=== PATIENT | female | born 1945 | race Caucasian/White ===

== ENCOUNTER 2022-11-27 06:39 | Outpatient (OUT) | payer MEDICARE, SELFPAY ==
[2022-11-27 06:48] LABS: Basophils Percent Auto 0.6 % (0.2-2.0); Eosinophils Absolute Auto 0.4 10^3/uL (0.0-0.7); Eosinophils Percent Auto 5.7 % (0.9-7.0); Hematocrit 41.4 % (36.0-48.0); Hemoglobin 13.7 g/dL (12.0-16.0); Immature Granulocytes Abs Auto 0.01 10^3/uL (0.00-0.03); Immature Granulocytes Pct Auto 0.1 % (0.0-0.5); Lymphocytes Absolute Auto 2.9 10^3/uL (1.2-3.8); Lymphocytes Percent Auto 42.7 % (20.5-60.0); Mean Corpuscular HGB Conc 33.1 g/dL (29.9-35.2); Mean Corpuscular Hemoglobin 30.2 pg (26.7-34.0); Mean Corpuscular Volume 91.2 fL (81.0-99.0); Mean Platelet Volume 9.2 fL (9.5-13.5); Monocytes Absolute Auto 0.6 10^3/uL (0.3-0.8); Neutrophils Absolute Auto 2.8 10^3/uL (1.4-6.5); Neutrophils Percent Auto 41.9 % (43.0-75.0); Platelet Count 341 10^3/uL (150-450); Red Blood Count 4.54 10^6/uL (4.20-5.40); Red Cell Distribution Width 13.9 % (11.0-15.0); White Blood Count 6.7 10^3/uL (4.0-11.0)
[2022-11-27 07:07] LABS: Estimated Average Glucose 114 mg/dL; Glycohemoglobin A1C 5.6 % (4.5-6.2)
[2022-11-27 07:20] LABS: Alanine Aminotransferase 25 U/L (14-59); Albumin Level 3.3 g/dL (3.4-5.0); Alkaline Phosphatase 54 U/L (46-116); Anion Gap 10.4; Aspartate Amino Transferase 17 U/L (15-37); Bilirubin Total 0.4 mg/dL (0.2-1.0); Calcium 8.5 mg/dL (8.5-10.1); Carbon Dioxide 29.3 mmol/L (21.0-32.0); Chloride 107 mmol/L (98-107); Chol HDL Ratio 3.4; Cholesterol 174 mg/dL (<=200); Estimated GFR (African America >60 (>=60); Estimated GFR (Non-African Ame >60 (>=60); Free T3 2.24 pg/mL (2.18-3.98); Globulin 3.2 g/dL; Glucose 93 mg/dL (74-106); HDL Cholesterol 51 mg/dL (40-60); LDL Cholesterol Calculated 98.2 mg/dL; Potassium 3.7 mmol/L (3.5-5.1); Sodium 143 mmol/L (136-145); Thyroid Stimulating Hormone 1.424 uIU/mL (0.358-3.740); Total Protein 6.5 g/dL (6.4-8.2); Triglycerides 124 mg/dL (<=150); VLDL CHOLESTEROL 24.8 mg/dL
[2022-11-28 12:08] LABS: Insulin 7.1 uIU/mL (2.6-24.9)
== END 2022-11-27 06:40 | disposition home or self-care (01) ==
LOC: LAB 06:40
PROVIDERS: PCP Family Medicine; Visit Provider Family Medicine
DX: R53.83 Other fatigue (principal); G47.00 Insomnia, unspecified; I10 Essential (primary) hypertension; E78.5 Hyperlipidemia, unspecified; R73.09 Other abnormal glucose; Z12.12 Encounter for screening for malignant neoplasm of rectum; D64.9 Anemia, unspecified; E55.9 Vitamin D deficiency, unspecified
CPT/HCPCS: 36415; 80053; 80061; 82306; 83036; 83525; 83540; 84436; 84443; 84481; 85025

== ENCOUNTER 2022-12-09 09:28 | Outpatient (OUT) | payer MEDICARE, SELFPAY ==
--- NOTE | 2022-12-09 09:34 | CT_ITS ---
[address] [address] Patient Name: EMANUEL WISE MRN: [id number] date: 1945 Sex: F Assigned Patient Location: CT Current Patient Location: CT Accession/Order Number: [id number] Exam Date: 12/09/2022 09:38 Report Date: 12/09/2022 15:27 At the request of: FELIX RAMOS Procedure: CT knee LT wo con EXAMINATION: CT knee LT wo con HISTORY: Knee Pain M25.569 , pain for several months, no known injury COMPARISON: No relevant comparison available. TECHNIQUE: Multi-planar CT images were created without and/or with IV contrast according to examination type. Dose reduction techniques were achieved by using automated exposure control and/or adjustment of mA and/or kV according to patient size and/or use of iterative reconstruction technique. 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 No appreciable hardware fracture or loosening. No bone fracture dislocation. SOFT TISSUES: No visible soft tissue swelling. EFFUSION: Small joint effusion. OTHER: Negative. CT/CT knee LT wo con IMPRESSION: 1. Prior left knee replacement without appreciable hardware failure or suspicious bone abnormality. 2. Small joint effusion. Electronically authenticated by: ANA NORRIS Date: 12/09/2022 15:27
[2022-12-09 16:04] LABS: Occult Blood Negative
== END 2022-12-09 09:29 | disposition home or self-care (01) ==
LOC: CT 09:28
PROVIDERS: PCP Family Medicine; Visit Provider Family Medicine
DX: M25.569 Pain in unspecified knee (principal); Z96.652 Presence of left artificial knee joint; M25.462 Effusion, left knee; Z12.12 Encounter for screening for malignant neoplasm of rectum
CPT/HCPCS: 73700; G0328

== ENCOUNTER 2023-02-15 07:49 | Outpatient (RCR) | payer MEDICARE, SELFPAY | END 2023-02-28 07:00 | disposition home or self-care (01) | LOC: PT 07:49 | PROVIDERS: PCP Family Medicine; Visit Provider Family Medicine | DX: M25.562 Pain in left knee (principal) | CPT/HCPCS: 97110; 97112; 97161 ==

== ENCOUNTER 2023-02-26 08:25 | Outpatient (OUT) | payer MEDICARE, SELFPAY ==
--- NOTE | 2023-02-26 08:50 | MM_ITS ---
Patient Name: EMANUEL WISE MR#: [id number] : 1945 Exam Date: 02/26/2023 Ordering Doctor: DR Oscar Gil . RADIOLOGY REPORT PROCEDURE: MM TOMOSYNTHESIS SCREENING BI COMPARISON: MG MAMM SCREEN 3D HERBER CAD, 02/19/2021. MG MAMM SCREEN HERBER W CAD, 02/19/2020. MG MAMM HERBER SCRN W CAD DIG, 01/20/2013. MG MAMM SCREEN 3D HERBER CAD, 02/25/2022. INDICATIONS: Screening Calculator Name NCI Breast Cancer Risk Assessment Tool 5 Year Breast Cancer Risk 1.40% Lifetime Breast Cancer Risk 2.90% Personal Breast Cancer No Personal Ovarian Cancer No Treatments None Family Cancers Sister with cervical cancer at age ~30; Mother with ovarian cancer at age ~60. LOCATION: [facility] BREAST COMPOSITION: Scattered areas fibroglandular density. FINDINGS: DIAGNOSTIC CATEGORY 2--BENIGN FINDING: RIGHT BREAST: No significant suspicious finding. No significant change has occurred. LEFT BREAST: No significant suspicious finding. Scattered benign-appearing lymph nodes are present. No significant change has occurred. RECOMMENDATIONS: ROUTINE MAMMOGRAM AND CLINICAL EVALUATION IN 12 MONTHS. PLEASE NOTE: A NORMAL MAMMOGRAM DOES NOT EXCLUDE THE POSSIBILITY OF BREAST CANCER. A CLINICALLY SUSPICIOUS PALPABLE LUMP SHOULD BE BIOPSIED. Dictated by: Gaurav Garcia M.D. on 02/26/2023 at 14:07 Approved by: Gaurav Garcia M.D. on 02/26/2023 at 14:10
== END 2023-02-26 08:26 | disposition home or self-care (01) ==
LOC: MAMMO 08:25
PROVIDERS: PCP Family Medicine; Visit Provider Family Medicine
DX: Z12.31 Encounter for screening mammogram for malignant neoplasm of breast (principal); Z80.8 Family history of malignant neoplasm of other organs or systems; Z80.41 Family history of malignant neoplasm of ovary
CPT/HCPCS: 77063; 77067

== ENCOUNTER 2023-03-01 09:01 | Outpatient (RCR) | payer OTHER, SELFPAY | END 2023-03-25 16:00 | disposition home or self-care (01) | LOC: PT 09:01 | PROVIDERS: PCP Family Medicine; Visit Provider Family Medicine | DX: M25.562 Pain in left knee (principal) | CPT/HCPCS: 97035; 97110; 97112 ==

== ENCOUNTER 2023-03-10 12:26 | Outpatient (OUT) | payer OTHER, SELFPAY ==
--- NOTE | 2023-03-10 | ECG_ITS ---
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
--- OUTSIDE RECORDS SUMMARY | 2023-03-10 12:30 | XMS_ITS | CCD ---
Author Name Unknown Address [address] [place] [address] Organization [facility] Care Team Providers Care Chief Cardiopulmonary Technologist Name Role Phone Felix Ramos Primary Care Provider RICHARD, DR WASHINGTON Admitting Unavailable RICHARD, DR WASHINGTON Attending Unavailable ZARATE, DR JUNE Maldonado Primary Care Unavailable RICHARD, DR WASHINGTON Consulting Unavailable RICHARD, DR WASHINGTON Admitting Unavailable RICHARD, DR WASHINGTON Attending Unavailable JOSHUA, DR JUNE Maldonado Primary Care Unavailable RICHARD, DR WASHINGTON Consulting Unavailable ANGIER, DR EDVIN Roberts Consulting Unavailable RICHARD, DR WASHINGTON Admitting Unavailable RICHARD, DR WASHINGTON Attending Unavailable JOSHUA, DR JUNE Maldonado Primary Care Unavailable RICHARD, DR WASHINGTON Consulting Unavailable June Zarate Unavailable MD June Zarate Attending Provider [phone] June Zarate Attending Unavailable June Zarate Admitting Unavailable Felix Ramos MD Primary Care Provider [phone] [employer]HE FOREMAN Referring Unavailable FELIX RAMOS Primary Care Unavailable BLANCHE FOREMAN Referring Unavailable FELIX RAMOS Primary Care Unavailable MOHINDER LEHMAN Attending Unavailable MOHINDER LEHMAN Admitting Unavailable Allergies Allergy Classification Reported Allergen(s) Allergy Type Date of Onset Reaction(s) Facility (7 sources) Acetaminophen Drug Allergy 0 Shortness Of Breath [place], [place] (1 source) Acetaminophen Drug Allergy 5 [facility] Repository Medications Current Medications Medication Drug Class(es) Dates Sig (Normalized) Sig (Original) cetirizine hydrochloride 10 mg oral tablet (4 sources) Histamine-1 Receptor Antagonist take 1 tablet by mouth once daily cetirizine (ZYRTEC) 10 MG tablet Take 10 mg by mouth daily 0 Active levothyroxine sodium 0.05 mg oral tablet (2 sources) l-Thyroxine take 1 tablet by mouth once daily in the morning Levothyroxine Sodium 50 MCG 1 tablet in the morning on an empty stomach Orally Once a day Active liothyronine sodium 0.005 mg oral tablet (2 sources) l-Triiodothyronine take 1 tablet by mouth every twenty-four hours Liothyronine Sodium 5 MCG 1 tablet on an empty stomach Orally Once a day Active lisinopril 10 mg oral tablet (6 sources) Angiotensin Converting Enzyme Inhibitor Start: 01-27-2020 take 1 tablet by mouth once daily lisinopril (PRINIVIL;ZESTRIL) 10 MG tablet TAKE 1 TABLET BY MOUTH EVERY DAY 0 01/27/2020 Active meloxicam 15 mg oral tablet (6 sources) Nonsteroidal Anti-inflammatory Drug Start: 01-28-2020 take 1 tablet by mouth once daily meloxicam (MOBIC) 15 MG tablet TAKE 1 TABLET BY MOUTH EVERY DAY 0 01/28/2020 Active omeprazole 20 mg delayed release oral capsule (6 sources) Proton Pump Inhibitor Start: 01-11-2020 take 1 capsule by mouth once daily omeprazole (PRILOSEC) 20 MG delayed release capsule TAKE 1 CAPSULE BY MOUTH EVERY DAY 0 01/11/2020 Active simvastatin 40 mg oral tablet (6 sources) HMG-CoA Reductase Inhibitor Start: 01-21-2020 take 1 tablet by mouth once daily simvastatin (ZOCOR) 40 MG tablet TAKE 1 TABLET BY MOUTH EVERY DAY 0 01/21/2020 Active Problems Problem Classification Problem Date Documented Da te Episodic/Chronic Congestive heart failure; nonhypertensive (1 source) Unspecified diastolic (congestive) heart failure; Translations: [UNSPECIFIED DIASTOLIC HEART FAILURE] Onset: 05-09-2021 Chronic Diabetes mellitus without complication (1 source) Type 2 diabetes mellitus without complications; Translations: [TYPE 2 DM WITHOUT COMPLICATIONS] Onset: 01-29-2022 Chronic Diabetes mellitus without complication (1 source) Other abnormal glucose; Translations: [OTHER ABNORMAL GLUCOSE] Onset: 01-29-2022 Episodic Disorders of lipid metabolism (4 sources) Hyperlipidemia, unspecified; Translations: [HYPERLIPIDEMIA UNSPECIFIED] Onset: 01-20-2022 Chronic Essential hypertension (1 source) Essential (primary) hypertension; Translations: [ESSENTIAL PRIMARY HYPERTENSION] Onset: 01-29-2022 Chronic Hypertension with complications and secondary hypertension (1 source) Hypertensive heart disease with heart failure; Translations: [HTN HEART DISEASE W/HEART FAIL] Onset: 05-09-2021 Chronic Inflammatory diseases of female pelvic organs (3 sources) Subacute vaginitis; Translations: [Subacute and chronic vaginitis] Episodic Menopausal disorders (1 source) Other primary ovarian failure; Translations: [OTHER PRIMARY OVARIAN FAILURE] Onset: 02-28-2022 Chronic Nutritional deficiencies (1 source) Vitamin D deficiency, unspecified; Translations: [VITAMIN D DEFICIENCY UNSPECIFIED] Onset: 01-29-2022 Chronic Other aftercare (1 source) Other emt intermediate (current) drug therapy; Translations: [OTH SKILLED NURSING CURRENT DRUG THERAPY] Onset: 01-29-2022 Episodic Other bone disease and musculoskeletal deformities (4 sources) Other specified disorders of bone density and structure, unspecified site; Translations: [OTH D/O BONE DEN STRUCT UNS SITE] Onset: 02-25-2022 Episodic Other connective tissue disease (2 sources) History of revision of left total knee arthroplasty; Translations: [Presence of left artificial knee joint] Onset: 10-20-2022 10-20-2022 Chronic Other connective tissue disease (2 sources) History of total knee arthroplasty; Translations: [Presence of right artificial knee joint] Onset: 10-20-2022 10-20-2022 Chronic Other non-traumatic joint disorders (2 sources) Knee pain; Translations: [Knee pain, unspecified chronicity, unspecified laterality] Episodic Other non-traumatic joint disorders (3 sources) Pain in right knee; Translations: [Other acute pain] Onset: 10-20-2022 Episodic Other non-traumatic joint disorders (1 source) Pain in left knee; Translations: [Pain in left knee] Onset: 10-20-2022 Episodic Other screening for suspected conditions (not mental disorders or infectious disease) (2 sources) Encounter for screening mammogram for malignant neoplasm of breast; Translations: [Encounter for screening for malignant neoplasm of colon] Onset: 01-29-2022 Episodic Residual codes; unclassified (1 source) Family history of malignant neoplasm of ovary; Translations: [FAM HX MALIGNANT NEOPLASM OVARY] Onset: 02-28-2022 Episodic Residual codes; unclassified (1 source) Family history of malignant neoplasm of other organs or systems; Translations: [FAM HX MALIG NEOPLASM OTH ORGN/SYS] Onset: 02-28-2022 Episodic Thyroid disorders (5 sources) Hypothyroidism, unspecified; Translations: [HYPOTHYROIDISM UNSPECIFIED] Onset: 05-08-2021 Chronic Unclassified (1 source) Subacute and chronic vaginitis; Translations: [Subacute and chronic vaginitis] Onset: 06-10-2022 Unclassified (2 sources) M19.011 RIGHT SHOULDER OSTEOARTHRITIS, M75.121 COMPLETE TEAR OF RIGHT ROTATOR CUFF Onset: 03-03-2023 Results Test Name Value Interpretation Reference Range Facility XR KNEE LEFT (MIN 4 VIEWS)on 10-20-2022 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 [facility] EXAM: XR KNEE LEFT (MIN 4 VIEWS) HISTORY: Acute pain of both knees COMPARISON: None. 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 No acute fracture or dislocation. Mild soft tissue swelling. Report electronically signed by: Dr. Manuel Saxena [facility] Manuel Saxena MD - 10/20/2022 EXAM: XR KNEE LEFT (MIN 4 VIEWS) HISTORY: Acute pain of both knees COMPARISON: None. 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 No acute fracture or dislocation. Mild soft tissue swelling. Report electronically signed by: Dr. 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 [facility] Work Phone: XR KNEE LEFT (MIN 4 VIEWS) RADRPT EXAM: XR KNEE LEFT (MIN 4 VIEWS) HISTORY: Acute pain of both knees COMPARISON: None. 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 No acute fracture or dislocation. Mild soft tissue swelling. Report electronically signed by: Dr. 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 Interpreted by: Manuel Saxena MD Signed by: Manuel Saxena MD 10/20/22 Final result Normal [facility] Radiology Study observation (narrative) [facility] Work Phone: XR KNEE LEFT (MIN 4 VIEWS)Or dered By: Manuel Saxena on 10-20-2022 [facility] Work Phone: XR KNEE RIGHT (MIN 4 VIEWS)o n 10-20-2022 No acute findings. Intact prosthesis. [facility] EXAM: XR KNEE RIGHT (MIN 4 VIEWS) HISTORY: Acute pain of both knees COMPARISON: 02/07/2020 TECHNIQUE: 4 views of right knee were obtained FINDINGS: There is no evidence of fracture or dislocation. Prosthetic knee is seen in proper alignment without evidence of loosening. No evidence to suggest a joint effusion. Visualized soft tissues appear unremarkable. Report electronically signed by: Dr. Melisa Jiang [facility] Melisa Jiang MD - 10/20/2022 EXAM: XR KNEE RIGHT (MIN 4 VIEWS) HISTORY: Acute pain of both knees COMPARISON: 02/07/2020 TECHNIQUE: 4 views of right knee were obtained FINDINGS: There is no evidence of fracture or dislocation. Prosthetic knee is seen in proper alignment without evidence of loosening. No evidence to suggest a joint effusion. Visualized soft tissues appear unremarkable. Report electronically signed by: Dr. Melisa Jiang IMPRESSION: No acute findings. Intact prosthesis. [facility] Work Phone: XR KNEE RIGHT (MIN 4 VIEWS) RADRPT EXAM: XR KNEE RIGHT (MIN 4 VIEWS) HISTORY: Acute pain of both knees COMPARISON: 02/07/2020 TECHNIQUE: 4 views of right knee were obtained FINDINGS: There is no evidence of fracture or dislocation. Prosthetic knee is seen in proper alignment without evidence of loosening. No evidence to suggest a joint effusion. Visualized soft tissues appear unremarkable. Report electronically signed by: Dr. Melisa Jiang IMPRESSION: No acute findings. Intact prosthesis. Interpreted by: Melisa Jiang MD Signed by: Melisa Jiang MD 10/20/22 Final result Normal [facility] Radiology Study observation (narrative) [facility] Work Phone: XR KNEE RIGHT (MIN 4 VIEWS)O rdered By: Melisa Jiang on 10-20-2022 [facility] Work Phone: [facility]2022 [facility] Normal [facility] Comment on above: Order Comment: [facility] Test Name: VAGINITIS/VAGINOSIS DNA PROBE # [id number] Result Comment: See report. Scanned copy available in EMR. PERFORMED BY: [place] [address] PATHOLOGIST INTERACTIVE PROJECT MANAGER MEGHAN ESPINO M.D. Performed By: #### [facility] #### [place] [id number] [facility] MG MAMM SCREEN 3D HERBER CADon 02-25-2022 MG MAMM SCREEN 3D HERBER CAD Patient: EMANUEL WISE Exam Date: 02/25/2022 : 1945 Gender:F Ordering : DR FELIX RAMOS . Admission #: [id number] Family : Order #: [id number] CLICK HERE TO VIEW EXAM RADIOLOGY REPORT PROCEDURE: MAMMOGRAM SCREENING 3D BILATERAL CAD COMPARISON: MG MAMM SCREEN 3D HERBER CAD, 02/19/2021. MG MAMM SCREEN HERBER W CAD, 02/19/2020. INDICATIONS: Screening mammography Calculator Name NCI Breast Cancer Risk Assessment Tool 5 Year Breast Cancer Risk 1.40% Lifetime Breast Cancer Risk 3.10% Personal Breast Cancer No Personal Ovarian Cancer No Treatments None Family Cancers Sister with cervical cancer at age 30; Mother with ovarian cancer at age 60. LOCATION: [facility] BREAST COMPOSITION: Scattered areas fibroglandular density. FINDINGS: DIAGNOSTIC CATEGORY 2--BENIGN FINDING. NO CHANGE FROM COMPARISON. Scattered benign-appearing nodules are present. Scattered benign-appearing calcifications are present. Scattered benign-appearing lymph nodes are present. RIGHT BREAST: No significant suspicious finding. LEFT BREAST: No significant suspicious finding. RECOMMENDATIONS: ROUTINE MAMMOGRAM AND CLINICAL EVALUATION IN 12 MONTHS. PLEASE NOTE: A NORMAL MAMMOGRAM DOES NOT EXCLUDE THE POSSIBILITY OF BREAST CANCER. A CLINICALLY SUSPICIOUS PALPABLE LUMP SHOULD BE BIOPSIED. Dictated by: Edvin Su MD on 02/26/2022 at 11:38 Approved by: Edvin Su MD on 02/26/2022 at 11:40 Normal [facility] XR DEXA BONE DENSITYon 02-25 XR DEXA BONE DENSITY EXAMINATION: XR DEXA BONE DENSITY, 02/25/2022 1:26 PM EST HISTORY: Primary ovarian failure COMPARISON: 2019, 2015, 2010 TECHNIQUE: Dual-energy X-ray absorptiometry (DEXA) bone density study performed for the axial skeleton. FINDINGS: Bone mineral density AP spine L1-L4 measures 1.339 g/sq cm. T score 1.3. WHO classification: Normal. Bone mineral density is lowest in the left femoral neck measuring 0.911 g/sq cm. T score -0.9. WHO classification: Normal IMPRESSION: Normal bone mineral density. Low fracture risk Electronically authenticated by: EDVIN SU Date: 2022-02-25 16:21 Normal [facility] INSULINon 01-21-2022 Insulin 6.3 uIU/mL Normal 2.6-24.9 [facility] Comment on above: Performed By: #### V ITAD, IRON #### [facility] [address] [place] [address] Dr. Gabby Briones BILIRUBIN CONJUGATED (DIRECT )on 01-20-2022 BILI, CONJUGATED 0.1 mg/dL Normal 0.0-0.2 [facility] Comment on above: Performed By: #### T SH, DBIL, CMP, LIPID, FT3, T4 #### [facility] [address] [place] [address] Dr. Gabby Briones CBC AUTO DIFFon 01-20-2022 BASO # 0.0 103/ul Normal 0.0-0.1 [facility] Comment on above: Performed By: #### V ITAD, IRON #### [facility] [address] [place] [address] Dr. Gabby Briones Basophils/100 WBC (Bld) 0.6 % Normal 0.2-2.0 [facility] Comment on above: Performed By: #### V ITAD, IRON #### [facility] [address] [place] [address] Dr. Gabby Briones EO # 0.4 103/ul Normal 0.0-0.7 [facility] Comment on above: Performed By: #### V ITAD, IRON #### [facility] [address] [place] [address] Dr. Gabby Briones Eosinophils/100 WBC (Bld) 6.0 % Normal 0.9-7.0 [facility] Comment on above: Performed By: #### V ITAD, IRON #### [facility] [address] [place] [address] Dr. Gabby Briones Erythrocyte distribution width (RBC) [Ratio] 13.7 % Normal 11.0-15.0 [facility] Comment on above: Performed By: #### V ITAD, IRON #### [facility] [address] [place] [address] Dr. Gabby Briones Hematocrit (Bld) [Volume fraction] 41.9 % Normal 36.0-48.0 [facility] Comment on above: Performed By: #### V ITAD, IRON #### [facility] [address] [place] [address] Dr. Gabby Briones Hemoglobin (Bld) [Mass/Vol] 14.0 g/dL Normal 12.0-16.0 [facility] Comment on above: Performed By: #### V ITAD, IRON #### [facility] [address] [place] [address] Dr. Gabby Briones IG # 0.02 10e3/ul Normal 0.00-0.03 [facility] Comment on above: Performed By: #### V ITAD, IRON #### [facility] [address] [place] [address] Dr. Gabby Briones IG % 0.3 % Normal 0.0-0.5 [facility] Comment on above: Performed By: #### V ITAD, IRON #### [facility] [address] [place] [address] Dr. Gabby Briones LYMPH # 2.6 103/ul Normal 1.2-3.8 [facility] Comment on above: Performed By: #### V ITAD, IRON #### [facility] [address] [place] [address] Dr. Gabby Briones Lymphocytes/100 WBC (Bld) 39.7 % Normal 20.5-60.0 [facility] Comment on above: Performed By: #### V ITAD, IRON #### [facility] [address] [place] [address] Dr. Gabby Briones MANUAL DIFF REQ NO Normal [facility] Comment on above: Performed By: #### V ITAD, IRON #### [facility] [address] [place] [address] Dr. Gabby Briones MCH (RBC) [Entitic mass] 29.6 pg Normal 26.7-34.0 [facility] Comment on above: Performed By: #### V ITAD, IRON #### [facility] [address] [place] [address] Dr. Gabby Briones MCHC (RBC) [Mass/Vol] 33.4 g/dL Normal 29.9-35.2 [facility] Comment on above: Performed By: #### V ITAD, IRON #### [facility] [address] [place] [address] Dr. Gabby Briones MCV (RBC) [Entitic vol] 88.6 fL Normal 81.0-99.0 [facility] Comment on above: Performed By: #### V ITAD, IRON #### [facility] [address] [place] [address] Dr. Gabby Briones MONO # 0.6 103/ul Normal 0.3-0.8 [facility] Comment on above: Performed By: #### V ITAD, IRON #### [facility] [address] [place] [address] Dr. Gabby Briones Monocytes/100 WBC (Bld) 8.8 % Normal 1.7-12.0 [facility] Comment on above: Performed By: #### V ITAD, IRON #### [facility] [address] [place] [address] Dr. Gabby Briones NEUT # 2.9 103/ul Normal 1.4-6.5 [facility] Comment on above: Performed By: #### V ITAD, IRON #### [facility] [address] [place] [address] Dr. Gabby Briones Neutrophils/100 WBC (Bld) 44.6 % Normal 43.0-75.0 [facility] Comment on above: Performed By: #### V ITAD, IRON #### [facility] [address] [place] [address] Dr. Gabby Briones Platelet mean volume (Bld) [Entitic vol] 9.4 fL Critically low 9.5-13.5 [facility] Comment on above: Performed By: #### V ITAD, IRON #### [facility] [address] [address] [address] Gabby Briones PLT 326 103/ul Normal 150-450 [facility] Comment on above: Performed By: #### V ITAD, IRON #### [facility] [address] [place] [address] [address] Gabby Briones RBC 4.73 106/ul Normal 4.20-5.40 [facility] Comment on above: Performed By: #### V ITAD, IRON #### [facility] [address] [address] [address] Gabby Briones WBC 6.5 103/ul Normal 4.0-11.0 [facility] Comment on above: Performed By: #### V ITAD, IRON #### [facility] [address] [place] [address] Dr. Gabby Briones FREE T3on 01-20-2022 FREE T3 2.47 pg/mlL Normal 2.18-3.98 [facility] Comment on above: Performed By: #### T SH, DBIL, CMP, LIPID, FT3, T4 #### [facility] [address] [address] [address] Gabby Briones GLYCOHEMOGLOBIN A1Con 2021 ADA RECOMMENDATION SEE BELOW Normal [facility] Comment on above: Result Comment: ADA RECOMMENDED LIMIT 4.0 - 6.0 ADA THERAPEUTIC TARGET < 7.0 ACTION SUGGESTED > 7.0 Performed By: #### V ITAD, IRON #### [facility] [address] [address] [address] Gabby Briones Glucose [Mass/Vol] 111 mg/dL Normal [facility] Comment on above: Performed By: #### V ITAD, IRON #### [facility] [address] [place] [address] Dr. Gabby Briones HbA1c (Bld) [Mass fraction] 5.5 % Normal 4.5-6.2 [facility] Comment on above: Performed By: #### V ITAD, IRON #### [facility] [address] [address] [address] Gabby Briones IRONon 01-20-2022 Iron [Mass/Vol] 92.0 ug/dL Normal 50.0-170.0 [facility] Comment on above: Performed By: #### V ITAD, IRON #### [facility] [address] [place] [address] Dr. Gabby Briones LIPID PROFILEon 01-20-2022 CHOL-HDL RATIO NORM SEE BELOW Normal [facility] Comment on above: Result Comment: 3.3 - 4.4 LOW RISK 4.4 - 7.1 AVERAGE RISK 7.1 - 11.0 MODERATE RISK >11.0 HIGH RISK Performed By: #### T SH, DBIL, CMP, LIPID, FT3, T4 #### [facility] [address] [place] [address] Dr. Gabby Briones Cholesterol [Mass/Vol] 183 mg/dL Normal <=200 [facility] Comment on above: Performed By: #### T SH, DBIL, CMP, LIPID, FT3, T4 #### [facility] [address] [place] [address] Dr. Gabby Briones Cholesterol in HDL [Mass/Vol] 56 mg/dL Normal 40-60 [facility] Comment on above: Performed By: #### T SH, DBIL, CMP, LIPID, FT3, T4 #### [facility] [address] [place] [address] Dr. Gabby Briones Cholesterol in LDL [Mass/Vol] 102.8 mg/dL Normal [facility] Comment on above: Performed By: #### T SH, DBIL, CMP, LIPID, FT3, T4 #### [facility] [address] [address] [address] Gabby Briones Cholesterol.total/Ch olesterol in HDL [Mass ratio] 3.3 {ratio} Normal [facility] Comment on above: Performed By: #### T SH, DBIL, CMP, LIPID, FT3, T4 #### [facility] [address] [place] [address] Dr. Gabby Briones HDL NORMAL > or = 60 mg/dl - LOW CARDIOVASCULAR RISK <40 mg/dl - HIGH CARDIOVASCULAR RISK Normal [facility] Comment on above: Performed By: #### T SH, DBIL, CMP, LIPID, FT3, T4 #### [facility] [address] [address] [address] Gabby Briones LDL CALC NORMAL SEE BELOW Normal [facility] Comment on above: Result Comment: <100 mg/dl OPTIMAL 100 - 129 mg/dl NEAR OR ABOVE OPTIMAL 130 - 159 mg/dl BORDERLINE HIGH 160 - 189 mg/dl HIGH >190 mg/dl VERY HIGH Performed By: #### T SH, DBIL, CMP, LIPID, FT3, T4 #### [facility] [address] [address] [address] Gabby Briones Triglyceride [Mass/Vol] 121 mg/dL Normal <=150 [facility] Comment on above: Performed By: #### T SH, DBIL, CMP, LIPID, FT3, T4 #### [facility] [address] [place] [address] Dr. Gabby Briones VLDL CALC 24.2 mg/dL Normal [facility] Comment on above: Performed By: #### T SH, DBIL, CMP, LIPID, FT3, T4 #### [facility] [address] [place] [address] Dr. Gabby Briones PROF 14(COMP METB)on 022 Albumin [Mass/Vol] 3.4 g/dL Normal 3.4-5.0 [facility] Comment on above: Performed By: #### T SH, DBIL, CMP, LIPID, FT3, T4 #### [facility] [address] [place] [address] Dr. Gabby Briones Albumin/Globulin [Mass ratio] 1.0 {ratio} Normal [facility] Comment on above: Performed By: #### T SH, DBIL, CMP, LIPID, FT3, T4 #### [facility] [address] [place] [address] Dr. Gabby Briones ALP [Catalytic activity/Vol] 50 U/L Normal 46-116 [facility] Comment on above: Performed By: #### T SH, DBIL, CMP, LIPID, FT3, T4 #### [facility] [address] [place] [address] Dr. Gabby Briones ALT [Catalytic activity/Vol] 17 U/L Normal 14-59 [facility] Comment on above: Performed By: #### T SH, DBIL, CMP, LIPID, FT3, T4 #### [facility] [address] [place] [address] Dr. Gabby Briones Anion gap [Moles/Vol] 13.7 mmol/L Normal [facility] Comment on above: Performed By: #### T SH, DBIL, CMP, LIPID, FT3, T4 #### [facility] [address] [place] [address] Dr. Gabby Briones AST [Catalytic activity/Vol] 13 U/L Critically low 15-37 [facility] Comment on above: Performed By: #### T SH, DBIL, CMP, LIPID, FT3, T4 #### [facility] [address] [place] [address] Dr. Gabby Briones Bilirubin [Mass/Vol] 0.4 mg/dL Normal 0.2-1.0 [facility] Comment on above: Performed By: #### T SH, DBIL, CMP, LIPID, FT3, T4 #### [facility] [address] [place] [address] Dr. Gabby Briones Calcium [Mass/Vol] 9.1 mg/dL Normal 8.5-10.1 [facility] Comment on above: Performed By: #### T SH, DBIL, CMP, LIPID, FT3, T4 #### [facility] [address] [place] [address] Dr. Gabby Briones Chloride [Moles/Vol] 106 mmol/L Normal 98-107 [facility] Comment on above: Performed By: #### T SH, DBIL, CMP, LIPID, FT3, T4 #### [facility] [address] [place] [address] Dr. Gabby Briones CO2 [Moles/Vol] 25.8 mmol/L Normal 21.0-32.0 [facility] Comment on above: Performed By: #### T SH, DBIL, CMP, LIPID, FT3, T4 #### [facility] [address] [place] [address] Dr. Gabby Briones Creatinine [Mass/Vol] 0.76 mg/dL Normal 0.55-1.02 [facility] Comment on above: Performed By: #### T SH, DBIL, CMP, LIPID, FT3, T4 #### [facility] [address] [place] [address] Dr. Gabby Briones EGFR-AF MALDIVIAN >60 Normal >=60 [facility] Comment on above: Performed By: #### T SH, DBIL, CMP, LIPID, FT3, T4 #### [facility] [address] [place] [address] Dr. Gabby Briones EGFR-NON AF MALDIVIAN >60 Normal >=60 [facility] Comment on above: Performed By: #### T SH, DBIL, CMP, LIPID, FT3, T4 #### [facility] [address] [place] [address] Dr. Gabby Briones Globulin (S) [Mass/Vol] 3.5 g/dL Normal [facility] Comment on above: Performed By: #### T SH, DBIL, CMP, LIPID, FT3, T4 #### [facility] [address] [place] [address] Dr. Gabby Briones Glucose [Mass/Vol] 101 mg/dL Normal 74-106 [facility] Comment on above: Performed By: #### T SH, DBIL, CMP, LIPID, FT3, T4 #### [facility] [address] [place] [address] Dr. Gabby Briones Potassium [Moles/Vol] 4.5 mmol/L Normal 3.5-5.1 [facility] Comment on above: Performed By: #### T SH, DBIL, CMP, LIPID, FT3, T4 #### [facility] [address] [place] [address] Dr. Gabby Briones Protein [Mass/Vol] 6.9 g/dL Normal 6.4-8.2 [facility] Comment on above: Performed By: #### T SH, DBIL, CMP, LIPID, FT3, T4 #### [facility] [address] [address] [address] Gabby Briones Sodium [Moles/Vol] 141 mmol/L Normal 136-145 [facility] Comment on above: Performed By: #### T SH, DBIL, CMP, LIPID, FT3, T4 #### [facility] [address] [place] [address] Dr. Gabby Briones Urea nitrogen [Mass/Vol] 22.0 mg/dL Critically high 7.0-18.0 [facility] Comment on above: Performed By: #### T SH, DBIL, CMP, LIPID, FT3, T4 #### [facility] [address] [place] [address] Dr. Gabby Briones Urea nitrogen/Creatinine [Mass ratio] 28.9 mg/mg Normal [facility] Comment on above: Performed By: #### T SH, DBIL, CMP, LIPID, FT3, T4 #### [facility] [address] [place] [address] Dr. Gabby Briones T4on 01-20-2022 T4 [Mass/Vol] 7.30 ug/dL Normal 4.80-13.90 [facility] Comment on above: Performed By: #### T SH, DBIL, CMP, LIPID, FT3, T4 #### [facility] [address] [place] [address] Dr. Gabby Briones TSHon 01-20-2022 TSH 0.467 uIU/mL Normal 0.358-3.740 [facility] Comment on above: Performed By: #### T SH, DBIL, CMP, LIPID, FT3, T4 #### [facility] [address] [place] [address] Dr. Gabby Briones VITAMIN D 25 OHon 01-20-2022 VIT D 25-OH 34.9 ng/mL Normal [facility] Comment on above: Performed By: #### V ITAD, IRON #### [facility] [address] [place] [address] Dr. Gabby Briones VIT D RANGES SEE BELOW Normal [facility] Comment on above: Result Comment: <20 ng/mL Vit D deficient 20 - <30 ng/mL Vit D insufficient 30 - 100 ng/mL Vit D sufficient >100 ng/mL Potential Toxicity Performed By: #### V ITDYLAN, IRON #### [facility] [address] [place] [address] Dr. Gabby Briones BNPon 05-08-2021 Natriuretic peptide B (Bld) [Mass/Vol] 125.0 pg/mL Normal <=1,800.0 [facility] Comment on above: Performed By: #### V ITAD, IRON #### [facility] [address] [place] [address] Dr. Gabby Briones FREE THYROXINE INDEX T7on FTI 2.21 Normal [facility] Comment on above: Performed By: #### V ITAD, IRON #### [facility] [address] [place] [address] Dr. Gabby Briones T3U 34.0 % Normal 23.5-40.5 [facility] Comment on above: Performed By: #### V ITAD, IRON #### [facility] [address] [place] [address] Dr. Gabby Briones T4 [Mass/Vol] 6.50 ug/dL Normal 5.53-11.00 [facility] Comment on above: Performed By: #### V ITAD, IRON #### [facility] [address] [place] [address] Dr. Gabby Briones TSHon 05-08-2021 TSH 0.658 uIU/mL Normal 0.470-4.680 [facility] Comment on above: Performed By: #### V ITAD, IRON #### [facility] [address] [place] [address] Dr. Gabby Briones TSH RANGE SEE BELOW Normal [facility] Comment on above: Result Comment: <0.3 4 UIU/ml HYPERTHYROID 0.34-5.60 UIU/ml EUTHYROID >5.60 UIU/ml HYPOTHYROID Performed By: #### V ITAD, IRON #### [facility] [address] [place] [address] Dr. Gabby Briones Otheron 02-07-2020 1. 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 No hardware complications identified. 2. Small dystrophic ossific densities are again seen posterior to both knee joints. 3. Small enthesophytes along the anterior-superior and anterior-inferior right patella are again noted. 4. No fracture or dislocation is identified. [place], [place] BILATERAL KNEE RADIOGRAPHS 02/07/2020. COMPARISON: Knee radiographs dated 01/13/2018. HISTORY: Knee pain, unspecified chronicity, unspecified laterality. TECHNIQUE: Standing frontal, tunnel, lateral, and sunrise views of both knees were obtained. Report electronically signed by: Dr. Kaz Govea [place], [place], Incoming Radiant Results From [facility] - 02/07/2020 2:54 PM EST BILATERAL KNEE RADIOGRAPHS 02/07/2020. COMPARISON: Knee radiographs dated 01/13/2018. HISTORY: Knee pain, unspecified chronicity, unspecified laterality. TECHNIQUE: Standing frontal, tunnel, lateral, and sunrise views of both knees were obtained. Report electronically signed by: Dr. Kaz Govea IMPRESSION: 1. 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 No hardware complications identified. 2. Small dystrophic ossific densities are again seen posterior to both knee joints. 3. Small enthesophytes along the anterior-superior and anterior-inferior right patella are again noted. 4. No fracture or dislocation is identified. [place], [place] Vital Signs Date Time Vital Sign Value Performing Clinician Facility 06-10-2022 10:00-0400 Body height 143.51 cm June Zarate Other [facility] Other 06-10-2022 10:00-0400 Body mass index (BMI) [Ratio] 41.84 kg/m2 June Zarate Other [facility] Other 06-10-2022 10:00-0400 Body weight 86.18 kg June Zarate Other [facility] Other 06-10-2022 10:00-0400 Diastolic blood pressure 78 mm[Hg] June Zarate Other [facility] Other 06-10-2022 10:00-0400 SaO2% (BldA) [Mass fraction] 92 % June Zarate Other [facility] Other 06-10-2022 10:00-0400 Systolic blood pressure 140 mm[Hg] June Zarate Other [facility] Other Encounters Encounter Date Encounter Type Care Provider Facility Start: 03-03-2023 ambulatory [facility] Start: 10-20-2022 ambulatory [facility] Start: 10-20-2022 End: 10-22-2022 Subsequent hospital visit by physician [facility] Xray Room [facility] Rad[facility] Comment on above: Acute pain of both k nees Start: 06-15-2022 End: 06-15-2022 ambulatory June Zarate Other [facility] Other Start: 06-15-2022 Telephone encounter June Zarate [facility] Start: 06-10-2022 Office outpatient vi sit 15 minutes June Zarate [facility] Start: 06-10-2022 End: 06-10-2022 ambulatory June Zarate [place] [facility] Other Start: 06-10-2022 End: 06-10-2022 Departed Referred MD June Zarate Work Phone: [facility] [place] Work Phone: Start: 02-25-2022 End: 02-26-[address] FELIX RAMOS Facility:[facility] Start: 01-20-2022 End: 01-21-[address] FELIX RAMOS Facility:[facility] Start: 05-08-2021 End: 05-09-[address] FELIX RAMOS Facility:[facility] Start: 02-07-2020 End: 02-09-2020 Subsequent hospital visit by physician [facility] Xray Room [facility] Radiology Comment on above: Knee pain, unspecifi ed chronicity, unspecified laterality Procedures Date Procedure Procedure Detail Performing Clinician Start: 10-20-2022 End: 10-20-2022 Radiologic exam knee complete 4/more views Blanche Foreman MD Work Phone: Start: 02-07-2020 End: 02-07-2020 Radiologic exam knee complete 4/more views Blanche Foreman Work Phone: Plan of Treatment Date Care Activity Detail Author Start: 09-29-2022 [facility] Start: 06-10-2022 [facility] Start: 01-18-2020 Shingles Vaccine (3 of 3) Shingles Vaccine (3 of 3) [place], [place] Start: 01-09-2020 Annual Wellness Visi t (AWV) Annual Wellness Visit (AWV) [facility] Start: 2001 Screening for osteoporosis DEXA (modify frequency per FRAX score) [facility] Start: 1996 Screening for malign ant neoplasm of breast Breast cancer screen [place], [place] Start: 1996 Screening for malign ant neoplasm of colon Colon cancer screen colonoscopy [place], [place] Start: 1965 DTaP/Tdap/Td vaccine (1 - Tdap) DTaP/Tdap/Td vaccine (1 - Tdap) [facility] Start: 1964 Hepatitis C screening Hepatitis C sc [facility] Start: 1958 Depression Screen Depression Screen [facility] Start: 1956 Lipid panel [facility] Start: 1946 Creatinine measurement Creatinine mo nitoring [place], [place] Start: 1946 Hepatitis C screening Hepatitis C sc salvador [place], [place] Start: 1946 Potassium monitoring Potassium monit oring [place] Payers Date Payer Category Payer Self-pay 1958 Medicare [id number] 1959 Unknown [id number] 1946 Unknown [id number] 2.16.84 [id number] 1946 Unknown [id number] 2.16.84 [id number] 1946 Unknown [id number] 2.16.84 [id number] 1946 Unknown [id number] 2.16.8 [id number] 1946 Unknown [id number] 2.16.8 [id number] Unknown [id number] 2.16.8 [id number] Social History Date Type Detail Facility Tobacco smoking status NHIS [facility] [place] Start: 1945 Sex Assigned At Not on file M [facility] [employer] Sex Assigned At Sex Assigned At Bir th [facility] Other Start: 1945 Sex Assigned At Female [facility] Tobacco smoking status PRIS Tobacco smoking consumption unknown [employer] Work Phone: Evaluation note 06-10-2022 Note Date & Type Note Facility 06-10-2022 Evaluation note Encounter Date Diagnosis Assessment Notes May, Subacute vaginitis (ICD-10 - N76.1) Suspect cystocele - gave name and numbers for can coverer (pt perfers female) in the area. Pt will call for appt. Will complete vag probe to r/o any yeast etc, as pt does note some itching. Pt states she will call the office for can coverer. [facility] Other Evaluation note Note Date & Type Note Facility Evaluation note No assessment information [facility] Work Phone: Evaluation note Note Date & Type Note Facility Evaluation note No Information [facility] [employer] Other Evaluation note Note Date & Type Note Facility Evaluation note Diagnosis Acute pain of both knees documented in this encounter [facility] Work Phone: History general Narrative - Reported Note Date & Type Note Facility History general Narrative - Reported Type Medical History Hypertention Medical History Hyperthyroidism Medical History Hyperlipidemia Surgical History THORACIC SPINE FUSION 2007 Surgical History BILATERAL KNEE REPLACEMENT 2007 Surgical History APPENDECTOMY 2009 Hospitalization History SEE SURGICAL HX [facility] [employer] Other Assessments Diagnosis Knee pain, unspecified chronicity, unspecified laterality Summary Purpose Family History No Family History Records FoundNo Family History Records FoundNo Family History Records FoundNo Family History Records Found Advance Directives No Advanced Directives Records FoundNo Advanced Directives Records FoundNo Advanced Directives Records FoundNo Advanced Directives Records Found Additional Source Comments INFORMATION SOURCE (unrecogn ized section and content) DATE CREATED AUTHOR 02/28/2022 [facility] DATE CREATED AUTHOR AUTHOR'S ORGANIZ ATION 06/20/2022 [facility] DATE CREATED AUTHOR AUTHOR'S ORGANIZ ATION 10/23/2022 [facility] DATE CREATED AUTHOR AUTHOR'S ORGANIZ ATION 03/04/2023 [facility] REASON FOR VISIT (unrecogniz ed section and content) Has Not Been Seen in Awhile- MEDICARE Wellnessvaginal cultures Care Teams (unrecognized sec tion and content) Team Status: Inactive Member Role Status Dates June Zarate MD Attending Provider Active Chief Cardiopulmonary Technologist Relationship Specialty Start Date End Date Felix Ramos MD [address] [place] [address] PCP - General Family Medicine 11/09/19 Goals (unrecognized section and content) Goals may be documented in a n alternate section FOR RECORDS PERTAINING TO PATIENTS WHO ARE OR HAVE BEEN ENROLLED IN A CHEMICAL DEPENDENCY/SUBSTANCEABUSE PROGRAM, SOME INFORMATION MAY BE OMITTED. This clinical summary was aggregated from multiple sources. Caution should be exercised in using it in the provision of clinical care. This summary normalizes information from multiple sources, and as a consequence, information in this document may materially change the coding, format and clinical context of patient data. In addition, data may be omitted in some cases. CLINICAL DECISIONS SHOULD BE BASED ON THE PRIMARY CLINICAL RECORDS. [employer] [facility]. provides no warranty or guarantee of the accuracy or completeness of information in this document.
== END 2023-03-10 12:27 | disposition home or self-care (01) ==
LOC: CARD 12:27
PROVIDERS: PCP Family Medicine; Visit Provider Family Medicine
DX: Z01.818 Encounter for other preprocedural examination (principal); N39.0 Urinary tract infection, site not specified; I10 Essential (primary) hypertension
CPT/HCPCS: 36415; 80053; 81003; 85025; 87086; 93005

== ENCOUNTER 2023-03-10 13:51 | Outpatient (OUT) | payer OTHER, SELFPAY ==
--- OUTSIDE RECORDS SUMMARY | 2023-03-10 13:56 | XMS_ITS | CCD ---
Author Name Unknown Address [address] [place] [address] Organization [facility] Care Team Providers Care Accounting Machine Servicer Name Role Phone Felix Ramos Primary Care Provider RICHARD, DR WASHINGTON Admitting Unavailable RICHARD, DR WASHINGTON Attending Unavailable ZARATE, DR JUNE Maldonado Primary Care Unavailable RICHARD, DR WASHINGTON Consulting Unavailable RICHARD, DR WASHINGTON Admitting Unavailable RICHARD, DR WASHINGTON Attending Unavailable JOSHUA, DR JUNE Maldonado Primary Care Unavailable RICHARD, DR WASHINGTON Consulting Unavailable MCNABB, DR EDVIN Roberts Consulting Unavailable RICHARD, DR WASHINGTON Admitting Unavailable RICHARD, DR WASHINGTON Attending Unavailable JOSHUA, DR JUNE Maldonado Primary Care Unavailable RICHARD, DR WASHINGTON Consulting Unavailable June Zarate Unavailable MD June Zarate Attending Provider June Zarate Attending Unavailable June Zarate Admitting Unavailable Felix Ramos MD Primary Care Provider [phone] BLANCHE FOREMAN Referring Unavailable FELIX RAMOS Primary Care Unavailable BLANCHE FOREMAN Referring Unavailable FELIX RAMOS Primary Care Unavailable MOHINDER LEHMAN Attending Unavailable MOHINDER LEHMAN Admitting Unavailable Allergies Allergy Classification Reported Allergen(s) Allergy Type Date of Onset Reaction(s) Facility (7 sources) Acetaminophen Drug Allergy 0 Shortness Of Breath [place], [place] (1 source) Acetaminophen Drug Allergy 5 [facility] Medications Current Medications Medication Drug [...] 01-29-2022 Chronic Other aftercare (1 source) Other yeast pumper (current) drug therapy; Translations: [OTH ALF CURRENT DRUG THERAPY] Onset: 01-29-2022 Episodic Other [...] total left knee replacement in anatomical position. [facility] EXAM: XR KNEE LEFT (MIN 4 VIEWS) HISTORY: Acute pain of both knees COMPARISON: None. 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 No acute fracture or dislocation. Mild soft tissue swelling. Report electronically signed by: Dr. Manuel Saxena [facility] Manuel Saxena MD - 10/20/2022 EXAM: XR KNEE LEFT (MIN 4 VIEWS) HISTORY: Acute pain of both knees COMPARISON: None. 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 No acute fracture or dislocation. Mild soft tissue swelling. Report electronically signed by: Dr. 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 [facility] Work Phone: XR KNEE LEFT (MIN 4 [...] Manuel Saxena MD 10/20/22 Final result Normal [facility] Radiology Study observation (narrative) [facility] Work Phone: XR KNEE LEFT (MIN 4 VIEWS)Or dered By: Manuel Saxena on 10-20-2022 [facility] Work Phone: XR KNEE RIGHT (MIN 4 VIEWS)o n 10-20-2022 No acute findings. Intact prosthesis. [facility] EXAM: XR KNEE RIGHT (MIN 4 VIEWS) HISTORY: Acute pain of both knees COMPARISON: 02/07/2020 TECHNIQUE: 4 views of right knee were obtained FINDINGS: There is no evidence of fracture or dislocation. Prosthetic knee is seen in proper alignment without evidence of loosening. No evidence to suggest a joint effusion. Visualized soft tissues appear unremarkable. Report electronically signed by: Dr. Melisa Jiang [facility] Melisa Jiang MD - 10/20/2022 EXAM: [...] Jiang IMPRESSION: No acute findings. Intact prosthesis. [facility] Work Phone: XR KNEE RIGHT (MIN 4 [...] Melisa Jiang MD 10/20/22 Final result Normal [facility] Radiology Study observation (narrative) [facility] Work Phone: XR KNEE RIGHT (MIN 4 VIEWS)O rdered By: Melisa Jiang on 10-20-2022 [facility] Work Phone: [facility] 06-10-2022 [facility] Normal [facility] Comment on above: Order Comment: [facility] Test Name: VAGINITIS/VAGINOSIS DNA PROBE # [id number] Result Comment: See report. Scanned copy available in EMR. PERFORMED BY: [place] [address] PATHOLOGIST BRAND MANAGER MEGHAN ESPINO M.D. Performed By: #### [facility] #### [place] [id number] [facility] MG MAMM SCREEN 3D HERBER CADon 02-25-2022 MG MAMM SCREEN 3D HERBER CAD Patient: EMANUEL WISE Exam Date: 02/25/2022 : 1945 Gender:F Ordering : DR FELIX RAMOS . Admission #: [id number] Family : Order #: [id number] CLICK HERE TO VIEW EXAM RADIOLOGY REPORT [...] with ovarian cancer at age 61. LOCATION: [facility] BREAST COMPOSITION: Scattered areas fibroglandular density. FINDINGS: [...] MD on 02/26/2022 at 11:40 Normal [facility] XR DEXA BONE DENSITYon 02-25 XR [...] EDVIN SU Date: 2022-02-25 16:21 Normal [facility] INSULINon 01-21-2022 Insulin 6.3 uIU/mL Normal 2.6-24.9 [facility] Comment on above: Performed By: #### V ITAD, IRON #### [facility] [address] [place] [address] Dr. Gabby Briones BILIRUBIN CONJUGATED (DIRECT )on 01-20-2022 BILI, CONJUGATED 0.1 mg/dL Normal 0.0-0.2 [facility] Comment on above: Performed By: #### T SH, DBIL, CMP, LIPID, FT3, T4 #### [facility] [address] [place] [address] Dr. Gabby Briones CBC AUTO DIFFon 01-20-2022 BASO # 0.0 103/ul Normal 0.0-0.1 [facility] Comment on above: Performed By: #### V ITAD, IRON #### [facility] [address] [place] [address] Dr. Gabby Briones Basophils/100 WBC (Bld) 0.6 % Normal 0.2-2.0 [facility] Comment on above: Performed By: #### V ITAD, IRON #### [facility] [address] [place] [address] Dr. Gabby Briones EO # 0.4 103/ul Normal 0.0-0.7 [facility] Comment on above: Performed By: #### V ITAD, IRON #### [facility] [address] [place] [address] Dr. Gabby Briones Eosinophils/100 WBC (Bld) 6.0 % Normal 0.9-7.0 [facility] Comment on above: Performed By: #### V ITAD, IRON #### [facility] [address] [place] [address] Dr. Gabby Briones Erythrocyte distribution width (RBC) [Ratio] 13.7 % Normal 11.0-15.0 [facility] Comment on above: Performed By: #### V ITAD, IRON #### [facility] [address] [place] [address] Dr. Gabby Briones Hematocrit (Bld) [Volume fraction] 41.9 % Normal 36.0-48.0 [facility] Comment on above: Performed By: #### V ITAD, IRON #### [facility] [address] [place] [address] Dr. Gabby Briones Hemoglobin (Bld) [Mass/Vol] 14.0 g/dL Normal 12.0-16.0 [facility] Comment on above: Performed By: #### V ITAD, IRON #### [facility] [address] [place] [address] Dr. Gabby Briones IG # 0.02 10e3/ul Normal 0.00-0.03 [facility] Comment on above: Performed By: #### V ITAD, IRON #### [facility] [address] [place] [address] Dr. Gabby Briones IG % 0.3 % Normal 0.0-0.5 [facility] Comment on above: Performed By: #### V ITAD, IRON #### [facility] [address] [place] [address] Dr. Gabby Briones LYMPH # 2.6 103/ul Normal 1.2-3.8 [facility] Comment on above: Performed By: #### V ITAD, IRON #### [facility] [address] [place] [address] Dr. Gabby Briones Lymphocytes/100 WBC (Bld) 39.7 % Normal 20.5-60.0 [facility] Comment on above: Performed By: #### V ITAD, IRON #### [facility] [address] [place] [address] Dr. Gabby Briones MANUAL DIFF REQ NO Normal [facility] Comment on above: Performed By: #### V ITAD, IRON #### [facility] [address] [place] [address] Dr. Gabby Briones MCH (RBC) [Entitic mass] 29.6 pg Normal 26.7-34.0 [facility] Comment on above: Performed By: #### V ITAD, IRON #### [facility] [address] [place] [address] Dr. Gabby Briones MCHC (RBC) [Mass/Vol] 33.4 g/dL Normal 29.9-35.2 [facility] Comment on above: Performed By: #### V ITAD, IRON #### [facility] [address] [place] [address] Dr. Gabby Briones MCV (RBC) [Entitic vol] 88.6 fL Normal 81.0-99.0 [facility] Comment on above: Performed By: #### V ITAD, IRON #### [facility] [address] [place] [address] Dr. Gabby Briones MONO # 0.6 103/ul Normal 0.3-0.8 [facility] Comment on above: Performed By: #### V ITAD, IRON #### [facility] [address] [place] [address] Dr. Gabby Briones Monocytes/100 WBC (Bld) 8.8 % Normal 1.7-12.0 [facility] Comment on above: Performed By: #### V ITAD, IRON #### [facility] [address] [place] [address] Dr. Gabby Briones NEUT # 2.9 103/ul Normal 1.4-6.5 [facility] Comment on above: Performed By: #### V ITAD, IRON #### [facility] [address] [place] [address] Dr. Gabby Briones Neutrophils/100 WBC (Bld) 44.6 % Normal 43.0-75.0 [facility] Comment on above: Performed By: #### V ITAD, IRON #### [facility] [address] [place] [address] Dr. Gabby Briones Platelet mean volume (Bld) [Entitic vol] 9.4 fL Critically low 9.5-13.5 [facility] Comment on above: Performed By: #### V ITAD, IRON #### [facility] [address] [place] [address] [address] Gabby Briones PLT 326 103/ul Normal 150-450 [facility] Comment on above: Performed By: #### V ITAD, IRON #### [facility] [address] [place] [address] [address] Gabby Briones RBC 4.73 106/ul Normal 4.20-5.40 [facility] Comment on above: Performed By: #### V ITAD, IRON #### [facility] [address] [place] [address] [address] Gabby Briones WBC 6.5 103/ul Normal 4.0-11.0 [facility] Comment on above: Performed By: #### V ITAD, IRON #### [facility] [address] [place] [address] Dr. Gabby Briones FREE T3on 01-20-2022 FREE T3 2.47 pg/mlL Normal 2.18-3.98 [facility] Comment on above: Performed By: #### T SH, DBIL, CMP, LIPID, FT3, T4 #### [facility] [address] [place] [address] [address] Gabby Briones GLYCOHEMOGLOBIN A1Con 2021 ADA RECOMMENDATION SEE BELOW Normal [facility] Comment on above: Result Comment: ADA RECOMMENDED LIMIT 4.0 - 6.0 ADA THERAPEUTIC TARGET < 7.0 ACTION SUGGESTED > 7.0 Performed By: #### V ITAD, IRON #### [facility] [address] [place] [address] [address] Gabby Briones Glucose [Mass/Vol] 111 mg/dL Normal [facility] Comment on above: Performed By: #### V ITAD, IRON #### [facility] [address] [place] [address] Dr. Gabby Briones HbA1c (Bld) [Mass fraction] 5.5 % Normal 4.5-6.2 [facility] Comment on above: Performed By: #### V ITAD, IRON #### [facility] [address] [place] [address] [address] Gabby Briones IRONon 01-20-2022 Iron [Mass/Vol] 92.0 ug/dL Normal 50.0-170.0 [facility] Comment on above: Performed By: #### V ITAD, IRON #### [facility] [address] [place] [address] Dr. Gabby Briones LIPID PROFILEon 01-20-2022 CHOL-HDL RATIO NORM SEE BELOW Normal [facility] Comment on above: Result Comment: 3.3 - 4.4 LOW RISK 4.4 - 7.1 AVERAGE RISK 7.1 - 11.0 MODERATE RISK >11.0 HIGH RISK Performed By: #### T SH, DBIL, CMP, LIPID, FT3, T4 #### [facility] [address] [place] [address] Dr. Gabby Briones Cholesterol [Mass/Vol] 183 mg/dL Normal <=200 [facility] Comment on above: Performed By: #### T SH, DBIL, CMP, LIPID, FT3, T4 #### [facility] [address] [place] [address] Dr. Gabby Briones Cholesterol in HDL [Mass/Vol] 56 mg/dL Normal 40-60 [facility] Comment on above: Performed By: #### T SH, DBIL, CMP, LIPID, FT3, T4 #### [facility] [address] [place] [address] Dr. Gabby Briones Cholesterol in LDL [Mass/Vol] 102.8 mg/dL Normal [facility] Comment on above: Performed By: #### T SH, DBIL, CMP, LIPID, FT3, T4 #### [facility] [address] [place] [address] [address] Gabby Briones Cholesterol.total/Ch olesterol in HDL [Mass ratio] 3.3 {ratio} Normal [facility] Comment on above: Performed By: #### T SH, DBIL, CMP, LIPID, FT3, T4 #### [facility] [address] [place] [address] Dr. Gabby Briones HDL NORMAL > or = 60 mg/dl - LOW CARDIOVASCULAR RISK <40 mg/dl - HIGH CARDIOVASCULAR RISK Normal [facility] Comment on above: Performed By: #### T SH, DBIL, CMP, LIPID, FT3, T4 #### [facility] [address] [address] [address] Gabby Briones LDL CALC NORMAL SEE BELOW Normal [facility] Comment on above: Result Comment: <100 mg/dl OPTIMAL 100 - 129 mg/dl NEAR OR ABOVE OPTIMAL 130 - 159 mg/dl BORDERLINE HIGH 160 - 189 mg/dl HIGH >190 mg/dl VERY HIGH Performed By: #### T SH, DBIL, CMP, LIPID, FT3, T4 #### [facility] [address] [address] [address] Gabby Briones Triglyceride [Mass/Vol] 121 mg/dL Normal <=150 [facility] Comment on above: Performed By: #### T SH, DBIL, CMP, LIPID, FT3, T4 #### [facility] [address] [place] [address] Dr. Gabby Briones VLDL CALC 24.2 mg/dL Normal [facility] Comment on above: Performed By: #### T SH, DBIL, CMP, LIPID, FT3, T4 #### [facility] [address] [place] [address] Dr. Gabby Briones PROF 14(COMP METB)on 022 Albumin [Mass/Vol] 3.4 g/dL Normal 3.4-5.0 [facility] Comment on above: Performed By: #### T SH, DBIL, CMP, LIPID, FT3, T4 #### [facility] [address] [place] [address] Dr. Gabby Briones Albumin/Globulin [Mass ratio] 1.0 {ratio} Normal [facility] Comment on above: Performed By: #### T SH, DBIL, CMP, LIPID, FT3, T4 #### [facility] [address] [place] [address] Dr. Gabby Briones ALP [Catalytic activity/Vol] 50 U/L Normal 46-116 [facility] Comment on above: Performed By: #### T SH, DBIL, CMP, LIPID, FT3, T4 #### [facility] [address] [place] [address] Dr. Gabby Briones ALT [Catalytic activity/Vol] 17 U/L Normal 14-59 [facility] Comment on above: Performed By: #### T SH, DBIL, CMP, LIPID, FT3, T4 #### [facility] [address] [place] [address] Dr. Gabby Briones Anion gap [Moles/Vol] 13.7 mmol/L Normal [facility] Comment on above: Performed By: #### T SH, DBIL, CMP, LIPID, FT3, T4 #### [facility] [address] [place] [address] Dr. Gabby Briones AST [Catalytic activity/Vol] 13 U/L Critically low 15-37 [facility] Comment on above: Performed By: #### T SH, DBIL, CMP, LIPID, FT3, T4 #### [facility] [address] [place] [address] Dr. Gabby Briones Bilirubin [Mass/Vol] 0.4 mg/dL Normal 0.2-1.0 [facility] Comment on above: Performed By: #### T SH, DBIL, CMP, LIPID, FT3, T4 #### [facility] [address] [place] [address] Dr. Gabby Briones Calcium [Mass/Vol] 9.1 mg/dL Normal 8.5-10.1 [facility] Comment on above: Performed By: #### T SH, DBIL, CMP, LIPID, FT3, T4 #### [facility] [address] [place] [address] Dr. Gabby Briones Chloride [Moles/Vol] 106 mmol/L Normal 98-107 [facility] Comment on above: Performed By: #### T SH, DBIL, CMP, LIPID, FT3, T4 #### [facility] [address] [place] [address] Dr. Gabby Briones CO2 [Moles/Vol] 25.8 mmol/L Normal 21.0-32.0 [facility] Comment on above: Performed By: #### T SH, DBIL, CMP, LIPID, FT3, T4 #### [facility] [address] [place] [address] Dr. Gabby Briones Creatinine [Mass/Vol] 0.76 mg/dL Normal 0.55-1.02 [facility] Comment on above: Performed By: #### T SH, DBIL, CMP, LIPID, FT3, T4 #### [facility] [address] [place] [address] Dr. Gabby Briones EGFR-AF YEMENI >60 Normal >=60 [facility] Comment on above: Performed By: #### T SH, DBIL, CMP, LIPID, FT3, T4 #### [facility] [address] [place] [address] Dr. Gabby Briones EGFR-NON AF YEMENI >60 Normal >=60 [facility] Comment on above: Performed By: #### T SH, DBIL, CMP, LIPID, FT3, T4 #### [facility] [address] [place] [address] Dr. Gabby Briones Globulin (S) [Mass/Vol] 3.5 g/dL Normal [facility] Comment on above: Performed By: #### T SH, DBIL, CMP, LIPID, FT3, T4 #### [facility] [address] [place] [address] Dr. Gabby Briones Glucose [Mass/Vol] 101 mg/dL Normal 74-106 [facility] Comment on above: Performed By: #### T SH, DBIL, CMP, LIPID, FT3, T4 #### [facility] [address] [place] [address] Dr. Gabby Briones Potassium [Moles/Vol] 4.5 mmol/L Normal 3.5-5.1 [facility] Comment on above: Performed By: #### T SH, DBIL, CMP, LIPID, FT3, T4 #### [facility] [address] [place] [address] Dr. Gabby Briones Protein [Mass/Vol] 6.9 g/dL Normal 6.4-8.2 [facility] Comment on above: Performed By: #### T SH, DBIL, CMP, LIPID, FT3, T4 #### [facility] [address] [address] [address] Gabby Briones Sodium [Moles/Vol] 141 mmol/L Normal 136-145 [facility] Comment on above: Performed By: #### T SH, DBIL, CMP, LIPID, FT3, T4 #### [facility] [address] [place] [address] Dr. Gabby Briones Urea nitrogen [Mass/Vol] 22.0 mg/dL Critically high 7.0-18.0 [facility] Comment on above: Performed By: #### T SH, DBIL, CMP, LIPID, FT3, T4 #### [facility] [address] [place] [address] Dr. Gabby Briones Urea nitrogen/Creatinine [Mass ratio] 28.9 mg/mg Normal [facility] Comment on above: Performed By: #### T SH, DBIL, CMP, LIPID, FT3, T4 #### [facility] [address] [place] [address] Dr. Gabby Briones T4on 01-20-2022 T4 [Mass/Vol] 7.30 ug/dL Normal 4.80-13.90 [facility] Comment on above: Performed By: #### T SH, DBIL, CMP, LIPID, FT3, T4 #### [facility] [address] [place] [address] Dr. Gabby Briones TSHon 01-20-2022 TSH 0.467 uIU/mL Normal 0.358-3.740 [facility] Comment on above: Performed By: #### T SH, DBIL, CMP, LIPID, FT3, T4 #### [facility] [address] [place] [address] Dr. Gabby Briones VITAMIN D 25 OHon 01-20-2022 VIT D 25-OH 34.9 ng/mL Normal [facility] Comment on above: Performed By: #### V ITAD, IRON #### [facility] [address] [place] [address] Dr. Gabby Briones VIT D RANGES SEE BELOW Normal [facility] Comment on above: Result Comment: <20 ng/mL Vit D deficient 20 - <30 ng/mL Vit D insufficient 30 - 100 ng/mL Vit D sufficient >100 ng/mL Potential Toxicity Performed By: #### V ITDYLAN, IRON #### [facility] [address] [place] [address] Dr. Gabby Briones BNPon 05-08-2021 Natriuretic peptide B (Bld) [Mass/Vol] 125.0 pg/mL Normal <=1,800.0 [facility] Comment on above: Performed By: #### V ITAD, IRON #### [facility] [address] [place] [address] Dr. Gabby Briones FREE THYROXINE INDEX T7on FTI 2.21 Normal [facility] Comment on above: Performed By: #### V ITAD, IRON #### [facility] [address] [place] [address] Dr. Gabby Briones T3U 34.0 % Normal 23.5-40.5 [facility] Comment on above: Performed By: #### V ITAD, IRON #### [facility] [address] [place] [address] Dr. Gabby Briones T4 [Mass/Vol] 6.50 ug/dL Normal 5.53-11.00 [facility] Comment on above: Performed By: #### V ITAD, IRON #### [facility] [address] [place] [address] Dr. Gabby Briones TSHon 05-08-2021 TSH 0.658 uIU/mL Normal 0.470-4.680 [facility] Comment on above: Performed By: #### V ITAD, IRON #### [facility] [address] [place] [address] Dr. Gabby Briones TSH RANGE SEE BELOW Normal [facility] Comment on above: Result Comment: <0.3 4 UIU/ml HYPERTHYROID 0.34-5.60 UIU/ml EUTHYROID >5.60 UIU/ml HYPOTHYROID Performed By: #### V ITAD, IRON #### [facility] [address] [place] [address] Dr. Gabby Briones Otheron 02-07-2020 1. 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 No hardware complications identified. 2. Small dystrophic ossific densities are again seen posterior to both knee joints. 3. Small enthesophytes along the anterior-superior and anterior-inferior right patella are again noted. 4. No fracture or dislocation is identified. [place], [place] BILATERAL KNEE RADIOGRAPHS 02/07/2020. COMPARISON: Knee radiographs dated 01/13/2018. HISTORY: Knee pain, unspecified chronicity, unspecified laterality. TECHNIQUE: Standing frontal, tunnel, lateral, and sunrise views of both knees were obtained. Report electronically signed by: Dr. Kaz Govea [place], Incoming Radiant Results From [facility] - 02/07/2020 [...] 4. No fracture or dislocation is identified. [place] Vital Signs Date Time Vital Sign Value Performing Clinician Facility 06-10-2022 10:00-0400 Body height 143.51 cm June Zarate Other [facility] Other 06-10-2022 10:00-0400 Body mass index (BMI) [Ratio] 41.84 kg/m2 June Zarate Other [facility] Other 06-10-2022 10:00-0400 Body weight 86.18 kg June Zarate Other [facility] Other 06-10-2022 10:00-0400 Diastolic blood pressure 78 mm[Hg] June Zarate Other [facility] Other 06-10-2022 10:00-0400 SaO2% (BldA) [Mass fraction] 92 % June Zarate Other [facility] Other 06-10-2022 10:00-0400 Systolic blood pressure 140 mm[Hg] June Zarate Other [facility] Other Encounters Encounter Date Encounter Type Care Provider Facility Start: 03-03-2023 ambulatory [facility] Start: 10-20-2022 ambulatory [facility] Start: 10-20-2022 End: 10-22-2022 Subsequent hospital visit by physician [facility] Xray Room [facility] Radiology Comment on above: Acute pain of both k nees Start: 06-15-2022 End: 06-15-2022 ambulatory June Zarate Other [facility] Other Start: 06-15-2022 Telephone encounter June Zarate [facility] Start: 06-10-2022 Office outpatient vi sit 15 minutes June Zarate [facility] Start: 06-10-2022 End: 06-10-2022 ambulatory June Zarate [facility] Other Start: 06-10-2022 End: 06-10-2022 Departed Referred MD June Zarate Work Phone: [facility] [address] [place] Work Phone: Start: 02-25-2022 End: 02-26-[address] FELIX RAMOS Facility:[facility] Start: 01-20-2022 End: 01-21-[address] FELIX RAMOS Facility:[facility] Start: 05-08-2021 End: 05-09-[address] FELIX RAMOS Facility:[facility] Start: 02-07-2020 End: 02-09-2020 Subsequent hospital visit by physician [facility] Xray Room [facility] Radiology Comment on above: Knee pain, unspecifi ed chronicity, unspecified laterality Procedures Date Procedure Procedure Detail Performing Clinician Start: 10-20-2022 End: 10-20-2022 Radiologic exam knee complete 4/more views Blanche Foreman MD Work Phone: Start: 02-07-2020 End: 02-07-2020 Radiologic exam knee complete 4/more views Blanche Foreman Work Phone: Plan of Treatment Date Care Activity Detail Author Start: 09-29-2022 Influenza vaccination [facility] (# [facility] Start: 06-10-2022 [facility] Start: 01-18-2020 Shingles Vaccine (3 of 3) Shingles Vaccine (3 of 3) [place] Start: 01-09-2020 Annual Wellness Visi t (AWV) Annual Wellness Visit (AWV) [facility] Start: 2001 Screening for osteoporosis DEXA (modify frequency per FRAX score) [facility] Start: 1996 Screening for malign ant neoplasm of breast Breast cancer screen [place], [place] Start: 1996 Screening for malign ant neoplasm of colon Colon cancer screen colonoscopy [place], [place] Start: 1965 DTaP/Tdap/Td vaccine (1 - Tdap) DTaP/Tdap/Td vaccine (1 - Tdap) [facility] Start: 1964 Hepatitis C screening Hepatitis C [facility] Start: 1958 Depression Screen Depression Screen [facility] Start: 1956 Lipid panel [facility] Start: 1946 Creatinine measurement Creatinine mo nitoring [place], [place] Start: 1946 Hepatitis C screening Hepatitis C sc salvador [place], [place] Start: 1946 Potassium monitoring Potassium monit oring [place], [place] Payers Date Payer Category Payer Self-pay 1958 Medicare [id number] 1959 Unknown [id number] 1946 Unknown [id number] 2.16.84 [id number] 1946 Unknown [id number] 2.16.84 [id number] 1946 Unknown [id number] 2.16.84 [id number] 1946 Unknown [id number] 2.16.8 [id number] 1946 Unknown [id number] 2.16.8 [id number] Unknown [id number] 2.16.8 [id number] Social History Date Type Detail Facility Tobacco smoking status NHIS [facility] [employer] [place] Start: 1945 Sex Assigned At Not [facility] file [facility] [place] Sex Assigned At Sex Assigned At Bir th [facility] Other Start: 1945 Sex Assigned At Female F [facility] Tobacco smoking status RIIS Tobacco smoking consumption unknown [employer] Work Phone: Evaluation note 06-10-2022 Note Date & Type Note Facility 06-10-2022 Evaluation note Encounter Date Diagnosis Assessment Notes May, Subacute vaginitis (ICD-10 - N76.1) Suspect cystocele - 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 Pt will call for appt. Will complete vag probe to r/o any yeast etc, as pt does note some itching. Pt states she will call the office for dental technician instructor. [facility] Other Evaluation note Note Date & Type Note Facility Evaluation note No assessment information [facility] Work Phone: Evaluation note Note Date & Type Note Facility Evaluation note No Information [facility] [employer] Other Evaluation note Note Date & Type Note Facility Evaluation note Diagnosis Acute pain of both knees documented in this encounter [employer] Work Phone: History general Narrative - Reported Note Date & Type Note Facility History general Narrative - Reported Type Medical History Hypertention Medical History Hyperthyroidism Medical History Hyperlipidemia Surgical History THORACIC SPINE FUSION 2007 Surgical History BILATERAL KNEE REPLACEMENT 2007 Surgical History APPENDECTOMY 2009 Hospitalization History SEE SURGICAL HX [facility] [employer] Other Assessments Diagnosis Knee pain, unspecified chronicity, [...] and content) DATE CREATED AUTHOR 02/28/2022 [facility] DATE CREATED AUTHOR AUTHOR'S ORGANIZ ATION 06/20/2022 [facility] DATE CREATED AUTHOR AUTHOR'S ORGANIZ ATION 10/23/2022 [facility] DATE CREATED AUTHOR AUTHOR'S ORGANIZ ATION 03/04/2023 [facility] REASON FOR VISIT (unrecogniz ed section and content) Has Not Been Seen in Awhile- MEDICARE Wellnessvaginal cultures Care Teams (unrecognized sec tion and content) Team Status: Inactive Member Role Status Dates June Zarate MD Attending Provider 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 [employer] [facility]. provides no warranty or guarantee of the accuracy or completeness of information in this document.
[2023-03-10 14:20] LABS: Basophils Absolute Auto 0.1 10^3/uL (0.0-0.1); Basophils Percent Auto 0.4 % (0.2-2.0); Eosinophils Absolute Auto 0.2 10^3/uL (0.0-0.7); Eosinophils Percent Auto 1.7 % (0.9-7.0); Hematocrit 40.3 % (36.0-48.0); Hemoglobin 13.5 g/dL (12.0-16.0); Immature Granulocytes Abs Auto 0.03 10^3/uL (0.00-0.03); Immature Granulocytes Pct Auto 0.3 % (0.0-0.5); Lymphocytes Absolute Auto 3.6 10^3/uL (1.2-3.8); Lymphocytes Percent Auto 31.4 % (20.5-60.0); Mean Corpuscular HGB Conc 33.5 g/dL (29.9-35.2); Mean Corpuscular Hemoglobin 30.7 pg (26.7-34.0); Mean Corpuscular Volume 91.6 fL (81.0-99.0); Mean Platelet Volume 9.2 fL (9.5-13.5); Monocytes Absolute Auto 0.9 10^3/uL (0.3-0.8); Monocytes Percent Auto 7.7 % (1.7-12.0); Neutrophils Absolute Auto 6.6 10^3/uL (1.4-6.5); Neutrophils Percent Auto 58.5 % (43.0-75.0); Platelet Count 453 10^3/uL (150-450); Red Cell Distribution Width 13.8 % (11.0-15.0); White Blood Count 11.3 10^3/uL (4.0-11.0)
[2023-03-10 14:30] LABS: Bilirubin Urine NEGATIVE (NEGATIVE); Blood Urine NEGATIVE (NEGATIVE); Clarity Urine CLEAR (CLEAR); Color Urine LT. YELLOW (YELLOW); Glucose Urine UA NEGATIVE (NEGATIVE); Ketones Urine NEGATIVE (NEGATIVE); Leukocyte Esterase Urine MODERATE (NEGATIVE); Nitrite Urine NEGATIVE (NEGATIVE); Protein Urine NEGATIVE (NEG/TRACE); Specific Gravity Urine <=1.005 (1.005-1.025); Urobilinogen Urine 0.2 EU/dL (0.2-1.0); pH Urine 5.5 (5.0-9.0)
[2023-03-10 14:41] LABS: Alanine Aminotransferase 22 U/L (14-59); Albumin Globulin Ratio 0.9; Albumin Level 3.4 g/dL (3.4-5.0); Alkaline Phosphatase 43 U/L (46-116); Anion Gap 10.3; Aspartate Amino Transferase 17 U/L (15-37); BUN Creatinine Ratio 23.8; Bilirubin Total 0.3 mg/dL (0.2-1.0); Carbon Dioxide 29.7 mmol/L (21.0-32.0); Chloride 98 mmol/L (98-107); Estimated GFR (African America >60 (>=60); Estimated GFR (Non-African Ame >60 (>=60); Globulin 3.7 g/dL; Glucose 90 mg/dL (74-106); Sodium 134 mmol/L (136-145); Total Protein 7.1 g/dL (6.4-8.2)
[2023-03-11 09:58] LABS: Bacteria Urine TRACE #/HPF (NONE SEEN); Cast Seen? NONE SEEN #/LPF (NONE SEEN); Crystals Seen? None Seen #/HPF (None Seen); Mucus Urine NONE SEEN (NONE SEEN); RBC Urine NONE SEEN #/HPF (0-2); Squamous Epithelial Cell Urine NONE SEEN #/LPF (NONE/RARE)
== END 2023-03-10 13:52 | disposition home or self-care (01) ==
PROVIDERS: PCP Family Medicine; Visit Provider Family Medicine
DX: Z01.818 Encounter for other preprocedural examination (principal); N39.0 Urinary tract infection, site not specified
CPT/HCPCS: 36415; 80053; 81003; 85025; 87086

== ENCOUNTER 2023-11-22 13:27 | Outpatient (OUT) | payer OTHER, SELFPAY ==
--- NOTE | 2023-11-22 | XR_ITS ---
The [address] [address] Patient Name: EMANUEL WISE MRN: [id number] date: 1945 Sex: F Assigned Patient Location: Current Patient Location: [place] Accession/Order Number: [id number] Exam Date: 11/22/2023 13:31 Report Date: 11/24/2023 09:39 At the request of: BRIA AGUILAR Procedure: XR knee LT 4V PROCEDURE: XR knee LT 4V HISTORY: LEFT KNEE PAIN COMPARISON: XR knee left 10/20/2022 FINDINGS: BONES:Total knee replacement without evidence of hardware fracture loosening. No bone fracture dislocation. SOFT TISSUES:No visible soft tissue swelling. EFFUSION:None visible. OTHER: Negative. XR/XR knee LT 4V IMPRESSION: 1. Left knee replacement without evidence of hardware failure. 2. No appreciable acute abnormality. Electronically authenticated by: ANA NORRIS Date: 11/24/2023 09:39
== END 2023-11-22 13:28 | disposition home or self-care (01) ==
LOC: EC 13:27
PROVIDERS: PCP Family Medicine; Visit Provider Student in an Organized Health Care Education/Training Program
DX: M25.562 Pain in left knee (principal); Z96.652 Presence of left artificial knee joint
CPT/HCPCS: 73564

== ENCOUNTER 2023-11-26 06:33 | Outpatient (OUT) | payer OTHER, SELFPAY ==
--- OUTSIDE RECORDS SUMMARY | 2023-11-26 06:35 | XMS_ITS | CCD ---
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 Name Role Phone Felix Gil Primary Care Provider RICHARD, DR WASHINGTON Admitting Unavailable RICHARD, DR WASHINGTON Attending Unavailable JOSHUA, DR JUNE Maldonado Primary Care Unavailable RICHARD, DR WASHINGTON Consulting Unavailable RICHARD, DR WASHINGTON Admitting Unavailable RICHARD, DR WASHINGTON Attending Unavailable JOSHUA, DR JUNE Maldonado Primary Care Unavailable RICHARD, DR WASHINGTON Consulting Unavailable WEST, DR EDVIN Roberts Consulting Unavailable RICHARD, DR WASHINGTON Admitting Unavailable RICHARD, DR WASHINGTON Attending Unavailable JOSHUA, DR JUNE Maldonado Primary Care Unavailable RICHARD, DR WASHINGTON Consulting Unavailable June Zarate Unavailable MD Juen Zarate Attending Provider June Zarate Attending Unavailable June Zarate Admitting Unavailable Felix Gil MD Primary Care Provider [phone] BLANCHE DOBBS Referring Unavailable FELIX GIL Primary Care Unavailable BLANCHE DOBBS Referring Unavailable FELIX GIL Primary Care Unavailable MOHINDER LEHMAN Attending Unavailable MOHINDER LEHMAN Admitting Unavailable SHIRA MCDONALD Attending Unavailable GEMMA OGLESBY Attending Unavailable Allergies Allergy Classification Reported Allergen(s) Allergy Type Date of Onset Reaction(s) Facility (8 sources) Acetaminophen; Translations: [ACETAMINOPHEN] Drug Allergy 0 Shortness Of Breath [facility], [place] (1 source) Acetaminophen Drug Allergy [address] 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] Onset: 01-29-2022 Episodic Other [...] knee joint] Onset: 10-20-2022 10-20-2022 Chronic Other nervous system disorders (2 sources) Other acute postprocedural pain; Translations: [Other acute postprocedural pain] Onset: 04-06-2023 Episodic Other non-traumatic joint disorders (2 sources) Knee pain; Translations: [Knee pain, unspecified chronicity, unspecified laterality] Episodic Other non-traumatic joint disorders (3 sources) Pain in right knee; Translations: [Other acute pain] Onset: 10-20-2022 Episodic Other non-traumatic joint disorders (1 source) Pain in left knee; Translations: [Pain in left knee] Onset: 10-20-2022 Episodic Other non-traumatic joint disorders (2 sources) Pain in unspecified shoulder; Translations: [Pain in unspecified shoulder] Onset: 04-06-2023 Episodic Other screening for suspected conditions (not [...] Translations: [Subacute and chronic vaginitis] Onset: 06-10-2022 Results Test Name Value Interpretation Reference Range Facility XR KNEE LEFT (MIN 4 VIEWS)on 10-20-2022 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 [facility] EXAM: XR KNEE LEFT (MIN 4 VIEWS) HISTORY: Acute pain of both knees COMPARISON: None. 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 No acute fracture or dislocation. Mild soft tissue swelling. Report electronically signed by: Dr. Manuel Saxena [facility] Manuel Saxena MD - 10/20/2022 EXAM: XR KNEE LEFT (MIN 4 VIEWS) HISTORY: Acute pain of both knees COMPARISON: None. 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 No acute fracture or dislocation. Mild soft tissue swelling. Report electronically signed by: Dr. 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 [facility] Work Phone: XR KNEE LEFT (MIN [...] Manuel Saxena MD 10/20/22 Final result Normal [facility] Radiology Study observation (narrative) [facility] Work Phone: XR KNEE LEFT (MIN 4 VIEWS)Or dered By: Manuel Saxean on 10-20-2022 [employer] Work Phone: XR KNEE RIGHT (MIN 4 VIEWS)o n 10-20-2022 No acute findings. Intact prosthesis. [facility] EXAM: XR KNEE RIGHT (MIN [...] Report electronically signed by: Dr. Melisa Jiang [facility] Melisa Jiang MD - 10/20/2022 [...] Jiang IMPRESSION: No acute findings. Intact prosthesis. [employer] Phone: XR KNEE RIGHT (MIN 4 VIEWS) [...] Melisa Jiang MD 10/20/22 Final result Normal [facility] Radiology Study observation (narrative) [employer] Phone: XR KNEE RIGHT (MIN 4 VIEWS)O rdered By: Melisa Jiang on 10-20-2022 [employer] Work Phone: [facility] 06-10-2022 [facility] Comment on above: Order Comment: [facility] Test Name: VAGINITIS/VAGINOSIS DNA PROBE # [id number] Result Comment: See report. Scanned copy available in EMR. PERFORMED BY: [place] [address] PATHOLOGIST HOT CAR OPERATOR MEGHAN ESPINO M.D. Performed By: #### [facility] #### [address] MG MAMM SCREEN 3D HERBER CADon 02-25-2022 MG MAMM SCREEN 3D HERBER CAD Patient: EMANUEL WISE Exam Date: 02/25/2022 : 1945 Gender:F Ordering : DR FELIX GIL . Admission #: [id number] Family : Order #: [id number] CLICK HERE TO VIEW EXAM RADIOLOGY REPORT [...] with ovarian cancer at age 61. LOCATION: [facility] BREAST COMPOSITION: Scattered areas fibroglandular density. [...] MD on 02/26/2022 at 11:[address] [facility] XR DEXA BONE DENSITYon 02-25 XR [...] EDVIN SU Date: 2022-02-25 16:[address] [facility] INSULINon 01-21-2022 Insulin 6.3 uIU/mL Normal 2.6-24.[address] [facility] Comment on above: Performed By: #### V ITAD, IRON #### [facility] [address] [place] [address] Dr. Gabby Briones BILIRUBIN CONJUGATED (DIRECT )on 01-20-2022 BILI, CONJUGATED 0.1 mg/dL Normal 0.0-0.2 [facility] Comment on above: Performed By: #### T SH, DBIL, CMP, LIPID, FT3, T4 #### [facility] [address] [place] [address] Dr. Gabby Briones CBC AUTO DIFFon 01-20-2022 BASO # 0.0 103/ul Normal 0.0-0.1 [facility] Comment on above: Performed By: #### V ITAD, IRON #### [facility] [address] [place] [address] Dr. Gabby Briones Basophils/100 WBC (Bld) 0.6 % Normal 0.2-2.[address] [facility] Comment on above: Performed By: #### V ITAD, IRON #### [facility] [address] [address] [address] Gabby Briones EO # 0.4 103/ul Normal 0.0-0.[address] [facility] Comment on above: Performed By: #### V ITAD, IRON #### [facility] [address] [place] [address] Dr. Gabby Briones Eosinophils/100 WBC (Bld) 6.0 % Normal 0.9-7.[address] [facility] Comment on above: Performed By: #### V ITAD, IRON #### [facility] [address] [place] [address] Dr. Gabby Briones Erythrocyte distribution width (RBC) [Ratio] 13.7 % Normal 11.0-15.0 [facility] Comment on above: Performed By: #### V ITAD, IRON #### [facility] [address] [place] [address] Dr. Gabby Briones Hematocrit (Bld) [Volume fraction] 41.9 % Normal 36.0-48.0 [facility] Comment on above: Performed By: #### V ITAD, IRON #### [facility] [address] [place] [address] Dr. Gabby Briones Hemoglobin (Bld) [Mass/Vol] 14.0 g/dL Normal 12.0-16.0 [facility] Comment on above: Performed By: #### V ITAD, IRON #### [facility] [address] [place] [address] Dr. Gabby Briones IG # 0.02 10e3/ul Normal 0.00-0.03 [facility] Comment on above: Performed By: #### V ITAD, IRON #### [facility] [address] [place] [address] Dr. Gabby Briones IG % 0.3 % Normal 0.0-0.5 [facility] Comment on above: Performed By: #### V ITAD, IRON #### [facility] [address] [place] [address] Dr. Gabby Briones LYMPH # 2.6 103/ul Normal 1.2-3.[address] [facility] Comment on above: Performed By: #### V ITAD, IRON #### [facility] [address] [place] [address] Dr. Gabby Briones Lymphocytes/100 WBC (Bld) 39.7 % Normal 20.5-60.0 [facility] Comment on above: Performed By: #### V ITAD, IRON #### [facility] [address] [place] [address] Dr. Gabby Briones MANUAL DIFF REQ NO Normal [facility] Comment on above: Performed By: #### V ITAD, IRON #### [facility] [address] [place] [address] Dr. Gabby Brinoes MCH (RBC) [Entitic mass] 29.6 pg Normal 26.7-34.0 [facility] Comment on above: Performed By: #### V ITAD, IRON #### [facility] [address] [place] [address] Dr. Gabby Briones MCHC (RBC) [Mass/Vol] 33.4 g/dL Normal 29.9-35.[address] [facility] Comment on above: Performed By: #### V ITAD, IRON #### [facility] [address] [place] [address] Dr. Gabby Briones MCV (RBC) [Entitic vol] 88.6 fL Normal 81.0-99.0 [facility] Comment on above: Performed By: #### V ITAD, IRON #### [facility] [address] [place] [address] Dr. Gabby Briones MONO # 0.6 103/ul Normal 0.3-0.[address] [facility] Comment on above: Performed By: #### V ITAD, IRON #### [facility] [address] [place] [address] Dr. Gabby Briones Monocytes/100 WBC (Bld) 8.8 % Normal 1.7-12.[address] [facility] Comment on above: Performed By: #### V ITAD, IRON #### [facility] [address] [place] [address] Dr. Gabby Briones NEUT # 2.9 103/ul Normal 1.4-6.[address] [facility] Comment on above: Performed By: #### V ITAD, IRON #### [facility] [address] [place] [address] Dr. Gabby Briones Neutrophils/100 WBC (Bld) 44.6 % Normal 43.0-75.[address] [facility] Comment on above: Performed By: #### V ITAD, IRON #### [facility] [address] [address] [address] Gabby Briones Platelet mean volume (Bld) [Entitic vol] 9.4 fL Critically low 9.5-13.5 [facility] Comment on above: Performed By: #### V ITAD, IRON #### [facility] [address] [place] [address] Dr. Gabby Briones PLT 326 103/ul Normal 150-[address] [facility] Comment on above: Performed By: #### V ITAD, IRON #### [facility] [address] [place] [address] Dr. Gabby Briones RBC 4.73 106/ul Normal 4.20-5.40 [facility] Comment on above: Performed By: #### V ITAD, IRON #### [facility] [address] [place] [address] Dr. Gabby Briones WBC 6.5 103/ul Normal 4.0-11.0 [facility] Comment on above: Performed By: #### V ITAD, IRON #### [facility] [address] [place] [address] Dr. Gabby Briones FREE T3on 01-20-2022 FREE T3 2.47 pg/mlL Normal 2.18-3.98 [facility] Comment on above: Performed By: #### T SH, DBIL, CMP, LIPID, FT3, T4 #### [facility] [address] [place] [address] Dr. Gabby Briones GLYCOHEMOGLOBIN A1Con 2021 ADA RECOMMENDATION SEE BELOW Normal [facility] Comment on above: Result Comment: ADA RECOMMENDED LIMIT 4.0 - 6.0 ADA THERAPEUTIC TARGET < 7.0 ACTION SUGGESTED > 7.0 Performed By: #### V ITAD, IRON #### [facility] [address] [place] [address] Dr. Gabby Briones Glucose [Mass/Vol] 111 mg/dL Normal [facility] Comment on above: Performed By: #### V ITAD, IRON #### [facility] [address] [place] [address] Dr. Gabby Briones HbA1c (Bld) [Mass fraction] 5.5 % Normal 4.5-6.2 [facility] Comment on above: Performed By: #### V ANIBAL IRON #### [facility] [address] [place] [address] Dr. Gabby Briones IRONon 01-20-2022 Iron [Mass/Vol] 92.0 ug/dL Normal 50.0-170.0 [facility] Comment on above: Performed By: #### V ANIBAL IRON #### [facility] [address] [place] [address] Dr. Gabby Briones LIPID PROFILEon 01-20-2022 CHOL-HDL RATIO NORM SEE BELOW Normal [facility] Comment on above: Result Comment: 3.3 - 4.4 LOW RISK 4.4 - 7.1 AVERAGE RISK 7.1 - 11.0 MODERATE RISK >11.0 HIGH RISK Performed By: #### T SH, DBIL, CMP, LIPID, FT3, T4 #### [facility] [address] [place] [address] Dr. Gabby Briones Cholesterol [Mass/Vol] 183 mg/dL Normal <=[address] [facility] Comment on above: Performed By: #### T SH, DBIL, CMP, LIPID, FT3, T4 #### [facility] [address] [place] [address] Dr. Gabby Briones Cholesterol in HDL [Mass/Vol] 56 mg/dL Normal 40-60 [facility] Comment on above: Performed By: #### T SH, DBIL, CMP, LIPID, FT3, T4 #### [facility] [address] [place] [address] Dr. Gabby Briones Cholesterol in LDL [Mass/Vol] 102.8 mg/dL Normal [facility] Comment on above: Performed By: #### T SH, DBIL, CMP, LIPID, FT3, T4 #### [facility] [address] [place] [address] Dr. Gabby Briones Cholesterol.total/Ch olesterol in HDL [Mass ratio] 3.3 {ratio} Normal [facility] Comment on above: Performed By: #### T SH, DBIL, CMP, LIPID, FT3, T4 #### [facility] [address] [address] [address] Gabby Briones HDL NORMAL > or = 60 mg/dl - LOW CARDIOVASCULAR RISK <40 mg/dl - HIGH CARDIOVASCULAR RISK Normal [facility] Comment on above: Performed By: #### T SH, DBIL, CMP, LIPID, FT3, T4 #### [facility] [address] [address] [address] Gabby Briones LDL CALC NORMAL SEE BELOW Normal [facility] Comment on above: Result Comment: <100 mg/dl OPTIMAL 100 - 129 mg/dl NEAR OR ABOVE OPTIMAL 130 - 159 mg/dl BORDERLINE HIGH 160 - 189 mg/dl HIGH >190 mg/dl VERY HIGH Performed By: #### T SH, DBIL, CMP, LIPID, FT3, T4 #### [facility] [address] [place] [address] Dr. Gabby Briones Triglyceride [Mass/Vol] 121 mg/dL Normal <=150 [facility] Comment on above: Performed By: #### T SH, DBIL, CMP, LIPID, FT3, T4 #### [facility] [address] [address] [address] Gabby Briones VLDL CALC 24.2 mg/dL Normal [facility] Comment on above: Performed By: #### T SH, DBIL, CMP, LIPID, FT3, T4 #### [facility] [address] [place] [address] Dr. Gabby Briones PROF 14(COMP METB)on 022 Albumin [Mass/Vol] 3.4 g/dL Normal 3.4-5.[address] [facility] Comment on above: Performed By: #### T SH, DBIL, CMP, LIPID, FT3, T4 #### [facility] [address] [place] [address] Dr. Gabby Briones Albumin/Globulin [Mass ratio] 1.0 {ratio} Normal [facility] Comment on above: Performed By: #### T SH, DBIL, CMP, LIPID, FT3, T4 #### [facility] [address] [place] [address] Dr. Gabby Briones ALP [Catalytic activity/Vol] 50 U/L Normal 46-116 [facility] Comment on above: Performed By: #### T SH, DBIL, CMP, LIPID, FT3, T4 #### [facility] [address] [place] [address] Dr. Gabby Briones ALT [Catalytic activity/Vol] 17 U/L Normal 14-59 [facility] Comment on above: Performed By: #### T SH, DBIL, CMP, LIPID, FT3, T4 #### [facility] [address] [place] [address] Dr. Gabby Briones Anion gap [Moles/Vol] 13.7 mmol/L Normal [facility] Comment on above: Performed By: #### T SH, DBIL, CMP, LIPID, FT3, T4 #### [facility] [address] [place] [address] Dr. Gabby Briones AST [Catalytic activity/Vol] 13 U/L Critically low 15-37 [facility] Comment on above: Performed By: #### T SH, DBIL, CMP, LIPID, FT3, T4 #### [facility] [address] [place] [address] Dr. Gabby Briones Bilirubin [Mass/Vol] 0.4 mg/dL Normal 0.2-1.0 [facility] Comment on above: Performed By: #### T SH, DBIL, CMP, LIPID, FT3, T4 #### [facility] [address] [place] [address] Dr. Gabby Briones Calcium [Mass/Vol] 9.1 mg/dL Normal 8.5-10.[address] [facility] Comment on above: Performed By: #### T SH, DBIL, CMP, LIPID, FT3, T4 #### [facility] [address] [place] [address] Dr. Gabby Briones Chloride [Moles/Vol] 106 mmol/L Normal 98-107 [facility] Comment on above: Performed By: #### T SH, DBIL, CMP, LIPID, FT3, T4 #### [facility] [address] [place] [address] Dr. Gabby Briones CO2 [Moles/Vol] 25.8 mmol/L Normal 21.0-32.0 [facility] Comment on above: Performed By: #### T SH, DBIL, CMP, LIPID, FT3, T4 #### [facility] [address] [place] [address] Dr. Gabby Briones Creatinine [Mass/Vol] 0.76 mg/dL Normal 0.55-1.02 [facility] Comment on above: Performed By: #### T SH, DBIL, CMP, LIPID, FT3, T4 #### [facility] [address] [place] [address] Dr. Gabby Briones EGFR-AF [place] >60 Normal >=60 [facility] Comment on above: Performed By: #### T SH, DBIL, CMP, LIPID, FT3, T4 #### [facility] [address] [place] [address] Dr. Gabby Briones EGFR-NON AF [place] >60 Normal >=60 [facility] Comment on above: Performed By: #### T SH, DBIL, CMP, LIPID, FT3, T4 #### [facility] [address] [place] [address] Dr. Gabby Briones Globulin (S) [Mass/Vol] 3.5 g/dL Normal [facility] Comment on above: Performed By: #### T SH, DBIL, CMP, LIPID, FT3, T4 #### [facility] [address] [place] [address] Dr. Gabby Briones Glucose [Mass/Vol] 101 mg/dL Normal 74-[address] [facility] Comment on above: Performed By: #### T SH, DBIL, CMP, LIPID, FT3, T4 #### [facility] [address] [place] [address] Dr. Gabby Briones Potassium [Moles/Vol] 4.5 mmol/L Normal 3.5-5.1 [facility] Comment on above: Performed By: #### T SH, DBIL, CMP, LIPID, FT3, T4 #### [facility] [address] [place] [address] Dr. Gabby Briones Protein [Mass/Vol] 6.9 g/dL Normal 6.4-8.2 [facility] Comment on above: Performed By: #### T SH, DBIL, CMP, LIPID, FT3, T4 #### [facility] [address] [place] [address] Dr. Gabby Briones Sodium [Moles/Vol] 141 mmol/L Normal 136-145 [facility] Comment on above: Performed By: #### T SH, DBIL, CMP, LIPID, FT3, T4 #### [facility] [address] [place] [address] Dr. Gabby Briones Urea nitrogen [Mass/Vol] 22.0 mg/dL Critically high 7.0-18.0 [facility] Comment on above: Performed By: #### T SH, DBIL, CMP, LIPID, FT3, T4 #### [facility] [address] [place] [address] Dr. Gabby Briones Urea nitrogen/Creatinine [Mass ratio] 28.9 mg/mg Normal [facility] Comment on above: Performed By: #### T SH, DBIL, CMP, LIPID, FT3, T4 #### [facility] [address] [place] [address] Dr. Gabby Briones T4on 01-20-2022 T4 [Mass/Vol] 7.30 ug/dL Normal 4.80-13.90 [facility] Comment on above: Performed By: #### T SH, DBIL, CMP, LIPID, FT3, T4 #### [facility] [address] [place] [address] Dr. Gabby Briones TSHon 01-20-2022 TSH 0.467 uIU/mL Normal 0.358-3.740 [facility] Comment on above: Performed By: #### T SH, DBIL, CMP, LIPID, FT3, T4 #### [facility] [address] [place] [address] Dr. Gabby Briones VITAMIN D 25 OHon 01-20-2022 VIT D 25-OH 34.9 ng/mL Normal [facility] Comment on above: Performed By: #### V ITAD, IRON #### [facility] [address] [place] [address] Dr. Gabby Briones VIT D RANGES SEE BELOW Normal [facility] Comment on above: Result Comment: <20 ng/mL Vit D deficient 20 - <30 ng/mL Vit D insufficient 30 - 100 ng/mL Vit D sufficient >100 ng/mL Potential Toxicity Performed By: #### V ITAD, IRON #### [facility] [address] [place] [address] Dr. Gabby Briones BNPon 05-08-2021 Natriuretic peptide B (Bld) [Mass/Vol] 125.0 pg/mL Normal <=1,800.[address] [facility] Comment on above: Performed By: #### V ITAD, IRON #### [facility] [address] [place] [address] Dr. Gabby Briones FREE THYROXINE INDEX T7on FTI 2.[address] [facility] Comment on above: Performed By: #### V ITAD, IRON #### [facility] [address] [place] [address] Dr. Gabby Briones T3U 34.0 % Normal 23.5-40.[address] [facility] Comment on above: Performed By: #### V ITAD, IRON #### [facility] [address] [place] [address] Dr. Gabby Briones T4 [Mass/Vol] 6.50 ug/dL Normal 5.53-11.00 [facility] Comment on above: Performed By: #### V ITAD, IRON #### [facility] [address] [place] [address] Dr. Gabby Briones TSHon 05-08-2021 TSH 0.658 uIU/mL Normal 0.470-4.680 [facility] Comment on above: Performed By: #### V ITAD, IRON #### [facility] [address] [place] [address] Dr. Gabby Briones TSH RANGE SEE BELOW Normal [facility] Comment on above: Result Comment: <0.3 4 UIU/ml HYPERTHYROID 0.34-5.60 UIU/ml EUTHYROID >5.60 UIU/ml HYPOTHYROID Performed By: #### V ITAD, IRON #### [facility] [address] [place] [address] Dr. Gabby Schmitt 02-07-2020 1. 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 No hardware complications identified. 2. Small dystrophic ossific densities are again seen posterior to both knee joints. 3. Small enthesophytes along the anterior-superior and anterior-inferior right patella are again noted. 4. No fracture or dislocation is identified. [place], [place] BILATERAL KNEE RADIOGRAPHS 02/07/2020. COMPARISON: Knee radiographs dated 01/13/2018. HISTORY: Knee pain, unspecified chronicity, unspecified laterality. TECHNIQUE: Standing frontal, tunnel, lateral, and sunrise views of both knees were obtained. Report electronically signed by: Dr. Kaz Govea [place], [place], Incoming Radiant Results From [facility] - 02/07/2020 [...] 4. No fracture or dislocation is identified. [place], [place] Vital Signs Date Time Vital Sign Value Performing Clinician Facility 06-10-2022 10:00-0400 Body height 143.51 cm June Zarate Other [facility] Other 06-10-2022 10:00-0400 Body mass index (BMI) [Ratio] 41.84 kg/m2 June Zarate Other [facility] Other 06-10-2022 10:00-0400 Body weight 86.18 kg June Zarate Other [facility] Other 06-10-2022 10:00-0400 Diastolic blood pressure 78 mm[Hg] June Zarate Other [facility] Other 06-10-2022 10:00-0400 SaO2% (BldA) [Mass fraction] 92 % June Zarate Other [facility] Other 06-10-2022 10:00-0400 Systolic blood pressure 140 mm[Hg] June Zarate Other [facility] Other Encounters Encounter Date Encounter Type Care Provider Facility Start: 11-11-2023 End: 11-11-2023 ambulatory GEMMA OGLESBY Not Available Start: 10-28-2023 End: 10-28-2023 ambulatory SHIRA MCDONALD Not Available Start: 04-06-2023 End: 04-06-2023 ambulatory [facility] Start: 10-20-2022 ambulatory [facility] Start: 10-20-2022 End: 10-22-2022 Subsequent hospital visit by physician [facility] Xray Room [facility] Radiology Comment on above: Acute pain of both k nesophia Start: 06-15-2022 End: 06-15-2022 ambulatory June Zarate Other [facility] Other Start: 06-15-2022 Telephone encounter June Zarate [facility] Start: 06-10-2022 Office outpatient visit 15 minutes June Zarate [facility] Start: 06-10-2022 End: 06-10-2022 ambulatory June Zarate [facility] Other Start: 06-10-2022 End: 06-10-2022 Departed Referred MD June Zarate Work Phone: [facility] [place] Work Phone: Start: 02-25-2022 End: 02-26-[address] FELIX GIL Facility:[facility] Start: 01-20-2022 End: 01-21-[address] FELIX GIL Facility:[facility] Start: 05-08-2021 End: 05-09-[address] FELIX GIL Facility:[facility] Start: 02-07-2020 End: 02-09-2020 Subsequent hospital visit by physician [facility] Xray Room [facility] Radiology Comment on above: Knee pain, unspecifi ed chronicity, unspecified laterality Procedures Date Procedure Procedure Detail Performing Clinician Start: 10-20-2022 End: 10-20-2022 Radiologic exam knee complete 4/more views Blanche Dobbs MD Work Phone: Start: 02-07-2020 End: 02-07-2020 Radiologic exam knee complete 4/more views Blanche Dobbs Work Phone: Plan of Treatment Date Care Activity Detail Author Start: 09-29-2022 Influenza vaccination Flu vaccine (# 1) [place] Start: 06-10-2022 [facility] Start: 01-18-2020 Shingles Vaccine (3 of 3) Shingles Vaccine (3 of 3) [place], [place] Start: 01-09-2020 Annual Wellness Visi t (AWV) Annual Wellness Visit (AWV) [place] Start: 2001 Screening for osteoporosis DEXA (modify frequency per FRAX score) [place] Start: 1996 Screening for malign ant neoplasm of breast Breast cancer screen [place], [place] Start: 1996 Screening for malign ant neoplasm of colon Colon cancer screen colonoscopy [place], [place] Start: 1965 DTaP/Tdap/Td vaccine (1 - Tdap) DTaP/Tdap/Td vaccine (1 - Tdap) [place] Start: 1964 Hepatitis C screening Hepatitis C sc reen [place] Start: 1958 Depression Screen Depression Screen [place] Start: 1956 Lipid panel [place] Start: 1946 Creatinine measurement Creatinine mo nitoring [place], [place] Start: 1946 Hepatitis C screening Hepatitis C sc reen [place], [place] Start: 1946 Potassium monitoring Potassium monit [place], [place] Payers Date Payer Category Payer Unknown [id number] 2022 Self-pay 1958 Medicare [id number] 1959 Unknown [id number] 1.2. [id number] 1945 Unknown [id number] 2.16.84 [id number] 1946 Unknown [id number] 2.16.84 [id number] 1946 Unknown [id number] 2.16.84 [id number] 1946 Unknown [id number] 2.16.8 [id number] 1946 Unknown [id number] 2.16.8 [id number] 1946 Unknown [id number] 2.16. [id number] 1946 Unknown [id number] 2.16.84 [id number] 1946 Unknown [id number] 2.16.84 [id number] Unknown [id number] 2.16.8 [id number] Social History Date Type Detail Facility Tobacco smoking status [facility] if [facility] Start: 1945 Sex Assigned At Not on file [place] Sex Assigned At Sex Assigned At Bir th [employer] Other Start: 1945 Sex Assigned At Female F [facility] Tobacco smoking status NHIS Tobacco smoking consumption unknown [employer] Work Phone: Evaluation note 06-10-2022 Note Date & Type Note Facility 06-10-2022 Evaluation note Encounter Date Diagnosis Assessment Notes May, Subacute vaginitis (ICD-10 - N76.1) Suspect cystocele - gave name and numbers for drug room clerk (pt perfers female) in the area. Pt will call for appt. Will complete vag probe to r/o any yeast etc, as pt does note some itching. Pt states she will call the office for drug room clerk. [employer] Other Evaluation note Note Date & Type Note Facility Evaluation note No assessment information availa [facility] Work Phone: Evaluation note Note Date & Type Note Facility Evaluation note No Information [employer] Other Evaluation note Note Date & Type Note Facility Evaluation note Diagnosis Acute pain of both knees documented in this encounter [employer] Work Phone: History general Narrative - Reported Note Date & Type Note Facility History general Narrative - Reported Type Medical History Hypertention Medical History Hyperthyroidism Medical History Hyperlipidemia Surgical History THORACIC SPINE FUSION 2006 Surgical History BILATERAL KNEE REPLACEMENT 2006 Surgical History APPENDECTOMY 2009 Hospitalization History SEE SURGICAL HX [facility] [employer] Other Assessments Diagnosis Knee pain, unspecified chronicity, [...] and content) DATE CREATED AUTHOR 02/28/2022 [facility] DATE CREATED AUTHOR AUTHOR'S ORGANIZ ATION 06/20/2022 [facility] DATE CREATED AUTHOR AUTHOR'S ORGANIZ ATION 10/23/2022 [facility] DATE CREATED AUTHOR AUTHOR'S ORGANIZ ATION 04/12/2023 [facility] DATE CREATED AUTHOR AUTHOR'S ORGANIZ ATION 11/13/2023 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 [facility] [employer] [facility]. provides no warranty or guarantee of the accuracy or completeness of information in this document.
[2023-11-26 06:47] LABS: Basophils Percent Auto 0.5 % (0.2-2.0); Eosinophils Absolute Auto 0.4 10^3/uL (0.0-0.7); Eosinophils Percent Auto 4.9 % (0.9-7.0); Hemoglobin 13.6 g/dL (12.0-16.0); Immature Granulocytes Abs Auto 0.02 10^3/uL (0.00-0.03); Immature Granulocytes Pct Auto 0.3 % (0.0-0.5); Lymphocytes Absolute Auto 3.3 10^3/uL (1.2-3.8); Lymphocytes Percent Auto 43.1 % (20.5-60.0); Mean Corpuscular HGB Conc 33.2 g/dL (29.9-35.2); Mean Corpuscular Hemoglobin 29.7 pg (26.7-34.0); Mean Corpuscular Volume 89.5 fL (81.0-99.0); Mean Platelet Volume 9.5 fL (9.5-13.5); Monocytes Absolute Auto 0.7 10^3/uL (0.3-0.8); Monocytes Percent Auto 9.1 % (1.7-12.0); Neutrophils Absolute Auto 3.3 10^3/uL (1.4-6.5); Neutrophils Percent Auto 42.1 % (43.0-75.0); Platelet Count 376 10^3/uL (150-450); Red Blood Count 4.58 10^6/uL (4.20-5.40); Red Cell Distribution Width 14.2 % (11.0-15.0); White Blood Count 7.7 10^3/uL (4.0-11.0)
[2023-11-26 06:57] LABS: Erythrocyte Sedimentation Rate 30 mm/hr (<=30)
[2023-11-26 06:58] LABS: C Reactive Protein <0.50 mg/dL (<=0.50)
--- NOTE | 2023-11-26 07:59 | NM_ITS ---
The [address] [address] Patient Name: EMANUEL WISE MRN: [id number] date: 1945 Sex: F Assigned Patient Location: LAB Current Patient Location: Accession/Order Number: [id number] Exam Date: 11/26/2023 07:59 Report Date: 11/29/2023 16:53 At the request of: BRIA AGUILAR Procedure: NM bone 3 phase EXAMINATION: TN bone 3 phase HISTORY: LEFT KNEE PAIN, PAIN IN PROSTHETIC JOINT ; bilateral knee replacement 24 years ago COMPARISON: No relevant comparison available. TECHNIQUE: 25.1 mCi Technetium 99m MDP was injected intravenously followed by acquisition of dynamic flow, immediate blood pool, and delayed static images. FINDINGS: IMAGED AREA: Bilateral knees FLOW PHASE: Normal. BLOOD POOL PHASE: Normal. DELAYED IMAGES: Mild to moderate radiotracer accumulation within distal femur and proximal tibia adjacent the prosthetic components, and within the patella, which is symmetric bilaterally. OTHER: Negative. TN/TN bone 3 phase IMPRESSION: 1. Bilateral knee replacements with radiotracer accumulation within the bone adjacent the prosthetic components. While this does appear slightly greater than expected, the amount of radiotracer accumulation is symmetric bilaterally. No convincing hardware loosening. Electronically authenticated by: ANA NORRIS Date: 11/29/2023 16:53
== END 2023-11-26 06:34 | disposition home or self-care (01) ==
LOC: NM 06:33
PROVIDERS: PCP Family Medicine; Visit Provider Student in an Organized Health Care Education/Training Program
DX: M25.562 Pain in left knee (principal); T84.84XA Pain due to internal orthopedic prosthetic devices, implants and grafts, initial encounter; Z96.653 Presence of artificial knee joint, bilateral
CPT/HCPCS: 36415; 78315; 85025; 85652; 86140; A9503

== ENCOUNTER 2023-11-27 06:51 | Outpatient (OUT) | payer OTHER, SELFPAY ==
--- OUTSIDE RECORDS SUMMARY | 2023-11-27 06:53 | XMS_ITS | CCD ---
Author Organization [facility] Care Team Providers Care Zinc Plate Cutter Name Role Phone Felix Gil Primary Care Provider [phone] RICHARD, DR [place] Admitting Unavailable RICHARD, DR [...] Unavailable Felix Gil MD Primary Care Provider [phone] BLANCHE DOBBS Referring Unavailable FELIX GIL Primary Care Unavailable BLANCHE DOBBS Referring Unavailable FELIX GIL Primary Care Unavailable MOHINDER LEHMAN Attending Unavailable MOHINDER LEHMAN Admitting Unavailable SHIRA MCDONALD Attending Unavailable GEMMA OGLESBY Attending Unavailable Allergies Allergy Classification Reported Allergen(s) Allergy Type Date of Onset Reaction(s) Facility (8 sources) Acetaminophen; Translations: [ACETAMINOPHEN] Drug Allergy 0 Shortness Of Breath [facility] [place] (1 source) Acetaminophen Drug Allergy 5 [facility] Repository Medications Current Medications Medication Drug [...] 01-29-2022 Chronic Other aftercare (1 source) Other correction (current) drug therapy; Translations: [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 [facility] EXAM: XR KNEE LEFT (MIN 4 VIEWS) HISTORY: Acute pain of both knees COMPARISON: None. 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 No acute fracture or dislocation. Mild soft tissue swelling. Report electronically signed by: Dr. Manuel Saxena [facility] Manuel Saxena MD - 10/20/2022 EXAM: XR KNEE LEFT (MIN 4 VIEWS) HISTORY: Acute pain of both knees COMPARISON: None. 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 No acute fracture or dislocation. Mild soft tissue swelling. Report electronically signed by: Dr. 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 [facility] Work Phone: XR KNEE LEFT (MIN 4 [...] Manuel Saxena MD 10/20/22 Final result Normal [facility] Radiology Study observation (narrative) [facility] Work Phone: XR KNEE LEFT (MIN 4 VIEWS)Or dered By: Manuel Saxena on 10-20-2022 [employer] Work Phone: XR KNEE RIGHT (MIN 4 VIEWS)o n 10-20-2022 No acute findings. Intact prosthesis. [facility] EXAM: XR KNEE RIGHT (MIN [...] Report electronically signed by: Dr. Melisa Jiang [facility] Melisa Jiang MD - 10/20/2022 [...] Jiang IMPRESSION: No acute findings. Intact prosthesis. [employer] Phone: XR KNEE RIGHT (MIN 4 VIEWS) [...] Melisa Jiang MD 10/20/22 Final result Normal [facility] Radiology Study observation (narrative) [employer] Phone: XR KNEE RIGHT (MIN 4 VIEWS)O rdered By: Melisa Jiang on 10-20-2022 [employer] Work Phone: [facility] 06-10-[address] [facility] Normal [facility] Comment on above: Order Comment: [facility] Test Name: VAGINITIS/VAGINOSIS DNA PROBE # [id number] Result Comment: See report. Scanned copy available in EMR. PERFORMED BY: [place] [address] PATHOLOGIST [employer]AND EQUIPMENT REPAIRER MEGHAN ESPINO M.D. Performed By: #### [facility] #### [address] MG MAMM SCREEN 3D HERBER CADon 02-25-2022 MG MAMM SCREEN 3D HERBER CAD Patient: EMANUEL WISE Exam Date: 02/25/2022 : 1945 Gender:F Ordering : DR FELIX GIL . Admission #: [id number] Family : Order #: [id number] CLICK HERE TO VIEW EXAM RADIOLOGY REPORT [...] with ovarian cancer at age 61. LOCATION[facility] BREAST COMPOSITION: Scattered areas fibroglandular density. [...] MD on 02/26/2022 at 11:40 Normal [facility] XR DEXA BONE DENSITYon 02-25 XR [...] EDVIN SU Date: 2022-02-25 16:21 Normal [facility] INSULINon 01-21-2022 Insulin 6.3 uIU/mL Normal 2.6-24.9 [facility] Comment on above: Performed By: #### V ITAD, IRON #### [facility] [address] [place] [address] Dr. Gabby Briones BILIRUBIN CONJUGATED (DIRECT )on 01-20-2022 BILI, CONJUGATED 0.1 mg/dL Normal 0.0-0.2 [facility] Comment on above: Performed By: #### T SH, DBIL, CMP, LIPID, FT3, T4 #### [facility] [address] [place] [address] Dr. Gabby Briones CBC AUTO DIFFon 01-20-2022 BASO # 0.0 103/ul Normal 0.0-0.1 [facility] Comment on above: Performed By: #### V ITAD, IRON #### [facility] [address] [place] [address] Dr. Gabby Briones Basophils/100 WBC (Bld) 0.6 % Normal 0.2-2.0 [facility] Comment on above: Performed By: #### V ITAD, IRON #### [facility] [address] [address] [address] Gabby Briones EO # 0.4 103/ul Normal 0.0-0.7 [facility] Comment on above: Performed By: #### V ITAD, IRON #### [facility] [address] [place] [address] Dr. Gabby Briones Eosinophils/100 WBC (Bld) 6.0 % Normal 0.9-7.0 [facility] Comment on above: Performed By: #### V ITAD, IRON #### [facility] [address] [place] [address] Dr. Gabby Briones Erythrocyte distribution width (RBC) [Ratio] 13.7 % Normal 11.0-15.0 [facility] Comment on above: Performed By: #### V ITAD, IRON #### [facility] [address] [place] [address] Dr. Gabby Briones Hematocrit (Bld) [Volume fraction] 41.9 % Normal 36.0-48.0 [facility] Comment on above: Performed By: #### V ITAD, IRON #### [facility] [address] [place] [address] Dr. Gabby Briones Hemoglobin (Bld) [Mass/Vol] 14.0 g/dL Normal 12.0-16.0 [facility] Comment on above: Performed By: #### V ITAD, IRON #### [facility] [address] [place] [address] Dr. Gabby Briones IG # 0.02 10e3/ul Normal 0.00-0.03 [facility] Comment on above: Performed By: #### V ITAD, IRON #### [facility] [address] [place] [address] Dr. Gabby Briones IG % 0.3 % Normal 0.0-0.5 [facility] Comment on above: Performed By: #### V ITAD, IRON #### [facility] [address] [place] [address] Dr. Gabby Briones LYMPH # 2.6 103/ul Normal 1.2-3.8 [facility] Comment on above: Performed By: #### V ITAD, IRON #### [facility] [address] [place] [address] Dr. Gabby Briones Lymphocytes/100 WBC (Bld) 39.7 % Normal 20.5-60.0 [facility] Comment on above: Performed By: #### V ITAD, IRON #### [facility] [address] [place] [address] Dr. Gabby Briones MANUAL DIFF REQ NO Normal [facility] Comment on above: Performed By: #### V ITAD, IRON #### [facility] [address] [place] [address] Dr. Gabby Briones MCH (RBC) [Entitic mass] 29.6 pg Normal 26.7-34.0 [facility] Comment on above: Performed By: #### V ITAD, IRON #### [facility] [address] [place] [address] Dr. Gabby Briones MCHC (RBC) [Mass/Vol] 33.4 g/dL Normal 29.9-35.2 [facility] Comment on above: Performed By: #### V ITAD, IRON #### [facility] [address] [place] [address] Dr. Gabby Briones MCV (RBC) [Entitic vol] 88.6 fL Normal 81.0-99.0 [facility] Comment on above: Performed By: #### V ITAD, IRON #### [facility] [address] [place] [address] Dr. Gabby Briones MONO # 0.6 103/ul Normal 0.3-0.8 [facility] Comment on above: Performed By: #### V ITAD, IRON #### [facility] [address] [place] [address] Dr. Gabby Briones Monocytes/100 WBC (Bld) 8.8 % Normal 1.7-12.0 [facility] Comment on above: Performed By: #### V ITAD, IRON #### [facility] [address] [place] [address] Dr. Gabby Briones NEUT # 2.9 103/ul Normal 1.4-6.5 [facility] Comment on above: Performed By: #### V ITAD, IRON #### [facility] [address] [place] [address] Dr. Gabby Briones Neutrophils/100 WBC (Bld) 44.6 % Normal 43.0-75.0 [facility] Comment on above: Performed By: #### V ITAD, IRON #### [facility] [address] [address] [address] Gabby Briones Platelet mean volume (Bld) [Entitic vol] 9.4 fL Critically low 9.5-13.5 [facility] Comment on above: Performed By: #### V ITAD, IRON #### [facility] [address] [place] [address] Dr. Gabby Briones PLT 326 103/ul Normal 150-450 [facility] Comment on above: Performed By: #### V ITAD, IRON #### [facility] [address] [place] [address] Dr. Gabby Briones RBC 4.73 106/ul Normal 4.20-5.40 [facility] Comment on above: Performed By: #### V ITAD, IRON #### [facility] [address] [place] [address] Dr. Gabby Briones WBC 6.5 103/ul Normal 4.0-11.0 [facility] Comment on above: Performed By: #### V ITAD, IRON #### [facility] [address] [place] [address] Dr. Gabby Briones FREE T3on 01-20-2022 FREE T3 2.47 pg/mlL Normal 2.18-3.98 [facility] Comment on above: Performed By: #### T SH, DBIL, CMP, LIPID, FT3, T4 #### [facility] [address] [place] [address] Dr. Gabby Briones GLYCOHEMOGLOBIN A1Con 2021 ADA RECOMMENDATION SEE BELOW Normal [facility] Comment on above: Result Comment: ADA RECOMMENDED LIMIT 4.0 - 6.0 ADA THERAPEUTIC TARGET < 7.0 ACTION SUGGESTED > 7.0 Performed By: #### V ITAD, IRON #### [facility] [address] [place] [address] Dr. Gabby Briones Glucose [Mass/Vol] 111 mg/dL Normal [facility] Comment on above: Performed By: #### V ITAD, IRON #### [facility] [address] [place] [address] Dr. Gabby Briones HbA1c (Bld) [Mass fraction] 5.5 % Normal 4.5-6.2 [facility] Comment on above: Performed By: #### V ANIBAL IRON #### [facility] [address] [place] [address] Dr. Gabby Briones IRONon 01-20-2022 Iron [Mass/Vol] 92.0 ug/dL Normal 50.0-170.0 [facility] Comment on above: Performed By: #### V ANIBAL IRON #### [facility] [address] [place] [address] Dr. Gabby Briones LIPID PROFILEon 01-20-2022 CHOL-HDL RATIO NORM SEE BELOW Normal [facility] Comment on above: Result Comment: 3.3 - 4.4 LOW RISK 4.4 - 7.1 AVERAGE RISK 7.1 - 11.0 MODERATE RISK >11.0 HIGH RISK Performed By: #### T SH, DBIL, CMP, LIPID, FT3, T4 #### [facility] [address] [place] [address] Dr. Gabby Briones Cholesterol [Mass/Vol] 183 mg/dL Normal <=200 [facility] Comment on above: Performed By: #### T SH, DBIL, CMP, LIPID, FT3, T4 #### [facility] [address] [place] [address] Dr. Gabby Briones Cholesterol in HDL [Mass/Vol] 56 mg/dL Normal 40-60 [facility] Comment on above: Performed By: #### T SH, DBIL, CMP, LIPID, FT3, T4 #### [facility] [address] [place] [address] Dr. Gabby Briones Cholesterol in LDL [Mass/Vol] 102.8 mg/dL Normal [facility] Comment on above: Performed By: #### T SH, DBIL, CMP, LIPID, FT3, T4 #### [facility] [address] [place] [address] Dr. Gabby Briones Cholesterol.total/Ch olesterol in HDL [Mass ratio] 3.3 {ratio} Normal [facility] Comment on above: Performed By: #### T SH, DBIL, CMP, LIPID, FT3, T4 #### [facility] [address] [address] [address] Gabby Briones HDL NORMAL > or = 60 mg/dl - LOW CARDIOVASCULAR RISK <40 mg/dl - HIGH CARDIOVASCULAR RISK Normal [facility] Comment on above: Performed By: #### T SH, DBIL, CMP, LIPID, FT3, T4 #### [facility] [address] [address] [address] Gabby Briones LDL CALC NORMAL SEE BELOW Normal [facility] Comment on above: Result Comment: <100 mg/dl OPTIMAL 100 - 129 mg/dl NEAR OR ABOVE OPTIMAL 130 - 159 mg/dl BORDERLINE HIGH 160 - 189 mg/dl HIGH >190 mg/dl VERY HIGH Performed By: #### T SH, DBIL, CMP, LIPID, FT3, T4 #### [facility] [address] [place] [address] Dr. Gabby Briones Triglyceride [Mass/Vol] 121 mg/dL Normal <=150 [facility] Comment on above: Performed By: #### T SH, DBIL, CMP, LIPID, FT3, T4 #### [facility] [address] [address] [address] Gabby Briones VLDL CALC 24.2 mg/dL Normal [facility] Comment on above: Performed By: #### T SH, DBIL, CMP, LIPID, FT3, T4 #### [facility] [address] [place] [address] Dr. Gabby Briones PROF 14(COMP METB)on 022 Albumin [Mass/Vol] 3.4 g/dL Normal 3.4-5.0 [facility] Comment on above: Performed By: #### T SH, DBIL, CMP, LIPID, FT3, T4 #### [facility] [address] [place] [address] Dr. Gabby Briones Albumin/Globulin [Mass ratio] 1.0 {ratio} Normal [facility] Comment on above: Performed By: #### T SH, DBIL, CMP, LIPID, FT3, T4 #### [facility] [address] [place] [address] Dr. Gabby Briones ALP [Catalytic activity/Vol] 50 U/L Normal 46-116 [facility] Comment on above: Performed By: #### T SH, DBIL, CMP, LIPID, FT3, T4 #### [facility] [address] [place] [address] Dr. Gabby Briones ALT [Catalytic activity/Vol] 17 U/L Normal 14-59 [facility] Comment on above: Performed By: #### T SH, DBIL, CMP, LIPID, FT3, T4 #### [facility] [address] [place] [address] Dr. Gabby Briones Anion gap [Moles/Vol] 13.7 mmol/L Normal [facility] Comment on above: Performed By: #### T SH, DBIL, CMP, LIPID, FT3, T4 #### [facility] [address] [place] [address] Dr. Gabby Briones AST [Catalytic activity/Vol] 13 U/L Critically low 15-37 [facility] Comment on above: Performed By: #### T SH, DBIL, CMP, LIPID, FT3, T4 #### [facility] [address] [place] [address] Dr. Gabby Briones Bilirubin [Mass/Vol] 0.4 mg/dL Normal 0.2-1.0 [facility] Comment on above: Performed By: #### T SH, DBIL, CMP, LIPID, FT3, T4 #### [facility] [address] [place] [address] Dr. Gabby Briones Calcium [Mass/Vol] 9.1 mg/dL Normal 8.5-10.1 [facility] Comment on above: Performed By: #### T SH, DBIL, CMP, LIPID, FT3, T4 #### [facility] [address] [place] [address] Dr. Gabby Briones Chloride [Moles/Vol] 106 mmol/L Normal 98-107 [facility] Comment on above: Performed By: #### T SH, DBIL, CMP, LIPID, FT3, T4 #### [facility] [address] [place] [address] Dr. Gabby Briones CO2 [Moles/Vol] 25.8 mmol/L Normal 21.0-32.0 [facility] Comment on above: Performed By: #### T SH, DBIL, CMP, LIPID, FT3, T4 #### [facility] [address] [place] [address] Dr. Gabby Briones Creatinine [Mass/Vol] 0.76 mg/dL Normal 0.55-1.02 [facility] Comment on above: Performed By: #### T SH, DBIL, CMP, LIPID, FT3, T4 #### [facility] [address] [place] [address] Dr. Gabby Briones EGFR-AF MAURITIAN >60 Normal >=60 [facility] Comment on above: Performed By: #### T SH, DBIL, CMP, LIPID, FT3, T4 #### [facility] [address] [place] [address] Dr. Gabby Briones EGFR-NON AF MAURITIAN >60 Normal >=60 [facility] Comment on above: Performed By: #### T SH, DBIL, CMP, LIPID, FT3, T4 #### [facility] [address] [place] [address] Dr. Gabby Briones Globulin (S) [Mass/Vol] 3.5 g/dL Normal [facility] Comment on above: Performed By: #### T SH, DBIL, CMP, LIPID, FT3, T4 #### [facility] [address] [place] [address] Dr. Gabby Briones Glucose [Mass/Vol] 101 mg/dL Normal 74-106 [facility] Comment on above: Performed By: #### T SH, DBIL, CMP, LIPID, FT3, T4 #### [facility] [address] [place] [address] Dr. Gabby Briones Potassium [Moles/Vol] 4.5 mmol/L Normal 3.5-5.1 [facility] Comment on above: Performed By: #### T SH, DBIL, CMP, LIPID, FT3, T4 #### [facility] [address] [place] [address] Dr. Gabby Briones Protein [Mass/Vol] 6.9 g/dL Normal 6.4-8.2 [facility] Comment on above: Performed By: #### T SH, DBIL, CMP, LIPID, FT3, T4 #### [facility] [address] [place] [address] Dr. Gabby Briones Sodium [Moles/Vol] 141 mmol/L Normal 136-145 [facility] Comment on above: Performed By: #### T SH, DBIL, CMP, LIPID, FT3, T4 #### [facility] [address] [place] [address] Dr. Gabby Briones Urea nitrogen [Mass/Vol] 22.0 mg/dL Critically high 7.0-18.0 [facility] Comment on above: Performed By: #### T SH, DBIL, CMP, LIPID, FT3, T4 #### [facility] [address] [place] [address] Dr. Gabby Briones Urea nitrogen/Creatinine [Mass ratio] 28.9 mg/mg Normal [facility] Comment on above: Performed By: #### T SH, DBIL, CMP, LIPID, FT3, T4 #### [facility] [address] [place] [address] Dr. Gabby Briones T4on 01-20-2022 T4 [Mass/Vol] 7.30 ug/dL Normal 4.80-13.90 [facility] Comment on above: Performed By: #### T SH, DBIL, CMP, LIPID, FT3, T4 #### [facility] [address] [place] [address] Dr. Gabby Briones TSHon 01-20-2022 TSH 0.467 uIU/mL Normal 0.358-3.740 [facility] Comment on above: Performed By: #### T SH, DBIL, CMP, LIPID, FT3, T4 #### [facility] [address] [place] [address] Dr. Gabby Briones VITAMIN D 25 OHon 01-20-2022 VIT D 25-OH 34.9 ng/mL Normal [facility] Comment on above: Performed By: #### V ITAD, IRON #### [facility] [address] [place] [address] Dr. Gabby Briones VIT D RANGES SEE BELOW Normal [facility] Comment on above: Result Comment: <20 ng/mL Vit D deficient 20 - <30 ng/mL Vit D insufficient 30 - 100 ng/mL Vit D sufficient >100 ng/mL Potential Toxicity Performed By: #### V ITAD, IRON #### [facility] [address] [place] [address] Dr. Gabby Briones BNPon 05-08-2021 Natriuretic peptide B (Bld) [Mass/Vol] 125.0 pg/mL Normal <=1,800.0 [facility] Comment on above: Performed By: #### V ITAD, IRON #### [facility] [address] [place] [address] Dr. Gabby Briones FREE THYROXINE INDEX T7on FTI 2.21 Normal [facility] Comment on above: Performed By: #### V ITAD, IRON #### [facility] [address] [place] [address] Dr. Gabby Briones T3U 34.0 % Normal 23.5-40.5 [facility] Comment on above: Performed By: #### V ITAD, IRON #### [facility] [address] [place] [address] Dr. Gabby Briones T4 [Mass/Vol] 6.50 ug/dL Normal 5.53-11.00 [facility] Comment on above: Performed By: #### V ITAD, IRON #### [facility] [address] [place] [address] Dr. Gabby Briones TSHon 05-08-2021 TSH 0.658 uIU/mL Normal 0.470-4.680 [facility] Comment on above: Performed By: #### V ITAD, IRON #### [facility] [address] [place] [address] Dr. Gabby Briones TSH RANGE SEE BELOW Normal [facility] Comment on above: Result Comment: <0.3 4 UIU/ml HYPERTHYROID 0.34-5.60 UIU/ml EUTHYROID >5.60 UIU/ml HYPOTHYROID Performed By: #### V ITAD, IRON #### [facility] [address] [place] [address] Dr. Gabby Schmitt 02-07-2020 1. 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 No hardware complications identified. 2. Small dystrophic ossific densities are again seen posterior to both knee joints. 3. Small enthesophytes along the anterior-superior and anterior-inferior right patella are again noted. 4. No fracture or dislocation is identified. [place], [place] BILATERAL KNEE RADIOGRAPHS 02/07/2020. COMPARISON: Knee radiographs dated 01/13/2018. HISTORY: Knee pain, unspecified chronicity, unspecified laterality. TECHNIQUE: Standing frontal, tunnel, lateral, and sunrise views of both knees were obtained. Report electronically signed by: Dr. Kaz Govea [place], [place], Incoming Radiant Results From [facility] - 02/07/2020 [...] 4. No fracture or dislocation is identified. [place] Vital Signs Date Time Vital Sign Value Performing Clinician Facility 06-10-2022 10:00-0400 Body height 143.51 cm June Zarate Other [email or web address] Other 06-10-2022 10:00-0400 Body mass index (BMI) [Ratio] 41.84 kg/m2 June Zarate Other [email or web address] Other 06-10-2022 10:00-0400 Body weight 86.18 kg June Zarate Other [facility] Other 06-10-2022 10:00-0400 Diastolic blood pressure 78 mm[Hg] June Zarate Other [facility] Other 06-10-2022 10:00-0400 SaO2% (BldA) [Mass fraction] 92 % June Zarate Other [email or web address] Other 06-10-2022 10:00-0400 Systolic blood pressure 140 mm[Hg] June Zarate Other [email or web address] Other Encounters Encounter Date Encounter Type Care Provider Facility Start: 11-11-2023 End: 11-11-2023 ambulatory GEMMA OGLESBY Not Available Start: 10-28-2023 End: 10-28-2023 ambulatory SHIRA MCDONALD Not Available Start: 04-06-2023 End: 04-06-2023 ambulatory [facility] Start: 10-20-2022 ambulatory [facility] Start: 10-20-2022 End: 10-22-2022 Subsequent hospital visit by physician [facility] Xray Room [facility] Radiology Comment on above: Acute pain of both k nesophia Start: 06-15-2022 End: 06-15-2022 ambulatory June Zarate Other [email or web address] Other Start: 06-15-2022 Telephone encounter June Zarate [facility] Start: 06-10-2022 Office outpatient visit 15 minutes June Zarate [facility] Start: 06-10-2022 End: 06-10-2022 ambulatory June Zarate [email or web address] Other Start: 06-10-2022 End: 06-10-2022 Departed Referred MD June Zarate Work Phone: [facility] [place] Work Phone: Start: 02-25-2022 End: 02-26-[address] FELIX GIL Facility:[facility] Start: 01-20-2022 End: 01-21-[address] FELIX GIL Facility:[facility] Start: 05-08-2021 End: 05-09-[address] FELIX GIL Facility:[facility] Start: 02-07-2020 End: 02-09-2020 Subsequent hospital visit by physician [facility] Xray Room [facility] Radiology Comment on above: Knee [...] Flu vaccine (# 1) [place] Start: 06-10-2022 [facility] Start: 01-18-2020 Shingles Vaccine (3 of 3) Shingles Vaccine (3 of 3) [place], [place] Start: 01-09-2020 Annual Wellness Visi t (AWV) Annual Wellness Visit (AWV) [place] Start: 2001 Screening for osteoporosis DEXA (modify frequency per FRAX score) [place] Start: 1996 Screening for malign ant neoplasm of breast Breast cancer screen [place], [place] Start: 1996 Screening for malign ant neoplasm of colon Colon cancer screen colonoscopy [place], [place] Start: 1965 DTaP/Tdap/Td vaccine (1 - Tdap) DTaP/Tdap/Td vaccine (1 - Tdap) [place] Start: 1964 Hepatitis C screening Hepatitis C sc reen [place] Start: 1958 Depression Screen Depression Screen [place] Start: 1956 Lipid panel [place] Start: 1946 Creatinine measurement Creatinine mo nitoring [place], [place] Start: 1946 Hepatitis C screening Hepatitis C sc reen [place], [place] Start: 1946 Potassium monitoring Potassium monit [place], [place] Payers Date Payer Category Payer Unknown [id number] 2022 Self-pay 1958 Medicare [id number] 1959 Unknown [id number] 1946 Unknown [id number] 1946 Unknown [id number] 2.16.84 [id number] 1946 Unknown [id number] 2.16.84 [id number] 1946 Unknown [id number] [id number] 1945 Unknown [id number] 2.16.8 [id number] 1945 Unknown [id number] 2.16. [id number] 1945 Unknown [id number] 2.16.84 [id number] 1945 Unknown [id number] 2.16.84 [id number] Unknown [id number] 2.16.8 [id number] Social History Date Type Detail Facility Tobacco [facility] status [facility] 1945 Sex Assigned At Not on file M [place], [place] Sex Assigned At Sex Assigned At Bir th [email or web address] Other Start: 1945 Sex Assigned At Female F [facility] Tobacco smoking status NHIS Tobacco smoking consumption unknown [employer] Work Phone: Evaluation note 06-10-2022 Note Date & Type Note Facility 06-10-2022 Evaluation note Encounter Date Diagnosis Assessment Notes May, Subacute vaginitis (ICD-10 - N76.1) Suspect cystocele - gave name and numbers for rn gynecology (pt perfers female) in the area. Pt will call for appt. Will complete vag probe to r/o any yeast etc, as pt does note some itching. Pt states she will call the office for rn gynecology. [email or web address] Other Evaluation note Note Date & Type Note Facility Evaluation note No assessment information availa [facility] Work Phone: Evaluation note Note Date & Type Note Facility Evaluation note No Information [facility]iry Other Evaluation note Note Date & Type Note Facility Evaluation note Diagnosis Acute pain of both knees documented in this encounter [employer] Work Phone: History general Narrative - Reported Note Date & Type Note Facility History general Narrative - Reported Type Medical History Hypertention Medical History Hyperthyroidism Medical History Hyperlipidemia Surgical History THORACIC SPINE FUSION 2006 Surgical History BILATERAL KNEE REPLACEMENT 2006 Surgical History APPENDECTOMY 2009 Hospitalization History SEE SURGICAL HX [email or web address] Other Assessments Diagnosis Knee pain, unspecified chronicity, [...] content) DATE CREATED AUTHOR 02/28/2022 [facility] DATE CREATED AUTHOR AUTHOR'S ORGANIZ ATION 06/20/2022 [facility] DATE CREATED AUTHOR AUTHOR'S ORGANIZ ATION 10/23/2022 [facility] DATE CREATED AUTHOR AUTHOR'S ORGANIZ ATION 04/12/2023 [facility] DATE CREATED AUTHOR AUTHOR'S ORGANIZ ATION 11/13/2023 [facility] EPIC REASON FOR VISIT (unrecogniz ed section and content) Has Not Been Seen in Awhile- MEDICARE Wellnessvaginal cultures Care Teams (unrecognized sec tion and content) Team Status: Inactive Member Role Status Dates June Zarate MD Attending Provider Active [employer] Relationship Specialty Start Date End Date Felix Gil MD [address] [phone] PCP - General Family Medicine 11/09/19 Goals [...] BE BASED ON THE PRIMARY CLINICAL RECORDS. [facility] [employer] [facility]. provides no warranty or guarantee of the accuracy or completeness of information in this document.
[2023-11-27 08:20] LABS: Estimated Average Glucose 111 mg/dL; Glycohemoglobin A1C 5.5 % (4.5-6.2)
[2023-11-27 08:47] LABS: Alanine Aminotransferase 27 U/L (14-59); Albumin Globulin Ratio 0.9; Alkaline Phosphatase 65 U/L (46-116); Anion Gap 12.1; Aspartate Amino Transferase 21 U/L (15-37); BUN Creatinine Ratio 18.7; Bilirubin Total 0.3 mg/dL (0.2-1.0); Calcium 8.6 mg/dL (8.5-10.1); Carbon Dioxide 25.9 mmol/L (21.0-32.0); Chloride 106 mmol/L (98-107); Chol HDL Ratio 3.6; Cholesterol 201 mg/dL (<=200); Estimated GFR (African America >60 (>=60); Estimated GFR (Non-African Ame 60 (>=60); Free T3 2.09 pg/mL (2.18-3.98); Globulin 3.3 g/dL; Glucose 87 mg/dL (74-106); HDL Cholesterol 56 mg/dL (40-60); Sodium 140 mmol/L (136-145); Thyroid Stimulating Hormone 0.774 uIU/mL (0.358-3.740); Total Protein 6.3 g/dL (6.4-8.2); Triglycerides 135 mg/dL (<=150)
== END 2023-11-27 06:52 | disposition home or self-care (01) ==
LOC: LAB 06:51
PROVIDERS: PCP Family Medicine; Visit Provider Family Medicine
DX: Z00.00 Encounter for general adult medical examination without abnormal findings (principal); R53.83 Other fatigue; I10 Essential (primary) hypertension; E55.9 Vitamin D deficiency, unspecified
CPT/HCPCS: 36415; 80053; 80061; 82306; 83036; 84436; 84443; 84481

== ENCOUNTER 2023-12-09 09:35 | Outpatient (REF) | payer OTHER, SELFPAY ==
--- OUTSIDE RECORDS SUMMARY | 2023-12-09 09:41 | XMS_ITS | CCD ---
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 Name Role Phone Felix Gil Primary Care [...] Unavailable Felix Gil MD Primary Care Provider [phone] BLANCHE DOBBS Referring Unavailable FELIX GIL Primary Care Unavailable BLANCHE DOBBS Referring Unavailable FELIX GIL Primary Care Unavailable MOHINDER LEHMAN Attending Unavailable MOHINDER LEHMAN Admitting Unavailable SHIRA MCDONALD Attending Unavailable GEMMA OGLESBY Attending Unavailable Allergies Allergy Classification Reported Allergen(s) Allergy Type Date of Onset Reaction(s) Facility (8 sources) Acetaminophen; Translations: [ACETAMINOPHEN] Drug Allergy 0 Shortness Of Breath [facility] [place] (1 source) Acetaminophen Drug Allergy 5 [facility] Repository Medications Current Medications Medication Drug [...] 01-29-2022 Chronic Other aftercare (1 source) Other group home (current) drug therapy; Translations: [OTH HALF-WAY CURRENT DRUG THERAPY] Onset: 01-29-2022 Episodic Other [...] total left knee replacement in anatomical position. [facility] EXAM: XR KNEE LEFT (MIN 4 VIEWS) HISTORY: Acute pain of both knees COMPARISON: None. 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 No acute fracture or dislocation. Mild soft tissue swelling. Report electronically signed by: Dr. Manuel Saxena [facility] Manuel Saxena MD - 10/20/2022 EXAM: XR KNEE LEFT (MIN 4 VIEWS) HISTORY: Acute pain of both knees COMPARISON: None. 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 No acute fracture or dislocation. Mild soft tissue swelling. Report electronically signed by: Dr. 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 [facility] Work Phone: XR KNEE LEFT (MIN 4 [...] Manuel Saxena MD 10/20/22 Final result Normal [facility] Radiology Study observation (narrative) [facility] Work Phone: XR KNEE LEFT (MIN 4 VIEWS)Or dered By: Manuel Saxena on 10-20-2022 [employer] Work Phone: XR KNEE RIGHT (MIN 4 VIEWS)o n 10-20-2022 No acute findings. Intact prosthesis. [facility] EXAM: XR KNEE RIGHT (MIN [...] Report electronically signed by: Dr. Melisa Jiang [facility] Melisa Jiang MD - 10/20/2022 [...] Jiang IMPRESSION: No acute findings. Intact prosthesis. [employer] Phone: XR KNEE RIGHT (MIN 4 VIEWS) [...] Melisa Jiang MD 10/20/22 Final result Normal [facility] Radiology Study observation (narrative) [employer] Phone: XR KNEE RIGHT (MIN 4 VIEWS)O rdered By: Melisa Jiang on 10-20-2022 [employer] Work Phone: [facility] 06-10-2022 [facility] Normal [facility] Comment on above: Order Comment: [facility] Test Name: VAGINITIS/VAGINOSIS DNA PROBE # [id number] Result Comment: See report. Scanned copy available in EMR. PERFORMED BY: [place] [address] PATHOLOGIST TOOLS PROGRAMMER MEGHAN ESPINO M.D. Performed By: #### [facility] #### [address] MG MAMM SCREEN 3D HERBER CADon 02-25-2022 MG MAMM SCREEN 3D HERBER CAD Patient: EMANUEL WISE Exam Date: 02/25/2022 : 1945 Gender:F Ordering : DR FELIX GIL . Admission #: [id number] Family : Order #: [id number] CLICK HERE TO VIEW EXAM RADIOLOGY REPORT [...] with ovarian cancer at age 61. LOCATION: [facility] BREAST COMPOSITION: Scattered areas fibroglandular density. [...] MD on 02/26/2022 at 11:40 Normal [facility] XR DEXA BONE DENSITYon 02-25 XR [...] EDVIN SU Date: 2022-02-25 16:21 Normal [facility] INSULINon 01-21-2022 Insulin 6.3 uIU/mL Normal 2.6-24.9 [facility] Comment on above: Performed By: #### V ITAD, IRON #### [facility] [address] [place] [address] Dr. Gabby Briones BILIRUBIN CONJUGATED (DIRECT )on 01-20-2022 BILI, CONJUGATED 0.1 mg/dL Normal 0.0-0.2 [facility] Comment on above: Performed By: #### T SH, DBIL, CMP, LIPID, FT3, T4 #### [facility] [address] [place] [address] Dr. Gabby Briones CBC AUTO DIFFon 01-20-2022 BASO # 0.0 103/ul Normal 0.0-0.1 [facility] Comment on above: Performed By: #### V ITAD, IRON #### [facility] [address] [place] [address] Dr. aGbby Briones Basophils/100 WBC (Bld) 0.6 % Normal 0.2-2.0 [facility] Comment on above: Performed By: #### V ITAD, IRON #### [facility] [address] [address] [address] Gabby Briones EO # 0.4 103/ul Normal 0.0-0.7 [facility] Comment on above: Performed By: #### V ITAD, IRON #### [facility] [address] [place] [address] Dr. Gabby Briones Eosinophils/100 WBC (Bld) 6.0 % Normal 0.9-7.0 [facility] Comment on above: Performed By: #### V ITAD, IRON #### [facility] [address] [place] [address] Dr. Gabby Briones Erythrocyte distribution width (RBC) [Ratio] 13.7 % Normal 11.0-15.0 [facility] Comment on above: Performed By: #### V ITAD, IRON #### [facility] [address] [place] [address] Dr. Gabby Briones Hematocrit (Bld) [Volume fraction] 41.9 % Normal 36.0-48.0 [facility] Comment on above: Performed By: #### V ITAD, IRON #### [facility] [address] [place] [address] Dr. Gabby Briones Hemoglobin (Bld) [Mass/Vol] 14.0 g/dL Normal 12.0-16.0 [facility] Comment on above: Performed By: #### V ITAD, IRON #### [facility] [address] [place] [address] Dr. Gabby Briones IG # 0.02 10e3/ul Normal 0.00-0.03 [facility] Comment on above: Performed By: #### V ITAD, IRON #### [facility] [address] [place] [address] Dr. Gabby Briones IG % 0.3 % Normal 0.0-0.5 [facility] Comment on above: Performed By: #### V ITAD, IRON #### [facility] [address] [place] [address] Dr. Gabby Briones LYMPH # 2.6 103/ul Normal 1.2-3.8 [facility] Comment on above: Performed By: #### V ITAD, IRON #### [facility] [address] [place] [address] Dr. Gabby Briones Lymphocytes/100 WBC (Bld) 39.7 % Normal 20.5-60.0 [facility] Comment on above: Performed By: #### V ITAD, IRON #### [facility] [address] [place] [address] Dr. Gabby Briones MANUAL DIFF REQ NO Normal [facility] Comment on above: Performed By: #### V ITAD, IRON #### [facility] [address] [place] [address] Dr. Gabby Briones MCH (RBC) [Entitic mass] 29.6 pg Normal 26.7-34.0 [facility] Comment on above: Performed By: #### V ITAD, IRON #### [facility] [address] [place] [address] Dr. Gabby Briones MCHC (RBC) [Mass/Vol] 33.4 g/dL Normal 29.9-35.2 [facility] Comment on above: Performed By: #### V ITAD, IRON #### [facility] [address] [place] [address] Dr. Gabby Briones MCV (RBC) [Entitic vol] 88.6 fL Normal 81.0-99.0 [facility] Comment on above: Performed By: #### V ITAD, IRON #### [facility] [address] [place] [address] Dr. Gabby Briones MONO # 0.6 103/ul Normal 0.3-0.8 [facility] Comment on above: Performed By: #### V ITAD, IRON #### [facility] [address] [place] [address] Dr. Gabby Briones Monocytes/100 WBC (Bld) 8.8 % Normal 1.7-12.0 [facility] Comment on above: Performed By: #### V ITAD, IRON #### [facility] [address] [place] [address] Dr. Gabby Briones NEUT # 2.9 103/ul Normal 1.4-6.5 [facility] Comment on above: Performed By: #### V ITAD, IRON #### [facility] [address] [place] [address] Dr. Gabby Briones Neutrophils/100 WBC (Bld) 44.6 % Normal 43.0-75.0 [facility] Comment on above: Performed By: #### V ITAD, IRON #### [facility] [address] [address] [address] Gabby Briones Platelet mean volume (Bld) [Entitic vol] 9.4 fL Critically low 9.5-13.5 [facility] Comment on above: Performed By: #### V ITAD, IRON #### [facility] [address] [place] [address] Dr. Gabby Briones PLT 326 103/ul Normal 150-450 [facility] Comment on above: Performed By: #### V ITAD, IRON #### [facility] [address] [place] [address] Dr. Gabby Briones RBC 4.73 106/ul Normal 4.20-5.40 [facility] Comment on above: Performed By: #### V ITAD, IRON #### [facility] [address] [place] [address] Dr. Gabby Briones WBC 6.5 103/ul Normal 4.0-11.0 [facility] Comment on above: Performed By: #### V ITAD, IRON #### [facility] [address] [place] [address] Dr. Gabby Briones FREE T3on 01-20-2022 FREE T3 2.47 pg/mlL Normal 2.18-3.98 [facility] Comment on above: Performed By: #### T SH, DBIL, CMP, LIPID, FT3, T4 #### [facility] [address] [place] [address] Dr. Gabby Briones GLYCOHEMOGLOBIN A1Con 2021 ADA RECOMMENDATION SEE BELOW Normal [facility] Comment on above: Result Comment: ADA RECOMMENDED LIMIT 4.0 - 6.0 ADA THERAPEUTIC TARGET < 7.0 ACTION SUGGESTED > 7.0 Performed By: #### V ITAD, IRON #### [facility] [address] [place] [address] Dr. Gabby Briones Glucose [Mass/Vol] 111 mg/dL Normal [facility] Comment on above: Performed By: #### V ITAD, IRON #### [facility] [address] [place] [address] Dr. Gabby Briones HbA1c (Bld) [Mass fraction] 5.5 % Normal 4.5-6.2 [facility] Comment on above: Performed By: #### V ANIBAL IRON #### [facility] [address] [place] [address] Dr. Gabby Briones IRONon 01-20-2022 Iron [Mass/Vol] 92.0 ug/dL Normal 50.0-170.0 [facility] Comment on above: Performed By: #### V ANIBAL IRON #### [facility] [address] [place] [address] Dr. Gabby Briones LIPID PROFILEon 01-20-2022 CHOL-HDL RATIO NORM SEE BELOW Normal [facility] Comment on above: Result Comment: 3.3 - 4.4 LOW RISK 4.4 - 7.1 AVERAGE RISK 7.1 - 11.0 MODERATE RISK >11.0 HIGH RISK Performed By: #### T SH, DBIL, CMP, LIPID, FT3, T4 #### [facility] [address] [place] [address] Dr. Gabby Briones Cholesterol [Mass/Vol] 183 mg/dL Normal <=200 [facility] Comment on above: Performed By: #### T SH, DBIL, CMP, LIPID, FT3, T4 #### [facility] [address] [place] [address] Dr. Gabby Briones Cholesterol in HDL [Mass/Vol] 56 mg/dL Normal 40-60 [facility] Comment on above: Performed By: #### T SH, DBIL, CMP, LIPID, FT3, T4 #### [facility] [address] [place] [address] Dr. Gabby Briones Cholesterol in LDL [Mass/Vol] 102.8 mg/dL Normal [facility] Comment on above: Performed By: #### T SH, DBIL, CMP, LIPID, FT3, T4 #### [facility] [address] [place] [address] Dr. Gabby Briones Cholesterol.total/Ch olesterol in HDL [Mass ratio] 3.3 {ratio} Normal [facility] Comment on above: Performed By: #### T SH, DBIL, CMP, LIPID, FT3, T4 #### [facility] [address] [address] [address] Gabby Briones HDL NORMAL > or = 60 mg/dl - LOW CARDIOVASCULAR RISK <40 mg/dl - HIGH CARDIOVASCULAR RISK Normal [facility] Comment on above: Performed By: #### T SH, DBIL, CMP, LIPID, FT3, T4 #### [facility] [address] [address] [address] Gabby Briones LDL CALC NORMAL SEE BELOW Normal [facility] Comment on above: Result Comment: <100 mg/dl OPTIMAL 100 - 129 mg/dl NEAR OR ABOVE OPTIMAL 130 - 159 mg/dl BORDERLINE HIGH 160 - 189 mg/dl HIGH >190 mg/dl VERY HIGH Performed By: #### T SH, DBIL, CMP, LIPID, FT3, T4 #### [facility] [address] [place] [address] Dr. Gabby Briones Triglyceride [Mass/Vol] 121 mg/dL Normal <=150 [facility] Comment on above: Performed By: #### T SH, DBIL, CMP, LIPID, FT3, T4 #### [facility] [address] [address] [address] Gabby Briones VLDL CALC 24.2 mg/dL Normal [facility] Comment on above: Performed By: #### T SH, DBIL, CMP, LIPID, FT3, T4 #### [facility] [address] [place] [address] Dr. Gabby Briones PROF 14(COMP METB)on 022 Albumin [Mass/Vol] 3.4 g/dL Normal 3.4-5.0 [facility] Comment on above: Performed By: #### T SH, DBIL, CMP, LIPID, FT3, T4 #### [facility] [address] [place] [address] Dr. Gabby Briones Albumin/Globulin [Mass ratio] 1.0 {ratio} Normal [facility] Comment on above: Performed By: #### T SH, DBIL, CMP, LIPID, FT3, T4 #### [facility] [address] [place] [address] Dr. Gabby Briones ALP [Catalytic activity/Vol] 50 U/L Normal 46-116 [facility] Comment on above: Performed By: #### T SH, DBIL, CMP, LIPID, FT3, T4 #### [facility] [address] [place] [address] Dr. Gabby Briones ALT [Catalytic activity/Vol] 17 U/L Normal 14-59 [facility] Comment on above: Performed By: #### T SH, DBIL, CMP, LIPID, FT3, T4 #### [facility] [address] [place] [address] Dr. Gabby Briones Anion gap [Moles/Vol] 13.7 mmol/L Normal [facility] Comment on above: Performed By: #### T SH, DBIL, CMP, LIPID, FT3, T4 #### [facility] [address] [place] [address] Dr. Gabby Briones AST [Catalytic activity/Vol] 13 U/L Critically low 15-37 [facility] Comment on above: Performed By: #### T SH, DBIL, CMP, LIPID, FT3, T4 #### [facility] [address] [place] [address] Dr. Gabby Briones Bilirubin [Mass/Vol] 0.4 mg/dL Normal 0.2-1.0 [facility] Comment on above: Performed By: #### T SH, DBIL, CMP, LIPID, FT3, T4 #### [facility] [address] [place] [address] Dr. Gabby Briones Calcium [Mass/Vol] 9.1 mg/dL Normal 8.5-10.1 [facility] Comment on above: Performed By: #### T SH, DBIL, CMP, LIPID, FT3, T4 #### [facility] [address] [place] [address] Dr. Gabby Briones Chloride [Moles/Vol] 106 mmol/L Normal 98-107 [facility] Comment on above: Performed By: #### T SH, DBIL, CMP, LIPID, FT3, T4 #### [facility] [address] [place] [address] Dr. Gabby Briones CO2 [Moles/Vol] 25.8 mmol/L Normal 21.0-32.0 [facility] Comment on above: Performed By: #### T SH, DBIL, CMP, LIPID, FT3, T4 #### [facility] [address] [place] [address] Dr. Gabby Briones Creatinine [Mass/Vol] 0.76 mg/dL Normal 0.55-1.02 [facility] Comment on above: Performed By: #### T SH, DBIL, CMP, LIPID, FT3, T4 #### [facility] [address] [place] [address] Dr. Gabby Briones EGFR-AF GERMAN >60 Normal >=60 [facility] Comment on above: Performed By: #### T SH, DBIL, CMP, LIPID, FT3, T4 #### [facility] [address] [place] [address] Dr. Gabby Briones EGFR-NON AF GERMAN >60 Normal >=60 [facility] Comment on above: Performed By: #### T SH, DBIL, CMP, LIPID, FT3, T4 #### [facility] [address] [place] [address] Dr. Gabby Briones Globulin (S) [Mass/Vol] 3.5 g/dL Normal [facility] Comment on above: Performed By: #### T SH, DBIL, CMP, LIPID, FT3, T4 #### [facility] [address] [place] [address] Dr. Gabby Briones Glucose [Mass/Vol] 101 mg/dL Normal 74-106 [facility] Comment on above: Performed By: #### T SH, DBIL, CMP, LIPID, FT3, T4 #### [facility] [address] [place] [address] Dr. Gabby Briones Potassium [Moles/Vol] 4.5 mmol/L Normal 3.5-5.1 [facility] Comment on above: Performed By: #### T SH, DBIL, CMP, LIPID, FT3, T4 #### [facility] [address] [place] [address] Dr. Gabby Briones Protein [Mass/Vol] 6.9 g/dL Normal 6.4-8.2 [facility] Comment on above: Performed By: #### T SH, DBIL, CMP, LIPID, FT3, T4 #### [facility] [address] [place] [address] Dr. Gabby Briones Sodium [Moles/Vol] 141 mmol/L Normal 136-145 [facility] Comment on above: Performed By: #### T SH, DBIL, CMP, LIPID, FT3, T4 #### [facility] [address] [place] [address] Dr. Gabby Briones Urea nitrogen [Mass/Vol] 22.0 mg/dL Critically high 7.0-18.0 [facility] Comment on above: Performed By: #### T SH, DBIL, CMP, LIPID, FT3, T4 #### [facility] [address] [place] [address] Dr. Gabby Briones Urea nitrogen/Creatinine [Mass ratio] 28.9 mg/mg Normal [facility] Comment on above: Performed By: #### T SH, DBIL, CMP, LIPID, FT3, T4 #### [facility] [address] [place] [address] Dr. Gabby Briones T4on 01-20-2022 T4 [Mass/Vol] 7.30 ug/dL Normal 4.80-13.90 [facility] Comment on above: Performed By: #### T SH, DBIL, CMP, LIPID, FT3, T4 #### [facility] [address] [place] [address] Dr. Gabby Briones TSHon 01-20-2022 TSH 0.467 uIU/mL Normal 0.358-3.740 [facility] Comment on above: Performed By: #### T SH, DBIL, CMP, LIPID, FT3, T4 #### [facility] [address] [place] [address] Dr. Gabby Briones VITAMIN D 25 OHon 01-20-2022 VIT D 25-OH 34.9 ng/mL Normal [facility] Comment on above: Performed By: #### V ITAD, IRON #### [facility] [address] [place] [address] Dr. Gabby Briones VIT D RANGES SEE BELOW Normal [facility] Comment on above: Result Comment: <20 ng/mL Vit D deficient 20 - <30 ng/mL Vit D insufficient 30 - 100 ng/mL Vit D sufficient >100 ng/mL Potential Toxicity Performed By: #### V ITAD, IRON #### [facility] [address] [place] [address] Dr. Gabby Briones BNPon 05-08-2021 Natriuretic peptide B (Bld) [Mass/Vol] 125.0 pg/mL Normal <=1,800.0 [facility] Comment on above: Performed By: #### V ITAD, IRON #### [facility] [address] [place] [address] Dr. Gabby Briones FREE THYROXINE INDEX T7on FTI 2.21 Normal [facility] Comment on above: Performed By: #### V ITAD, IRON #### [facility] [address] [place] [address] Dr. Gabby Briones T3U 34.0 % Normal 23.5-40.5 [facility] Comment on above: Performed By: #### V ITAD, IRON #### [facility] [address] [place] [address] Dr. Gabby Briones T4 [Mass/Vol] 6.50 ug/dL Normal 5.53-11.00 [facility] Comment on above: Performed By: #### V ITAD, IRON #### [facility] [address] [place] [address] Dr. Gabyb Briones TSHon 05-08-2021 TSH 0.658 uIU/mL Normal 0.470-4.680 [facility] Comment on above: Performed By: #### V ITAD, IRON #### [facility] [address] [place] [address] Dr. Gabby Briones TSH RANGE SEE BELOW Normal [facility] Comment on above: Result Comment: <0.3 4 UIU/ml HYPERTHYROID 0.34-5.60 UIU/ml EUTHYROID >5.60 UIU/ml HYPOTHYROID Performed By: #### V ITAD, IRON #### [facility] [address] [place] [address] Dr. Gabby Schmitt 02-07-2020 1. 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 No hardware complications identified. 2. Small dystrophic ossific densities are again seen posterior to both knee joints. 3. Small enthesophytes along the anterior-superior and anterior-inferior right patella are again noted. 4. No fracture or dislocation is identified. [place], [place] BILATERAL KNEE RADIOGRAPHS 02/07/2020. COMPARISON: Knee radiographs dated 01/13/2018. HISTORY: Knee pain, unspecified chronicity, unspecified laterality. TECHNIQUE: Standing frontal, tunnel, lateral, and sunrise views of both knees were obtained. Report electronically signed by: Dr. Kaz Govea [place], [place], Incoming Radiant Results From [facility] - 02/07/2020 [...] 4. No fracture or dislocation is identified. [place], [place] Vital Signs Date Time Vital Sign Value Performing Clinician Facility 06-10-2022 10:00-0400 Body height 143.51 cm June Zarate Other [facility] Other 06-10-2022 10:00-0400 Body mass index (BMI) [Ratio] 41.84 kg/m2 June Zarate Other [facility] Other 06-10-2022 10:00-0400 Body weight 86.18 kg June Zarate Other [facility] Other 06-10-2022 10:00-0400 Diastolic blood pressure 78 mm[Hg] June Zarate Other [facility] Other 06-10-2022 10:00-0400 SaO2% (BldA) [Mass fraction] 92 % June Zarate Other [facility] Other 06-10-2022 10:00-0400 Systolic blood pressure 140 mm[Hg] June Zarate Other [facility] Other Encounters Encounter Date Encounter Type Care Provider Facility Start: 11-11-2023 End: 11-11-2023 ambulatory GEMMA OGLESBY Not Available Start: 10-28-2023 End: 10-28-2023 ambulatory SHIRA MCDONALD Not Available Start: 04-06-2023 End: 04-06-2023 ambulatory [facility] Start: 10-20-2022 ambulatory [facility] Start: 10-20-2022 End: 10-22-2022 Subsequent hospital visit by physician [facility] Xray Room [facility] Radiology Comment on above: Acute pain of both k nesophia Start: 06-15-2022 End: 06-15-2022 ambulatory June Zarate Other [facility] Other Start: 06-15-2022 Telephone [address] Z[address] [facility] Start: 06-10-2022 Office outpatient visit [address] [facility] Start: 06-10-2022 End: 06-10-2022 ambulatory June Zarate [facility] Other Start: 06-10-2022 End: 06-10-2022 Departed Referred MD June Zarate Work Phone: [facility] [place] Work Phone: Start: 02-25-2022 End: 02-26-[address] FELIX GIL Facility:[facility] Start: 01-20-2022 End: 01-21-[address] FELIX GLI Facility:[facility] Start: 05-08-2021 End: 05-09-[address] FELIX GIL Facility:[facility] Start: 02-07-2020 End: 02-09-2020 Subsequent hospital visit by physician [facility] Xray Room [facility] Radiology Comment on above: Knee pain, [...] Flu vaccine (# 1) [place] Start: 06-10-2022 [facility] Start: 01-18-2020 Shingles Vaccine (3 of 3) Shingles Vaccine (3 of 3) [place], [place] Start: 01-09-2020 Annual Wellness Visi t (AWV) Annual Wellness Visit (AWV) [place] Start: 2001 Screening for osteoporosis DEXA (modify frequency per FRAX score) [place] Start: 1996 Screening for malign ant neoplasm of breast Breast cancer screen [place], [place] Start: 1996 Screening for malign ant neoplasm of colon Colon cancer screen colonoscopy [place], [place] Start: 1965 DTaP/Tdap/Td vaccine (1 - Tdap) DTaP/Tdap/Td vaccine (1 - Tdap) [place] Start: 1964 Hepatitis C screening Hepatitis C sc reen [place] Start: 1958 Depression Screen Depression Screen [place] Start: 1956 Lipid panel [place] Start: 1946 Creatinine measurement Creatinine mo nitoring [place], [place] Start: 1946 Hepatitis C screening Hepatitis C sc reen [place], [place] Start: 1946 Potassium monitoring Potassium monit [place], [place] Payers Date Payer Category Payer Unknown [id number] 2022 Self-pay 1958 Medicare [id number] 1959 Unknown [id number] 1.2. [id number] 1946 Unknown [id number] 2.16.84 [id number] 1946 Unknown [id number] 2.16.84 [id number] 1946 Unknown [id number] 2.16.84 0.1.355485.3.579.2.593 1946 Unknown [id number] 2.16.8 [id number] 1946 Unknown [id number] 2.16.8 [id number] 1946 Unknown [id number] 2.16. [id number] 1946 Unknown [id number] 2.16.84 [id number] 1946 Unknown [id number] 2.16.84 [id number] Unknown [id number] 2.16.8 [id number] Social History Date Type Detail Facility Tobacco [facility] status [facility] 1945 Sex Assigned At Not on file [place], [place] Sex Assigned At Sex Assigned At Bir th [employer] Other Start: 1945 Sex Assigned At Female F [facility] Tobacco smoking status NHIS Tobacco smoking consumption unknown [employer] Work Phone: Evaluation note 06-10-2022 Note Date & Type Note Facility 06-10-2022 Evaluation note Encounter Date Diagnosis Assessment Notes May, Subacute vaginitis (ICD-10 - N76.1) Suspect cystocele - 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 Pt will call for appt. Will complete vag probe to r/o any yeast etc, as pt does note some itching. Pt states she will call the office for cartoon artist. [employer] Other Evaluation note Note Date & Type Note Facility Evaluation note No assessment information availa [facility] Work Phone: Evaluation note Note Date & Type Note Facility Evaluation note No Information [employer] Other Evaluation note Note Date & Type Note Facility Evaluation note Diagnosis Acute pain of both knees documented in this encounter [employer] Work Phone: History general Narrative - Reported Note Date & Type Note Facility History general Narrative - Reported Type Medical History Hypertention Medical History Hyperthyroidism Medical History Hyperlipidemia Surgical History THORACIC SPINE FUSION 2006 Surgical History BILATERAL KNEE REPLACEMENT 2006 Surgical History APPENDECTOMY 2009 Hospitalization History SEE SURGICAL HX [facility] Other Assessments Diagnosis Knee pain, unspecified chronicity, [...] content) DATE CREATED AUTHOR 02/28/2022 [facility] DATE CREATED AUTHOR AUTHOR'S ORGANIZ ATION 06/20/2022 [facility] DATE CREATED AUTHOR AUTHOR'S ORGANIZ ATION 10/23/2022 [facility] DATE CREATED AUTHOR AUTHOR'S ORGANIZ ATION 04/12/2023 [facility] DATE CREATED AUTHOR AUTHOR'S ORGANIZ ATION 11/13/2023 [facility] EPIC REASON FOR VISIT (unrecogniz ed section and content) Has Not Been Seen in Awhile- MEDICARE Wellnessvaginal cultures Care Teams (unrecognized sec tion and content) Team Status: Inactive Member Role Status Dates June Zarate MD Attending Provider 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 [facility] [employer] [facility]. provides no warranty or guarantee of the accuracy or completeness of information in this document.
[2023-12-09 10:06] LABS: Internal Control Within Normal Limits; Occult Blood Negative
== END 2023-12-09 09:36 | disposition home or self-care (01) ==
LOC: LAB 09:35
PROVIDERS: PCP Family Medicine; Visit Provider Family Medicine
DX: Z00.00 Encounter for general adult medical examination without abnormal findings (principal); R53.83 Other fatigue; I10 Essential (primary) hypertension; E55.9 Vitamin D deficiency, unspecified
CPT/HCPCS: G0328

== ENCOUNTER 2024-02-28 10:07 | Outpatient (OUT) | payer OTHER, SELFPAY ==
--- NOTE | 2024-02-28 10:10 | MM_ITS ---
Patient Name: EMANUEL WISE MR#: [id number] : 1945 Exam Date: 02/28/2024 Ordering Doctor: DR FELIX RAMOS . RADIOLOGY REPORT PROCEDURE: MM TOMOSYNTHESIS SCREENING BI COMPARISON: MM TOMOSYNTHESIS SCREENING BI, 02/26/2023. MG MAMM SCREEN 3D HERBER CAD, 02/25/2022. MG MAMM SCREEN 3D HERBER CAD, 02/19/2021. MG MAMM HERBER SCRN W CAD DIG, 01/20/2013. INDICATIONS: Screening Calculator Name NCI Breast Cancer Risk Assessment Tool 5 Year Breast Cancer Risk 1.40% Lifetime Breast Cancer Risk 2.70% Personal Breast Cancer No Personal Ovarian Cancer No Treatments None Family Cancers Sister with cervical cancer at age ~30; Mother with ovarian cancer at age ~60. LOCATION: [facility] BREAST COMPOSITION: There are scattered areas of fibroglandular density. FINDINGS: DIAGNOSTIC CATEGORY 2--BENIGN FINDING: RIGHT BREAST: No significant suspicious finding. No significant change has occurred. LEFT BREAST: No significant suspicious finding. Scattered benign-appearing nodules are present. No significant change has occurred. RECOMMENDATIONS: ROUTINE MAMMOGRAM AND CLINICAL EVALUATION IN 12 MONTHS. PLEASE NOTE: A NORMAL MAMMOGRAM DOES NOT EXCLUDE THE POSSIBILITY OF BREAST CANCER. A CLINICALLY SUSPICIOUS PALPABLE LUMP SHOULD BE BIOPSIED. Dictated by: Gaurav Garcia M.D. on 02/28/2024 at 16:52 Approved by: Gaurav Garcia M.D. on 02/28/2024 at 16:54
--- OUTSIDE RECORDS SUMMARY | 2024-02-28 10:26 | XMS_ITS | CCD ---
Author Organization [facility] Care Team Providers Care Maintenance Operator Name Role Phone Felix Gil Primary Care Provider RICHARD, DR WASHINGTON Admitting Unavailable RICHARD, DR WASHINGTON Attending Unavailable LEWIS, DR JUNE Maldonado Primary Care Unavailable RICHARD, DR WASHINGTON Consulting Unavailable RICHARD, DR WASHINGTON Admitting Unavailable RICHARD, DR WASHINGTON Attending Unavailable LEWIS, DR JUNE Maldonado Primary Care Unavailable RICHARD, DR WASHINGTON Consulting Unavailable WEST, DR EDVIN Roberts Consulting Unavailable RICHARD, DR WASHINGTON Admitting Unavailable RICHARD, DR WASHINGTON Attending Unavailable LEWIS, DR JUNE Maldonado Primary Care Unavailable RICHARD, DR WASHINGTON Consulting Unavailable June Lewis Unavailable MD June Lewis Attending Provider [phone] June Lewis Attending Unavailable June Lewis Admitting Unavailable Felix Gil MD Primary Care Provider [phone] BLANCHE DOBBS Referring Unavailable FELIX GIL Primary Care Unavailable BLANCHE DOBBS Referring Unavailable FELIX GIL Primary Care Unavailable MOHINDER LEHMAN Attending Unavailable MOHINDER LEHMAN Admitting Unavailable Felix Gil MD Primary Care Provider [phone] TALIA FOSTER Attending Unavailable SUSANNE OGLESBY Attending Unavailable TALIA FOSTER Attending Unavailable Allergies Allergy Classification Reported Allergen(s) Allergy Type Date of Onset Reaction(s) Facility (8 sources) Acetaminophen; Translations: [ACETAMINOPHEN] Drug Allergy 0 Shortness Of Breath [facility] [place] (1 source) Acetaminophen Drug Allergy [address] [facility] (9 sources) Acetaminophen Drug Allergy 0 Shortness of breath [facility] Medications Current Medications Medication Drug Class(es) Dates Sig (Normalized) Sig (Original) aspirin 81 mg chewable tablet (9 sources) Platelet Aggregation Inhibitor, Nonsteroidal Anti-inflammatory Drug aspirin 81 MG chewable tablet 81 mg 1 (one) time each day at the same time. Active cetirizine hydrochloride 10 mg oral tablet (4 sources) Histamine-1 Receptor Antagonist take 1 tablet by mouth once daily cetirizine (ZYRTEC) 10 MG tablet Take 10 mg by mouth daily 0 Active levothyroxine (11 sources) l-Thyroxine Levothyroxine So dium (LEVOTHROID PO) 50 mcg. Active take 1 tablet by gatito th once daily in the morning Levothyroxine Sodium 50 MCG 1 tablet in the morning on an empty stomach Orally Once a day Active liothyronine sodium 0.005 mg oral tablet (2 sources) l-Triiodothyronine take 1 tablet by mouth every twenty-four hours Liothyronine Sodium 5 MCG 1 tablet on an empty stomach Orally Once a day Active lisinopril 10 mg oral tablet (15 sources) Angiotensin Converting Enzyme Inhibitor Start: 2019 take 1 tablet by mouth once daily lisinopril (PRINIVIL;ZESTRIL) 10 MG tablet TAKE 1 TABLET BY MOUTH EVERY DAY 0 01/27/2020 Active meloxicam 15 mg oral tablet (15 sources) Nonsteroidal Anti-inflammatory Drug Start: 2019 End: 2023 take 1 tablet by mouth once daily meloxicam (MOBIC) 15 MG tablet TAKE 1 TABLET BY MOUTH EVERY DAY 0 01/28/2020 Active naproxen 500 mg delayed release oral tablet (2 sources) Nonsteroidal Anti-inflammatory Drug take 1 tablet by mouth in the morning naproxen (EC Naprosyn) 500 MG EC tablet Take 500 mg by mouth in the morning and 500 mg in the evening. Take with meals. Do not crush, chew, or split.. Active omeprazole 20 mg delayed release oral capsule (15 sources) Proton Pump Inhibitor Start: 2019 End: 2023 take 1 capsule by mouth once daily omeprazole (PRILOSEC) 20 MG delayed release capsule TAKE 1 CAPSULE BY MOUTH EVERY DAY 0 01/11/2020 Active simvastatin 40 mg oral tablet (15 sources) HMG-CoA Reductase Inhibitor Start: 2019 take 1 tablet by mouth once daily simvastatin (ZOCOR) 40 MG tablet TAKE 1 TABLET BY MOUTH EVERY DAY 0 01/21/2020 Active tiZANidine 2 mg oral tablet (9 sources) Central alpha-2 Adrenergic Agonist Start: 2022 End: 2023 tiZANidine (Zanaflex) 2 MG tablet every 8 (eight) hours. 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; Translations: [OTH REVENUE MANAGER CURRENT DRUG THERAPY] Onset: 01-29-2022 Episodic Other bone disease and musculoskeletal deformities (4 sources) Other specified disorders of bone density and structure, unspecified site; Translations: [OTH D/O BONE DEN STRUCT UNS SITE] Onset: 02-25-2022 Episodic Other circulatory disease (2 sources) Elevated blood pressure; Translations: [Elevated blood-pressure reading, without diagnosis of hypertension] 02-28-2024 Episodic Other connective tissue disease (2 sources) History of revision of left total knee arthroplasty; Translations: [Presence of left artificial knee joint] Onset: 10-20-2022 10-20-2022 Chronic Other connective tissue disease (2 sources) History of total knee arthroplasty; Translations: [Presence of right artificial knee joint] Onset: 10-20-2022 10-20-2022 Chronic Other female genital disorders (2 sources) Abnormal vaginal bleeding; Translations: [Abnormal uterine and vaginal bleeding, unspecified] 02-28-2024 Chronic Other female genital disorders (2 sources) Vaginal discharge; Translations: [Other specified noninflammatory disorders of vagina] 02-28-2024 Episodic Other nervous system disorders (2 sources) Other [...] malignant neoplasm of colon] Onset: 01-29-2022 Episodic Prolapse of female genital organs (16 sources) Midline cystocele; Translations: [Cystocele, midline] 11-11-2023 Chronic Rehabilitation care; fitting of prostheses; and adjustment of devices (6 sources) Patient encounter status; Translations: [Encounter for fitting and adjustment of other specified devices] 11-11-2023 Chronic Residual codes; unclassified (1 source) Family history [...] Translations: [Subacute and chronic vaginitis] Onset: 06-10-2022 Past or Other Problems Problem Classification Problem Date Documented Da te Episodic/Chronic Screening and history of mental health and substance abuse codes (2 sources) Ex-smoker; Translations: [Personal history of nicotine dependence] 10-28-2023 Episodic Results Test Name Value Interpretation Reference Range Facility Urinalysis macro (dipstick) panel (U)on 02-28-2024 Bilirubin, UA Negative Negative - 4(70) +++ mg/dL [facility] Blood, UA Negative Negative - 50 Jonathon/mcL [facility] Clarity, UA Clear [facility] re Color, UA Yellow [facility] Glucose, UA Negative Negative - 1999(110) ++++ mg/dL [facility] Interpretation and review of laboratory results Normal [facility] Ketones, UA Negative Negative - 160(16) ++++ mg/dL [facility] Leukocytes, UA Negative Negative - 500+++ Gino/mcL [facility] Nitrite, UA Negative Negative - Positive [facility] pH, UA 6.5 5 - 9 [facility] Protein, UA Negative Negative - 1999(20) ++++ mg/dL [facility] Spec Grav, UA 1.005 1 - 1.03 [facility] Urobilinogen, UA 1.0 0.2 - 12 mg/dL [facility] No Panel Informationon 10-27 Talia Foster DO 10/28/2023 3:58 PM Pessary Date/Time: 10/28/2023 3:34 PM Performed by: Talia Foster DO Authorized by: Talia Foster DO Consent: Procedural risks discussed: yes Relevant documents present and verified: yes Patient agrees, verbalizes understanding, and wants to proceed: yes Consent given by: Patient Indication: Indication for pessary: uterine prolapse and cystocele Procedure: Pessary type: Ring w/ support Pessary size: 3 Outcomes: Patient tolerance of procedure: Tolerated well, no immediate complications Post-procedure education provided: yes Pessary maintenance plan: Return to the office in 2 weeks or earlier with any issue Reviewed by: provider Comments: Procedure comments: LOT [id number] [facility] XR KNEE LEFT (MIN 4 VIEWS)on 10-20-2022 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 [facility] EXAM: XR KNEE LEFT (MIN 4 VIEWS) HISTORY: Acute pain of both knees COMPARISON: None. 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 No acute fracture or dislocation. Mild soft tissue swelling. Report electronically signed by: Dr. Manuel Saxena [facility] Manuel Saxena MD - 10/20/2022 EXAM: XR KNEE LEFT (MIN 4 VIEWS) HISTORY: Acute pain of both knees COMPARISON: None. 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 No acute fracture or dislocation. Mild soft tissue swelling. Report electronically signed by: Dr. 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 [facility] Work Phone: XR KNEE LEFT (MIN 4 [...] Manuel Saxena MD 10/20/22 Final result Normal [facility] Radiology Study observation (narrative) [facility] Work Phone: XR KNEE LEFT (MIN 4 VIEWS)Or dered By: Manuel Saxena on 10-20-2022 [facility] Work Phone: XR KNEE RIGHT (MIN 4 VIEWS)o n 10-20-2022 No acute findings. Intact prosthesis. [facility] EXAM: XR KNEE RIGHT [...] Report electronically signed by: Dr. Melisa Jiang [facility] Melisa Jiang MD - 10/20/2022 EXAM: XR [...] Jiang IMPRESSION: No acute findings. Intact prosthesis. [facility] Work Phone: XR KNEE RIGHT (MIN 4 [...] Melisa Jiang MD 10/20/22 Final result Normal [facility] Radiology Study observation (narrative) [facility] Work Phone: XR KNEE RIGHT (MIN 4 VIEWS)O rdered By: Melisa Jiang on 10-20-2022 [facility] Work Phone: [facility] [place] [facility] 06-10-2022 [facility] Normal [facility] Comment on above: Order Comment: [facility] Test Name: VAGINITIS/VAGINOSIS DNA PROBE LC# [id number] Result Comment: See report. Scanned copy available in EMR. PERFORMED BY: [place] [id number] [place] [address] PATHOLOGIST MAINTENANCE MECHANIC MEGHAN ESPINO M.D. Performed By: #### M [facility] #### [address] MG MAMM SCREEN 3D HERBER CADon 02-25-2022 MG MAMM SCREEN 3D HERBER CAD Patient: MI WISE Exam Date: 02/25/2022 : 1945 Gender:F Ordering : DR FELIX GIL . Admission #: [id number] Family : Order #: [id number] CLICK HERE TO VIEW EXAM RADIOLOGY REPORT [...] with ovarian cancer at age 61. LOCATION: [facility] BREAST COMPOSITION: Scattered areas fibroglandular density. [...] MD on 02/26/2022 at 11:[address] [facility] XR DEXA BONE DENSITYon 02-25 XR [...] EDVIN SU Date: 2022-02-25 16:[address] [facility] INSULINon 01-21-2022 Insulin 6.3 uIU/mL Normal 2.6-24.[address] [facility] Comment on above: Performed By: #### V ITAD, IRON #### [facility] [address] [place] [address] Dr. Gabby Briones BILIRUBIN CONJUGATED (DIRECT )on 01-20-2022 BILI, CONJUGATED 0.1 mg/dL Normal 0.0-0.2 [facility] Comment on above: Performed By: #### T SH, DBIL, CMP, LIPID, FT3, T4 #### [facility] [address] [place] [address] Dr. Gabby Briones CBC AUTO DIFFon 01-20-2022 BASO # 0.0 103/ul Normal 0.0-0.1 [facility] Comment on above: Performed By: #### V ITAD, IRON #### [facility] [address] [place] [address] Dr. Gabby Briones Basophils/100 WBC (Bld) 0.6 % Normal 0.2-2.[address] [facility] Comment on above: Performed By: #### V ITAD, IRON #### [facility] [address] [place] [address] Dr. Gabby Briones EO # 0.4 103/ul Normal 0.0-0.[address] [facility] Comment on above: Performed By: #### V ITAD, IRON #### [facility] [address] [place] [address] Dr. Gabby Briones Eosinophils/100 WBC (Bld) 6.0 % Normal 0.9-7.[address] [facility] Comment on above: Performed By: #### V ITAD, IRON #### [facility] [address] [place] [address] Dr. Gabby Briones Erythrocyte distribution width (RBC) [Ratio] 13.7 % Normal 11.0-15.[address] [facility] Comment on above: Performed By: #### V ITAD, IRON #### [facility] [address] [address] [address] Gabby Briones Hematocrit (Bld) [Volume fraction] 41.9 % Normal 36.0-48.0 [facility] Comment on above: Performed By: #### V ITAD, IRON #### [facility] [address] [place] [address] Dr. Gabby Briones Hemoglobin (Bld) [Mass/Vol] 14.0 g/dL Normal 12.0-16.0 [facility] Comment on above: Performed By: #### V ITAD, IRON #### [facility] [address] [place] [address] Dr. Gabby Briones IG # 0.02 10e3/ul Normal 0.00-0.03 [facility] Comment on above: Performed By: #### V ITAD, IRON #### [facility] [address] [place] [address] Dr. Gabby Briones IG % 0.3 % Normal 0.0-0.5 [facility] Comment on above: Performed By: #### V ITAD, IRON #### [facility] [address] [place] [address] Dr. Gabby Briones LYMPH # 2.6 103/ul Normal 1.2-3.8 [facility] Comment on above: Performed By: #### V ITAD, IRON #### [facility] [address] [place] [address] Dr. Gabby Briones Lymphocytes/100 WBC (Bld) 39.7 % Normal 20.5-60.0 [facility] Comment on above: Performed By: #### V ITAD, IRON #### [facility] [address] [place] [address] Dr. Gabby Briones MANUAL DIFF REQ NO Normal [facility] Comment on above: Performed By: #### V ITAD, IRON #### [facility] [address] [place] [address] Dr. Gabby Briones MCH (RBC) [Entitic mass] 29.6 pg Normal 26.7-34.0 [facility] Comment on above: Performed By: #### V ITAD, IRON #### [facility] [address] [place] [address] Dr. Gabby Briones MCHC (RBC) [Mass/Vol] 33.4 g/dL Normal 29.9-35.[address] [facility] Comment on above: Performed By: #### V ITAD, IRON #### [facility] [address] [place] [address] Dr. Gabby Briones MCV (RBC) [Entitic vol] 88.6 fL Normal 81.0-99.[address] [facility] Comment on above: Performed By: #### V ITAD, IRON #### [facility] [address] [place] [address] Dr. Gabby Briones MONO # 0.6 103/ul Normal 0.3-0.8 [facility] Comment on above: Performed By: #### V ITAD, IRON #### [facility] [address] [place] [address] Dr. Gabby Briones Monocytes/100 WBC (Bld) 8.8 % Normal 1.7-12.[address] [facility] Comment on above: Performed By: #### V ITAD, IRON #### [facility] [address] [place] [address] Dr. Gabby Briones NEUT # 2.9 103/ul Normal 1.4-6.5 [facility] Comment on above: Performed By: #### V ITAD, IRON #### [facility] [address] [place] [address] Dr. Gabby Briones Neutrophils/100 WBC (Bld) 44.6 % Normal 43.0-75.[address] [facility] Comment on above: Performed By: #### V ITAD, IRON #### [facility] [address] [place] [address] Dr. Gabby Briones Platelet mean volume (Bld) [Entitic vol] 9.4 fL Critically low 9.5-13.5 [facility] Comment on above: Performed By: #### V ITAD, IRON #### [facility] [address] [place] [address] Dr. Gabby Briones PLT 326 103/ul Normal 150-[address] [facility] Comment on above: Performed By: #### V ITAD, IRON #### [facility] [address] [address] [address] Gabby Briones RBC 4.73 106/ul Normal 4.20-5.40 [facility] Comment on above: Performed By: #### V ITAD, IRON #### [facility] [address] [address] [address] Gabby Briones WBC 6.5 103/ul Normal 4.0-11.0 [facility] Comment on above: Performed By: #### V ITAD, IRON #### [facility] [address] [address] [address] Gabby Briones FREE T3on 01-20-2022 FREE T3 2.47 pg/mlL Normal 2.18-3.98 [facility] Comment on above: Performed By: #### T SH, DBIL, CMP, LIPID, FT3, T4 #### [facility] [address] [address] [address] Gabby Briones GLYCOHEMOGLOBIN A1Con 2021 ADA RECOMMENDATION SEE BELOW Normal [facility] Comment on above: Result Comment: ADA RECOMMENDED LIMIT 4.0 - 6.0 ADA THERAPEUTIC TARGET < 7.0 ACTION SUGGESTED > 7.0 Performed By: #### V ITAD, IRON #### [facility] [address] [address] [address] Gabby Briones Glucose [Mass/Vol] 111 mg/dL Normal [facility] Comment on above: Performed By: #### V ITAD, IRON #### [facility] [address] [address] [address] Gabby Briones HbA1c (Bld) [Mass fraction] 5.5 % Normal 4.5-6.[address] [facility] Comment on above: Performed By: #### V ITAD, IRON #### [facility] [address] [place] [address] Dr. Gabby Briones IRONon 01-20-2022 Iron [Mass/Vol] 92.0 ug/dL Normal 50.0-170.0 [facility] Comment on above: Performed By: #### V ITAD, IRON #### [facility] [address] [address] [address] Gabby Briones LIPID PROFILEon 01-20-2022 CHOL-HDL RATIO NORM SEE BELOW Normal [facility] Comment on above: Result Comment: 3.3 - 4.4 LOW RISK 4.4 - 7.1 AVERAGE RISK 7.1 - 11.0 MODERATE RISK >11.0 HIGH RISK Performed By: #### T SH, DBIL, CMP, LIPID, FT3, T4 #### [facility] [address] [address] [address] Gabby Briones Cholesterol [Mass/Vol] 183 mg/dL Normal <=200 [facility] Comment on above: Performed By: #### T SH, DBIL, CMP, LIPID, FT3, T4 #### [facility] [address] [place] [address] Dr. Gabby Briones Cholesterol in HDL [Mass/Vol] 56 mg/dL Normal 40-60 [facility] Comment on above: Performed By: #### T SH, DBIL, CMP, LIPID, FT3, T4 #### [facility] [address] [address] [address] Gabby Briones Cholesterol in LDL [Mass/Vol] 102.8 mg/dL Normal [facility] Comment on above: Performed By: #### T SH, DBIL, CMP, LIPID, FT3, T4 #### [facility] [address] [place] [address] Dr. Gabby Briones Cholesterol.total/Ch olesterol in HDL [Mass ratio] 3.3 {ratio} Normal [facility] Comment on above: Performed By: #### T SH, DBIL, CMP, LIPID, FT3, T4 #### [facility] [address] [place] [address] Dr. Gabby Briones HDL NORMAL > or = 60 mg/dl - LOW CARDIOVASCULAR RISK <40 mg/dl - HIGH CARDIOVASCULAR RISK Normal [facility] Comment on above: Performed By: #### T SH, DBIL, CMP, LIPID, FT3, T4 #### [facility] [address] [address] [address] Gabby Briones LDL CALC NORMAL SEE BELOW Normal [facility] Comment on above: Result Comment: <100 mg/dl OPTIMAL 100 - 129 mg/dl NEAR OR ABOVE OPTIMAL 130 - 159 mg/dl BORDERLINE HIGH 160 - 189 mg/dl HIGH >190 mg/dl VERY HIGH Performed By: #### T SH, DBIL, CMP, LIPID, FT3, T4 #### [facility] [address] [address] [address] Gabby Briones Triglyceride [Mass/Vol] 121 mg/dL Normal <=150 [facility] Comment on above: Performed By: #### T SH, DBIL, CMP, LIPID, FT3, T4 #### [facility] [address] [address] [address] Gabby Briones VLDL CALC 24.2 mg/dL Normal [facility] Comment on above: Performed By: #### T SH, DBIL, CMP, LIPID, FT3, T4 #### [facility] [address] [place] [address] Dr. Gabby Briones PROF 14(COMP METB)on 022 Albumin [Mass/Vol] 3.4 g/dL Normal 3.4-5.0 [facility] Comment on above: Performed By: #### T SH, DBIL, CMP, LIPID, FT3, T4 #### [facility] [address] [address] [address] Gabby Briones Albumin/Globulin [Mass ratio] 1.0 {ratio} Normal [facility] Comment on above: Performed By: #### T SH, DBIL, CMP, LIPID, FT3, T4 #### [facility] [address] [address] [address] Gabby Briones ALP [Catalytic activity/Vol] 50 U/L Normal 46-116 [facility] Comment on above: Performed By: #### T SH, DBIL, CMP, LIPID, FT3, T4 #### [facility] [address] [address] [address] Gabby Briones ALT [Catalytic activity/Vol] 17 U/L Normal 14-59 [facility] Comment on above: Performed By: #### T SH, DBIL, CMP, LIPID, FT3, T4 #### [facility] [address] [place] [address] Dr. Gabby Briones Anion gap [Moles/Vol] 13.7 mmol/L Normal [facility] Comment on above: Performed By: #### T SH, DBIL, CMP, LIPID, FT3, T4 #### [facility] [address] [place] [address] Dr. Gabby Briones AST [Catalytic activity/Vol] 13 U/L Critically low 15-37 [facility] Comment on above: Performed By: #### T SH, DBIL, CMP, LIPID, FT3, T4 #### [facility] [address] [place] [address] Dr. Gabby Briones Bilirubin [Mass/Vol] 0.4 mg/dL Normal 0.2-1.0 [facility] Comment on above: Performed By: #### T SH, DBIL, CMP, LIPID, FT3, T4 #### [facility] [address] [place] [address] Dr. Gabby Briones Calcium [Mass/Vol] 9.1 mg/dL Normal 8.5-10.1 [facility] Comment on above: Performed By: #### T SH, DBIL, CMP, LIPID, FT3, T4 #### [facility] [address] [place] [address] Dr. Gabby Briones Chloride [Moles/Vol] 106 mmol/L Normal 98-[address] [facility] Comment on above: Performed By: #### T SH, DBIL, CMP, LIPID, FT3, T4 #### [facility] [address] [place] [address] Dr. Gabby Briones CO2 [Moles/Vol] 25.8 mmol/L Normal 21.0-32.0 [facility] Comment on above: Performed By: #### T SH, DBIL, CMP, LIPID, FT3, T4 #### [facility] [address] [place] [address] Dr. Gabby Briones Creatinine [Mass/Vol] 0.76 mg/dL Normal 0.55-1.02 [facility] Comment on above: Performed By: #### T SH, DBIL, CMP, LIPID, FT3, T4 #### [facility] [address] [place] [address] Dr. Gabby Briones EGFR-AF IRAQI >60 Normal >=60 [facility] Comment on above: Performed By: #### T SH, DBIL, CMP, LIPID, FT3, T4 #### [facility] [address] [place] [address] Dr. Gabby Briones EGFR-NON AF IRAQI >60 Normal >=[address] [facility] Comment on above: Performed By: #### T SH, DBIL, CMP, LIPID, FT3, T4 #### [facility] [address] [place] [address] Dr. Gabby Briones Globulin (S) [Mass/Vol] 3.5 g/dL Normal [facility] Comment on above: Performed By: #### T SH, DBIL, CMP, LIPID, FT3, T4 #### [facility] [address] [place] [address] Dr. Gabby Briones Glucose [Mass/Vol] 101 mg/dL Normal 74-106 [facility] Comment on above: Performed By: #### T SH, DBIL, CMP, LIPID, FT3, T4 #### [facility] [address] [place] [address] Dr. Gabby Briones Potassium [Moles/Vol] 4.5 mmol/L Normal 3.5-5.[address] [facility] Comment on above: Performed By: #### T SH, DBIL, CMP, LIPID, FT3, T4 #### [facility] [address] [place] [address] Dr. Gabby Briones Protein [Mass/Vol] 6.9 g/dL Normal 6.4-8.2 [facility] Comment on above: Performed By: #### T SH, DBIL, CMP, LIPID, FT3, T4 #### [facility] [address] [place] [address] Dr. Gabby Briones Sodium [Moles/Vol] 141 mmol/L Normal 136-145 [facility] Comment on above: Performed By: #### T SH, DBIL, CMP, LIPID, FT3, T4 #### [facility] [address] [place] [address] Dr. Gabby Briones Urea nitrogen [Mass/Vol] 22.0 mg/dL Critically high 7.0-18.0 [facility] Comment on above: Performed By: #### T SH, DBIL, CMP, LIPID, FT3, T4 #### [facility] [address] [place] [address] Dr. Gabby Briones Urea nitrogen/Creatinine [Mass ratio] 28.9 mg/mg Normal [facility] Comment on above: Performed By: #### T SH, DBIL, CMP, LIPID, FT3, T4 #### [facility] [address] [place] [address] Dr. Gabby Briones T4on 01-20-2022 T4 [Mass/Vol] 7.30 ug/dL Normal 4.80-13.90 [facility] Comment on above: Performed By: #### T SH, DBIL, CMP, LIPID, FT3, T4 #### [facility] [address] [place] [address] Dr. Gabby Briones TSHon 01-20-2022 TSH 0.467 uIU/mL Normal 0.358-3.740 [facility] Comment on above: Performed By: #### T SH, DBIL, CMP, LIPID, FT3, T4 #### [facility] [address] [place] [address] Dr. Gabby Briones VITAMIN D 25 OHon 01-20-2022 VIT D 25-OH 34.9 ng/mL Normal [facility] Comment on above: Performed By: #### V ITAD, IRON #### [facility] [address] [place] [address] Dr. Gabby Briones VIT D RANGES SEE BELOW Normal [facility] Comment on above: Result Comment: <20 ng/mL Vit D deficient 20 - <30 ng/mL Vit D insufficient 30 - 100 ng/mL Vit D sufficient >100 ng/mL Potential Toxicity Performed By: #### V ITAD, IRON #### [facility] [address] [place] [address] Dr. Gabby Briones BNPon 05-08-2021 Natriuretic peptide B (Bld) [Mass/Vol] 125.0 pg/mL Normal <=1,800.0 [facility] Comment on above: Performed By: #### V ITAD, IRON #### [facility] [address] [place] [address] Dr. Gabby Briones FREE THYROXINE INDEX T7on FTI 2.[address] [facility] Comment on above: Performed By: #### V ITAD, IRON #### [facility] [address] [place] [address] Dr. Gabby Briones T3U 34.0 % Normal 23.5-40.[address] [facility] Comment on above: Performed By: #### V ITAD, IRON #### [facility] [address] [place] [address] Dr. Gabby Briones T4 [Mass/Vol] 6.50 ug/dL Normal 5.53-11.00 [facility] Comment on above: Performed By: #### V ITAD, IRON #### [facility] [address] [place] [address] Dr. Gabby Briones TSHon 05-08-2021 TSH 0.658 uIU/mL Normal 0.470-4.680 [facility] Comment on above: Performed By: #### V ITAD, IRON #### [facility] [address] [place] [address] Dr. Gabby Briones TSH RANGE SEE BELOW Normal [facility] Comment on above: Result Comment: <0.3 4 UIU/ml HYPERTHYROID 0.34-5.60 UIU/ml EUTHYROID >5.60 UIU/ml HYPOTHYROID Performed By: #### V ITAD, IRON #### [facility] [address] [place] [address] Dr. Gabby Briones Otheron 02-07-2020 1. 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 No hardware complications identified. 2. Small dystrophic ossific densities are again seen posterior to both knee joints. 3. Small enthesophytes along the anterior-superior and anterior-inferior right patella are again noted. 4. No fracture or dislocation is identified. [place],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 content) DATE CREATED AUTHOR 02/28/2022 [facility] DATE CREATED AUTHOR AUTHOR'S ORGANIZ ATION 06/20/2022 [facility] DATE CREATED AUTHOR AUTHOR'S ORGANIZ ATION 10/23/2022 [facility] DATE CREATED AUTHOR AUTHOR'S ORGANIZ ATION 04/12/2023 [facility] DATE CREATED AUTHOR AUTHOR'S ORGANIZ ATION 02/10/2024 [facility] EPIC REASON FOR VISIT (unrecogniz ed section and content) Reason Comments Pessary Check Patient is here for pessary follow up. Patient came to office on 11/11/23 with reports of leaking urine when she wasn't leaking urine before with pessary #3 ring w/support. Pessary was removed and replaced with pessary #3 ring w/ knob. Patient states that she doing better with this one and is satisfied. Unable to provide urine sample. Reason Comments Bladder Problem Patient here for jasmin dder prolapse. Patient reports that she has a bulge coming out of her vagina and it has worsened over the years. Denies any pain. Leaks urine when she cannot make it to the restroom-does not wear a pad. Would like to discuss pessary. Reason Comments pessary maintenece Pt c/o slight yellow vaginal discharge and vaginal bleeding x 1 week which began as mild spotting. Pt has pessary ring with knob #3. Pt states she began having pain last week that she describes as soreness in her vagina. Pt is taking IBU for the pain states that is helping. Pt states she began getting dizzy last night. Pt denies history of vertigo but is on lisinopril last taken around 8am this day. Denies anymore vaginal spotting or pain today Care Teams (unrecognized sec tion and content) Team Status: Inactive Member Role Status Dates June Lewis MD Attending Provider Active Maintenance Operator Relationship Specialty Start Date End Date Felix Gil MD [address] [place] [address] PCP - General Family Medicine 11/09/19 Maintenance Operator Relationship Specialty Start Date End Date Felix Gil MD [address] [place] [address] PCP - General 09/02/22 Maintenance Operator Relationship Specialty Start Date End Date Felix Gil MD [address] [place] [address] PCP - General 09/02/22 Maintenance Operator Relationship Specialty Start Date End Date Felix Gil MD [address] [place] [address] PCP - General 09/02/22 Maintenance Operator Relationship Specialty Start Date End Date Felix Gil MD [address] [place] [address] PCP - General 09/02/22 Maintenance Operator Relationship Specialty Start Date End Date Felix Gil MD [address] [place] [address] PCP - General 09/02/22 Goals (unrecognized section and content) Goals may [...] BE BASED ON THE PRIMARY CLINICAL RECORDS. [facility] [facility]. provides no warranty or guarantee of the accuracy or completeness of information in this document.
== END 2024-02-28 10:08 | disposition home or self-care (01) ==
LOC: MAMMO 10:07
PROVIDERS: PCP Family Medicine; Visit Provider Family Medicine
DX: Z12.31 Encounter for screening mammogram for malignant neoplasm of breast (principal); Z80.8 Family history of malignant neoplasm of other organs or systems; Z80.41 Family history of malignant neoplasm of ovary
CPT/HCPCS: 77063; 77067

== ENCOUNTER 2024-08-29 11:25 | Outpatient (OUT) | payer MEDICARE, SELFPAY | END 2024-08-29 11:26 | disposition home or self-care (01) | LOC: PST 11:25 | PROVIDERS: PCP Family Medicine; Visit Provider Surgery | DX: Z01.818 Encounter for other preprocedural examination (principal); Z12.11 Encounter for screening for malignant neoplasm of colon ==

== ENCOUNTER 2024-09-06 07:27 | Day surgery (SDC) | payer MEDICARE, SELFPAY ==
--- OUTSIDE RECORDS SUMMARY | 2024-06-07 04:30 | XMS_ITS ---
Author Organization [facility] in [place] Address [address] [place] [address] Care Team Providers Care Slat Basket Maker Helper Machine Name Role Phone Jeronimo Gil Primary Care Provider Allergies Allergen (clinical drug ingredient) Drug/Non Drug Allergy documented on EMR Reaction Allergy Type Onset Date Status acetaminophen Acetaminophen Unknown Drug Allergy Active REASON FOR VISIT Yearly appointment- med refills Medications Medication SIG (Take, Route, Frequency, Duration) Notes Start Date End Date Status Meloxicam 15 MG 1 tablet Orally Once a day for 90 days 06/07/2024 Active Ambien 10 MG 1 tablet at bedtime as needed Orally Once a day for 2 days 05/08/2024 Active CeleXA 10 MG 1 tablet Orally Once a day for 30 days 02/29/2024 Active Levothyroxine Sodium 50 MCG TAKE 1 TABLE T BY MOUTH EVERY MORNING ON AN EMPTY STOMACH Orally Once a day for 90 days Active hydroCHLOROthiazide 25 MG 1 tablet in th e morning Orally Once a day for 90 days 06/07/2024 Active Omeprazole 20 MG TAKE 1 CAPSULE BY MO UTH EVERY DAY for 90 days Active Simvastatin 40 MG TAKE 1 TABLET BY TOSHIA TH EVERY DAY for 90 Active Vitamin D3 Active Nabumetone 500 MG 1 tablet Orally Twic e a day for 30 day(s) 05/08/2024 Active Liothyronine Sodium 5 MCG TAKE 2 TABLETS BY MOUTH ONCE DAILY Oral for 90 days Active Lisinopril 10 MG TAKE 1 TABLET BY TOSHIA TH EVERY DAY for 90 Active Social History Tobacco Use: Social History Observation Description Date Details (start date - stop date) Former Smoker 03/01/1966 - 03/01/2002 Tobacco Use/Smoking Question Answer Notes Patient is a former smoker When did you start smoking? 03/01/1966 When did you stop smoking? 03/01/2002 How long has it been since you last smoked? > 10 years Problems Problem Type SNOMED Code ICD Code Onset Dates Problem Status W/U Status Risk Notes Problem Arthritis (0409524) Arthritis (M19.90) Active confirmed Vital Signs Weight 178.2 lbs 06/07/2024 Height 67.5 in 06/07/2024 Blood pressure systolic 132 mm Hg 06/08/19 25 Blood pressure diastolic 70 mm Hg 025 BMI 27.5 kg/m2 06/07/2024 Encounters Encounter Location Date Provider Diagnosis [facility] [address] [place] [address] 06/07/2024 Jeronimo Gil Hypertension I10 and Arthritis M19.90 Assessments Encounter Date Diagnosis (ICD Code) Assessment Notes Treatment Notes Treatment Clinical Notes Section Notes 06/07/2024 Hypertension (ICD-10 - I10) 06/07/2024 Arthritis (ICD-10 - M19.90) Plan Of Treatment Medication Medication Name Sig Start Date Stop Date Notes Meloxicam 15 MG 1 tablet Orally Once a day for 90 days 06/07/2024 hydroCHLOROthiazide 25 MG 1 tablet in th e morning Orally Once a day for 90 days 06/07/2024 Progress Notes * Mi STAPLETON WDOB: [birth year] (79 yo F)Acc No.[id number]:06/07/2024 Progress Note Patient: Mi SEQUEIRA W Provider: Starr Gil ([facility])MD :1945 A ge:79 Y S ex:Female Date:06/07/2024 Address:[address] [place] [address] [id number] Check In:08:20 AM ESTCheck O ut:08:47 AM EST Subjective: * Chief Complaints: * Y early appointment- med refills * HPI: D epression Screening: PHQ-2 (2015 Edition) L ittle interest or pleasure in doing things??Not at all F eeling down, depressed, or hopeless? N ot at all T otal Score 0 was on naproxen - liked meloxicam better some edema - hctz 25 mg po Q day helped in the past. * ROS: E ENT: hearing changes d enies. v isual changes d enies.?non-healing mouth sores d enies. s wollen glands or neck lumps d enies. h oarseness d enies. s ore throat d enies. d ifficulty swallowing d enies. n ose bleeds d enies. n manisha congestion d enies. e ar ache d enies. e ar discharge?denies. r inging in ears d enies. l ight sensitivity d enies. e ye pain d enies. b lurring d enies. e ye irritation d enies. d ouble vision d enies.?vision loss d enies. G eneral/Constitutional: Sweats: D enies. F atigue d enies. S leep problems d enies. A norexia d enies. M alaise d enies. W eight loss d enies.?Fatigue or Weakness d enies. F ever or Chills d enies. C ardiovascular: Shortness of Breath w/lying flat d enies. L ightheadedness/dizziness d enies. C hest tightness/ heavy pressure d enies. S welling of legs, ankles, or feet d enies. W aking up with shortness of breath d enies. C hest pain denies. P alpitations d enies. W eight gain d enies. R espiratory: Chronic or frequent cough d enies. C oughing up blood?denies. D ifficulty breathing d enies. P roductive cough d enies. S noring?denies. S hortness of breath that awakens from sleep (PND) d enies. C hest pain d enies. S putum production d enies. W heezing d enies. M usculoskeletal: Joint pain d enies. J oint Fluid d enies. B ack pain d enies. K nee pain d enies. N jania pain d enies. J oint Stiffness d enies. M uscle cramps d enies. W eakness of muscles d enies. A rthritis d enies. M uscle aches d enies. P ain in shoulder(s) d enies. S wollen joints d enies. * Active Problem List G52.9 Cranial neuropathy Modified On:11/18/2022U Status:confirmed H91.90 Hearing loss Modified On:11/18/2022 Status:confirmed Q39.4 Schatzki's ring Modified On:11/18/2022U Status:confirmed K57.90 Diverticulosis Modified On:11/18/2022 Status:confirmed I10 Hypertension Modified On:03/09/2023 Status:confirmed G56.00 Carpal tunnel syndro me Modified On:11/18/2022 Status:confirmed K58.9 IBS (irritable bowel syndrome) Modified On:11/18/2022 Status:confirmed R53.83 Fatigue Modified On:11/18/2022 Status:confirmed M25.569 Knee pain Modified On:01/01/2023U Status:confirmed G47.00 Insomnia Modified On:11/24/2022 Status:confirmed I10 HTN (hypertension) Modified On:03/30/2023U Status:confirmed J01.90 Acute sinusitis Modified On:02/29/2024 Status:confirmed M19.90 Arthritis Modified On:06/07/2024 Status:confirmed * Medical History: * Surgical History: f usion T2-T8 arthroplasty 2000Bilateral Knee replacement Appendix Achilles Right Shoulder Replacement * Hospitalization/Major Diagno stic Procedure: D enies Past Hospitalization * Family History: F ather: . M other: . * Social History: T obacco Use: T obacco Use/Smoking P atient is a f ormer smoker W hen did you start smoking? 0 03/01/1966 W hen did you stop smoking? 0 03/01/2002 H ow long has it been since you last smoked??> 10 years * Medications: T akingAmbien(Zolpidem Tartrate) 10 MG Tablet 1 tablet at bedtime as needed Orally Once a day CeleXA(Citalopram Hydrobromide) 10 MG Tablet 1 tablet Orally Once a day Levothyroxine Sodium 50 MCG Tablet TAKE 1 TABLET BY MOUTH EVERY MORNING ON AN EMPTY STOMACH Orally Once a day Liothyronine Sodium 5 MCG Tablet TAKE 2 TABLETS BY MOUTH ONCE DAILY Oral Lisinopril 10 MG Tablet TAKE 1 TABLET BY MOUTH EVERY DAY Nabumetone 500 MG Tablet 1 tablet Orally Twice a day Omeprazole 20 MG Capsule Delayed Release TAKE 1 CAPSULE BY MOUTH EVERY DAY Simvastatin 40 MG Tablet TAKE 1 TABLET BY MOUTH EVERY DAY Vitamin D3 Taking Ambien(Zolpidem Tartrate) 10 MG Tablet 1 tablet at bedtime as needed Orally Once a day Taking CeleXA(Citalopram Hydrobromide) 10 MG Tablet 1 tablet Orally Once a day Taking Levothyroxine Sodium 50 MCG Tablet TAKE 1 TABLET BY MOUTH EVERY MORNING ON AN EMPTY STOMACH Orally Once a day Taking Liothyronine Sodium 5 MCG Tablet TAKE 2 TABLETS BY MOUTH ONCE DAILY Oral Taking Lisinopril 10 MG Tablet TAKE 1 TABLET BY MOUTH EVERY DAY Taking Nabumetone 500 MG Tablet 1 tablet Orally Twice a day Taking Omeprazole 20 MG Capsule Delayed Release TAKE 1 CAPSULE BY MOUTH EVERY DAY Taking Simvastatin 40 MG Tablet TAKE 1 TABLET BY MOUTH EVERY DAY Taking Vitamin D3 DiscontinuedAmoxicillin-Pot Clavulanate 875- 125 MG Tablet 1 tablet Orally every 12 hrs predniSONE 20 MG Tablet 3 tablets Orally Once a day Medication List reviewed and reconciled with the patientDiscontinued Amoxicillin-Pot Clavulanate 875-125 MG Tablet 1 tablet Orally every 12 hrs Discontinued predniSONE 20 MG Tablet 3 tablets Orally Once a day Medication List reviewed and reconciled with the patient * Allergies: A cetaminophenno[Allergies Verified] Objective: * Vitals: W t:178.2lbs, Ht: 67.5 in, BP:132/70mm Hg, BMI:27.5Index, Ht-cm: 171.45 cm, Wt-k.83 kg. * Examination: P hysical Exam: GENERAL: w ell developed, well nourished, in no acute distress. HEAD: n ormocephalic/atraumatic. EYES: p upils equal, round and reactive to light, conjunctivae and sclerae normal. EARS: n o deformity or lesion of external ear, canals and TM appear normal bilaterally, TM's intact, not inflamed with normal light reflex, hearing grossly normal to conversational speech. NOSE: n o deformity, discharge, inflammation, or lesions.? MOUTH: m ucous membranes moist, normal oropharynx and posterior pharynx without lesions or exudates, tongue normal, dentition normal. NECK: n jania supple, no masses or palpable cervical nodes, trachea midline, thyroid without nodules, masses, tenderness, or enlargement. CHEST: n o chest wall deformity, no chest wall tenderness.? LUNGS: n ormal respiratory effort and clear to auscultation, no wheezes, rales, or rhonchi, good air exchange. CARDIO: r egular rate and rhythm, normal S1 and S2, nor murmur, rub, or gallop. PULSES: n ormal capillary refill. ABDOMEN: s oft, non-distended, non-tender, no masses. MUSCULOSKELETAL: n o deformity or scoliosis noted, normal range of motion, joints normal, no erythema, edema, effusion, or ecchymosis. EXTREMITY: n o clubbing, cyanosis, edema, or deformity with normal ROM in both upper and lower bilateral extremities. NEUROLOGIC: g rossly normal. SKIN: n o rashes, ulcerations, or suspicious lesions. LYMPH NODES: n o cervical adenopathy, nodes normal. MENTAL STATUS: a lert and oriented x3, normal mood and affect. Assessment: * Assessment: 1. H ypertension - I10 (Primary) 2 . A rthritis - M19.90 Plan: * Treatment: * Procedure Codes: * Preventive Medicine: Screenings/Counseling: B FL ACTION PLAN Above Normal BMI Follow-up D ietary management education, guidance, and counseling F ALL RISK SCREENING Fall Risk Assessment: N o falls in the past year * * Sign off status: Completed Visit Status: C HK (Check Out) true * Provider: Starr Gil ([facility])MD Date: 0 06/07/2024 Generated for Gertrudis smith/Dima/Trinaitting on: 09/06/2024 07:30 AM EDT History and Physical Notes * HPI (History of Present Illness) Category Sub-Category Detail Notes Category Not es Depression Screening PHQ-2 (2015 Edition) Little interest or pleasure in doing things?: Not at all was on naproxen - liked meloxicam better some edema - hctz 25 mg po Q day helped in the past Feeling down, depressed, or hopeless?: N ot at all Total Score: 0 Examination Category Sub-Category Detail Notes Category Not es Physical Exam GENERAL: well developed, well nourished, in no acute distress HEAD: normocephalic/atraum atic EYES: pupils equal, round and reactive to light, conjunctivae and sclerae normal EARS: no deformity or lesi on of external ear, canals and TM appear normal bilaterally, TM's intact, not inflamed with normal light reflex, hearing grossly normal to conversational speech NOSE: no deformity, discha rge, inflammation, or lesions MOUTH: mucous membranes colleen st, normal oropharynx and posterior pharynx without lesions or exudates, tongue normal, dentition normal NECK: neck supple, no mass es or palpable cervical nodes, trachea midline, thyroid without nodules, masses, tenderness, or enlargement CHEST: no chest wall deform ity, no chest wall tenderness LUNGS: normal respiratory e ffort and clear to auscultation, no wheezes, rales, or rhonchi, good air exchange CARDIO: regular rate and rhy thm, normal S1 and S2, nor murmur, rub, or gallop PULSES: normal capillary ref ill ABDOMEN: soft, non-distended, non-tender, no masses RECTAL: MUSCULOSKELETAL: no deformity or scol iosis noted, normal range of motion, joints normal, no erythema, edema, effusion, or ecchymosis EXTREMITY: no clubbing, cyanosi s, edema, or deformity with normal ROM in both upper and lower bilateral extremities NEUROLOGIC: grossly normal SKIN: no rashes, ulceratio ns, or suspicious lesions LYMPH NODES: no cervical adenopat hy, nodes normal MENTAL STATUS: alert and oriented x 3, normal mood and affect
--- OUTSIDE RECORDS SUMMARY | 2024-07-26 05:00 | XMS_ITS ---
Author Organization The [facility] in [place] Address [address] [place] [address] Care Team Providers Care Database Reporting Consultant Name Role Phone Jeronimo Gli Primary Care Provider Allergies Allergen (clinical drug [...] No Points 0 Interpretation Negative Vital Signs Weight 183.2 lbs 07/26/2024 Height 67.5 in 07/26/2024 Blood pressure systolic 130 mm Hg 07/27/19 25 Blood pressure diastolic 78 mm Hg 025 BMI 28.27 kg/m2 07/26/2024 Encounters Encounter Location Date Provider Diagnosis [facility] ([place], [place]) [address] [place] [address] 07/26/2024 Jeronimo Gil Encounter for [facility] annual wellness exam Z00.00 Assessments Encounter Date [...] spent with the patient Plan Of Treatment No Information Progress Notes * FLAQUITOXiomara SLAUGHTERith WDOB: 7 (79 yo F)Acc No.[id number]:07/26/2024 Progress Note Patient: Mi SEQUEIRA Provider: Starr Gil ([facility])MD :1945 A ge:79 Y S ex:Female Date:07/26/2024 Address:[address] [place] [address] [address] Check In:09:02 AM ESTCheck O ut:09:46 AM EST Subjective: * Chief Complaints: * M edicare Wellness * HPI: M edicare Annual Wellness Visit: Type of Visit: S ubsequent Annual Wellness Visit (SAWV).? Visual Acuity: N /A. Other Providers of Care: C are Team reviewed with patient: Mady cortes, and updates made in [place] of Care Physical Activity: D o you [...] o you have a Durable Power of Fuse Coiler? 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 patient [...] (Check Out) true * Provider: Starr Gil ([facility])MD Date: 0 07/26/2024 Generated for Gertrudis smith/Dima/eTransmitting on: 0 09/06/2024 07:30 AM EDT History and Physical [...] Do you have a Durable Power of Fuse Coiler? : Yes Would you like to discuss this topic tod ay?: Yes Other Providers of Care: Care Team elizabeth villavicencio with patient:: Yes, and updates made in [place] [facility] Care [facility] Agree to complete So [facility] Determinants of Health questionnaire: Yes Within the [...] in a a tent, in an overnight group home, or temporarily in someone else's home?: No [...]
--- OUTSIDE RECORDS SUMMARY | 2024-07-26 05:49 | XMS_ITS ---
Author Organization [facility] in [place] Address [address] [place] [address] Care Team Providers Care Rubber Compounder Name Role Phone Patricksimon Jeronimo Primary Care Provider Reason For Referral Diagnosis 1 Screening for colon cancer (Z12.11) Referral Organization [facility] Referring Provider First Name Jeronimo Referring Provider Last Name Louise Referring Provider Speciality Family Med natividad Referred Provider Doug Ramachandran Referred Provider Specialty General Surg pilar Referral Priority Routine REASON FOR VISIT medicare wellness- Encounters Encounter Location Date Provider Diagnosis [facility] [place] [address] [place] [address] 07/26/2024 Jeronimo Gil Screening for colon cancer Z12.11 Assessments Encounter Date Diagnosis (ICD Code) Assessment Notes Treatment Notes Treatment Clinical Notes Section Notes 07/26/2024 Screening for colon cancer (ICD-10 - Z12.11) Plan Of Treatment Referrals Referral Date Details 07/27/2024 07/27/2024, Doug Ramachandran Progress Notes * Mi STAPLETON WDOB: 7 (79 yo F)Acc No.[id number]:07/26/2024 Patient: Hannah ISIDOROOlgaMi :1945 A ge:79 Y S ex:Female Address:[address] [place] [address], [id number] Subjective: * Chief Complaints: * M edicare wellness- * Medical History: * Surgical History: * Hospitalization/Major Diagno stic Procedure: * Medications: Objective: * Vitals: * Physical Examination: Assessment: * Assessment: 1. S creening for colon cancer - Z12.11 (Primary) Plan: * Treatment: * Procedure Codes: * true * Date: Generated for Gertrudis smith/Dima/Trinaitting on: 0 09/06/2024 07:30 AM EDT Consultation Request Notes Referral Date Referring Provider Referred Provider Not 07/27/2024 Jeronimo Gil Michael
--- OUTSIDE RECORDS SUMMARY | 2024-08-23 14:06 | XMS_ITS ---
Author Name Auto Generated Organization [facility] Care Team Providers Care Can Top Setter Name Role Phone GEMMA OGLESBY Attending Unavailable SHIRA MCDONALD Attending Unavailable GEMMA OGLESBY Attending Unavailable SHIRA MCDONALD Attending Unavailable SHIRA MCDONALD Attending Unavailable Doug LAGUNA Attending Unavailable PROBLEMS No Problem Records Found PROCEDURES No Procedure Records Found RESULTS GENERAL SURGERY OFFICE/CLINI C NOTE Observed: 08/23/2024 2:06 PM Status: F Source: [facility] General Surgery Office/Clini c Note Chief Complaint consultation for colonoscopy HPI Staff 79 year old female presents on consultation from Dr. Gil for screening colonoscopy. Denies abdominal or rectal pain. No rectal bleeding or change in bowel habits. Denies nausea, vomiting or weight loss. Last colonoscopy completed 08/2013- normal. No known family history of colon cancer. History of Present Illness 79 yo female with h/o htn, hyperlipidemia, hypothyroidism, cranial neuropathy, GERD, heart failure, IBS, referred for colorectal screening; denies change in bms or blood in stools, no abd complaints; abd operations significant for appendectomy; last colonoscopy 2013 with moderate diverticulosis; on Meloxicam daily, no asa; no tobacco use; no fmhx of GI malignancy or IBD. Review of Systems PHQ Score Initial Depression Screen Score: 0 SCORE ROS - Provider Constitutional: no fever, no sweats, no weight loss. Eyes: no glasses, no blurred vision, no visual loss. ENMT: no dentures, no hoarseness, no swallowing difficulties, no hearing loss, no ear infection(s), no nose bleeds. Cardiovascular: normal blood pressure, no chest pain, regular heartbeat, no heart murmur. Respiratory: no shortness of breath, no cough, no asthma, no wheezing. Gastrointestinal: no nausea, no vomiting, no diarrhea, no constipation, no blood in stool, no change in bowel habits, no abdominal pain, no hepatitis. Genitourinary: no kidney stones, no urine infection, no dysuria. Musculoskeletal: no pain, no weakness. Skin: no changing moles, no rash, no skin lumps. Neurologic: no seizures, no epilepsy, no headache. Psychiatric: no emotional or psychiatric problem. Heme/Lymph: no bleeding problems, no anemia, no blood clots, no transfusions. Allergy/Immunologic: no swollen lymph nodes/glands, no IV drug abuse. Other: Additional ROS info: Except as noted in the above Review of Systems and in the History of Present Illness, all other systems have been reviewed and are negative or noncontributory. Physical Exam Vitals & Measurements HR: 72(Peripheral) RR: 16 BP: 130/66 HT: 67 in HT: 171 cm WT: 82.3 kg WT: 181.44 lb BMI: 28.15 HEENT: normal conjunctiva, sclera clear, no scleral icterus, EOM intact, PERRLA, oral mucosa moist without lesions. Neck: trachea midline, no mass, symmetric, no thyromegaly or nodules, no adenopathy Respiratory: lungs CTA, respirations non labored. Cardiovascular: regular rate and rhythm, no murmur, no pedal edema or varicosities. Gastrointestinal: obese, soft, non distended, no tenderness, no masses, no palpable hernias, diastasis recti no, no hepatosplenomegaly; normal bs Musculoskeletal: normal gait, digits and nails without infection, nodes, cyanosis, clubbing. Skin: no rashes, no lesions, no ulcers, no subcutaneous nodules, induration. Psychiatric/Neuro: oriented to time, place, person, judgement normal, affect appropriate for age, insight intact, no focal deficits. Tests: review of old records completed , Discussed surgical options, risks, and possible complications with patient. Assessment/Plan 1. Screening for malignant neoplasm of colon (Z12.11: Encounter for screening for malignant neoplasm of colon) plan colonoscopy under anesthesia, informed consent obtained. Follow-up No qualifying data available Problem List/Past Medical History Ongoing BMI 28.0-28.9,adult Cranial neuropathy Essential hypertension GERD (gastroesophageal reflux disease) Heart failure, diastolic Hyperlipidemia Hypothyroidism IBS (irritable bowel syndrome) Overweight Schatzki's ring Screening for malignant neoplasm of colon Historical No qualifying data Procedure/Surgical History Colonoscopy (09/22/2013), Appendectomy, Arthroplasty of left knee, Arthroplasty of right knee, Arthroplasty of right shoulder, Fusion of thoracic spine, Repair of Achilles tendon, Revision of knee arthroplasty. Medications CeleXA 10 mg Tab, 10 mg= 1 tab(s), Oral, Daily hydrochlorothiazide 25 mg Tab, 25 mg= 1 tab(s), Oral, Daily levothyroxine 50 mcg (0.05 mg) Tab, 50 mcg= 1 tab(s), Oral, Daily liothyronine 5 mcg Tab, 10 mcg= 2 tab(s), Oral, Daily lisinopril 10 mg Tab, 10 mg= 1 tab(s), Oral, Daily meloxicam 15 mg Tab, 15 mg= 1 tab(s), Oral, Daily omeprazole 20 mg Cap-DR, 20 mg= 1 cap(s), Oral, Daily simvastatin 40 mg Tab, 40 mg= 1 tab(s), Oral, qPM Allergies acetaminophen (Dyspnea) Social History Alcohol Never., 08/20/2024 Substance Abuse Current, Marijuana, Daily, 08/23/2024 Tobacco Former smoker, quit more than 30 days ago Tobacco Use:. Never Smokeless Tobacco Use:. Cigarettes, 08/23/2024 Family History Family history is negative Immunizations Vaccine Date Status Comments influenza virus vaccine, inactivated 11/18/2023 Recorded SARS-CoV-2 (COVID-19) mRNAMUL.[id number] 11/19/2021 Recorded SARSCoV2 mRNA(ohizakpum-bvpl-jlbryp) vac 07/02/2021 Recorded SARS-CoV-2 (COVID-19) mRNA BNT-162b2 vax 11/24/2020 Recorded 2024-08-16: TPV70 SARS-CoV-2 (COVID-19) mRNA BNT-162b2 vax 04/23/2020 Recorded 2024-08-16: TPV70 SARS-CoV-2 (COVID-19) mRNA BNT-162b2 vax 04/02/2020 Recorded 2024-08-16: TPV70 Result Comment: Electronical ly Signed By: LUZ ELENA BURKS, Doug Crockett\.br\Date and Time Signed: 08/23/24 14:55 EDT AMBULATORY VISIT SUMMARY Observed: 08/23 2:06 PM Status: F Source: [facility] Ambulatory Visit Summary EMANUEL WISE :1945 Visit Date:08/23/2024 Ambulatory Visit Instructions Your Care Team Attending Physician - Doug LAGUNA MD Primary Care Physician - Oscar Gil MD This Is Your Medications List Contact prescribing physician if questions or concerns citalopram (CeleXA 10 mg Tab) hydrochlorothiazide (hydrochlorothiazide 25 mg Tab) levothyroxine (levothyroxine 50 mcg (0.05 mg) Tab) liothyronine (liothyronine 5 mcg Tab) lisinopril (lisinopril 10 mg Tab) meloxicam (meloxicam 15 mg Tab) omeprazole (omeprazole 20 mg Cap-DR) simvastatin (simvastatin 40 mg Tab) Procedures Performed Colonoscopy (09/22/2013), Appendectomy, Arthroplasty of left knee, Arthroplasty of right knee, Arthroplasty of right shoulder, Fusion of thoracic spine, Repair of Achilles tendon, Revision of knee arthroplasty. Discharge Vitals Heart Rate (Peripheral) 72 Respiratory Rate 16 Blood Pressure 130/66 Height 171 cm Height 67 in Weight 82.3 kg Weight 181.44 lb BMI 28.15 Medications What How Much When Instructions Unchanged citalopram (CeleXA 10 mg Tab) 1 Tablets By Mouth Every day Contact prescribing physician if questions or concerns Unchanged hydrochlorothiazide (hydrochlorothiazide 25 mg Tab) 1 Tablets By Mouth Every day Contact prescribing physician if questions or concerns Unchanged levothyroxine (levothyroxine 50 mcg (0.05 mg) Tab) 1 Tablets By Mouth Every day Contact prescribing physician if questions or concerns Unchanged liothyronine (liothyronine 5 mcg Tab) 2 Tablets By Mouth Every day Contact prescribing physician if questions or concerns Unchanged lisinopril (lisinopril 10 mg Tab) 1 Tablets By Mouth Every day Contact prescribing physician if questions or concerns Unchanged meloxicam (meloxicam 15 mg Tab) 1 Tablets By Mouth Every day Contact prescribing physician if questions or concerns Unchanged omeprazole (omeprazole 20 mg Cap-DR) 1 Capsules By Mouth Every day Contact prescribing physician if questions or concerns Unchanged simvastatin (simvastatin 40 mg Tab) 1 Tablets By Mouth Once a day (in the evening) Contact prescribing physician if questions or concerns Allergies acetaminophen (Dyspnea) Problems Ongoing - Any problem that you are currently receiving treatment for. BMI 28.0-28.9,adult Cranial neuropathy Essential hypertension GERD (gastroesophageal reflux disease) Heart failure, diastolic Hyperlipidemia Hypothyroidism IBS (irritable bowel syndrome) Overweight Schatzki's ring Patient Survey You may receive a survey via text or e-mail asking about your office visit. Please share your experience with us by completing your survey. We appreciate your feedback and thank you for choosing us for your care. Patient Portal You may access all of your results and other medical record information on our secure patient portal. If you are not signed up for this yet, please contact [employer] at [phone] to get signed up today. Language Information Language assistance services are available as needed. ALLERGIES DATE TYPE / CODE NAME / CODE REACTION SEVERITY SOURCE /[id number](SNOMED CT) acetaminophen [id number] [facility] ENCOUNTERS ADMIT/DISCHARGE ACCOUNT NUMBER ADMITTING ENCOUNTER CLASS LOCATION SOURCE 08/23/2024/ 5 [id number] [facility] SoraidaGabe : Exam 1 [facility] 07/27/2024 [id number] Ambulatory [facility] ding:[facility] 05/25/2024/ 5 [id number] Ambulatory Building:NOM S NB OB [facility] 02/28/2024/ 4 [id number] Ambulatory Building:NOM S NB OB [facility] 02/07/2024/ 4 [id number] Ambulatory Building:NOM S NB OB [facility] 11/11/2023/ 4 [id number] Ambulatory Building:NOM S NB OB [facility] EP[facility] 10/28/2023/ 4 [id number] Ambulatory Building:NOM S OB [facility] EPIC PAYERS ENCOUNTER GUARANTOR PAYER SUBSCRIBER SOURCE 08/23/2024 EMANUEL Cruz [facility]ISB[facility](4 1 (HP) Primary Insurance:AnthemPolicy Number: [id number] Date:[id number] [address]UT: EMANUEL Cruz VALDO [facility] 05/25/2024 EMANUEL Cruz FR[place]: [place] [address]Lms: (HP) Primary Insurance:ANTHEM MEDICARE ADVANTAGEPolicy Number: [id number] Date:2024-03-01 EMANUEL Cruz MARTINSTDOB: [id number] [place] [address] [facility] EPIC 02/28/2024 EMANUEL Cruz MARTINSTDOB: [place] [address]Hfs: (HP) Primary Insurance:DEVOTED HEALTHPolicy Number: [id number] Date:2023-03-01 EMANUEL Cruz MARTINSTDOB: [id number] [place] [address] [facility] EPIC 02/07/2024 EMANUEL Cruz MARTINSTDOB: [place] [address]Vkv: (HP) Primary Insurance:DEVOTED HEALTHPolicy Number: [id number] Date:2023-03-01 EMANUEL HSUB: [id number] [place] [address] [facility] 11/11/2023 EMANUEL HSUB: [place] [address]Gpe: () Primary Insurance:DEVOTED HEALTHPolicy Number: [id number] Date:2023-03-01 EMANUEL HSUB: [id number] [place] [address] [facility] 10/28/2023 EMANUEL HSUB: [place] [address]Mmf: () Primary Insurance:DEVOTED HEALTHPolicy Number: [id number] Date:2023-03-01 EMANUEL MARIE: [id number] [place] [address] [facility]
--- OUTSIDE RECORDS SUMMARY | 2024-08-23 23:59 | XMS_ITS | Continuity of Care Document ---
Author Organization [facility] [place] Address [address] [place] [address] Care Team Providers Care Paint Tinter Name Role Phone Oscar Gil Primary Care Physician [phone] Encounter FT_AMBFIN [id number] Date(s): 08/23/24 - 08/23/24 [facility] [place] [address], [place], [place] [address] Encounter Diagnosis Screening for malignant neoplasm of colon(Discharge Diagnosis) - 08/23/24 Discharge Disposition: Home (Routine DC) Attending Physician: Doug LAGUNA MD Encounter Type: Clinic Allergies, Adverse Reactions, Alerts Substance Criticality Severity Reaction Reaction Severity Status acetaminophen Dyspnea Active Immunizations Given and Recorded Vaccine Date Status Refusal Reason influenza virus vaccine, inactivated 11/18/23 Rene rded SARS-CoV-2 (COVID-19) mRNAMUL.[id number] 11/19/21 Recorded SARSCoV2 mRNA(lqjtprtjs-kher-ojbehj) vac 07/02/21 Recorded SARS-CoV-2 (COVID-19) mRNA BNT-162b2 vax 1 11/24/20 Recorded SARS-CoV-2 (COVID-19) mRNA BNT-162b2 vax 2 04/23/20 Recorded SARS-CoV-2 (COVID-19) mRNA BNT-162b2 vax 3 04/02/20 Recorded 1Result Comment: 2024-08-16: TPV70 2Result Comment: 2024-08-16: TPV70 3Result Comment: 2024-08-16: TPV70 Medications CeleXA 10 mg Tab 10 mg = 1 tab(s), Oral, Daily, Refills(s) 0 Start Date: 08/16/24 Status: Ordered Repeat number: 1 hydrochlorothiazide 25 mg Tab 25 mg = 1 tab(s), Oral, Daily, Refills(s) 0 Start Date: 08/16/24 Status: Ordered Repeat number: 1 levothyroxine 50 mcg (0.05 mg) Tab 50 mcg = 1 tab(s), Oral, Daily, Refills(s) 0 Start Date: 08/16/24 Status: Ordered Repeat number: 1 liothyronine 5 mcg Tab 10 mcg = 2 tab(s), Oral, Daily, Refills(s) 0 Start Date: 08/16/24 Status: Ordered Repeat number: 1 lisinopril 10 mg Tab 10 mg = 1 tab(s), Oral, Daily, Refills(s) 0 Start Date: 08/16/24 Status: Ordered Repeat number: 1 meloxicam 15 mg Tab 15 mg = 1 tab(s), Oral, Daily, Refills(s) 0 Start Date: 08/16/24 Status: Ordered Repeat number: 1 omeprazole 20 mg Cap-DR 20 mg = 1 cap(s), Oral, Daily, Refills(s) 0 Start Date: 08/16/24 Status: Ordered Repeat number: 1 simvastatin 40 mg Tab 40 mg = 1 tab(s), Oral, qPM, Refills(s) 0 Start Date: 08/16/24 Status: Ordered Repeat number: 1 Problem List Condition Confirmation Course Effective Dates Status H ealth Status Informant Cranial neuropathy Confirmed Active Heart failure, diastolic Confirmed Active Essential hypertension Confirmed 01/29/22 Active GERD (gastroesophageal reflux disease) Confirmed Active Hyperlipidemia Confirmed Active Hypothyroidism Confirmed Active IBS (irritable bowel syndrome) Confirmed Active Schatzki's ring Confirmed Active Overweight Confirmed Active BMI 28.0-28.9,adult Confirmed Active Screening for malignant neoplasm of colon Confirmed Active Procedures Procedure Date Related Diagnosis Body Site Status Colonoscopy 09/22/13 Completed Appendectomy Completed Arthroplasty of left knee Completed Arthroplasty of right knee Completed Arthroplasty of right shoulder Completed Fusion of thoracic spine Completed Repair of Achilles tendon Completed Revision of knee arthroplasty Completed Social History Social History Type Response Smoking Status Former smoker, quit more than 30 days ago;Never; Type: Cigarettes entered on: 08/23/24 Sex Female Sex Representation Female (finding) Patient Care team information Care Team Personnel Name: Oscar Gil MD Position: FT Physician Member Role: Primary Care Physician [address]: [address] [place] [address] Telecom: Care Team Related Persons Name: EDVIN WISE Insurance Providers Guarantor name: Health Plan Information #: 1 Payer: NA Payer Identifier: [id number] Member Number: [id number] Group Number: [id number] Subscriber Identifier: [id number] Relationship to Subscriber: Self Coverage Type: MEDICARE Coverage Verification Date: 24 Telecom: DAVIS Address: NA
--- NOTE | 2024-09-06 | OP_ITS ---
OPERATION DATE: 09/06/2024 PREOPERATIVE DIAGNOSIS: Colorectal screening. POSTOPERATIVE DIAGNOSIS: Normal colonoscopy to cecum. PROCEDURE: Colonoscopy to cecum. SURGEON: Doug Ramachandran M.D. ANESTHESIA: Monitored anesthesia care. ESTIMATED BLOOD LOSS: Zero. INDICATIONS AND CONSENT: Patient is a 79-year-old female presents for colorectal screening. Indications, risks, benefits, alternatives of proceeding with colonoscopy were explained extensively to the patient, including the risks of bleeding, colon perforation or anesthetic complications. All of her questions were answered. Informed consent was obtained. PROCEDURE: Patient brought to the operating room, placed in the left lateral decubitus position. Monitored anesthesia care was provided. Rectal exam was performed which revealed no masses or blood. The scope was inserted into the anal canal. Under direct visualization was advanced. With the aid of abdominal compression, it was advanced to the cecum where cecal markings were clearly identified. There was noted to be a good prep. Upon withdrawal of the scope, mucosal surfaces were carefully examined. There were no mass lesions or polyps. No inflammatory changes or ulcerations. No significant diverticulosis. The scope was retroflexed in the anal canal. There were some small internal hemorrhoids without evidence of old or new blood. Scope was then withdrawn. Patient tolerated procedure well, was sent to recovery room in good condition. Patient should not require further screening colonoscopies. CC: Oscar Gil M.D. CHIDI
--- OUTSIDE RECORDS SUMMARY | 2024-09-06 07:30 | XMS_ITS | Patient Health Record ---
Author Organization [facility] in [place] Address [address] [place] [address] Care Team Providers Care Wax Machine Operator Name Role Phone Louise Jeronimo Primary Care Provider [phone] Allergies Allergen (clinical drug ingredient) Drug/Non Drug Allergy documented on EMR Reaction Allergy Type Onset Date Status acetaminophen Acetaminophen Unknown Drug Allergy Active Results Component Value Reference Range Notes MM tomosynthesis screening B I Reviewed date:02/28/2024 08:29:07 PM Interpretation: Performing Lab: Notes/Report: Source Facility: [place] [address] Mammography Report Signed Patient: MI STAPLETON MR#: [id number] : 1945 Acct:[id number] Age/Sex: 78 / F ADM Date: 02/28/24 Loc: MAMMO Attending Dr: Felix Ramos M.D. Ordering Physician: Felix Ramos M.D. Results: Date of Service: 02/28/24 Follow Up: Procedure(s): MM tomosynthesis screening BI Accession Number(s): [id number] cc: Felix Ramos M.D. Patient Name: MI STAPLETON MR#: [id number] : 1945 Exam Date: 02/28/2024 Ordering Doctor: DR FELIX RAMOS . RADIOLOGY REPORT PROCEDURE: MM TOMOSYNTHESIS SCREENING BI COMPARISON: MM TOMOSYNTHESIS SCREENING BI, 02/26/2023. MG MAMM SCREEN 3D HERBER CAD, 02/25/2022. MG MAMM SCREEN 3D HERBER CAD, 02/19/2021. MG MAMM HERBER SCRN W CAD DIG, 01/20/2013. INDICATIONS: Screening Calculator Name NCI Breast Cancer Risk Assessment Tool 5 Year Breast Cancer Risk 1.40% Lifetime Breast Cancer Risk 2.70% Personal Breast Cancer No Personal Ovarian Cancer No Treatments None Family Cancers Sister with cervical cancer at age 30; Mother with ovarian cancer at age 60. LOCATION: [facility] BREAST COMPOSITION: There are scattered areas of fibroglandular density. FINDINGS: DIAGNOSTIC CATEGORY 2--BENIGN FINDING: RIGHT BREAST: No significant suspicious finding. No significant change has occurred. LEFT BREAST: No significant suspicious finding. Scattered benign-appearing nodules are present. No significant change has occurred. RECOMMENDATIONS: ROUTINE MAMMOGRAM AND CLINICAL EVALUATION IN 12 MONTHS. PLEASE NOTE: A NORMAL MAMMOGRAM DOES NOT EXCLUDE THE POSSIBILITY OF BREAST CANCER. A CLINICALLY SUSPICIOUS PALPABLE LUMP SHOULD BE BIOPSIED. Dictated by: Gaurav Garcia M.D. on 02/28/2024 at 16:52 Approved by: Gaurav Garcia M.D. on 02/28/2024 at 16:54 Dictated By: Gaurav Garcia M.D. Signed By: 02/28/241654 DD/ 53 TD/TT: Technical Sales Advisor: [place] [address] Mammography Report Signed Patient: GIOVANNI STAPLETON MR#: [id number] : 1945 Acct:[id number] Age/Sex: 78 / F ADM Date: 02/28/24 Loc: MAMMO Attending Dr: Hunter Ramos M.D. Ordering Physician: Felix Ramos M.D. Results: Date of Service: 02/28/24 Follow Up: Procedure(s): MM tomosynthesis screening BI Accession Number(s): [id number] cc: Felix Ramos M.D. Patient Name: MI STAPLETON MR#: [id number] : 1945 Exam Date: 02/28/2024 Ordering Doctor: DR FELIX RAMOS . RADIOLOGY REPORT PROCEDURE: MM TOMOSYNTHESIS SCREENING BI COMPARISON: MM TOMOSYNTHESIS SCREENING BI, 02/26/2023. MG MAMM SCREEN 3D HERBER CAD, 02/25/2022. MG MAMM SCREEN 3D HERBER CAD, 02/19/2021. MG MAMM HERBER SCRN W CAD DIG, 01/20/2013. INDICATIONS: Screening Calculator Name NCI Breast Cancer Risk Assessment Tool 5 Year Breast Cancer Risk 1.40% Lifetime Breast Canc er Risk 2.70% Personal Breast Canc er No Personal Ovarian Cancer No Treatments None Family Cancers Siste r with cervical cancer at age 30; Mother with ovarian cancer at ag e 60. LOCATION: [facility] BREAST COMPOSITION: There are scattered areas of fibroglandular density. FINDINGS: DIAGNOSTIC CATEGORY 2--BENIGN FINDING: RIGHT BREAST: No significant suspicious finding. No significant change has occurred. LEFT BREAST: No significant suspicious finding. Scattered benign-appearing nodules are present. No significant change has occurred. RECOMMENDATIONS: ROUTINE MAMMOGRAM AN D CLINICAL EVALUATION IN 12 MONTHS. PLEASE NOTE: A NIR L MAMMOGRAM DOES NOT EXCLUDE THE POSSIBILITY OF BREAST CANCER. A CLINICALLY SUSPICIOUS PALPABLE LUMP SHOULD BE BIOPSIED. Dictated by: Gaurav Garcia M.D. on 02/28/2024 at 16:52 Approved by: Gaurav Garcia M.D. on 02/28/2024 at 16:54 Dictated By: Gaurav Garcia M.D. Signed By: 02/28/245 DD/ 53 TD/TT: Technical Sales Advisor: Occult Blood* Reviewed date:12/09/2023 10:17:03 AM Interpretation: Performing Lab: Notes/Report: [facility] , Occult Blood Negative Performing Lab: see note ML - [facility] NM bone 3 phase Reviewed date:11/29/2023 06:42:10 PM Interpretation: Performing Lab: Notes/Report: Source Facility: [facility] [place] [address] [place] [address] Nuclear Medicine Report Signed Patient: MI STAPLETON MR#: [id number] : 1945 Acct:[id number] Age/Sex: 78 / F ADM Date: 11/26/23 Loc: NM Attending Dr: Alton Alves M.D. Ordering Physician: Alton Alves M.D. Date of Service: 11/26/23 Procedure(s): NM bone 3 phase Accession Number(s): [id number] cc: Felix Ramos M.D.; Alton Alves M.D. [address] [address] Patient Name: MI STAPLETON MRN: [id number] date: 1945 Sex: F Assigned Patient Location: LAB Current Patient Location: Accession/Order Number: [id number] Exam Date: 11/26/2023 07:59 Report Date: 11/29/2023 16:53 At the request of: ALTON ALVES Procedure: NM bone 3 phase EXAMINATION: NM bone 3 phase HISTORY: LEFT KNEE PAIN, PAIN IN PROSTHETIC JOINT ; bilateral knee replacement 24 years ago COMPARISON: No relevant comparison available. TECHNIQUE: 25.1 mCi Technetium 99m MDP was injected intravenously followed by acquisition of dynamic flow, immediate blood pool, and delayed static images. FINDINGS: IMAGED AREA: Bilateral knees FLOW PHASE: Normal. BLOOD POOL PHASE: Normal. DELAYED IMAGES: Mild to moderate radiotracer accumulation within distal femur and proximal tibia adjacent the prosthetic components, and within the patella, which is symmetric bilaterally. OTHER: Negative. NM/NM bone 3 phase IMPRESSION: 1. Bilateral knee replacements with radiotracer accumulation within the bone adjacent the prosthetic components. While this does appear slightly greater than expected, the amount of radiotracer accumulation is symmetric bilaterally. No convincing hardware loosening. Electronically authenticated by: GAURAV GARCIA Date: 11/29/2023 16:53 Dictated By: Gaurav Garcia M.D. Signed By: 11/29/231655 DD/ 52 TD/TT: Technical Sales Advisor: [place] [address] Nuclear Medicine Report Signed Patient: GIOVANNI STAPLETON MR#: [id number] : 1945 Acct:[id number] Age/Sex: 78 / F ADM Date: 11/26/23 Loc: HERMINIA Attending Dr: Alton Alves M.D. Ordering Physician: Alton Alves M.D. Date of Service: 11/26/23 Procedure(s): NM bon e 3 phase Accession Number(s): [id number] cc: Felix Ramos M.D. ; Alton Alves M.D. [facility] [place] [id number] Patient Name: MI STAPLETON MRN: [id number] date: 1945 Sex: F Assigned Patient Location: LAB Current Patient Location: Accession/Order Number: [id number] Exam Date: 11/26/2023 07:59 Report Date: 11/29/2023 16:53 At the request of: ALTON ALVES Procedure: NM bone 3 phase EXAMINATION: NM bone 3 phase HISTORY: LEFT KNEE PAIN, PAIN IN PROSTHETIC JOINT ; bilateral knee replacement 24 years ago COMPARISON: No relevant comparison available. TECHNIQUE: 25.1 mCi Technetium 99m MDP was injected intravenously followed by acquisition of dynam ic flow, immediate blood pool, and delayed static images. FINDINGS: IMAGED AREA: Bilater al knees FLOW PHASE: Normal. BLOOD POOL PHASE: Normal. DELAYED IMAGES: Mild to moderate radiotracer accumulation within distal femur and proximal tibia adjacent the prosthetic components, and within the patella, which is symmetric bilaterally. OTHER: Negative. NM/NM bone 3 phase IMPRESSION: 1. Bilateral knee replacements with radiotracer accumulation within the bone adjacent the prosthetic components. While this does appear slightly greater than expected, the amount of radiotracer accumulation is symmetric bilaterally. No convincing hardwa re loosening. Electronically authenticated by: GAURAV GARCIA Date: 11/29/2023 16:53 Dictated By: Gaurav Garcia M.D. Signed By: 11/29/236 DD/ 52 TD/TT: Technical Sales Advisor: Erythrocyte Sedimentation Ra te Reviewed date:11/26/2023 08:08:27 AM Interpretation: Performing Lab: Notes/Report: [facility] , Erythrocyte Sedimentation Rate 30 <=30 mm/hr Performing Lab: see note ML - [facility] CRP Reviewed date:11/26/2023 08:08:27 AM Interpretation: Performing Lab: Notes/Report: [facility] , C Reactive Protein <0.50 <=0.50 mg/dL Performing Lab: see note ML - [facility] LB CBC AUTO DIFF Reviewed date:11/26/2023 08:08:27 AM Interpretation: Performing Lab: Notes/Report: [facility] , White Blood Count 7.7 4.0-11.0 10 3/uL Red Blood Count 4.58 4.20-5.40 10 6/uL Hemoglobin 13.6 12.0-16.0 g/dL Hematocrit 41.0 36.0-48.0 % Mean Corpuscular Volume 89.5 81.0-99.0 fL Mean Corpuscular Hemoglobin 29.7 26.7-34.0 pg Mean Corpuscular HGB Conc 33.2 29.9-35.2 g/dL Red Cell Distribution Width 14.2 11.0-15.0 % Platelet Count 376 150-450 10 3/uL Mean Platelet Volume 9.5 9.5-13.5 fL Neutrophils Percent Auto 42.1 43.0-75.0 % Lymphocytes Percent Auto 43.1 20.5-60.0 % Monocytes Percent Auto 9.1 1.7-12.0 % Eosinophils Percent Auto 4.9 0.9-7.0 % Basophils Percent Auto 0.5 0.2-2.0 % Immature Granulocytes Pct Auto 0.3 0.0-0.5 % Neutrophils Absolute Auto 3.3 1.4-6.5 10 3/uL Lymphocytes Absolute Auto 3.3 1.2-3.8 10 3/uL Monocytes Absolute Auto 0.7 0.3-0.8 10 3/uL Eosinophils Absolute Auto 0.4 0.0-0.7 10 3/uL Basophils Absolute Auto 0.0 0.0-0.1 10 3/uL Immature Granulocytes Abs Auto 0.02 0.00-0.03 10 3/uL Performing Lab: see note ML - [facility] LB GLYCOHEMOGLOBIN A1C Reviewed date:11/28/2023 11:35:48 AM Interpretation: Performing Lab: Notes/Report: [facility] , Glycohemoglobin A1C 5.5 4.5-6.2 % ACTION SUGGESTED > 7.0 ADA RECOMMENDED LIMIT 4.0 - 6.0 ADA THERAPEUTIC TARGET < 7.0 Estimated Average Glucose 111 Performing Lab: see note ML - [facility] LB VITAMIN D 25 OH Reviewed date:11/28/2023 11:35:48 AM Interpretation: Performing Lab: Notes/Report: [facility] , Vitamin D 44.9 20-<30 ng/mL Vit D insufficient 30-100 ng/mL Vit D sufficient >100 ng/mL Potential Toxicity <20 ng/mL Vit D deficient Performing Lab: see note ML - [facility] LB TSH Reviewed date:11/28/2023 11:35:48 AM Interpretation: Performing Lab: Notes/Report: [facility] , Thyroid Stimulating Hormone 0.774 0.358-3.740 uIU/mL Performing Lab: see note ML - [facility] T4 Reviewed date:11/28/2023 11:35:48 AM Interpretation: Performing Lab: Notes/Report: [facility] , T4 Thyroxine 6.70 4.80-13.90 ug/dL Performing Lab: see note ML - [facility] LB PROF 14(COMP METB) Reviewed date:11/28/2023 11:35:48 AM Interpretation: Performing Lab: Notes/Report: [facility] , Sodium 140 136-145 mmol/L Potassium 4.0 3.5-5.1 mmol/L Chloride 106 98-107 mmol/L Carbon Dioxide 25.9 21.0-32.0 mmol/L Anion Gap 12.1 Glucose 87 74-106 mg/dL Blood Urea Nitrogen 17.0 7.0-18.0 mg/dL Creatinine 0.91 0.55-1.02 mg/dL Estimated GFR ( [place] >60 >=60 Estimated GFR (Non- Luc[place] 60 >=60 BUN Creatinine Ratio 18.7 Calcium 8.6 8.5-10.1 mg/dL Bilirubin Total 0.3 0.2-1.0 mg/dL Aspartate Amino Transferase 21 15-37 U/L Alanine Aminotransferase 27 14-59 U/L Alkaline Phosphatase 65 46-116 U/L Total Protein 6.3 6.4-8.2 g/dL Albumin Level 3.0 3.4-5.0 g/dL Globulin 3.3 Albumin Globulin Ratio 0.9 Performing Lab: see note ML - [facility] LIPID PROFILE Reviewed date:11/28/2023 11:35:48 AM Interpretation: Performing Lab: Notes/Report: [facility] , Triglycerides 135 <=150 mg/dL Cholesterol 201 <=200 mg/dL HDL Cholesterol 56 40-60 mg/dL > or =60 mg/dl - LOW CARDIOVASCULAR RISK <40 mg/dl - HIGH CARDIOVASCULAR RISK LDL Cholesterol Calculated 118.0 100-129 mg/dl NEAR OR ABOVE OPTIMAL 160-189 mg/dl HIGH <100 mg/dl OPTIMAL 130-159 mg/dl BORDERLINE HIGH >190 mg/dl VERY HIGH VLDL CHOLESTEROL 27.0 Chol HDL Ratio 3.6 4.4 - 7.1 AVERAGE RISK 3.3 - 4.4 LOW RISK >11.0 HIGH RISK 7.1 - 11.0 MODERATE RISK Performing Lab: see note ML - [facility] FREE T3 Reviewed date:11/28/2023 11:35:48 AM Interpretation: Performing Lab: Notes/Report: [facility] , Free T3 2.09 2.18-3.98 pg/mL Performing Lab: see note ML - [facility] LB XR knee LT 4V Reviewed date:11/24/2023 08:35:53 PM Interpretation: Performing Lab: Notes/Report: Source Facility: [place] [address] [place] [address] XRay Report Signed Patient: MI STAPLETON MR#: [id number] : 1945 Acct:[id number] Age/Sex: 78 / F ADM Date: 11/22/23 Loc: EC Attending Dr: Alton Alves M.D. Ordering Physician: Alton Alves M.D. Date of Service: 11/22/23 Procedure(s): XR knee LT 4V Accession Number(s): [id number] cc: Felix Ramos M.D.; Alton Alves M.D. [facility] [place] [address] Patient Name: MI STAPLETON MRN: [id number] date: 1945 Sex: F Assigned Patient Location: Current Patient Location: [place] Accession/Order Number: [id number] Exam Date: 11/22/2023 13:31 Report Date: 11/24/2023 09:39 At the request of: ALTON ALVES Procedure: XR knee LT 4V PROCEDURE: XR knee LT 4V HISTORY: LEFT KNEE PAIN COMPARISON: XR knee left 10/20/2022 FINDINGS: BONES:Total knee replacement without evidence of hardware fracture loosening. No bone fracture dislocation. SOFT TISSUES:No visible soft tissue swelling. EFFUSION:None visible. OTHER: Negative. XR/XR knee LT 4V IMPRESSION: 1. Left knee replacement without evidence of hardware failure. 2. No appreciable acute abnormality. Electronically authenticated by: GAURAV GARCIA Date: 11/24/2023 09:39 Dictated By: Gaurav Garcia M.D. Signed By: 11/24/23940 DD/ 8 TD/TT: Technical Sales Advisor: [place] [address] XRay Report Signed Patient: GIOVANNI STAPLETON MR#: [id number] : 1945 Acct:[id number] Age/Sex: 78 / F ADM Date: 11/22/23 Loc: EC Attending Dr: Alton Alves M.D. Ordering Physician: Alton Alves M.D. Date of Service: 11/22/23 Procedure(s): XR kne e LT 4V Accession Number(s): [id number] cc: Felix Ramos M.D. ; Alton Alves M.D. [address] [address] Patient Name: MI STAPLETON MRN: [id number] date: 1945 Sex: F Assigned Patient Location: Current Patient Location: [place] Accession/Order Number: [id number] Exam Date: 11/22/2023 13:31 Report Date: 11/24/2023 09:39 At the request of: ALTON ALVES Procedure: XR knee L T 4V PROCEDURE: XR knee L T 4V HISTORY: LEFT KNEE PAIN COMPARISON: XR knee left 10/20/2022 FINDINGS: BONES:Total knee replacement without evidence of hardware fracture loosening. No bone fracture dislocation. SOFT TISSUES:No visible soft tissue swelling. EFFUSION:None visible. OTHER: Negative. XR/XR knee LT 4V IMPRESSION: 1. Left knee replacement without evidence of hardware failure. 2. No appreciable acute abnormality. Electronically authenticated by: GAURAV GARCIA Date: 11/24/2023 09:39 Dictated By: Gaurav Garcia M.D. Signed By: 11/24/23940 DD/ 8 TD/TT: Technical Sales Advisor: Reason For Referral Diagnosis 1 Screening for colon cancer (Z12.11) Referral Organization [facility] Medicine Referring Provider First Name Jeronimo Referring Provider Last Name Louise Referring Provider Speciality Family Med natividad Referred Provider Doug Ramachandran Referred Provider Specialty General Surg pilar Referral Priority Routine Medications Medication SIG (Take, Route, Frequency, Duration) Notes Start Date End Date Status Levothyroxine Sodium 50 MCG TAKE 1 TABLE T BY MOUTH EVERY MORNING ON AN EMPTY STOMACH Orally Once a day for 90 days Active Liothyronine Sodium 5 MCG TAKE 2 TABLETS BY MOUTH ONCE DAILY Oral for 90 days Active Lisinopril 10 MG TAKE 1 TABLET BY TOSHIA TH EVERY DAY for 90 Active Vitamin D3 Active Ambien 10 MG 1 tablet at bedtime as needed Orally Once a day for 2 days 05/08/2024 Active CeleXA 10 MG 1 tablet Orally Once a day for 30 days 02/29/2024 Active hydroCHLOROthiazide 25 MG 1 tablet in th e morning Orally Once a day for 90 days 06/07/2024 Active Meloxicam 15 MG 1 tablet Orally Once a day for 90 days 06/07/2024 Active Nabumetone 500 MG 1 tablet Orally Twic e a day for 30 day(s) 05/08/2024 Active Omeprazole 20 MG TAKE 1 CAPSULE BY [facility] EVERY DAY for 90 days Active Simvastatin 40 MG TAKE 1 TABLET BY TOSHIA TH EVERY DAY for 90 Active Immunizations Vaccine Route Administration Date Status Comme nts Arexvy Unknown 12/03/2023 Administered Arexvy Unknown 12/03/2023 Administered Pneumococcal (Pneumovax 23) Unknown 02/04/2016 Administ ered Pneumococcal (Prevnar 13) Unknown 01/16/2016 Administer ed SARS-COV-2 (COVID 19 Pfizer 30mcg/0.3mL) Unknown 04/02/2020 Administered SARS-COV-2 (COVID 19 Pfizer 30mcg/0.3mL) Unknown 04/23/2020 Administered ZOSTER (SHINGLES) VACCINE (HZV) Unknown 11/23/2019 Admi nistered ZOSTER (SHINGLES) VACCINE (HZV) Unknown 02/05/2020 Admi nistered Zoster (Zostavax) Unknown 03/02/2012 Administered Social History Tobacco Use: Social History Observation Description Date Details (start date - stop date) Former Smoker 03/01/1966 - 03/01/2002 Tobacco Use/Smoking Question Answer Notes Patient is a former smoker When did you start smoking? 03/01/1966 When did you stop smoking? 03/01/2002 How long has it been since you last smoked? > 10 years Alcohol Screen (Audit-C) Question Answer Notes Did you have a drink contain ing alcohol in the past year? Yes How often did you have 6 or more drinks on one occasion in the past year? Never (0 point) How many drinks did you have on a typical day when you were drinking in the past year? 1 or 2 drinks (0 point) How often did you have a dri nk containing alcohol in the past year? Less than monthly (1 point) Points 1 Interpretation Negative AUDIT-C (Standard) Question Answer Notes Did you have a drink containing alcohol in the p ast year? No Points 0 Interpretation Negative Problems Problem Type SNOMED Code ICD Code Onset Dates Problem Status W/U Status Risk Notes Problem Fatigue (59846020) Fatigue (R53.83) Active confirmed Problem Hypertension (57817197) Hypertension (I10) Active confirmed Problem Carpal tunnel syndrome (73661744) Carpal tunnel syndrome (G56.00) Active confirmed Problem Hypertension (10938577) HTN (hypertension) (I10) Active confirmed Problem Arthritis (0921613) Arthritis (M19.90) Active confirmed Problem Insomnia (553505187) Insomnia (G47.00) Active confirmed Problem Knee pain (8647009369) Knee pain (M25.569) Active confirmed Problem Diverticular disease of colon (486895917) Diverticulosis (K57.90) Active confirmed Problem Irritable bowel syndrome (08525269) IBS (irritable bowel syndrome) (K58.9) Active confirmed Problem Acute sinusitis (08649673) Acute sinusitis (J01.90) Active confirmed Problem Hearing loss (18999873) Hearing loss (H91.90) Active confirmed Problem Schatzki's ring (31574986) Schatzki's ring (Q39.4) Active confirmed Problem Cranial neuropathy (07169742) Cranial neuropathy (G52.9) Active confirmed Vital Signs Blood pressure diastolic 78 mm Hg 07/26/2024 Height 67.5 in 07/26/2024 Blood pressure systolic 130 mm Hg 07/26/2024 Weight 183.2 lbs 07/26/2024 BMI 28.27 kg/m2 07/26/2024 Encounters Encounter Location Date Provider Diagnosis [address] [address] 06/07/2024 Jeronimo Ramos Hypertension I10 and Arthritis M19.[address] [address] 07/26/2024 Jeronimo Ramos Encounter for Medica re annual wellness exam Z00.[address] [address] 02/29/2024 Jeronimo Ramos HTN (hypertension) I 10 and Acute sinusitis J01.[address] [address] 11/24/2023 Jeronimo Ramos Fatigue R53.83 ; Hypertension I10 and Wellness examination Z00.00 [place] [id number] [place] [address] 11/28/2023 Jeronmio Ramos [facility] [address] [place] [address] 12/09/2023 Jeronimo Ramos [facility] [address] [place] [place] [address] 12/17/2023 Jeronimo Ramos [facility] [address] [facility] [place] [address] 12/17/2023 Jeronimo Ramos [facility] [address] [place] [address] 02/28/2024 Jeronimo Ramos [facility] [address] [place] [place] [address] 05/08/2024 Jeronimo Ramos [facility] [address] [place] [address] 07/26/2024 Jeronimo Ramos Screening for colon cancer Z12.11 Assessments Encounter Date Diagnosis (ICD Code) Assessment Notes Treatment Notes Treatment Clinical Notes Section Notes 02/29/2024 HTN (hypertension) (ICD-10 - I10) 02/29/2024 Acute sinusitis (ICD-10 - J01.90) 06/07/2024 Hypertension (ICD-10 - I10) 06/07/2024 Arthritis (ICD-10 - M19.90) 07/26/2024 Encounter for Medicare annual wellness exam [...] 45 mintutes was spent with the patient 11/24/2023 Fatigue (ICD-10 - R53.83) 11/24/2023 Hypertension (ICD-10 - I10) 07/26/2024 Screening for colon cancer (ICD-10 - Z12.11) 11/24/2023 Wellness examination (ICD-10 - Z00.00) Plan Of Treatment Pending Test Test Name Order Date CMP (COMPLETE METABOLIC PANEL) 3 CMP (COMPLETE METABOLIC PANEL) 4 HEMOGLOBIN A1C (GLYCO) 11/24/2022 IRON, TOTAL 11/24/2022 LIPID PANEL (CHOL/TRIG/HDL/LDL) 11/25/19 23 CBC WITH DIFF 11/24/2022 VITAMIN D, 25 LEVEL (TOTAL) 11/24/2022 EKG 03/09/2023 CT Knee LT w/o contrast * (Optional 3D R endering) 12/07/2022 Urine Culture 03/10/2023 Insulin Level 11/24/2022 COMPREHENSIVE METABOLIC PROFILE WITH GFR 11/24/2023 OCCULT BLOOD, FECAL, IMMUNOASSAY 024 CBC W/AUTO DIFF 11/24/2023 STOOL OCCULT BLOOD 11/24/2022 SNR 04 URINALYSIS 03/10/2023 THYROID PANEL (T4/TSH/FREE T3) 4 THYROID PANEL (T4/TSH/FREE T3) 3 Vitamin D 11/24/2023 Lipid Panel 11/24/2023 Insurance Providers Payer Name Payer Address Payer Phone Subscriber Number Group Number Insured Name Patient Relationship to Insured Coverage Start Date Coverage End Date [employer] ADV PLAN [address] [place] [phone] [id number] Mi Stapleton Self - patient is the insured [place] [address] [place] [address] [id number] Mi Stapleton Self - patient is the insured Medications Administered Medication Instructions Date of Administration Dosage Notes Kenalog-40 01/01/2023 120 mg Medical (General) History Medical History History ICD Code Cranial neuropathy G52.9 Hearing loss H91.90 Schatzki's ring Q39.4 Diverticulosis K57.90 Hypertension I10 Carpal tunnel syndrome G56.00 IBS (irritable bowel syndrome) K58.9 Fatigue R53.83 Surgical History Surgery Date(Month/Year) colonoscopy 08/23/24 Right Shoulder Replacement Achilles Appendix Bilateral Knee replacement arthroplasty 1999 fusion T2-T8
--- OUTSIDE RECORDS SUMMARY | 2024-09-06 07:30 | XMS_ITS | Patient Health Record ---
Author Organization [facility] Address [address] [place] [address] Care Team Providers Care Sessions Clerk Name Role Phone Oscar Gil Primary Care Provider UnavailCharlie Mccullough Unavailable [phone] Self, Referral Unavailable Unavailable Alton Alves Unavailable [phone] Allergies Allergen (clinical drug ingredient) Drug/Non Drug Allergy documented on EMR Reaction Allergy Type Onset Date Status acetaminophen acetaminophen Unknown Drug Allergy Active Reason For Referral No Information Medications Medication SIG (Take, Route, Fr equency, Duration) Notes Start Date End Date Status levothyroxine 12/20/2023 Activ e lisinopril 10 mg TAKE 1 TABLET BY TOSHIA TH EVERY DAY for 90 Days Active Social History Tobacco Use: Social History Observation Description Date Details (start date - stop date) Former Smoker NA - NA Smoking History Question Answer Notes Smoking Status Former Smoker How long since you quit > 10 years AUDIT-C (Standard) Question Answer Notes Did you have a drink contain ing alcohol in the past year? Yes How often did you have six o r more drinks on one occasion in the past year? Never (0 point) How many drinks did you have on a typical day when you were drinking in the past year? Declined to specify (0 point) How often did you have a dri nk containing alcohol in the past year? Monthly or less (1 point) Problems Problem Type SNOMED Code ICD Code Onset Dates Problem Status W/U Status Risk Notes Problem 407167634 Aftercare following joint replacement surgery (Z47.1) Active confirmed Problem 841658932815 Presence of left artificial knee joint (Z96.652) Active confirmed Problem 9282677675 Left knee pain, unspecified chronicity (M25.562) Active confirmed Problem 33115843 Pain in prosthetic joint, initial encounter (T84.84XA) Active confirmed Vital Signs Height 67 in 11/22/2023 Encounters Encounter Location Date Provider Diagnosis [facility] [address] [place] [address] 11/22/2023 Alton Alves Left knee pain, unspecified chronicity M25.562 ; Pain in prosthetic joint, initial encounter T84.84XA ; Aftercare following joint replacement surgery Z47.1 and Presence of left artificial knee joint Z96.652 [facility] [address] [facility] [address] 12/13/2023 Alton Alves Pain in prosthetic joint, initial encounter T84.84XA and Presence of left artificial knee joint Z96.652 [facility] Office [address] [place] [address] [place] [phone] 12/20/2023 Charlie Mendez Aftercare following joint replacement surgery Z47.1 ; Pain in prosthetic joint, initial encounter T84.84XA and Presence of left artificial knee joint Z96.652 Assessments Encounter Date Diagnosis (ICD Code) Assessment Notes Treatment Notes Treatment Clinical Notes Section Notes 11/22/2023 Left knee pain, unspecified chronicity (ICD-10 - M25.562) Left painful total knee arthroplasty 11/22/2023 Pain in prosthetic joint, initial encounter (ICD-10 - T84.84XA) Left painful total knee arthroplasty 12/13/2023 Pain in prosthetic joint, initial encounter (ICD-10 - T84.84XA) Left painful total knee arthroplasty 12/20/2023 Aftercare following joint replacement surgery (ICD-10 - Z47.1) Painful left total knee arthroplasty 12/20/2023 Pain in prosthetic joint, initial encounter (ICD-10 - T84.84XA) Painful left total knee arthroplasty 12/20/2023 Presence of left artificial knee joint (ICD-10 - Z96.652) Painful left total knee arthroplasty 12/13/2023 Presence of left artificial knee joint (ICD-10 - Z96.652) Left painful total knee arthroplasty 11/22/2023 Aftercare following joint replacement surgery (ICD-10 - Z47.1) Left painful total knee arthroplasty 11/22/2023 Presence of left artificial knee joint (ICD-10 - Z96.652) Left painful total knee arthroplasty 11/22/2023 Other Patient is a pleasant 78-year-old female presenting today for left painful total knee arthroplasty. Pains been ongoing for several months. She has tried physical therapy with no relief. Would like to work her up for infection and potential loosening of components. Will order bone scan as well as inflammatory labs. Follow-up upon completion of workup. Left painful total knee arthroplasty 12/13/2023 Other I discussed today Mi regarding her left total knee arthroplasty. Is having pain. She is considering undergoing knee revision due to the pain being affecting her daily living. I will order inflammatory labs and have her see Dr. Mendez. She may follow-up with me as needed. Left painful total knee arthroplasty 12/20/2023 Other Discussed treatment options with patient. Patient at this time is doing much better with her pain. She does not have gross failure of her tibial polyethylene. Her labs are within normal limits with no signs of infection. At this time she does not desire any further intervention as she is doing much better. She will continue ice and anti-inflammator y as needed for pain. Activity modification as needed for pain. Activity as tolerated. All questions and concerns were addressed. Patient was in agreement treatment plan. Will plan to see patient back on as-needed basis. Painful left total knee arthroplasty Plan Of Treatment Pending Test Test Name Order Date CBC WITH DIFF, ESR, CRP 11/22/2023 SCC- KNEE 4 VIEW [id number] 11/22/2023 BONE SCAN 3 PHASE 11/22/2023 Insurance Providers Payer Name Payer Address Payer Phone Subscriber Number Group Number Insured Name Patient Relationship to Insured Coverage Start Date Coverage End Date Medicare [employer] [facility] [address] [place] [phone] [id number] [place] Self - patient is the insured Medical (General) History Medical History History ICD Code CPAP Machine:: No Healthcare worker: No High Blood Pressure: Yes Latex Allergy: No Osteoporosis: Yes Thyroid disease: Yes Have you been in close conta ct with someone who has had MRSA within the last year?: No Have you ever had or presently have MRSA ?: No Have you been seen by a dentist in the l ast year?: Yes Do you have any dental probl ems i.e. Broken, loose, or chipped teeth, absess, gum disease?: No Surgical History Surgery Date(Month/Year) 1994 L knee replacr 1999 L k nee redo and R knee replace 2002 crushed T 5& 2018 achilies 2023 R shoulder total reverse
[2024-09-06 07:53] VITALS: BP 166/83; PULSE 87; TEMP 36; O2SAT 96; BMI 26.4
[2024-09-06] MEDS: 0.9 % SODIUM CHLORIDE 500 ML 50 ML IV (08:04)
[2024-09-06 09:00] VITALS: BP 131/49; PULSE 77; O2SAT 95
[2024-09-06 09:15] VITALS: BP 132/47; PULSE 72; O2SAT 94
== END 2024-09-06 09:33 | disposition home or self-care (01) ==
LOC: SURGOUT 07:28
PROVIDERS: PCP Family Medicine; Visit Provider Surgery
PROC: (CPT G0121; principal; 2024-09-06 08:30)
DX: Z12.11 Encounter for screening for malignant neoplasm of colon (principal); E78.5 Hyperlipidemia, unspecified; E03.9 Hypothyroidism, unspecified; G62.9 Polyneuropathy, unspecified; K21.9 Gastro-esophageal reflux disease without esophagitis; I50.9 Heart failure, unspecified; Z90.49 Acquired absence of other specified parts of digestive tract; Z87.891 Personal history of nicotine dependence; Z96.653 Presence of artificial knee joint, bilateral; Z96.611 Presence of right artificial shoulder joint; Z98.1 Arthrodesis status; I11.0 Hypertensive heart disease with heart failure
CPT/HCPCS: G0121; J2704

== ENCOUNTER 2024-11-02 14:58 | Outpatient (OUT) | payer MEDICARE, SELFPAY ==
--- OUTSIDE RECORDS SUMMARY | 2024-05-08 07:16 | XMS_ITS ---
Author Organization [facility] in [place] Address [address] [place] [address] Care Team Providers Care Early Childhood Coordinator Name Role Phone LouiseJeronimo Primary Care Provider REASON FOR VISIT medication refill and ambien Medications Medication SIG (Take, Route, Fr equency, Duration) Notes Start Date End Date Status Nabumetone 500 MG 1 tablet Orally Twic e a day for 30 day(s) 05/08/2024 Active Ambien 10 MG 1 tablet at bedtime as needed Orally Once a day for 2 days 05/08/2024 Act ana Encounters Encounter Location Date Provider Diagnosis [facility] [address] [place] [address] 05/08/2024 Jeronimo Gil Plan Of Treatment Medication Medication Name Sig Start Date Stop Date Notes Nabumetone 500 MG 1 tablet Orally Twic e a day for 30 day(s) 05/08/2024 Naprosyn 500 MG 1 tablet with food o r milk as needed Orally once a day 02/29/2024 Ambien 10 MG 1 tablet at bedtime as needed Orally Once a day for 2 days 05/08/2024 Next Appt Details Provider Name:Jeronimo Gil, 01:00:00 PM, [address] [place], [address], Progress Notes * Mi STAPLETON WDOB: [birth year] (79 yo F)Acc No.[id number]:05/08/2024 Patient: Mi SEQUEIRA :1945 A ge:79 Y S ex:Female Address:[address] [place] [address] [place], [address] * Refills Stop Naprosyn Tablet, 500 MG, Orally, 1 tablet with food or milk as needed, once a day Start Nabumetone Tablet, 500 MG, Orally, 60, 1 tablet, Twice a day, 30 day(s) Start Ambien Tablet, 10 MG, Orally, 2 Tablet, 1 tablet at bedtime as needed, Once a day, 2 days, Refills=0 * true * Date: Generated for Gertrudis smith/Dima/Trinaitting on: 0 11/02/2024 11:57 AM EDT
--- OUTSIDE RECORDS SUMMARY | 2024-06-07 04:30 | XMS_ITS ---
Author Organization The [facility] in [place] Address [address] [place] [address] Care Team Providers Care Director Investment Banking Name Role Phone Jeronimo Gil Primary Care [...] Status W/U Status Risk Notes Problem Arthritis ([id number]) Arthritis (M19.90) Active confirmed Vital Signs Blood pressure systolic 132 mm Hg 06/08/19 25 Blood pressure diastolic 70 mm Hg 025 Height 67.5 in 06/07/2024 Weight 178.2 lbs 06/07/2024 BMI 27.5 kg/m2 06/07/2024 Encounters Encounter Location Date Provider Diagnosis [facility] [address] [place] [address] 06/07/2024 Jeronimo Gil Hypertension I10 and Arthritis [...] 06/07/2024 hydroCHLOROthiazide 25 MG 1 tablet in e morning Orally Once a day for 90 days 06/07/2024 Next Appt Details Provider Name:Jeronimo Gil, 01:00:00 PM, [address] [place], [address], Progress Notes * Mi STAPLETON WDOB: (79 yo F)Acc No.[id number]:06/07/2024 Progress Note Patient: Mi SEQUEIRA W Provider: Starr Gil ([facility])MD :1945 A ge:79 Y S ex:Female Date:06/07/2024 Address:[address] [place], [place] [id number] Check In:08:20 AM ESTCheck O ut:08:47 AM [...] Modified On:11/18/2022 Status:confirmed Q39.4 Schatzki's ring Modified On:11/18/2022 Status:confirmed K57.90 Diverticulosis Modified On:11/18/2022 Status:confirmed I10 Hypertension Modified On:03/09/2023 Status:confirmed G56.00 Carpal tunnel syndro me Modified On:11/18/2022U Status:confirmed K58.9 IBS (irritable bowel syndrome) Modified On:11/18/2022U Status:confirmed R53.83 Fatigue Modified On:11/18/2022 Status:confirmed M25.569 Knee pain Modified On:01/01/2023U Status:confirmed G47.00 Insomnia Modified On:11/24/2022U Status:confirmed I10 HTN (hypertension) Modified On:03/30/2023U Status:confirmed J01.90 Acute sinusitis Modified On:02/29/2024U Status:confirmed M19.90 Arthritis Modified On:06/07/2024U Status:confirmed * Medical History: * Surgical History: [...] Procedure Codes: * Preventive Medicine: Screenings/Counseling: B UT ACTION PLAN Above Normal BMI Follow-up D ietary management education, guidance, and counseling F ALL RISK SCREENING Fall Risk Assessment: N o falls in the past year * * Sign off status: Completed Visit Status: C HK (Check Out) true * Provider: Starr Gil ([facility])MD Date: 0 06/07/2024 Generated for Printi luis/Dima/eTransmitting on: 0 11/02/2024 11:57 AM EDT History and Physical Notes * [...]
--- OUTSIDE RECORDS SUMMARY | 2024-07-26 05:00 | XMS_ITS ---
Author Organization The [facility] in [place] Address [address] [place] [address] Care Team Providers Care Website Designer Name Role Phone Jeronimo Gil Primary Care Provider Allergies Allergen (clinical drug ingredient) Drug/Non Drug Allergy documented on EMR Reaction Allergy Type Onset Date Status acetaminophen Acetaminophen Unknown Drug Allergy Active REASON FOR VISIT Medicare Wellness Medications Medication SIG (Take, Route, Frequency, Duration) Notes Start Date End Date Status Vitamin D3 Active Meloxicam 15 MG 1 tablet Orally Once a day for 90 days 06/07/2024 Active Nabumetone 500 MG 1 tablet Orally Twic e a day for 30 day(s) 05/08/2024 Active Omeprazole 20 MG TAKE 1 CAPSULE BY MO UTH EVERY DAY for 90 days Active Simvastatin 40 MG TAKE 1 TABLET BY TOSHIA TH EVERY DAY for 90 Active Levothyroxine Sodium 50 MCG TAKE 1 TABLE T BY MOUTH EVERY MORNING ON AN EMPTY STOMACH Orally Once a day for 90 days Active Liothyronine Sodium 5 MCG TAKE 2 TABLETS BY MOUTH ONCE DAILY Oral for 90 days Active Lisinopril 10 MG TAKE 1 TABLET BY TOSHIA TH EVERY DAY for 90 Active CeleXA 10 MG 1 tablet Orally Once a day for 30 days 02/29/2024 Active hydroCHLOROthiazide 25 MG 1 tablet in th e morning Orally Once a day for 90 days 06/07/2024 Active Ambien 10 MG 1 tablet at bedtime as needed Orally Once a day for 2 days 05/08/2024 Active Social History Tobacco Use: Social History Observation Description Date Details (start date - stop date) Former Smoker 03/01/1966 - 03/01/2002 Tobacco Use/Smoking Question Answer Notes Patient is a former smoker When did you start smoking? 03/01/1966 When did you stop smoking? 03/01/2002 How long has it been since you last smoked? > 10 years AUDIT-C (Standard) Question Answer Notes Did you have a drink containing alcohol in the p ast year? No Points 0 Interpretation Negative Vital Signs Blood pressure systolic 130 mm Hg 07/27/19 25 Blood pressure diastolic 78 mm Hg 025 Height 67.5 in 07/26/2024 Weight 183.2 lbs 07/26/2024 BMI 28.27 kg/m2 07/26/2024 Encounters Encounter Location Date Provider Diagnosis [facility] [address] [place] [address] 07/26/2024 Jeronmio Gil Encounter for [facility] annual wellness exam Z00.00 Assessments Encounter Date Diagnosis (ICD Code) Assessment Notes Treatment Notes Treatment Clinical Notes Section Notes 07/26/2024 Encounter for Medicare annual wellness exam (ICD-10 - Z00.00) patient presentsto the office for a subsequent medicare wellness appointment. patient completed the anxiety screening, depression screening and safety screening with no concerns. patient also completed a memory slums test and the score was 30/30, and a vision screening was completed, with corrective eye wear the patiet could read 20/10 a total of 45 mintutes was spent with the patient Plan Of Treatment Next Appt Details Provider Name:Jeronimo Gil, 01:00:00 PM, [address] [place], [address], Progress Notes * Mi STAPLETON WDOB: 7 (79 yo F)Acc No.[id number]:07/26/2024 Progress Note Patient: Mi SEQUEIRA Provider: Starr Gil ([facility])MD :1945 A ge:79 Y S ex:Female Date:07/26/2024 Address:[address] [place], [place] [id number] Check In:09:02 AM ESTCheck O ut:09:46 AM EST Subjective: * Chief Complaints: * M ross Wellness * HPI: Kerrie hawkins Annual Wellness Visit: Type of Visit: S stepan Annual Wellness Visit (SAWV).? Visual Acuity: N /A. Other Providers of Care: C are Team reviewed with patient: Mady cortes, and updates made in [place] [facility] Care Physical Activity: D o you exercise regularly? Y es T ype of exercise: _ __ F requency: _ __ Nutrition/Diet: O n a typical day, how many servings of fruits and vegetables do you consume? 0 I n a typical week, how many servings of fried or high fat (such as cheese, fatty meat) do you consume? 0 I n a typical week, how many servings of high fiber or whole grain foods do you consume? 0 Seat Belt: D o you always use your seat belt in your car??Yes A re you having difficulties driving your car??No C an you get to places out of walking distance without help? Y es Dental: H ow would you describe the condition of your mouth and teeth, including any false teeth or dentures? E xcellent Medication List Follow-Up: D uring the past four weeks, how much bodily pain do you have? N o pain D o you have a current opioid prescription??No Self Assessment of Health: H ow would you rate your overall health the past four weeks? E xcellent H ow confident are you that you can control and manage most of your health problems? V pilar confident H ow have things been going for you during the past four weeks? V pilar well; could hardly be better D uring the past four weeks, was someone available to help you if you needed and wanted help? Y es, as much as I wanted (Example: if you felt nervous, lonely, or blue; got sick and had to stay in bed; needed someone to talk to; help with daily chores; or needed help just taking care of yourself) D o you have any sexual problems? N o D o you have any troubles eating well? N o D o you have any problems with tiredness or fatigue? N o H ave you noticed any hearing difficulties??No Sun Exposure: D o you protect yourself from over exposure to the sun when outdoors? Y es Mental Wellness: D uring the past four weeks, how much have you been bothered by emotional problems such as feeling anxious, depressed, irritable, sad, or downhearted and blue? N ot at all D uring the past four weeks, has your physical and emotional health limited your social activities with family, friends, neighbors, or groups??Not at all Functional Ability and Safety Screening: D o you need assistance with any of the following? Select all that apply. N one D oes your home have rugs in the hallway, lack grab bars in the bathroom, lack handrails on the stairs or have poor lighting? N o D o you feel unsteady and/or dizzy when standing or walking? N o D o you have smoke detectors in your home and routinely change the batteries? Y es D o you have a fire extinguisher and know how to use it properly? Y es D o you have any problems with your living situation, food, transportation, utilities, or safety? N o Cognitive Screening: H ave you experienced any memory issues or problems with thinking? N o H ave your family members, friends, caretakers, or others raised any concerns? N o D o you get confused or easily distracted more than you used to? N o H as your ability to concentrate seem to have declined recently? N o End of Life Planning: D o you have a living will? Y es D o you have a Durable Power of Public Welfare Worker? Y es W ould you like to discuss this topic today??Yes SDOH A gree to complete Social Determinants of Health questionnaire Y es W ithin the past 12 months, did you worry that your food would run out before you got money to buy more? N o W ithin the past 12 months, did the food you bought just not last and you didn't have money to buy more? N o W ithin the past 12 months, have you ever stayed: outside, in a car, in a a tent, in an overnight [place], or temporarily in someone else's home??No A re you worried about losing your housing??No W ithin the past 12 months, have you been able to get utilities (heat, electricity) when it was really needed? N o W ithin the past 12 months, has a lack of transportation kept you from medical appointments or from doing things needed for daily living? N o D o you feel physically or emotionally unsafe where you currently live? N o W ould you like help with any of these needs that you have identified? 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 Modified On:11/18/2022 Status:confirmed H91.90 Hearing loss Modified On:11/18/2022 Status:confirmed Q39.4 Schatzki's ring Modified On:11/18/2022 Status:confirmed K57.90 Diverticulosis Modified On:11/18/2022 Status:confirmed I10 Hypertension Modified On:03/09/2023 Status:confirmed G56.00 Carpal tunnel syndro me Modified On:11/18/2022 Status:confirmed K58.9 IBS (irritable bowel syndrome) Modified On:11/18/2022 Status:confirmed R53.83 Fatigue Modified On:11/18/2022 Status:confirmed M25.569 Knee pain Modified On:01/01/2023 Status:confirmed G47.00 Insomnia Modified On:11/24/2022 Status:confirmed I10 HTN (hypertension) Modified On:03/30/2023 Status:confirmed J01.90 Acute sinusitis Modified On:02/29/2024 Status:confirmed M19.90 Arthritis Modified On:06/07/2024 Status:confirmed * Medical History: * Surgical History: f usion T2-T8 arthroplasty 2000Bilateral Knee replacement Appendix Achilles Right Shoulder Replacement * Hospitalization/Major Diagno stic Procedure: N o Hospitalization History. * Family History: F ather: . M other: . 1 sister(s) . 1 son(s) , 1 daughter(s) . . * Social History: T obacco Use: T obacco Use/Smoking P atient is a f ormer smoker W hen did you start smoking? 0 03/01/1966 W hen did you stop smoking? 0 03/01/2002 H ow long has it been since you last smoked??> 10 years D rug/Alcohol: A KASIA-C (Standard) D id you have a drink containing alcohol in the past year? N o P oints 0 I nterpretation N egative * Medications: T akingAmbien(Zolpidem Tartrate) 10 MG Tablet 1 tablet at bedtime as needed Orally Once a day CeleXA(Citalopram Hydrobromide) 10 MG Tablet 1 tablet Orally Once a day hydroCHLOROthiazide 25 MG Tablet 1 tablet in the morning Orally Once a day Levothyroxine Sodium 50 MCG Tablet TAKE 1 TABLET BY MOUTH EVERY MORNING ON AN EMPTY STOMACH Orally Once a day Liothyronine Sodium 5 MCG Tablet TAKE 2 TABLETS BY MOUTH ONCE DAILY Oral Lisinopril 10 MG Tablet TAKE 1 TABLET BY MOUTH EVERY DAY Meloxicam 15 MG Tablet 1 tablet Orally Once a day Nabumetone 500 MG Tablet 1 tablet Orally Twice a day Omeprazole 20 MG Capsule Delayed Release TAKE 1 CAPSULE BY MOUTH EVERY DAY Simvastatin 40 MG Tablet TAKE 1 TABLET BY MOUTH EVERY DAY Vitamin D3 Medication List reviewed and reconciled with the patientTa Yosvanyien(Zolpidem Tartrate) 10 MG Tablet 1 tablet at bedtime as needed Orally Once a day Taking CeleXA(Citalopram Hydrobromide) 10 MG Tablet 1 tablet Orally Once a day Taking hydroCHLOROthiazide 25 MG Tablet 1 tablet in the morning Orally Once a day Taking Levothyroxine Sodium 50 MCG Tablet TAKE 1 TABLET BY MOUTH EVERY MORNING ON AN EMPTY STOMACH Orally Once a day Taking Liothyronine Sodium 5 MCG Tablet TAKE 2 TABLETS BY MOUTH ONCE DAILY Oral Taking Lisinopril 10 MG Tablet TAKE 1 TABLET BY MOUTH EVERY DAY Taking Meloxicam 15 MG Tablet 1 tablet Orally Once a day Taking Nabumetone 500 MG Tablet 1 tablet Orally Twice a day Taking Omeprazole 20 MG Capsule Delayed Release TAKE 1 CAPSULE BY MOUTH EVERY DAY Taking Simvastatin 40 MG Tablet TAKE 1 TABLET BY MOUTH EVERY DAY Taking Vitamin D3 Medication List reviewed and reconciled with the patient * Allergies: A cetaminophenno[Allergies Verified] Objective: * Vitals: W t:183.2lbs, Ht: 67.5 in, BP:130/78mm Hg, BMI:28.27Index, Ht-cm: 171.45 cm, Wt- k.1 kg. Assessment: * Assessment: 1. E ncounter for Medicare annual wellness exam - Z00.00 (Primary) [facility] for a subsequent medicare wellness appointment. patient completed the anxiety screening, depression screening and safety screening with no concerns. patient also completed a memory slums test and the score was 30/30, and a vision screening was completed, with corrective eye wear the patiet could read 20/10 a total of 45 mintutes was spent with the patient Plan: * Treatment: * Procedure Codes: G 0439 ANNUAL WELLNESS, SUBSEQ * Preventive Medicine: Screenings/Counseling: F ALL RISK SCREENING Fall Risk Assessment: N o falls in the past year Are you afraid of falling? N o * * Sign off status: Completed Visit Status: C HK (Check Out) true * Provider: Starr Gil ([facility])MD Date: 0 07/26/2024 Generated for Bandari luis/Dima/eTransmitting on: 0 11/02/2024 11:57 AM EDT History and Physical Notes * HPI (History of Present Illness) Category Sub-Category Detail Notes Category Not es Medicare Annual Wellness Visit Type of Visit: Subsequent Annual Wellness Visit (SAWV) Cognitive Screening: Have you experience d any memory issues or problems with thinking?: No Have your family members, fr iends, caretakers, or others raised any concerns?: No Do you get confused or easily distracted more than you used to?: No Has your ability to concentrate seem to have declined recently?: No Self Assessment of Health: How would you rate your overall health the past four weeks?: Excellent How confident are you that y ou can control and manage most of your health problems?: Very confident How have things been going f or you during the past four weeks?: Very well; could hardly be better During the past four weeks, was someone available to help you if you needed and wanted help?: Yes, as much as I wanted (Example: if you felt nervous, lonely, o r blue; got sick and had to stay in bed; needed someone to talk to; help with daily chores; or needed help just taking care of yourself) Do you have any sexual problems?: No Do you have any troubles eating well?: N o Do you have any problems wit h tiredness or fatigue?: No Have you noticed any hearing difficulties?: No Physical Activity: Do you exercise regularly?: Y es Type of exercise:: ___ Frequency:: ___ Functional Ability and Safety Screening: Do you need assistance with any of the following? Select all that apply.: None Does your home have rugs in the hallway, lack grab bars in the bathroom, lack handrails on the stairs or have poor lighting?: No Do you feel unsteady and/or dizzy when s tanding or walking?: No Do you have smoke detectors in your home and routinely change the batteries?: Yes Do you have a fire extinguisher and know how to use it properly?: Yes Do you have any problems wit h your living situation, food, transportation, utilities, or safety?: No Visual Acuity: N/A Nutrition/Diet: On a typical day, ho w many servings of fruits and vegetables do you consume?: 0 In a typical week, how many servings of fried or high fat (such as cheese, fatty meat) do you consume?: 0 In a typical week, how many servings of high fiber or whole grain foods do you consume?: 0 Seat Belt: Do you always use your seat belt in your car?: Yes Are you having difficulties driving your car?: No Can you get to places out of walking dis tance without help?: Yes Dental: How would you descri be the condition of your mouth and teeth, including any false teeth or dentures?: Excellent Medication List Follow-Up: During the pa st four weeks, how much bodily pain do you have?: No pain Do you have a current opioid prescriptio n?: No Mental Wellness: During the past four weeks, how much have you been bothered by emotional problems such as feeling anxious, depressed, irritable, sad, or downhearted and blue?: Not at all During the past four weeks, has your physical and emotional health limited your social activities with family, friends, neighbors, or groups?: Not at all Sun Exposure: Do you protect yours elf from over exposure to the sun when outdoors?: Yes End of Life Planning: Do you have a living will? : Yes Do you have a Durable Power of Public Welfare Worker? : Yes Would you like to discuss this topic tod ay?: Yes Other Providers of Care: Care Team elizabeth villavicencio with patient:: Yes, and updates made in [place] [facility] Agree to complete So [facility] Determinants of Health questionnaire: Yes Within the past 12 months, did you worry that your food would run out before you got money to buy more?: No Within the past 12 months, did the food you bought just not last and you didn't have money to buy more?: No Within the past 12 months, have you ever stayed: outside, in a car, in a a tent, in an overnight [place] [facility] [place], or temporarily in someone else's home?: No Are you worried about losing your housing?: No Within the past 12 months, have you been able to get utilities (heat, electricity) when it was really needed?: No Within the past 12 months, has a lack of transportation kept you from medical appointments or from doing things needed for daily living?: No Do you feel physically or emotionally unsafe where you currently live?: No Would you like help with any of these needs that you have identified?: No
--- OUTSIDE RECORDS SUMMARY | 2024-07-26 05:49 | XMS_ITS ---
Author Organization The [facility] in [place] Address [address] [place] [address] Care Team Providers Care Fan Engine Engineer Name Role Phone LouiseJeronimo Primary Care Provider Reason For Referral Diagnosis 1 Screening for colon cancer (Z12.11) Referral Organization [facility] Referring Provider First Name Jeronimo Referring Provider Last Name Louise Referring Provider Speciality Family Med natividad Referred Provider Doug Ramachandran Referred Provider Specialty General Surg pilar Referral Priority Routine REASON FOR VISIT medicare wellness- Encounters Encounter Location Date Provider Diagnosis [facility] [address] [place] [address] 07/26/2024 Jeronimo Gil Screening for colon cancer Z12.11 Assessments Encounter Date Diagnosis (ICD Code) Assessment Notes Treatment Notes Treatment Clinical Notes Section Notes 07/26/2024 Screening for colon cancer (ICD-10 - Z12.11) Plan Of Treatment Referrals Referral Date Details 07/27/2024 07/27/2024, Doug Ramachandran Next Appt Details Provider Name:Jeronimo Gil, 01:00:00 PM, [address] [place], [address], Progress Notes * Mi STAPLETON WDOB: 7 (79 yo F)Acc No.[id number]:07/26/2024 Patient: Mi SEQUEIRA :1945 A ge:79 Y S ex:Female Address:[address] [place], [address] Subjective: * Chief Complaints: * M edicare wellness- * Medical History: * Surgical History: * Hospitalization/Major Diagno stic Procedure: * Medications: Objective: * Vitals: * Physical Examination: Assessment: * Assessment: 1. S creening for colon cancer - Z12.11 (Primary) Plan: * Treatment: * Procedure Codes: * true * Date: Generated for Gertrudis smith/Dima/Breannasmitting on: 0 11/02/2024 11:57 AM EDT Consultation Request Notes Referral Date Referring Provider Referred Provider Not es 07/27/2024 Jeronimo Gil Michael
--- OUTSIDE RECORDS SUMMARY | 2024-11-02 09:00 | XMS_ITS ---
Author Organization [facility] Address [address] [place] [address] Care Team Providers Care Railroader Name Role Phone Jeronimo Gil Primary Care Provider REASON FOR VISIT painful vein leg moving up leg Encounters Encounter Location Date Provider Diagnosis [facility] [address] [place] [phone] 11/02/2024 Jeronimo Gil Plan Of Treatment Next Appt Details Provider Name:Jeronimo Gil, 01:00:00 PM, [address] [place], [address], Progress Notes * Mi STAPLETON WDOB: (79 yo F)Acc No.[id number]:11/02/2024 UNLOCKED PROGRESS NOTE Progress Note Patient: Hannah YOHANA Mi Cruz [facility] And[facility] :1945 A ge:79 Y S ex:Female Date:11/02/2024 Address:[address] [place] [address] Julia [phone] Subjective: * Chief Complaints: * 1 . Painful vein leg moving up leg. * Medical History: Objective: * Vitals: Assessment: Plan: * Treatment: * * Electronic signature of Jeronimo Gil MD, [id number] on 11/02/2024 at 11:57 AM EDT Sign off status: Pending Visit Status: Tamika MEIER (Voice) * Provider: Starr Gil ([facility])MD Date: 0 11/02/2024 Generated for Gertrudis smith/Dima/Olga on: 11/02/2024 11:57 AM EDT
--- OUTSIDE RECORDS SUMMARY | 2024-11-02 15:01 | XMS_ITS | Clinical Summary ---
Author Organization [facility] Address [address], [address] [place] [address] Care Team Providers Care Boat Tester Name Role Phone Oscar Gil MD Primary Care Provider [phone] Allergies Active Allergy Reactions Criticality Noted Date Comments Acetaminophen Shortness Of Breath High 02/07/2020 Medications lisinopril (PRINIVIL;ZESTR IL) 10 MG tablet TAKE 1 TABLET BY MOUTH EVERY DAY 01/27/2020 Active meloxicam (MOBIC) 15 MG tablet TAKE 1 TABLET BY MOUTH EVERY DAY 01/28/2020 Active omeprazole (PRILOSEC) 20 MG delayed release capsule TAKE 1 CAPSULE BY MOUTH EVERY DAY 01/11/2020 Active simvastatin (ZOCOR) 40 MG tablet TAKE 1 TABLET BY MOUTH EVERY DAY 01/21/2020 Active cetirizine (ZYRTEC) 10 MG tablet Take 10 mg by mouth daily Active Active Problems Problem Noted Date Diagnosed Date S/P revision of total knee, 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 10/20/2022 Social History Tobacco Use Types Packs/Day Years Used Date Smoking Tobacco: Never Assessed Comments Unknown Sex and Gender Information Value Date Recorded Sex Assigned at Not on file Legal Sex Female 11:30 AM EDT Gender Identity Not on file Sexual Orientation Not on file Plan of Treatment Health Maintenance Due Date Last Done Comments Lipids 1956 Depression Screen 1958 Hepatitis C screen 1964 DTaP/Tdap/Td vaccine (1 - Tdap) 1965 DEXA (modify frequency per FRAX score) 2001 Respiratory Syncytial Virus (RSV) or age 60 yrs+ (1 - 1-dose 75+ series) 2021 Annual Wellness Visit (Medicare) 01/25/2023 COVID-19 Vaccine ( season) 2023 11/19/2021, 07/02/2021, 11/24/2020, Additional history exists Flu vaccine (#1) 09/29/2024 11/19/2021, , 11/03/2019, Additional history exists Pneumococcal 50+ years Vaccine Completed 02/04/2016, 01/16/2016 Shingles vaccine Completed 02/05/2020, , 03/02/2012 Hepatitis A vaccine Aged Out No longe r eligible based on patient's age to complete this topic Hepatitis B vaccine Aged Out No longe r eligible based on patient's age to complete this topic Hib vaccine Aged Out No longer eligi ble based on patient's age to complete this topic Meningococcal (ACWY) vaccine Aged Out No longer eligible based on patient's age to complete this topic Meningococcal B vaccine Aged Out No l onger eligible based on patient's age to complete this topic Polio vaccine Aged Out No longer elig ible based on patient's age to complete this topic Insurance MEDICARE Member Subscriber Plan / Payer (Ef fective 2002-Present) Name:Mi Stapleton Relation to Subscriber:Self Name:Mi Stapleton Payer ID:Not on file Group ID:Not on file Type:Not on file Address: [address] [employer] Care Teams Boat Tester Relationship Specialty Start Date End Date Oscar Gil MD [address] [place] [address] PCP - General Family Medicine 11/09/19
--- OUTSIDE RECORDS SUMMARY | 2024-11-02 15:01 | XMS_ITS | Clinical Summary ---
Author Organization [facility] Address [address] [place] [address] Care Team Providers Care Assistant Professor Of Anthropology Name Role Phone Oscar Gil MD Primary Care Provider [phone] Allergies Active Allergy Reactions Criticality Noted Date Comments Acetaminophen Other (See Comments) 04/02/2023 Lips blue, fingers turn white, erratic breathing pattern Medications lisinopriL (PRINIVIL,ZESTR IL) 10 MG tablet Take 1 (one) tablet (10 mg total) by mouth every morning . Active omeprazole (PRILOSEC) 20 MG capsule Take 1 (one) capsule (20 mg total) by mouth every morning . Active simvastatin (ZOCOR) 40 MG tablet Take 1 (one) tablet (40 mg total) by mouth every morning . Active meloxicam (MOBIC) 15 MG tablet Take 1 (one) tablet (15 mg total) by mouth every morning . Active levothyroxine (SYNTHROID, LEVOTHROID) 50 MCG tablet Take 1 (one) tablet (50 mcg total) by mouth every morning . Active liothyronine (CYTOMEL) 5 MCG tablet Take 2 (two) tablets (10 mcg total) by mouth every morning . Active MULTIVITAMIN ORAL Take 1 tablet by mouth every evening . Active cholecalciferol , vitamin D3, 1,000 unit tablet Take 1 (one) tablet (1,000 Units total) by mouth every morning . Active aspirin 81 MG EC tablet Take 1 (one) tablet (81 mg total) by mouth every morning . Active Social History Tobacco Use Types Packs/Day Years Used Date Smoking Tobacco: Never Smokeless Tobacco: Never Alcohol Use Standard Drinks/Week Comments Never 0 (1 standard drink = 0.6 oz pur e alcohol) rarely Comments No Sex and Gender Information Value Date Recorded Sex Assigned at Not on file Legal Sex Female 8:37 AM EDT Gender Identity Not on file Sexual Orientation Not on file Last Filed Vital Signs Vital Sign Reading Time Taken Comments Blood Pressure 129/59 04/06/2023 1:45 PM EST Pulse 63 04/06/2023 1:45 PM EST Temperature 37.2 C (98.9 F) 04/06/2023 1:45 PM EST Respiratory Rate 16 04/06/2023 1:45 PM EST Oxygen Saturation 96% 04/06/2023 1:45 PM EST Inhaled Oxygen Concentration - - Weight 80.2 kg (176 lb 12.9 oz) 04/06/2023 9:35 AM EST Height 172.7 cm (5' 8 ) 04/06/2023 9:35 AM EST Body Mass Index 26.88 04/06/2023 9:35 AM EST Plan of Treatment Not on file Medical Devices Implanted Type Area Pie Crust Mixer Device Identifier Shelf Expiration Date Model / Serial / Lot Hemostat 5gm Tom - [id number] Implanted:Qty: 1 on 04/06/2023 by Mohan Kowalski MD at [facility] Right: Shoulder [employer] [id number] 06/27/2027 [id number] / / [id number] Baseplate 25mm 15deg Full Wedge Augment Reversed Aequalis - [id number] Implanted:Qty: 1 on 04/06/2023 by Mohan Kowalski MD at [facility] Right: Shoulder TORNIER [id number] 02/27/2028 [id number] / [id number] / Rachele Perform Reversed Cannulated Cocr Standard Glenosphere Implanted:Qty: 1 on 04/06/2023 by Mohan Kowalski MD at [facility] Right: Shoulder TATO [id number] 12/11/2027 [id number] / [id number] / Rachele Perform Humeral System Reversed Insert, Thickness: +6mm Size 3/4 36mm Implanted:Qty: 1 on 04/06/2023 by Mohan Kowalski MD at [facility] Right: Shoulder TATO [id number] 05/13/2027 [id number] / [id number] / Tornier Perform Humeral System Humeral Stem, Std, Short Size 3 Implanted:Qty: 1 on 04/06/2023 by Mohan Kowalski MD at [facility] Right: Shoulder TATO [id number] 09/19/2027 [id number] / [id number] / Screw 6.5 X 40mm Central Thrd Perform Reversed Aequalis - [id number] Implanted:Qty: 1 on 04/06/2023 by Mohan Kowalski MD at [facility] Right: Shoulder TORNIER [id number] / / Screw 5 X 30mm Peripheral Glenoid Aequalis Perform Reversed - [id number] Implanted:Qty: 2 on 04/06/2023 by Mohan Kowalski MD at [facility] Right: Shoulder CARDONA [employer] [id number] / / Screw 5 X 18mm Peripheral Thrd Perform Reversed Aequalis - [id number] Implanted:Qty: 2 on 04/06/2023 by Mohan Kowalski MD at [facility] Right: Shoulder TORNIER [id number] / / Insurance [employer]ED MEDICARE Care Teams Assistant Professor Of Anthropology Relationship Specialty Start Date End Date Oscar Gil MD [facility] [address] [place] [address] PCP - General Family Medicine 04/06/23
--- OUTSIDE RECORDS SUMMARY | 2024-11-02 15:01 | XMS_ITS | Encounter Summary ---
Author Organization [facility] Address [address] [place] [address] Care Team Providers Care Green Ware Caster Name Role Phone Oscar Gil MD Primary Care Provider [phone] Oscar Gil MD Primary Care Provider [phone] Encounter Details Date Type Department Care Team (Late st Contact Info) Description 09/09/2022 Abstract [facility] [address] [place] [address] Talia Foster, DO [address] [phone] Social History Tobacco Use Types Packs/Day Years Used Date Smoking Tobacco: Former Cigarettes Smokeless Tobacco: Former Tobacco Cessation:Counseling Given: Not Answered Comments:Last smoked : 20 years Alcohol Use Standard Drinks/Week Comments Yes 1 (1 standard drink = 0.6 oz pure alcohol) caffeine intake : 1-2 cups per day Comments No Sex and Gender Information Value Date Recorded Sex Assigned at Female 09/02/2022 8:58 AM EDT Legal Sex Female 7:39 PM EDT Gender Identity Female 09/02/2022 8:58 AM EDT Sexual Orientation Choose not to disclose 2022 8:58 AM EDT Sexual Orientation Don't know 09/02/2022 8: 58 AM EDT Sexual Orientation Munoz 09/02/2022 8: 58 AM EDT Sexual Orientation Lesbian 09/02/2022 8: 58 AM EDT Sexual Orientation Lesbian or Munoz 09/02/2022 8: 58 AM EDT Sexual Orientation Pansexual 09/02/2022 8: 58 AM EDT COVID-19 Exposure Response Date Recorded In the last 10 days, have yo u been in contact with someone who was confirmed or suspected to have Coronavirus/COVID-19? No / Unsure 09/02/2022 9:26 AM EDT documented as of this encounter Plan of Treatment Upcoming Encounters Date Type Department Care Team ([facility] st Contact Info) Description 01/30/2025 1:30 PM EST Office Visit [facility] [address] [place] [address] [phone] Talia Foster DO [address] [phone] documented as of this encounter Visit Diagnoses Not on filedocumented in this encounter Care Teams Green Ware Caster Relationship Specialty Start Date End Date Oscar Gil MD PCP - General 09/02/22 09/25/24 Oscar Gil MD [address] [place] [address] PCP - General Family Medicine 09/26/24 documented as of this encounter
--- OUTSIDE RECORDS SUMMARY | 2024-11-02 15:01 | XMS_ITS | Patient Health Record ---
Author Organization [facility] in [place] Address [address] [place] [address] Care Team Providers Care Pullboat Engineer Name Role Phone Jeronimo Rmaos Primary Care Provider [phone] Allergies Allergen (clinical drug ingredient) Drug/Non Drug Allergy documented on EMR Reaction Allergy Type Onset Date Status acetaminophen Acetaminophen Unknown Drug Allergy Active Results Component Value Reference Range Notes GLYCOHEMOGLOBIN A1C Reviewed date:11/28/2023 11:35:48 AM Interpretation: Performing Lab: Notes/Report: [facility] , Glycohemoglobin A1C 5.5 4.5-6.2 % ACTION SUGGESTED > 7.0 ADA RECOMMENDED LIMIT 4.0 - 6.0 ADA THERAPEUTIC TARGET < 7.0 Estimated Average Glucose 111 Performing Lab: see note ML - [facility] XR knee LT 4V Reviewed date:11/24/2023 08:35:53 PM Interpretation: Performing Lab: Notes/Report: Source Facility: [facility] [place] [address] [place] [address] XRay Report Signed Patient: MI STAPLETON MR#: [id number] : 1945 Acct:[id number] Age/Sex: 78 / F ADM Date: 11/22/23 Loc: EC Attending Dr: Alton Alves M.D. Ordering Physician: Alton Alves M.D. Date of Service: 11/22/23 Procedure(s): XR knee LT 4V Accession Number(s): [id number] cc: Felix Ramos M.D.; Alton Alves M.D. [address] [id number] Patient Name: MI STAPLETON MRN: [id number] date: 1945 Sex: F Assigned Patient Location: Current Patient Location: [place] Accession/Order Number: [id number] Exam Date: 11/22/2023 13:31 Report Date: 11/24/2023 [...] M.D. Signed By: 11/24/23940 DD/ 8 TD/TT: Green Pipefitter: [place] [address] XRay Report Signed Patient: GIOVANNI STAPLETON MR#: [id number] : 1945 Acct:[id number] Age/Sex: 78 / F ADM Date: 11/22/23 Loc: EC Attending Dr: Alton Alves M.D. Ordering Physician: Alton Alves M.D. Date of Service: 11/22/23 Procedure(s): XR kne e LT 4V Accession Number(s): [id number] cc: Felix Ramos M.D. ; Alton Alves M.D. [address] [address] Patient Name: MI STAPLETON MRN: [id number] date: 1945 Sex: F Assigned Patient Location: Current Patient Location: [place] Accession/Order Number: [id number] Exam Date: 11/22/2023 13:31 Report Date: 11/24/2023 [...] Dictated By: Gaurav Garcia M.D. Signed By: 11/24/2341 DD/ TD/TT: Green Pipefitter: VITAMIN D 25 [place] Reviewed date:11/28/2023 11:35:48 AM Interpretation: Performing Lab: Notes/Report: [facility] , Vitamin D 44.9 20-<30 ng/mL Vit D insufficient 30-100 ng/mL Vit D sufficient >100 ng/mL Potential Toxicity <20 ng/mL Vit D deficient Performing Lab: see note ML - [facility] MM tomosynthesis screening B I Reviewed date:02/28/2024 08:29:07 PM Interpretation: Performing Lab: Notes/Report: Source Facility: [facility] [place] [address] [place] [address] Mammography Report Signed Patient: MI STAPLETON MR#: [id number] : 1945 Acct:[id number] Age/Sex: 78 / F ADM Date: 02/28/24 Loc: MAMMO Attending Dr: Felix Ramos M.D. Ordering Physician: Felix Ramos M.D. Results: Date of Service: 02/28/24 Follow Up: Procedure(s): MM tomosynthesis screening BI Accession Number(s): [id number] cc: Felix Ramos M.D. Patient Name: MI STAPLETON MR#: [id number] : 1945 Exam Date: 02/28/2024 Ordering Doctor: [...] ovarian cancer at age 61. LOCATION: [facility] BREAST COMPOSITION: There are scattered areas [...] M.D. Signed By: 02/28/241654 DD/ 53 TD/TT: Green Pipefitter: [place] [address] Mammography Report Signed Patient: GIOVANNI STAPLETON MR#: [id number] : 1945 Acct:[id number] Age/Sex: 78 / F ADM Date: 02/28/24 Loc: MAMMO Attending Dr: Hunter Ramos M.D. Ordering Physician: Felix Ramos M.D. Results: Date of Service: 02/28/24 Follow Up: Procedure(s): MM tomosynthesis screening BI Accession Number(s): [id number] cc: Felix Ramos M.D. Patient Name: MI STAPLETON MR#: [id number] : 1945 Exam Date: 02/28/2024 Ordering Doctor: [...] cancer at ag e 61. LOCATION: [facility] BREAST COMPOSITION: There are scattered areas [...] M.D. Signed By: 02/28/241654 DD/ 53 TD/TT: Green Pipefitter: HERMINIA bone 3 phase Reviewed date:11/29/2023 06:42:10 PM Interpretation: Performing Lab: Notes/Report: Source Facility: [place] [address] [place] [address] Nuclear Medicine Report Signed Patient: MI STAPLETON MR#: [id number] : 1945 Acct:[id number] Age/Sex: 78 / F ADM Date: 11/26/23 Loc: NM Attending Dr: Alton Alves M.D. Ordering Physician: Alton Alves M.D. Date of Service: 11/26/23 Procedure(s): NM bone 3 phase Accession Number(s): [id number] cc: Felix Ramos M.D.; Alton Alves M.D. [place] [address] Patient Name: MI STAPLETON MRN: [id number] date: 1945 Sex: F Assigned Patient Location: LAB Current Patient Location: Accession/Order Number: [id number] Exam Date: 11/26/2023 07:59 Report Date: 11/29/2023 [...] M.D. Signed By: 11/29/231655 DD/ 52 TD/TT: Green Pipefitter: [place] [address] Nuclear Medicine Report Signed Patient: GIOVANNI STAPLETON MR#: [id number] : 1945 Acct:[id number] Age/Sex: 78 / F ADM Date: 11/26/23 Loc: NM Attending Dr: Alton Alves M.D. Ordering Physician: Alton Alves M.D. Date of Service: 11/26/23 Procedure(s): HERMINIA bon e 3 phase Accession Number(s): [id number] cc: Felix Rmaos M.D. ; Alton Alves M.D. [facility] [place] [address] Patient Name: MI STAPLETON MRN: [id number] date: 1945 Sex: F Assigned Patient Location: LAB Current Patient Location: Accession/Order Number: [id number] Exam Date: 11/26/2023 07:59 Report Date: 11/29/2023 [...] M.D. Signed By: 11/29/231655 DD/ 52 TD/TT: Green Pipefitter: TSH Reviewed date:11/28/2023 11:35:48 AM Interpretation: Performing Lab: Notes/Report: [facility] , Thyroid Stimulating Hormone 0.774 0.358-3.740 uIU/mL Performing Lab: see note ML - [facility] T4 Reviewed date:11/28/2023 11:35:48 AM Interpretation: Performing Lab: Notes/Report: [facility] , T4 Thyroxine 6.70 4.80-13.90 ug/dL Performing Lab: see note ML - [facility] PROF 14(COMP METB) Reviewed date:11/28/2023 11:35:48 AM Interpretation: Performing Lab: Notes/Report: [facility] , Sodium 140 136-145 mmol/L Potassium [...] 0.9 Performing Lab: see note ML - [facility] LIPID PROFILE Reviewed date:11/28/2023 11:35:48 AM Interpretation: Performing Lab: Notes/Report: [facility] , Triglycerides 135 <=150 mg/dL Cholesterol [...] RISK Performing Lab: see note ML - [facility] FREE T3 Reviewed date:11/28/2023 11:35:48 AM Interpretation: Performing Lab: Notes/Report: [facility] , Free T3 2.09 2.18-3.98 pg/mL Performing Lab: see note ML - [facility] Erythrocyte Sedimentation Ra te Reviewed date:11/26/2023 08:08:27 AM Interpretation: Performing Lab: Notes/Report: [facility] , Erythrocyte Sedimentation Rate 30 <=30 mm/hr Performing Lab: see note ML - [facility] CRP Reviewed date:11/26/2023 08:08:27 AM Interpretation: Performing Lab: Notes/Report: [facility] , C Reactive Protein <0.50 <=0.50 mg/dL Performing Lab: see note ML - [facility] CBC AUTO DIFF Reviewed date:11/26/2023 08:08:27 AM Interpretation: Performing Lab: Notes/Report: [facility] , White Blood Count 7.7 4.0-11.0 [...] 3/uL Performing Lab: see note ML - [facility] Occult Blood* Reviewed date:12/09/2023 10:17:03 AM Interpretation: Performing Lab: Notes/Report: [facility] , Occult Blood Negative Performing Lab: see note ML - [facility] Reason For Referral Diagnosis 1 Screening for colon cancer (Z12.11) Referral Organization [facility] Medicine Referring Provider First Name Jeronimo Referring [...] TOSHIA TH EVERY DAY for 90 Active Simvastatin 40 MG TAKE 1 TABLET BY TOSHIA TH EVERY DAY for 90 days Active Vitamin D3 Active Ambien 10 MG [...] UTH EVERY DAY for 90 days Active Immunizations Vaccine Route Administration Date Status [...] Status W/U Status Risk Notes Problem Fatigue (39236674) Fatigue (R53.83) Active confirmed Problem Hypertension (07000109) Hypertension (I10) Active confirmed Problem Carpal tunnel syndrome (26724420) Carpal tunnel syndrome (G56.00) Active confirmed Problem Hypertension (82109851) HTN (hypertension) (I10) Active confirmed Problem Arthritis (4203854) Arthritis (M19.90) Active confirmed Problem Insomnia (963382438) Insomnia (G47.00) Active confirmed Problem Knee pain (7451911569) Knee pain (M25.569) Active confirmed Problem Diverticular disease of colon (409728068) Diverticulosis (K57.90) Active confirmed Problem Irritable bowel syndrome (85585878) IBS (irritable bowel syndrome) (K58.9) Active confirmed Problem Acute sinusitis (39370993) Acute sinusitis (J01.90) Active confirmed Problem Hearing loss (82636737) Hearing loss (H91.90) Active confirmed Problem Schatzki's ring (40459092) Schatzki's ring (Q39.4) Active confirmed Problem Cranial neuropathy (47841766) Cranial neuropathy (G52.9) Active confirmed Vital Signs Blood pressure diastolic 78 mm Hg 07/26/2024 Height 67.5 in 07/26/2024 Blood pressure systolic 130 mm Hg 07/26/2024 Weight 183.2 lbs 07/26/2024 BMI 28.27 kg/m2 07/26/2024 Encounters Encounter Location Date Provider Diagnosis [facility] [address] [place] [address] 07/26/2024 Jeronimo Ramos Screening for colon cancer Z12.11 [facility] [address] [place] [address] 11/28/2023 Jeronimo Ramos [facility] [address] [place] [address] 12/09/2023 Jeronimo Ramos [facility] [address] [place] [address] 12/17/2023 Jeronimo Ramos [facility] [address] [place] [address] 12/17/2023 Jeronimo Ramos [facility] [address] [place] [address] 02/28/2024 Jeronimo Ramos [facility] [address] [place] [address] 05/08/2024 Jeronimo Ramos [facility] [address] [place] [address] 11/24/2023 Jeronimo Ramos Fatigue R53.83 ; Hypertension I10 and Wellness examination Z00.00 [facility] [address] [place] [address] 06/07/2024 Jeronimo Ramos Hypertension I10 and Arthritis M19.90 [facility] [address] [place] [address] 02/29/2024 Jeronimo Ramos HTN (hypertension) I 10 and Acute sinusitis J01.[address] [place] [address] 07/26/2024 Jeronimo Ramos Encounter for [facility] annual wellness exam Z00.00 [...] 3 Vitamin D 11/24/2023 Lipid Panel 11/24/2023 Next Appt Details Provider Name:Jeronimo Ramos, 01:00:00 PM, [address] [facility], [place], [address], Insurance Providers Payer Name Payer Address Payer Phone Subscriber Number Group Number Insured Name Patient Relationship to Insured Coverage Start Date Coverage End Date [employer] MED[employer]ARE ADV PLAN [address] [place] [phone] [id number] Mi Stapleton Self - patient is the insured [place] [address] [place] [address] [id number] Mi Stapleton Self - patient is the insured Medications Administered Medication Instructions Date of Administration Dosage Notes Kenalog-40 01/01/2023 120 mg Medical (General) History Medical History History ICD Code Cranial neuropathy G52.9 Hearing loss H91.90 Schatzki's ring Q39.4 Diverticulosis K57.90 Hypertension I10 Carpal tunnel syndrome G56.00 IBS (irritable bowel syndrome) K58.9 Fatigue R53.83 Surgical History Surgery Date(Month/Year) colonoscopy 08/23/24 Right Shoulder Replacement fusion T2-T8 arthroplasty 1999 Bilateral Knee replacement Appendix Achilles
--- OUTSIDE RECORDS SUMMARY | 2024-11-02 15:01 | XMS_ITS | Clinical Summary ---
Author Organization [facility] Address [address] [place] [address] Care Team Providers Care Counseling Services Manager Name Role Phone Oscar Gil MD Primary Care Provider [phone] Active Problems Problem Noted Date Diagnosed Date Fracture of vertebral column without mention of spinal cord injury 10/16/2003 Social History Tobacco Use Types Packs/Day Years Used Date Smoking Tobacco: Never Assessed Comments No Sex and Gender Information Value Date Recorded Sex Assigned at Not on file Legal Sex Female 10:00 AM EST Gender Identity Not on file Sexual Orientation Not on file Plan of Treatment Health Maintenance Due Date Last Done Comments Anxiety Screening 1964 Depression Screening 1964 Hepatitis C Screening 1964 DTaP,Tdap,Td Vaccine (1 - Tdap) 1965 Diabetes Screening 1991 Pneumococcal Vaccine: 50+ (1 of 1 - PCV) 1996 Shingrix Vaccine (1 of 2) 1996 Bone Density Screening 2011 RSV Vaccine (1 - 1-dose 75+ series) 2021 Advance Directive Discussion 03/01/2024 Influenza Vaccine (#1) 2024 Insurance [employer] PPO Member Subscriber Plan / Payer (Ef fective 2003-Present) Name:Zahra Stapleton Relation to Subscriber:Spouse Name:TK STAPLETON Date of :1957 Address: [address] [place] [address], [place] [address] Payer ID:[id number] (NAIC) Type:PPO Address: [address] [place] [id number] [employer] Care Teams Counseling Services Manager Relationship Specialty Start Date End Date Oscar Gil MD [address] [place] [address] PCP - General 12/05/02
--- OUTSIDE RECORDS SUMMARY | 2024-11-02 15:01 | XMS_ITS | Patient Health Record ---
Author Organization [facility] Address [address] [place] [address] Care Team Providers Care Manganese Wheeler Name Role Phone Oscar Gil Primary Care Provider UnavailCharlie Mccullough Unavailable [phone] Self, Referral Unavailable Unavailable Alton Alves Unavailable [phone] Allergies Allergen (clinical drug ingredient) Drug/Non Drug Allergy documented on EMR Reaction Allergy Type Onset Date Status acetaminophen acetaminophen Unknown Drug Allergy Active Reason For Referral No Information Medications Medication SIG (Take, Route, Fr equency, Duration) Notes Start Date End Date Status levothyroxine 12/20/2023 Activ e lisinopril 10 mg TAKE 1 TABLET BY TOSHIA EVERY DAY for 90 Days Active Social [...] Problem Status W/U Status Risk Notes Problem [id number] Aftercare following joint replacement surgery (Z47.1) Active confirmed Problem 462581940117 Presence of left artificial knee joint (Z96.652) Active confirmed Problem 7906233073 Left knee pain, unspecified chronicity (M25.562) Active confirmed Problem 42274413 Pain in prosthetic joint, initial encounter (T84.84XA) Active confirmed Vital Signs Height 67 in 11/22/2023 Encounters Encounter Location Date Provider Diagnosis [facility] [address] [facility] [place] [place] [address] 11/22/2023 Alton Alves Left knee pain, unspecified chronicity M25.562 ; Pain in prosthetic joint, initial encounter T84.84XA ; Aftercare following joint replacement surgery Z47.1 and Presence of left artificial knee joint Z96.652 [facility] [address] [facility] [place] [place] [address] 12/13/2023 Alton Alves Pain in prosthetic joint, initial encounter T84.84XA and Presence of left artificial knee joint Z96.652 [facility] Office [address] [place] [address] [place] [address] 12/20/2023 Charlie Mendez Aftercare following joint replacement [...] ESR, CRP 11/22/2023 SCC- KNEE 4 VIEW LEFT-10992 11/22/2023 BONE SCAN 3 PHASE 11/22/2023 Insurance Providers Payer Name Payer Address Payer Phone Subscriber Number Group Number Insured Name Patient Relationship to Insured Coverage Start Date Coverage End Date Medicare [employer] [facility] [address] [place] [phone] [id number] [place] Self - patient [...]
--- OUTSIDE RECORDS SUMMARY | 2024-11-02 15:01 | XMS_ITS | Clinical Summary ---
Author Organization [facility] Address [address] [facility] [facility] [place] [address] Care Team Providers Care Candlemaker Name Role Phone Oscar Gil MD Primary Care Provider [phone] Allergies Active Allergy Reactions Criticality Noted Date Comments Acetaminophen Shortness of breath High 02/07/2020 Other Reaction(s): SOB/cyanosis Medications simvastatin (Zocor) 40 MG tablet 40 mg 1 (one) time each day at the same time. Active lisinopril 10 MG tablet 10 mg 1 (one) time each day at the same time. Active aspirin 81 MG chewable tablet 81 mg 1 (one) time each day at the same time. Active Levothyroxine Sodium (LEVOTHROID PO) 50 mcg. Acti ve naproxen (EC Naprosyn) 500 MG EC tablet Take 500 mg by mouth in the morning and 500 mg in the evening. Take with meals. Do not crush, chew, or split.. Active Active Problems No known active problems Encounters Date Type Department Care Team Description 09/26/2024 2:00 PM EDT Office Visit [facility] [address] [facility] [address] [place] [address] Susanne Hermosillo NP Encounter for pessary maintenance (Primary Dx); Cystocele, midline; Uterine prolapse 09/26/2024 Bamboo flowsheet [facility] [address] [place] [address] [place] [address] Susanne Hermosillo NP 09/26/2024 Travel from Last 3 Months Family History Relation Name Status Comments Father Mother Social History Tobacco Use Types Packs/Day Years Used Date Smoking Tobacco: Former Cigarettes Smokeless Tobacco: Never Tobacco Cessation:Counseling Given: Not Answered Comments:Last smoked : 20 years Alcohol Use Standard Drinks/Week Comments Yes 1 (1 standard drink = 0.6 oz pur e alcohol) 1 or 2 a month Comments No Sex and Gender Information Value [...] Orientation Pansexual 09/02/2022 8: 58 AM EDT Last Filed Vital Signs Vital Sign Reading Time Taken Comments Blood Pressure 142/60 09/26/2024 2:18 PM EDT Pulse - - Temperature 36.4 C (97.5 F) 10/01/2022 3:48 PM EDT Respiratory Rate - - Oxygen Saturation - - Inhaled Oxygen Concentration - - Weight 80.7 kg (178 lb) 09/26/2024 2:18 PM EDT Height 172.7 cm (5' 8 ) 05/25/2024 2:35 PM EDT Body Mass Index 27.06 05/25/2024 2:35 PM EDT Plan of Treatment Upcoming Encounters Date Type Department Care Team (Late st Contact Info) Description 01/30/2025 1:30 PM EST Office Visit [facility] [address] [place] [address] [address] Talia Foster DO [address] [address] Health Maintenance Due Date Last Done Comments Influenza Vaccine (#1) 2024 4, 12/02/2022, 11/19/2021, Additional history exists Pneumococcal Vaccine: 65+ Years Completed 6, 01/16/2016 Insurance [employer] MEDICARE ADVANTAGE Care Teams Candlemaker Relationship Specialty Start Date End Date Oscar Gil MD [address] [place] [address] PCP - General Family Medicine 09/26/24
--- OUTSIDE RECORDS SUMMARY | 2024-11-02 15:01 | XMS_ITS | Clinical Summary ---
Author Organization [facility] Address [address] [place] [address] Care Team Providers Care Slide Fastener Repairer Name Role Phone Unavailable Primary Care Provider Unavailabl e Social History Tobacco Use Types Packs/Day Years Used Date Smoking Tobacco: Never Assessed [place] Safety & Environment Answer Date Rec orded Fear of Current or Ex-Partner Not on file Emotionally Abused Not on file 04/22/2023 Physically Abused Not on file 04/22/2023 Sexually Abused Not on file 04/22/2023 Physically or Sexually Abused Not on file Comments Unknown Sex and Gender Information Value Date Recorded Sex Assigned at Not on file Legal Sex Female 10:00 PM EDT Gender Identity Not on file Sexual Orientation Not on file Plan of Treatment Not on file
--- OUTSIDE RECORDS SUMMARY | 2024-11-02 15:01 | XMS_ITS | Encounter Summary ---
Author Organization [facility] Address [address] [facility], [address] [place] [address] Care Team Providers Care Third Rigger Name Role Phone Oscar Gil MD Primary Care Provider [phone] Encounter Details Date Type Department Care Team (Late st Contact Info) Description 10/20/2022 Hospital Encounter [facility] [address] [place] [address] Social History Tobacco Use Types Packs/Day Years Used Date Smoking Tobacco: Never Assessed Comments Unknown Sex and Gender Information Value Date Recorded Sex Assigned at Not on file Legal Sex Female 11:30 AM EDT Gender Identity Not on file Sexual Orientation Not on file documented as of this encounter Plan of Treatment Not on file documented as of this encounter Visit Diagnoses Not on filedocumented in this encounter Care Teams Third Rigger Relationship Specialty Start Date End Date Oscar Gil MD [address] [place] [address] PCP - General Family Medicine 11/09/19 documented as of this encounter
--- OUTSIDE RECORDS SUMMARY | 2024-11-02 15:50 | XMS_ITS | CCD ---
Author Organization [facility] Care Team Providers Care Air Brake Adjuster Name Role Phone Felix Gil Primary Care Provider [phone] DR FELIX GIL Admitting Unavailable RICHARD, DR WASHINGTON Attending Unavailable [...] Lewis Unavailable MD June Lewis Attending Provider June Lewis Attending Unavailable June Lewis Admitting Unavailable Felix Gil MD Primary Care Provider [phone] BLANCHE DOBBS Referring Unavailable FELIX GIL Primary Care Unavailable BLANCHE DOBBS Referring Unavailable FELIX GIL Primary Care Unavailable MOHINDER LEHMAN Attending Unavailable MOHINDER LEHMAN Admitting Unavailable Felix Gil MD Primary Care Provider [phone] Felix Gil Primary Care Physician [phone] Doug LAGUNA Attending Unavailable Doug LAGUNA Attending Unavailable Felix Gil MD Primary Care Provider [phone] SUSANNE OGLESBY Attending Unavailable SUSANNE OGLESBY Attending Unavailable TALIA FOSTER Attending Unavailable SUSANNE OGLESBY Attending Unavailable TALIA FOSTER Attending Unavailable TALIA FOSTER Attending Unavailable Allergies Allergy Classification Reported Allergen(s) Allergy Type Date of Onset Reaction(s) Facility (10 sources) Acetaminophen; Translations: [ACETAMINOPHEN] Drug Allergy 12-09-202 0 Shortness Of Breath, Dyspnea (finding) [facility] (1 source) Acetaminophen Drug Allergy 5 [facility] Repository (13 sources) Acetaminophen Drug Allergy 0 Shortness of breath [facility] Medications Current Medications Medication Drug Class(es) Dates Sig (Normalized) Sig (Original) aspirin 81 mg chewable tablet (13 sources) Platelet Aggregation Inhibitor, Nonsteroidal Anti-inflammator y Drug aspirin 81 MG chewab le tablet 81 mg 1 (one) time each day at the same time. Active cetirizine hydrochloride 10 mg oral tablet (4 sources) Histamine-1 Receptor Antagonist take 1 tablet by mouth once daily cetirizine (ZYRTEC) 10 MG tablet Take 10 mg by mouth daily 0 Active citalopram 10 mg oral tablet (1 source) Serotonin Reuptake Inhibitor Start: 5 take 1 tablet by mouth once daily CeleXA 10 mg Tab 10 mg = 1 tab(s), Oral, Daily, Refills(s) 0 Start Date: 08/16/24 Status: Ordered Repeat number: 1 hydroCHLOROthiazide 25 mg oral tablet (1 source) Thiazide Diuretic Start: 5 take 1 tablet by mouth once daily hydrochlorothiazide 25 mg Tab 25 mg = 1 tab(s), Oral, Daily, Refills(s) 0 Start Date: 08/16/24 Status: Ordered Repeat number: 1 levothyroxine sodium 0.05 mg oral tablet (16 sources) l-Thyroxine Start: 5 take 1 tablet by mouth once daily levothyroxine 50 mcg (0.05 mg) Tab 50 mcg = 1 tab(s), Oral, Daily, Refills(s) 0 Start Date: 08/16/24 Status: Ordered Repeat number: 1 Levothyroxine So dium (LEVOTHROID PO) 50 mcg. Active take 1 tablet by once daily in the morning Levothyroxine Sodium 50 MCG 1 tablet in the morning on an empty stomach Orally Once a day Active liothyronine sodium 0.005 mg oral tablet (3 sources) l-Triiodothyronine Start: 08-16-2024 take 2 tablets by mouth once daily liothyronine 5 mcg Tab 10 mcg = 2 tab(s), Oral, Daily, Refills(s) 0 Start Date: 08/16/24 Status: Ordered Repeat number: 1 take 1 tablet by gatito th every twenty-four hours Liothyronine Sodium 5 MCG 1 tablet on an empty stomach Orally Once a day Active lisinopril 10 mg oral tablet (20 sources) Angiotensin Converting Enzyme Inhibitor Start: 01-27-2020 take 1 tablet by mouth once daily lisinopril 10 mg Tab 10 mg = 1 tab(s), Oral, Daily, Refills(s) 0 Start Date: 08/16/24 Status: Ordered Repeat number: 1 meloxicam 15 mg oral tablet (16 sources) Nonsteroidal Anti-inflammatory Drug Start: 08-16-2024 take 1 tablet by mouth once daily meloxicam 15 mg Tab 15 mg = 1 tab(s), Oral, Daily, Refills(s) 0 Start Date: 08/16/24 Status: Ordered Repeat number: 1 Start: 01-28-2020 End: 02-28-2024 take 1 tablet by mouth once daily meloxicam (MOBIC) 15 MG tablet TAKE 1 TABLET BY MOUTH EVERY DAY 0 01/28/2020 Active naproxen 500 mg delayed release oral tablet (6 sources) Nonsteroidal Anti-inflammatory Drug take 1 tablet by mouth in the morning naproxen (EC Naprosyn) 500 MG EC tablet Take 500 mg by mouth in the morning and 500 mg in the evening. Take with meals. Do not crush, chew, or split.. Active omeprazole 20 mg delayed release oral capsule (16 sources) Proton Pump Inhibitor Start: 08-17-19 take 1 capsule by mouth once daily omeprazole 20 mg Cap-DR 20 mg = 1 cap(s), Oral, Daily, Refills(s) 0 Start Date: 08/16/24 Status: Ordered Repeat number: 1 Start: 01-11-2020 End: 02-28-2024 take 1 capsule by mouth once daily omeprazole (PRILOSEC) 20 MG delayed release capsule TAKE 1 CAPSULE BY MOUTH EVERY DAY 0 01/11/2020 Active simvastatin 40 mg oral tablet (20 sources) HMG-CoA Reductase Inhibitor Start: 01-21-2020 take 1 tablet by mouth once daily in the evening simvastatin 40 mg Tab 40 mg = 1 tab(s), Oral, qPM, Refills(s) 0 Start Date: 08/16/24 Status: Ordered Repeat number: 1 tiZANidine 2 mg oral tablet (9 sources) Central alpha-2 Adrenergic Agonist Start: 06-08-2022 End: 02-28-2024 tiZANidine (Zanaflex) 2 MG tablet every 8 (eight) hours. 06/08/2022 02/28/2024 Discontinued (Therapy completed) Problems Active Problems Problem Classification Problem Date Documented Da te Episodic/Chronic Congestive heart failure; nonhypertensive (2 sources) Unspecified diastolic (congestive) heart failure; Translations: [Diastolic heart failure] Onset: 2 08-16-2024 Chronic Diabetes mellitus without complication (1 source) Type 2 diabetes mellitus without complications; Translations: [TYPE 2 DM WITHOUT COMPLICATIONS] Onset: 2 Chronic Diabetes mellitus without complication (1 source) Other abnormal glucose; Translations: [OTHER ABNORMAL GLUCOSE] Onset: 2 Episodic Disorders of lipid metabolism (5 sources) Hyperlipidemia, unspecified; Translations: [Hyperlipidemia] Onset: 2 Chronic Esophageal disorders (2 sources) Gastroesophageal reflux disease; Translations: [Lower esophageal ring] 08-16-2024 Chronic Essential hypertension (2 sources) Essential (primary) hypertension; Translations: [Essential hypertension] Onset: 2 08-16-2024 Chronic Genitourinary symptoms and ill-defined conditions (4 sources) Genuine stress incontinence; Translations: [Stress incontinence (female) (male)] 02-07-2024 Chronic Hypertension with complications and secondary hypertension (1 source) Hypertensive heart disease with heart failure; Translations: [HTN HEART DISEASE W/HEART FAIL] Onset: 2 Chronic Inflammatory diseases of female pelvic organs (3 sources) Subacute vaginitis; Translations: [Subacute and chronic vaginitis] Episodic Menopausal disorders (1 source) Other primary ovarian failure; Translations: [OTHER PRIMARY OVARIAN FAILURE] Onset: 2 Chronic Nutritional deficiencies (1 source) Vitamin D deficiency, unspecified; Translations: [VITAMIN D DEFICIENCY UNSPECIFIED] Onset: 2 Chronic Other aftercare (1 source) Other fdc (current) drug therapy; Translations: [OTH PHOTOGEOLOGIST CURRENT DRUG THERAPY] Onset: 2 Episodic Other bone disease and musculoskeletal deformities (4 sources) Other specified disorders of bone density and structure, unspecified site; Translations: [OTH D/O BONE DEN STRUCT UNS SITE] Onset: 2 Episodic Other circulatory disease (2 sources) Elevated blood pressure; Translations: [Elevated blood-pressure reading, without diagnosis of hypertension] 02-28-2024 Episodic Other connective tissue disease (2 sources) History of revision of left total knee arthroplasty; Translations: [Presence of left artificial knee joint] Onset: 3 10-20-2022 Chronic Other connective tissue disease (2 sources) History of total knee arthroplasty; Translations: [Presence of right artificial knee joint] Onset: 3 10-20-2022 Chronic Other female genital disorders (2 sources) Abnormal vaginal bleeding; Translations: [Abnormal uterine and vaginal bleeding, unspecified] 02-28-2024 Chronic Other female genital disorders (2 sources) Vaginal discharge; Translations: [Other specified noninflammatory disorders of vagina] 02-28-2024 Episodic Other gastrointestinal disorders (1 source) Irritable bowel syndrome 08-16-2024 Chronic Other nervous system disorders (2 sources) Other acute postprocedural pain; Translations: [Other acute postprocedural pain] Onset: 4 Episodic Other nervous system disorders (1 source) Cranial nerve disorder 08-16-2024 Episodic Other non-traumatic joint disorders (2 sources) Knee pain; Translations: [Knee pain, unspecified chronicity, unspecified laterality] Episodic Other non-traumatic joint disorders (3 sources) Pain in right knee; Translations: [Other acute pain] Onset: 3 Episodic Other non-traumatic joint disorders (1 source) Pain in left knee; Translations: [Pain in left knee] Onset: 3 Episodic Other non-traumatic joint disorders (2 sources) Pain in unspecified shoulder; Translations: [Pain in unspecified shoulder] Onset: 4 Episodic Other nutritional; endocrine; and metabolic disorders (1 source) Overweight 08-16-2024 Episodic Other nutritional; endocrine; and metabolic disorders (1 source) Overweight in adulthood with body mass index of 25 or more but less than 30 08-23-2024 Episodic Other screening for suspected conditions (not mental disorders or infectious disease) (3 sources) Encounter for screening mammogram for malignant neoplasm of breast; Translations: [Encounter for screening for malignant neoplasm of colon] Onset: 2 Episodic Prolapse of female genital organs (20 sources) Midline cystocele; Translations: [Cystocele, midline] 11-11-2023 Chronic Rehabilitation care; fitting of prostheses; and adjustment of devices (9 sources) Patient encounter status; Translations: [Encounter for fitting and adjustment of other specified devices] 11-11-2023 Chronic Residual codes; unclassified (1 source) Family history of malignant neoplasm of ovary; Translations: [FAM HX MALIGNANT NEOPLASM OVARY] Onset: 2 Episodic Residual codes; unclassified (1 source) Family history of malignant neoplasm of other organs or systems; Translations: [FAM HX MALIG NEOPLASM OTH ORGN/SYS] Onset: 2 Episodic Thyroid disorders (6 sources) Hypothyroidism, unspecified; Translations: [Hypothyroidism] Onset: 2 Chronic Unclassified (1 source) Subacute and chronic vaginitis; Translations: [Subacute and chronic vaginitis] Onset: 3 Unclassified (1 source) Patient encounter status 08-23-2024 Past or Other Problems Problem Classification Problem Date Documented Da te Episodic/Chronic Screening and history of mental health and substance abuse codes (2 sources) Ex-smoker; Translations: [Personal history of nicotine dependence] 10-28-2023 Episodic Results Test Name Value Interpretation Reference Range Facility Ambulatory Visit Summaryon 0 08-23-2024 Ambulatory Visit Summary Ambulatory Visit Summary [facility] Cruz :1945 Visit Date:08/23/2024 Ambulatory Visit Instructions Your Care Team Attending Physician - oDug LAGUNA MD Primary Care Physician - Felix Gil MD This Is Your Medications List [...] signed up for this yet, please contact [email or web address] at [phone] to get signed up today. Language Information Language assistance services are available as needed. Normal [facility] Urinalysis macro (dipstick) panel (U)on 02-28-2024 Bilirubin, UA Negative Negative - 4(70) +++ mg/dL [facility] Blood, UA Negative Negative - 50 Jonathon/mcL [facility] Clarity, UA Clear [facility] Color, UA Yellow [facility] Glucose, UA Negative Negative - 1999(110) ++++ mg/dL [facility] Interpretation and review of laboratory results Normal [facility] Ketones, UA Negative Negative - 160(16) ++++ mg/dL [facility] Leukocytes, UA Negative Negative - 500+++ Gino/mcL [facility] Nitrite, UA Negative Negative - Positive [facility] pH, UA 6.5 5 - 9 [facility] Protein, UA Negative Negative - 1999(20) ++++ mg/dL [facility] Spec Grav, UA 1.005 1 - 1.03 [facility] Urobilinogen, UA 1.0 0.2 - 12 mg/dL [facility] No Panel Informationon 10-27 Talia [...] Reviewed by: provider Comments: Procedure comments: LOT [id number] 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 RUST RIS CONSOLIDATED EXAM: XR KNEE LEFT ( MIN 4 VIEWS) HISTORY: Acute pain of both knees COMPARISON: None. 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 No acute fracture or dislocation. Mild soft tissue swelling. Report electronically signed by: Dr. Manuel Saxena RUST RIS CONSOLIDATED Manuel Saxena MD - 10/20/2022 EXAM: XR KNEE LEFT (MIN 4 VIEWS) HISTORY: Acute pain of both knees COMPARISON: None. 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 No acute fracture or dislocation. Mild soft tissue swelling. Report electronically signed by: Dr. 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 [facility] Phone: XR KNEE LEFT (MIN 4 VIEWS) [...] Manuel Saxena MD 10/20/22 Final result Normal [facility] Radiology Study observation (narrative) [facility] Work Phone: XR KNEE LEFT (MIN 4 VIEWS)Or dered By: Manuel Saxena on 10-20-2022 [facility] Work Phone: XR KNEE RIGHT (MIN 4 VIEWS)o n 10-20-2022 No acute findings. Intact prosthesis. RUST RIS CONSOLIDATED EXAM: XR KNEE RIGHT (MIN 4 VIEWS) HISTORY: Acute pain of both knees COMPARISON: 02/07/2020 TECHNIQUE: 4 views of right knee were obtained FINDINGS: There is no evidence of fracture or dislocation. Prosthetic knee is seen in proper alignment without evidence of loosening. No evidence to suggest a joint effusion. Visualized soft tissues appear unremarkable. Report electronically signed by: Dr. Melisa Jiang RUST RIS CONSOLIDATED Melisa Jiang MD - 10/20/2022 EXAM: [...] Jiang IMPRESSION: No acute findings. Intact prosthesis. [facility] Work Phone: XR KNEE RIGHT (MIN 4 [...] Melisa Jiang MD 10/20/22 Final result Normal [facility] Radiology Study observation (narrative) [facility] Work Phone: XR KNEE RIGHT (MIN 4 VIEWS)O rdered By: Melisa Jiang on 10-20-2022 [facility] Work Phone: MISC LABon 06-10-2022 [facility] Normal [facility] Comment on above: [place] Comment[place] [facility] [place]: VAGINITIS/VAGINOSIS DNA PROBE # [id number] Result Comment: See report. Scanned copy available in EMR. PERFORMED BY: [place] [address] PATHOLOGIST IT APPLICATIONS MANAGER MEGHAN ESPINO M.D. Performed By: #### [facility] #### [address] MG MAMM SCREEN 3D HERBER CADon 02-25-2022 MG MAMM SCREEN 3D HERBER CAD Patient: MI WISE Exam Date: 02/25/2022 : 1945 Gender:F Ordering : DR FELIX GIL . Admission #: [id number] Family : Order #: [id number] CLICK HERE TO VIEW EXAM RADIOLOGY REPORT [...] ovarian cancer at age 61. LOCATION: [facility] BREAST COMPOSITION: Scattered areas fibroglandular [...] MD on 02/26/2022 at 11:40 Normal [facility] XR DEXA BONE DENSITYon 02-25 XR DEXA [...] EDVIN SU Date: 2022-02-25 16:21 Normal [facility] INSULINon 01-21-2022 Insulin 6.3 uIU/mL Normal 2.6-24.9 [facility] Comment on above: Performed By: #### V ITAD, IRON #### [facility] [address] [place] [address] Dr. Gabby Briones BILIRUBIN CONJUGATED (DIRECT )on 01-20-2022 BILI, CONJUGATED 0.1 mg/dL Normal 0.0-0.2 [facility] Comment on above: Performed By: #### T SH, DBIL, CMP, LIPID, FT3, T4 #### [facility] [address], [place] [address] Dr. Gabby Briones CBC AUTO DIFFon 01-20-2022 BASO # 0.0 103/ul Normal 0.0-0.1 [facility] Comment on above: Performed By: #### V ITAD, IRON #### [facility] [address] [place] [address] Dr. Gabby Briones Basophils/100 WBC (Bld) 0.6 % Normal 0.2-2.0 [facility] Comment on above: Performed By: #### V ITAD, IRON #### [facility] [address] [place] [address] Dr. Gabby Briones EO # 0.4 103/ul Normal 0.0-0.7 [facility] Comment on above: Performed By: #### V ITAD, IRON #### [facility] [address] [place] [address] Dr. Gabby Briones Eosinophils/100 WBC (Bld) 6.0 % Normal 0.9-7.0 [facility] Comment on above: Performed By: #### V ITAD, IRON #### [facility] [address] [place] [address] Dr. Gabby Briones Erythrocyte distribution width (RBC) [Ratio] 13.7 % Normal 11.0-15.0 [facility] Comment on above: Performed By: #### V ITAD, IRON #### [facility] [address] [place] [address] Dr. Gabby Briones Hematocrit (Bld) [Volume fraction] 41.9 % Normal 36.0-48.0 [facility] Comment on above: Performed By: #### V ITAD, IRON #### [facility] [address] [place] [address] Dr. Gabby Briones Hemoglobin (Bld) [Mass/Vol] 14.0 g/dL Normal 12.0-16.0 [facility] Comment on above: Performed By: #### V ITAD, IRON #### [facility] [address] [place] [address] Dr. Gabby Briones IG # 0.02 10e3/ul Normal 0.00-0.03 [facility] Comment on above: Performed By: #### V ITAD, IRON #### [facility] [address] [place] [address] [address] Gabby Briones IG % 0.3 % Normal 0.0-0.5 [facility] Comment on above: Performed By: #### V ITAD, IRON #### [facility] [address] [place] [address] Dr. Gabby Briones LYMPH # 2.6 103/ul Normal 1.2-3.8 [facility] Comment on above: Performed By: #### V ITAD, IRON #### [facility] [address] [place] [address] Dr. Gabby Briones Lymphocytes/100 WBC (Bld) 39.7 % Normal 20.5-60.0 [facility] Comment on above: Performed By: #### V ITAD, IRON #### [facility] [address] [place] [address] Dr. Gabby Briones MANUAL DIFF REQ NO Normal [facility] Comment on above: Performed By: #### V ITAD, IRON #### [facility] [address] [place] [address] Dr. aGbby Briones MCH (RBC) [Entitic mass] 29.6 pg Normal 26.7-34.0 [facility] Comment on above: Performed By: #### V ITAD, IRON #### [facility] [address] [place] [address] Dr. Gabby Briones MCHC (RBC) [Mass/Vol] 33.4 g/dL Normal 29.9-35.2 [facility] Comment on above: Performed By: #### V ITAD, IRON #### [facility] [address] [place] [address] Dr. Gabby Briones MCV (RBC) [Entitic vol] 88.6 fL Normal 81.0-99.0 [facility] Comment on above: Performed By: #### V ITAD, IRON #### [facility] [address] [place] [address] Dr. Gabby Briones MONO # 0.6 103/ul Normal 0.3-0.8 [facility] Comment on above: Performed By: #### V ITAD, IRON #### [facility] [address] [address] [address] Gabby Briones Monocytes/100 WBC (Bld) 8.8 % Normal 1.7-12.0 [facility] Comment on above: Performed By: #### V ITAD, IRON #### [facility] [address] [place] [address] Dr. Gabby Briones NEUT # 2.9 103/ul Normal 1.4-6.5 [facility] Comment on above: Performed By: #### V ITAD, IRON #### [facility] [address] [place] [address] Dr. Gabby Briones Neutrophils/100 WBC (Bld) 44.6 % Normal 43.0-75.0 [facility] Comment on above: Performed By: #### V ITAD, IRON #### [facility] [address] [place] [address] Dr. Gabby Briones Platelet mean volume (Bld) [Entitic vol] 9.4 fL Critically low 9.5-13.5 [facility] Comment on above: Performed By: #### V ITAD, IRON #### [facility] [address] [place] [address] Dr. Gabby Briones PLT 326 103/ul Normal 150-450 [facility] Comment on above: Performed By: #### V ITAD, IRON #### [facility] [address] [place] [address] Dr. Gabby Briones RBC 4.73 106/ul Normal 4.20-5.40 [facility] Comment on above: Performed By: #### V ITAD, IRON #### [facility] [address] [place] [address] Dr. Gabby Briones WBC 6.5 103/ul Normal 4.0-11.0 [facility] Comment on above: Performed By: #### V ITAD, IRON #### [facility] [address] [place] [address] Dr. Gabby Briones FREE T3on 01-20-2022 FREE T3 2.47 pg/mlL Normal 2.18-3.98 [facility] Comment on above: Performed By: #### T SH, DBIL, CMP, LIPID, FT3, T4 #### [facility] [address] [place] [address] [address] Gabby Briones GLYCOHEMOGLOBIN A1Con 2021 ADA RECOMMENDATION SEE BELOW Normal [facility] Comment on above: Result Comment: ADA RECOMMENDED LIMIT 4.0 - 6.0 ADA THERAPEUTIC TARGET < 7.0 ACTION SUGGESTED > 7.0 Performed By: #### V ITDYLAN, IRON #### [facility] [address] [place] [address] [address] Gabby Briones Glucose [Mass/Vol] 111 mg/dL Normal [facility] Comment on above: Performed By: #### V ANIBAL, IRON #### [facility] [address] [place] [address] Dr. Gabby Briones HbA1c (Bld) [Mass fraction] 5.5 % Normal 4.5-6.2 [facility] Comment on above: Performed By: #### V ANIBAL, IRON #### [facility] [address] [place] [address] Dr. Gabby Briones IRONon 01-20-2022 Iron [Mass/Vol] 92.0 ug/dL Normal 50.0-170.0 [facility] Comment on above: Performed By: #### V ANIBAL, IRON #### [facility] [address] [place] [address] Dr. Gabby Briones LIPID PROFILEon 01-20-2022 CHOL-HDL RATIO NORM SEE BELOW Normal [facility] Comment on above: Result Comment: 3.3 - 4.4 LOW RISK 4.4 - 7.1 AVERAGE RISK 7.1 - 11.0 MODERATE RISK >11.0 HIGH RISK Performed By: #### T SH, DBIL, CMP, LIPID, FT3, T4 #### [facility] [address] [place] [address] Dr. Gabby Briones Cholesterol [Mass/Vol] 183 mg/dL Normal <=200 [facility] Comment on above: Performed By: #### T SH, DBIL, CMP, LIPID, FT3, T4 #### [facility] [address] [place] [address] Dr. Gabby Briones Cholesterol in HDL [Mass/Vol] 56 mg/dL Normal 40-60 [facility] Comment on above: Performed By: #### T SH, DBIL, CMP, LIPID, FT3, T4 #### [facility] [address] [address] [address] Gabby Briones Cholesterol in LDL [Mass/Vol] 102.8 mg/dL Normal [facility] Comment on above: Performed By: #### T SH, DBIL, CMP, LIPID, FT3, T4 #### [facility] [address] [address] [address] Gabby Briones Cholesterol.total/C holesterol in HDL [Mass ratio] 3.3 {ratio} Normal [facility] Comment on above: Performed By: #### T SH, DBIL, CMP, LIPID, FT3, T4 #### [facility] [address] [address] [address] Gabby Briones HDL NORMAL > or = 60 mg/dl - LO W CARDIOVASCULAR RISK <40 mg/dl - HIGH CARDIOVASCULAR RISK Normal [facility] Comment on above: Performed By: #### T SH, DBIL, CMP, LIPID, FT3, T4 #### [facility] [address] [address] [address] Gabby Briones LDL CALC NORMAL SEE BELOW Normal [facility] Comment on above: Result Comment: <100 mg/dl OPTIMAL 100 - 129 mg/dl NEAR OR ABOVE OPTIMAL 130 - 159 mg/dl BORDERLINE HIGH 160 - 189 mg/dl HIGH >190 mg/dl VERY HIGH Performed By: #### T SH, DBIL, CMP, LIPID, FT3, T4 #### [facility] [address] [address] [address] Gabby Briones Triglyceride [Mass/Vol] 121 mg/dL Normal <=150 [facility] Comment on above: Performed By: #### T SH, DBIL, CMP, LIPID, FT3, T4 #### [facility] [address] [address] [address] Gabby Briones VLDL CALC 24.2 mg/dL Normal [facility] Comment on above: Performed By: #### T SH, DBIL, CMP, LIPID, FT3, T4 #### [facility] [address] [place] [address] Dr. Gabby Briones PROF 14(COMP METB)on 022 Albumin [Mass/Vol] 3.4 g/dL Normal 3.4-5.0 [facility] Comment on above: Performed By: #### T SH, DBIL, CMP, LIPID, FT3, T4 #### [facility] [address] [place] [address] Dr. Gabby Briones Albumin/Globulin [Mass ratio] 1.0 {ratio} Normal [facility] Comment on above: Performed By: #### T SH, DBIL, CMP, LIPID, FT3, T4 #### [facility] [address] [place] [address] Dr. Gabby Briones ALP [Catalytic activity/Vol] 50 U/L Normal 46-116 [facility] Comment on above: Performed By: #### T SH, DBIL, CMP, LIPID, FT3, T4 #### [facility] [address] [place] [address] Dr. Gabby Briones ALT [Catalytic activity/Vol] 17 U/L Normal 14-59 [facility] Comment on above: Performed By: #### T SH, DBIL, CMP, LIPID, FT3, T4 #### [facility] [address] [place] [address] Dr. Gabby Briones Anion gap [Moles/Vol] 13.7 mmol/L Normal [facility] Comment on above: Performed By: #### T SH, DBIL, CMP, LIPID, FT3, T4 #### [facility] [address] [place] [address] Dr. Gabby Briones AST [Catalytic activity/Vol] 13 U/L Critically low 15-37 [facility] Comment on above: Performed By: #### T SH, DBIL, CMP, LIPID, FT3, T4 #### [facility] [address] [place] [address] Dr. Gabby Briones Bilirubin [Mass/Vol] 0.4 mg/dL Normal 0.2-1.0 [facility] Comment on above: Performed By: #### T SH, DBIL, CMP, LIPID, FT3, T4 #### [facility] [address] [place] [address] Dr. Gabby Briones Calcium [Mass/Vol] 9.1 mg/dL Normal 8.5-10.1 [facility] Comment on above: Performed By: #### T SH, DBIL, CMP, LIPID, FT3, T4 #### [facility] [address] [address] [address] Gabby Briones Chloride [Moles/Vol] 106 mmol/L Normal 98-107 [facility] Comment on above: Performed By: #### T SH, DBIL, CMP, LIPID, FT3, T4 #### [facility] [address] [place] [address] Dr. Gabby Briones CO2 [Moles/Vol] 25.8 mmol/L Normal 21.0-32.0 [facility] Comment on above: Performed By: #### T SH, DBIL, CMP, LIPID, FT3, T4 #### [facility] [address] [place] [address] Dr. Gabby Briones Creatinine [Mass/Vol] 0.76 mg/dL Normal 0.55-1.02 [facility] Comment on above: Performed By: #### T SH, DBIL, CMP, LIPID, FT3, T4 #### [facility] [address] [place] [address] Dr.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 prolapse without mention of vaginal wall prolapse Stress incontinence Female stress incontinence documented in this encounter [facility]* Diagnosis Cystocele, midline- Primary Uterine prolapse Uterine prolapse without mention of vaginal wall prolapse Urge incontinence Former smoker Personal history of tobacco use, presenting hazards to health documented in this encounter [facility]* Diagnosis Elevated blood pressure reading- Primary Elevated blood pressure reading without diagnosis of hypertension Pessary maintenance Fitting and adjustment of other device Vaginal discharge Leukorrhea, not specified as infective Vaginal bleeding, abnormal Other specified noninflammatory disorder of vagina Uterine prolapse Uterine prolapse without mention of vaginal wall prolapse Cystocele, midline documented in this encounter [facility]* Diagnosis Encounter for pessary maintenance- Primary Cystocele, midline Uterine prolapse Uterine prolapse without mention of vaginal wall prolapse [facility] Diagnosis Encounter for pessary maintenance- Primary Cystocele, midline Uterine prolapse Uterine prolapse without mention of vaginal wall prolapse [facility] N[facility]ative - Reported* Type Description Date Medical History Hypertention Medical History Hyperthyroidism Medical History Hyperlipidemia Surgical History THORACIC SPINE FUSION 2006 Surgical History BILATERAL KNEE REPLACEMENT 2006 Surgical History APPENDECTOMY 2008 Hospitalization History SEE SURGICAL HX [employer] Other History of Present illness Narrative* Talia Foster, DO - 02/28/2024 9:30 AM EST Images from [...] Gastrocnemius equinus, 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 Henson Hyperlipidemia ([facility]) Hypertension ([facility]) Menopause ovarian failure Past Surgical [...] with [facility] today [facility] No data available for this section [facility] [place] Progress note No data available for this section [facility] [place] Assessments Diagnosis Knee pain, unspecified chronicity, unspecified laterality Summary Purpose Family History No Family History Records FoundNo Family History Records FoundNo Family History Records FoundNo Family History Records Found No data available for this section No Family History Records FoundNo Family History Records Found Advance Directives No Advanced Directives Records FoundNo Advanced Directives Records FoundNo Advanced Directives Records FoundNo Advanced Directives Records FoundNo Advanced Directives Records FoundNo Advanced Directives Records Found Additional Source Comments INFORMATION SOURCE (unrecogn ized section and content) DATE CREATED AUTHOR 02/28/2022 [facility] DATE CREATED AUTHOR AUTHOR'S ORGANIZ ATION 06/20/2022 [facility] DATE CREATED AUTHOR AUTHOR'S ORGANIZ ATION 10/23/2022 [facility] DATE CREATED AUTHOR AUTHOR'S ORGANIZ ATION 04/12/2023 [facility] DATE CREATED AUTHOR AUTHOR'S ORGANIZ ATION 09/21/2024 [facility] DATE CREATED AUTHOR AUTHOR'S ORGANIZ ATION 09/28/2024 [facility] EPIC REASON FOR VISIT [...] Denies anymore vaginal spotting or pain today Reason Comments Pessary Maintenance No concerns voiced. Care Teams (unrecognized sec tion and content) Team Status: Inactive Member Role Status Dates June Lewis MD Attending Provider Active Air Brake Adjuster Relationship Specialty Start Date End Date Felix Gil MD [address] [place], [place] [phone] PCP - General Family Medicine 11/09/19 Air Brake Adjuster Relationship Specialty Start Date End Date Felix Gil MD [address] [place] [address] PCP - General 09/02/22 Air Brake Adjuster Relationship Specialty Start Date End Date Felix Gil MD [address] [place] [address] PCP - General 09/02/22 Air Brake Adjuster Relationship Specialty Start Date End Date Felix Gil MD [address] [place] [address] PCP - General 09/02/22 Air Brake Adjuster Relationship Specialty Start Date End Date Felix Gil MD [address] [place] [address] PCP - General 09/02/22 Air Brake Adjuster Relationship Specialty Start Date End Date Felix Gil MD [address] [place] [facility] [place] [address] PCP - General 09/02/22 Air Brake Adjuster Relationship Specialty Start Date End Date Felix Gil MD [address] [place] [address] PCP - General 09/02/22 Air Brake Adjuster Relationship Specialty Start Date End Date Felix Gil MD [address] [place] [facility] [place] [address] PCP - [facility] Family Medicine 09/26/24 Air Brake Adjuster Relationship Specialty Start Date End Date Felix Gil MD [address] [place] [address] PCP - General Family Medicine 09/26/24 Goals (unrecognized section and content) Goals may [...] BE BASED ON THE PRIMARY CLINICAL RECORDS. [facility] [employer] [facility]. provides no warranty or guarantee of the accuracy or completeness of information in this document.
== END 2024-11-02 14:59 | disposition home or self-care (01) ==
LOC: US 14:59
PROVIDERS: PCP Family Medicine; Visit Provider Family Medicine
DX: I82.412 Acute embolism and thrombosis of left femoral vein (principal)
CPT/HCPCS: 93971

== ENCOUNTER 2024-12-04 18:13 | Outpatient (OUT) | payer MEDICARE, SELFPAY ==
--- OUTSIDE RECORDS SUMMARY | 2024-12-04 18:15 | XMS_ITS | Clinical Summary ---
Author Organization [facility] Address [address] [place] [address] Care Team Providers Care Marine Habitat Resource Specialist Name Role Phone Oscar Gil MD Primary Care Provider [phone] Active Problems Problem Noted Date Diagnosed Date [...] Discussion 03/01/2024 Influenza Vaccine (#1) 2024 Insurance [employer] PPO Member Subscriber Plan / Payer (Ef fective 2003-Present) Name:Zahra Stapleton Relation to Subscriber:Spouse Name:TK STAPLETON Date of :1957 Address: [address] [place] [address], [place] [address] Payer ID:[id number] (NAIC) Type:PPO Address: [address] [place] [id number] [employer] Care Teams Marine Habitat Resource Specialist Relationship Specialty Start Date End Date Oscar Gil MD [address] [place] [address] PCP - General 12/05/02
--- OUTSIDE RECORDS SUMMARY | 2024-12-04 18:15 | XMS_ITS | Encounter Summary ---
Author Organization [facility] Address [address] [address] Care Team Providers Care Signs Sales Representative Name Role Phone Oscar Gil MD Primary Care Provider [phone] Oscar Gil MD Primary Care Provider [phone] Encounter Details Date Type Department Care Team (Late st Contact Info) Description 09/09/2022 Abstract [facility] [address] [place] [address] Talia Foster, DO [address] [phone] Social History Tobacco Use Types Packs/Day Years [...] Upcoming Encounters Date Type Department Care Team ([facility] st Contact Info) Description 01/30/2025 1:30 PM EST Office Visit [facility] [address] [phone] Talia Foster DO [address] [phone] documented as of this encounter Visit Diagnoses Not on filedocumented in this encounter Care Teams Signs Sales Representative Relationship Specialty Start Date End Date Oscar Gil MD PCP - General 09/02/22 09/25/24 Oscar Gil MD [address] [place] [address] PCP - General Family Medicine 09/26/24 documented as of this encounter
--- OUTSIDE RECORDS SUMMARY | 2024-12-04 18:15 | XMS_ITS | Clinical Summary ---
Author Organization [facility] Address [address] [facility] [place] [address] Care Team Providers Care Container Filler Name Role Phone Oscar Gil MD Primary Care Provider [phone] Allergies Active Allergy Reactions Criticality Noted Date [...] 09/26/2024 2:00 PM EDT [facility] [place] [facility] [address] [facility] [address] [place] [phone] Susanne Hermosillo NP Encounter for pessary maintenance (Primary Dx); Cystocele, midline; Uterine prolapse 09/26/2024 Bamboo flowsheet [facility] [place] [facility] [address] [place] [place] [address] [place] [phone] Susanne Hermosillo NP 09/26/2024 Travel from Last [...] EST Office Visit [facility] [place] [facility] [address] [address] Talia Foster DO [address] [address] Health Maintenance Due Date Last Done Comments Influenza Vaccine (#1) 2024 4, 12/02/2022, 11/19/2021, Additional history exists Pneumococcal Vaccine: 65+ Years Completed 6, 01/16/2016 Insurance [employer] Care Teams Container Filler Relationship Specialty Start Date End Date Oscar Gil MD [address] [place] [address] PCP - General Family Medicine 09/26/24
--- OUTSIDE RECORDS SUMMARY | 2024-12-04 18:15 | XMS_ITS | Clinical Summary ---
Author Organization [facility] Address [address], [address] [place] [address] Care Team Providers Care Precision Lens Grinder Apprentice Name Role Phone Oscar Gil MD Primary Care Provider [phone] Allergies Active Allergy Reactions Criticality Noted Date [...] series) 2021 Annual Wellness Visit (Medicare) 01/25/2023 Flu vaccine (#1) 09/29/2024 11/19/2021, , 11/03/2019, Additional history exists COVID-19 Vaccine ( season) 2024 11/19/2021, 07/02/2021, 11/24/2020, Additional history exists Pneumococcal 50+ years Vaccine [...] ID:Not on file Type:Not on file Address: [address] [employer] Care Teams Precision Lens Grinder Apprentice Relationship Specialty Start Date End Date Oscar Gil MD [address] [place] [address] PCP - General Family Medicine 11/09/19
--- OUTSIDE RECORDS SUMMARY | 2024-12-04 18:15 | XMS_ITS | Clinical Summary ---
Author Organization [facility] Address [address] [place] [address] Care Team Providers Care Survey Analyst Name Role Phone Unavailable Primary Care Provider Unavailabl e Social History Tobacco Use Types Packs/Day Years Used Date Smoking Tobacco: Never Assessed [place] [employer] Answer Date Rec orded [...]
--- OUTSIDE RECORDS SUMMARY | 2024-12-04 18:16 | XMS_ITS | Encounter Summary ---
Author Organization [facility] Address [address] [place] [address] Care Team Providers Care Card Services Specialist Name Role Phone Oscar Gil MD Primary Care Provider [phone] Encounter Details Date Type Department Care Team (Late st Contact Info) Description 10/20/2022 Hospital Encounter [facility] [address] [place] [address] Social History Tobacco Use Types Packs/Day Years [...] on filedocumented in this encounter Care Teams Card Services Specialist Relationship Specialty Start Date End Date Oscar Gil MD [address] [place] [address] PCP - General Family Medicine 11/09/19 documented as of this encounter
--- OUTSIDE RECORDS SUMMARY | 2024-12-04 18:17 | XMS_ITS | CCD ---
Author Organization [facility] Care Team Providers Care Model Builder Name Role Phone Felix Gil Primary Care Provider DR FELIX GIL Admitting Unavailable RICHARD, DR WASHINGTON Attending Unavailable LEWIS, DR JUNE Maldonado Primary Care Unavailable RICHARD, DR WASHINGTON Consulting Unavailable RICHARD, DR WASHINGTON Admitting Unavailable RICHARD, DR WASHINGTON Attending Unavailable LEWIS, DR JUNE Maldonado Primary Care Unavailable RIHCARD, DR WASHINGTON Consulting Unavailable WEST, DR EDVIN Roberts Consulting Unavailable RICHARD, DR WASHINGTON Admitting Unavailable RICHARD, DR WASHINGTON Attending Unavailable LEWIS, DR JUNE Maldonado Primary Care Unavailable RICHARD, DR WASHINGTON Consulting Unavailable June Lewis Unavailable MD June Lewis Attending Provider June Lewis Attending Unavailable June Lewis Admitting Unavailable Felix Gil MD Primary Care Provider [phone] BLANCHE DOBBS Referring Unavailable FELIX GIL Primary Care Unavailable BLANCHE DOBBS Referring Unavailable FELIX GIL Primary Care Unavailable MOHINDER LEHMAN Attending Unavailable MOHINDER LEHMAN Admitting Unavailable Felix Gil MD Primary Care Provider [phone] Felix Gil Primary Care Physician [phone] Doug LAGUNA Attending Unavailable Doug LAGUNA Attending Unavailable Felix Gil MD Primary Care Provider [phone] SUSANNE OGLESBY Attending Unavailable SUSANNE OGLESBY Attending Unavailable TALIA FOSTER Attending Unavailable SUSANNE OGLESBY Attending Unavailable TALIA FOSTER Attending Unavailable TALIA FOSTER Attending Unavailable Allergies Allergy Classification Reported Allergen(s) Allergy Type Date of Onset Reaction(s) Facility (10 sources) Acetaminophen; Translations: [ACETAMINOPHEN] Drug Allergy 12-09-202 0 Shortness Of Breath, Dyspnea (finding) [facility], [place] (1 source) Acetaminophen Drug Allergy 5 [facility] (13 sources) Acetaminophen Drug Allergy 0 [...] 2 Chronic Other aftercare (1 source) Other senior care (current) drug therapy; Translations: [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 Language Information Language assistance services are available as needed. Normal [facility] Urinalysis macro (dipstick) panel (U)on 02-28-2024 Bilirubin, UA Negative Negative - 4(70) +++ mg/dL [facility] Blood, UA Negative Negative - 50 Jonathon/mcL [facility] Clarity, UA Clear [facility] Color, UA Yellow [facility] Glucose, UA Negative Negative - 1999(110) ++++ mg/dL [facility] Interpretation and review of laboratory results Normal [facility] Ketones, UA Negative Negative - 160(16) ++++ mg/dL [facility] Leukocytes, UA Negative Negative - 500+++ Gino/mcL [facility] Nitrite, UA Negative Negative - Positive [facility] pH, UA 6.5 5 - 9 [facility] Protein, UA Negative Negative - 1999(20) ++++ mg/dL [facility] Spec Grav, UA 1.005 1 - 1.03 [facility] Urobilinogen, UA 1.0 0.2 - 12 mg/dL [facility] No Panel Informationon 10-27 Talia [...] Reviewed by: provider Comments: Procedure comments: LOT [id number] [facility] XR KNEE LEFT (MIN 4 VIEWS)on 10-20-2022 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 [facility]SOLIDATED EXAM: XR KNEE LEFT ( MIN 4 VIEWS) HISTORY: Acute pain of both knees COMPARISON: None. 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 No acute fracture or dislocation. Mild soft tissue swelling. Report electronically signed by: Dr. Manuel Saxena [facility] Manuel Saxena MD - 10/20/2022 EXAM: XR KNEE LEFT (MIN 4 VIEWS) HISTORY: Acute pain of both knees COMPARISON: None. 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 No acute fracture or dislocation. Mild soft tissue swelling. Report electronically signed by: Dr. 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 [facility] Phone: XR KNEE LEFT (MIN 4 VIEWS) [...] Manuel Saxena MD 10/20/22 Final result Normal [facility] Radiology Study observation (narrative) [facility] Work Phone: XR KNEE LEFT (MIN 4 VIEWS)Or dered By: Manuel Saxena on 10-20-2022 [employer] Work Phone: XR KNEE RIGHT (MIN 4 VIEWS)o n 10-20-2022 No acute findings. Intact prosthesis. [facility] RIS CONSOLIDATED EXAM: XR KNEE RIGHT (MIN [...] Report electronically signed by: Dr. Melisa Jiang [facility] Melisa Jiang MD - 10/20/2022 [...] Jiang IMPRESSION: No acute findings. Intact prosthesis. [facility] Work Phone: XR KNEE RIGHT (MIN 4 [...] Melisa Jiang MD 10/20/22 Final result Normal [facility] Radiology Study observation (narrative) [facility] Work Phone: XR KNEE RIGHT (MIN 4 VIEWS)O rdered By: Melisa Jiang on 10-20-2022 [facility] Work Phone: MISC LABon 06-10-2022 [facility] Normal [facility] Comment on above: Order Comment: [facility] Test Name: VAGINITIS/VAGINOSIS DNA PROBE # [id number] Result Comment: See report. Scanned copy available in EMR. PERFORMED BY: [place] [address] PATHOLOGIST RETAIL GREETER MEGHAN ESPINO M.D. Performed By: #### [facility] #### [address] MG MAMM SCREEN 3D HERBER CADon 02-25-2022 MG MAMM SCREEN 3D HERBER CAD Patient: MI WISE Exam Date: 02/25/2022 : 1945 Gender:F Ordering : DR FELIX GIL . Admission #: [id number] Family : Order #: [id number] CLICK HERE TO VIEW EXAM RADIOLOGY REPORT [...] ovarian cancer at age 61. LOCATION: [facility] BREAST COMPOSITION: Scattered areas fibroglandular density. [...] MD on 02/26/2022 at 11:40 Normal [facility] XR DEXA BONE DENSITYon 02-25 XR [...] EDVIN SU Date: 2022-02-25 16:21 Normal [facility] INSULINon 01-21-2022 Insulin 6.3 uIU/mL Normal 2.6-24.9 [facility] Comment on above: Performed By: #### V ITAD, IRON #### [facility] [address] [place] [address] Dr. Gabby Briones BILIRUBIN CONJUGATED (DIRECT )on 01-20-2022 BILI, CONJUGATED 0.1 mg/dL Normal 0.0-0.2 [facility] Comment on above: Performed By: #### T SH, DBIL, CMP, LIPID, FT3, T4 #### [facility] [address], [place] [address] Dr. Gabby Briones CBC AUTO DIFFon 01-20-2022 BASO # 0.0 103/ul Normal 0.0-0.1 [facility] Comment on above: Performed By: #### V ITAD, IRON #### [facility] [address] [place] [address] Dr. Gabby Briones Basophils/100 WBC (Bld) 0.6 % Normal 0.2-2.0 [facility] Comment on above: Performed By: #### V ITAD, IRON #### [facility] [address] [place] [address] Dr. Gabby Briones EO # 0.4 103/ul Normal 0.0-0.7 [facility] Comment on above: Performed By: #### V ITAD, IRON #### [facility] [address] [place] [address] Dr. Gabby Briones Eosinophils/100 WBC (Bld) 6.0 % Normal 0.9-7.0 [facility] Comment on above: Performed By: #### V ITAD, IRON #### [facility] [address] [place] [address] Dr. Gabby Briones Erythrocyte distribution width (RBC) [Ratio] 13.7 % Normal 11.0-15.0 [facility] Comment on above: Performed By: #### V ITAD, IRON #### [facility] [address] [place] [address] Dr. Gabby Briones Hematocrit (Bld) [Volume fraction] 41.9 % Normal 36.0-48.0 [facility] Comment on above: Performed By: #### V ITAD, IRON #### [facility] [address] [place] [address] Dr. Gabby Briones Hemoglobin (Bld) [Mass/Vol] 14.0 g/dL Normal 12.0-16.0 [facility] Comment on above: Performed By: #### V ITAD, IRON #### [facility] [address] [place] [address] Dr. Gabby Briones IG # 0.02 10e3/ul Normal 0.00-0.03 [facility] Comment on above: Performed By: #### V ITAD, IRON #### [facility] [address] [address] [address] Gabby Briones IG % 0.3 % Normal 0.0-0.5 [facility] Comment on above: Performed By: #### V ITAD, IRON #### [facility] [address] [place] [address] Dr. Gabby Briones LYMPH # 2.6 103/ul Normal 1.2-3.8 [facility] Comment on above: Performed By: #### V ITAD, IRON #### [facility] [address] [place] [address] Dr. Gabby Briones Lymphocytes/100 WBC (Bld) 39.7 % Normal 20.5-60.0 [facility] Comment on above: Performed By: #### V ITAD, IRON #### [facility] [address] [place] [address] Dr. Gabby Briones MANUAL DIFF REQ NO Normal [facility] Comment on above: Performed By: #### V ITAD, IRON #### [facility] [address] [place] [address] Dr. Gabby Briones MCH (RBC) [Entitic mass] 29.6 pg Normal 26.7-34.0 [facility] Comment on above: Performed By: #### V ITAD, IRON #### [facility] [address] [place] [address] Dr. Gabby Briones MCHC (RBC) [Mass/Vol] 33.4 g/dL Normal 29.9-35.2 [facility] Comment on above: Performed By: #### V ITAD, IRON #### [facility] [address] [place] [address] Dr. Gabby Briones MCV (RBC) [Entitic vol] 88.6 fL Normal 81.0-99.0 [facility] Comment on above: Performed By: #### V ITAD, IRON #### [facility] [address] [place] [address] Dr. Gabby Briones MONO # 0.6 103/ul Normal 0.3-0.8 [facility] Comment on above: Performed By: #### V ITAD, IRON #### [facility] [address] [address] [address] Gabby Briones Monocytes/100 WBC (Bld) 8.8 % Normal 1.7-12.0 [facility] Comment on above: Performed By: #### V ITAD, IRON #### [facility] [address] [place] [address] Dr. Gabby Briones NEUT # 2.9 103/ul Normal 1.4-6.5 [facility] Comment on above: Performed By: #### V ITAD, IRON #### [facility] [address] [place] [address] Dr. Gabby Briones Neutrophils/100 WBC (Bld) 44.6 % Normal 43.0-75.0 [facility] Comment on above: Performed By: #### V ITAD, IRON #### [facility] [address] [place] [address] Dr. Gabby Briones Platelet mean volume (Bld) [Entitic vol] 9.4 fL Critically low 9.5-13.5 [facility] Comment on above: Performed By: #### V ITAD, IRON #### [facility] [address] [place] [address] Dr. Gabby Briones PLT 326 103/ul Normal 150-450 [facility] Comment on above: Performed By: #### V ITAD, IRON #### [facility] [address] [place] [address] Dr. Gabby Briones RBC 4.73 106/ul Normal 4.20-5.40 [facility] Comment on above: Performed By: #### V ITAD, IRON #### [facility] [address] [place] [address] Dr. Gabby Briones WBC 6.5 103/ul Normal 4.0-11.0 [facility] Comment on above: Performed By: #### V ITAD, IRON #### [facility] [address] [place] [address] Dr. Gabby Briones FREE T3on 01-20-2022 FREE T3 2.47 pg/mlL Normal 2.18-3.98 [facility] Comment on above: Performed By: #### T SH, DBIL, CMP, LIPID, FT3, T4 #### [facility] [address] [address] [address] Gabby Brioens GLYCOHEMOGLOBIN A1Con 2021 ADA RECOMMENDATION SEE BELOW Normal [facility] Comment on above: Result Comment: ADA RECOMMENDED LIMIT 4.0 - 6.0 ADA THERAPEUTIC TARGET < 7.0 ACTION SUGGESTED > 7.0 Performed By: #### V ITDYLAN, IRON #### [facility] [address] [address] [address] Gabby Briones Glucose [Mass/Vol] 111 mg/dL Normal [facility] Comment on above: Performed By: #### V ANIBAL, IRON #### [facility] [address] [place] [address] Dr. Gabby Briones HbA1c (Bld) [Mass fraction] 5.5 % Normal 4.5-6.2 [facility] Comment on above: Performed By: #### V ANIBAL, IRON #### [facility] [address] [place] [address] Dr. Gabby Briones IRONon 01-20-2022 Iron [Mass/Vol] 92.0 ug/dL Normal 50.0-170.0 [facility] Comment on above: Performed By: #### V ANIBAL, IRON #### [facility] [address] [place] [address] Dr. Gabby Briones LIPID PROFILEon 01-20-2022 CHOL-HDL RATIO NORM SEE BELOW Normal [facility] Comment on above: Result Comment: 3.3 - 4.4 LOW RISK 4.4 - 7.1 AVERAGE RISK 7.1 - 11.0 MODERATE RISK >11.0 HIGH RISK Performed By: #### T SH, DBIL, CMP, LIPID, FT3, T4 #### [facility] [address] [place] [address] Dr. Gabby Briones Cholesterol [Mass/Vol] 183 mg/dL Normal <=200 [facility] Comment on above: Performed By: #### T SH, DBIL, CMP, LIPID, FT3, T4 #### [facility] [address] [place] [address] Dr. Gabby Briones Cholesterol in HDL [Mass/Vol] 56 mg/dL Normal 40-60 [facility] Comment on above: Performed By: #### T SH, DBIL, CMP, LIPID, FT3, T4 #### [facility] [address] [address] [address] Gabby Briones Cholesterol in LDL [Mass/Vol] 102.8 mg/dL Normal [facility] Comment on above: Performed By: #### T SH, DBIL, CMP, LIPID, FT3, T4 #### [facility] [address] [address] [address] Gabby Briones Cholesterol.total/C holesterol in HDL [Mass ratio] 3.3 {ratio} Normal [facility] Comment on above: Performed By: #### T SH, DBIL, CMP, LIPID, FT3, T4 #### [facility] [address] [address] [address] Gabby Briones HDL NORMAL > or = 60 mg/dl - LO W CARDIOVASCULAR RISK <40 mg/dl - HIGH CARDIOVASCULAR RISK Normal [facility] Comment on above: Performed By: #### T SH, DBIL, CMP, LIPID, FT3, T4 #### [facility] [address] [address] [address] Gabby Birones LDL CALC NORMAL SEE BELOW Normal [facility] Comment on above: Result Comment: <100 mg/dl OPTIMAL 100 - 129 mg/dl NEAR OR ABOVE OPTIMAL 130 - 159 mg/dl BORDERLINE HIGH 160 - 189 mg/dl HIGH >190 mg/dl VERY HIGH Performed By: #### T SH, DBIL, CMP, LIPID, FT3, T4 #### [facility] [address] [address] [address] Gabby Briones Triglyceride [Mass/Vol] 121 mg/dL Normal <=150 [facility] Comment on above: Performed By: #### T SH, DBIL, CMP, LIPID, FT3, T4 #### [facility] [address] [address] [address] Gabby Briones VLDL CALC 24.2 mg/dL Normal [facility] Comment on above: Performed By: #### T SH, DBIL, CMP, LIPID, FT3, T4 #### [facility] [address] [place] [address] Dr. Gabby Briones PROF 14(COMP METB)on 022 Albumin [Mass/Vol] 3.4 g/dL Normal 3.4-5.0 [facility] Comment on above: Performed By: #### T SH, DBIL, CMP, LIPID, FT3, T4 #### [facility] [address] [place] [address] Dr. Gabby Briones Albumin/Globulin [Mass ratio] 1.0 {ratio} Normal [facility] Comment on above: Performed By: #### T SH, DBIL, CMP, LIPID, FT3, T4 #### [facility] [address] [place] [address] Dr. Gabby Briones ALP [Catalytic activity/Vol] 50 U/L Normal 46-116 [facility] Comment on above: Performed By: #### T SH, DBIL, CMP, LIPID, FT3, T4 #### [facility] [address] [place] [address] Dr. Gabby Briones ALT [Catalytic activity/Vol] 17 U/L Normal 14-59 [facility] Comment on above: Performed By: #### T SH, DBIL, CMP, LIPID, FT3, T4 #### [facility] [address] [place] [address] Dr. Gabby Briones Anion gap [Moles/Vol] 13.7 mmol/L Normal [facility] Comment on above: Performed By: #### T SH, DBIL, CMP, LIPID, FT3, T4 #### [facility] [address] [place] [address] Dr. Gabby Briones AST [Catalytic activity/Vol] 13 U/L Critically low 15-37 [facility] Comment on above: Performed By: #### T SH, DBIL, CMP, LIPID, FT3, T4 #### [facility] [address] [place] [address] Dr. Gabby Briones Bilirubin [Mass/Vol] 0.4 mg/dL Normal 0.2-1.0 [facility] Comment on above: Performed By: #### T SH, DBIL, CMP, LIPID, FT3, T4 #### [facility] [address] [place] [address] Dr. Gabby Briones Calcium [Mass/Vol] 9.1 mg/dL Normal 8.5-10.1 [facility] Comment on above: Performed By: #### T SH, DBIL, CMP, LIPID, FT3, T4 #### [facility] [address] [address] [address] Gabby Briones Chloride [Moles/Vol] 106 mmol/L Normal 98-107 [facility] Comment on above: Performed By: #### T SH, DBIL, CMP, LIPID, FT3, T4 #### [facility] [address] [place] [address] Dr. Gabby Briones CO2 [Moles/Vol] 25.8 mmol/L Normal 21.0-32.0 [facility] Comment on above: Performed By: #### T SH, DBIL, CMP, LIPID, FT3, T4 #### [facility] [address] [place] [address] Dr. Gabby Briones Creatinine [Mass/Vol] 0.76 mg/dL Normal 0.55-1.02 [facility] Comment on above: Performed By: #### T SH, DBIL, CMP, LIPID, FT3, T4 #### [facility] [address] [place] [address] Dr. Gabby Briones EGFR-AF CHILEAN >60 Normal >=60 [facility] Comment on above: Performed By: #### T SH, DBIL, CMP, LIPID, FT3, T4 #### [facility] [address] [place] [address] Dr. Gabby Briones EGFR-NON AF CHILEAN >60 Normal >=60 [facility] Comment on above: Performed By: #### T SH, DBIL, CMP, LIPID, FT3, T4 #### [facility] [address] [place] [address] Dr. Gabby Briones Globulin (S) [Mass/Vol] 3.5 g/dL Normal [facility] Comment on above: Performed By: #### T SH, DBIL, CMP, LIPID, FT3, T4 #### [facility] [address] [place] [address] Dr. Gabby Briones Glucose [Mass/Vol] 101 mg/dL Normal 74-106 [facility] Comment on above: Performed By: #### T SH, DBIL, CMP, LIPID, FT3, T4 #### [facility] [address] [place] [address] Dr. Gabby Broines Potassium [Moles/Vol] 4.5 mmol/L Normal 3.5-5.1 [facility] Comment on above: Performed By: #### T SH, DBIL, CMP, LIPID, FT3, T4 #### [facility] [address] [place] [address] Dr. Gabby Briones Protein [Mass/Vol] 6.9 g/dL Normal 6.4-8.2 [facility] Comment on above: Performed By: #### T SH, DBIL, CMP, LIPID, FT3, T4 #### [facility] [address] [place] [address] Dr. Gabby Briones Sodium [Moles/Vol] 141 mmol/L Normal 136-145 [facility] Comment on above: Performed By: #### T SH, DBIL, CMP, LIPID, FT3, T4 #### [facility] [address] [place] [address] Dr. Gabby Briones Urea nitrogen [Mass/Vol] 22.0 mg/dL Critically high 7.0-18.0 [facility] Comment on above: Performed By: #### T SH, DBIL, CMP, LIPID, FT3, T4 #### [facility] [address] [place] [address] Dr. Gabby Briones Urea nitrogen/Creatinine [Mass ratio] 28.9 mg/mg Normal [facility] Comment on above: Performed By: #### T SH, DBIL, CMP, LIPID, FT3, T4 #### [facility] [address] [place] [address] Dr. Gabby Briones T4on 01-20-2022 T4 [Mass/Vol] 7.30 ug/dL Normal 4.80-13.90 [facility] Comment on above: Performed By: #### T SH, DBIL, CMP, LIPID, FT3, T4 #### [facility] [address] [place] [address] Dr. Gabby Briones TSHon 01-20-2022 TSH 0.467 uIU/mL Normal 0.358-3.740 [facility] Comment on above: Performed By: #### T SH, DBIL, CMP, LIPID, FT3, T4 #### [facility] [address] [place] [address] Dr. Gabby Briones VITAMIN D 25 OHon 01-20-2022 VIT D 25-OH 34.9 ng/mL Normal [facility] Comment on above: Performed By: #### V ANIBAL, IRON #### [facility] [address] [place] [address] Dr. Gabby Briones VIT D RANGES SEE BELOW Normal [facility] Comment on above: Result Comment: <20 ng/mL Vit D deficient 20 - <30 ng/mL Vit D insufficient 30 - 100 ng/mL Vit D sufficient >100 ng/mL Potential Toxicity Performed By: #### V ANIBAL, IRON #### [facility] [address] [place] [address] Dr. Gabby Briones BNPon 05-08-2021 Natriuretic peptide B (Bld) [Mass/Vol] 125.0 pg/mL Normal <=1,800.0 [facility] Comment on above: Performed By: #### V ANIBAL, IRON #### [facility] [address] [place] [address] Dr. Gabby Briones FREE THYROXINE INDEX T7on FTI 2.21 Normal [facility] Comment on above: Performed By: #### V ANIBAL, IRON #### [facility] [address] [place] [address] Dr. Gabby Briones T3U 34.0 % Normal 23.5-40.5 [facility] Comment on above: Performed By: #### V ANIBAL, IRON #### [facility] [address], [place] [address] Dr. Gabby Briones T4 [Mass/Vol] 6.50 ug/dL Normal 5.53-11.00 [facility] Comment on above: Performed By: #### V ITAD, IRON #### [facility] [address], [place] [address] Dr. Gabby Briones TSHon 05-08-2021 TSH 0.658 uIU/mL Normal 0.470-4.680 [facility] Comment on above: Performed By: #### V ITAD, IRON #### [facility] [address] [address] [address] Gabby Briones TSH RANGE SEE BELOW Normal [facility] Comment on above: Result Comment: <0.3 4 UIU/ml HYPERTHYROID 0.34-5.60 UIU/ml EUTHYROID >5.60 UIU/ml HYPOTHYROID Performed By: #### V ITAD, IRON #### [facility] [address] [address] [address] Gabby Briones Otheron 02-07-2020 1. 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 No hardware complications identified. 2. Small dystrophic ossific densities are again seen posterior to both knee joints. 3. Small enthesophytes along the anterior-superior and anterior-inferior right patella are again noted. 4. No fracture or dislocation is identified. [place], [place] BILATERAL KNEE RADIOGRAPHS 02/07/2020. COMPARISON: Knee radiographs dated 01/13/2018. HISTORY: Knee pain, unspecified chronicity, unspecified laterality. TECHNIQUE: Standing frontal, tunnel, lateral, and sunrise views of both knees were obtained. Report electronically signed by: Dr. Kaz Govea [place], [place], Incoming Radiant Results From [facility] - 02/07/2020 [...] 4. No fracture or dislocation is identified. [facility], [place] Vital Signs Date Time Vital Sign Value Performing Clinician Eri banks 09-26-2024 14:18-0400 Body mass index (BMI) [Ratio] 27.06 kg/m2 Susanne Oglesby IT COMMUNICATIONS SPECIALIST Work Phone: [facility] 09-26-2024 14:18-0400 Body weight 80.74 kg Susanne Oglesby IT COMMUNICATIONS SPECIALIST Work Phone: [facility] 09-26-2024 14:18-0400 Diastolic blood pressure 60 mm[Hg] Susanne Oglesby IT COMMUNICATIONS SPECIALIST Work Phone: [facility] 09-26-2024 14:18-0400 Systolic blood pressure 142 mm[Hg] Susanne Oglesby IT COMMUNICATIONS SPECIALIST Work Phone: [facility] 05-25-2024 14:35-0400 Body height 172.7 cm Susanne Oglesby IT COMMUNICATIONS SPECIALIST Work Phone: [facility] 05-25-2024 14:35-0400 Body mass index (BMI) [Ratio] 26.76 kg/m2 Susanne Retanaman IT COMMUNICATIONS SPECIALIST Work Phone: [facility] 05-25-2024 14:35-0400 Body weight 79.83 kg Susanne Oglesby IT COMMUNICATIONS SPECIALIST Work Phone: [facility] 05-25-2024 14:35-0400 Diastolic blood pressure 80 mm[Hg] Susanne Oglesby IT COMMUNICATIONS SPECIALIST Work Phone: [facility] 05-25-2024 14:35-0400 Systolic blood pressure 120 mm[Hg] Susanne Oglesby IT COMMUNICATIONS SPECIALIST Work Phone: [facility] 02-28-2024 08:51-0500 Diastolic blood pressure 72 mm[Hg] Talia Foster DO Work Phone: [facility] 02-28-2024 08:51-0500 Systolic blood pressure 152 mm[Hg] Talia Nataprawira DO Work Phone: [facility] 02-07-2024 09:58-0500 Body mass index (BMI) [Ratio] 27.98 kg/m2 Talia Nataprawira DO Work Phone: [facility] 02-07-2024 09:58-0500 Body weight 83.46 kg Talia Nataprawira DO Work Phone: [facility] 02-07-2024 09:58-0500 Diastolic blood pressure 80 mm[Hg] Talia Nataprawira DO Work Phone: [facility] 02-07-2024 09:58-0500 Systolic blood pressure 140 mm[Hg] Talia Nataprawira DO Work Phone: [facility] 11-11-2023 11:38-0400 Body height 172.7 cm Susanne Oglesby IT COMMUNICATIONS SPECIALIST Work Phone: [facility] 11-11-2023 11:38-0400 Body mass index (BMI) [Ratio] 27.83 kg/m2 Susanne Oglesby IT COMMUNICATIONS SPECIALIST Work Phone: [facility] 11-11-2023 11:38-0400 Body weight 83.01 kg Susanne Oglesby IT COMMUNICATIONS SPECIALIST Work Phone: [facility] 11-11-2023 11:38-0400 Diastolic blood pressure 82 mm[Hg] Susanne Oglesby IT COMMUNICATIONS SPECIALIST Work Phone: [facility] 11-11-2023 11:38-0400 Systolic blood pressure 124 mm[Hg] Susannetristin Oglesby IT COMMUNICATIONS SPECIALIST Work Phone: [facility] 10-28-2023 15:03-0400 Body mass index (BMI) [Ratio] 27.98 kg/m2 Talia Nataprawira DO Work Phone: [facility] 10-28-2023 15:03-0400 Body weight 83.46 kg Talia Nataprawira DO Work Phone: [facility] 10-28-2023 15:03-0400 Diastolic blood pressure 78 mm[Hg] Talia Nataprawira DO Work Phone: [facility] [employer] 10-28-2023 15:03-0400 Systolic blood pressure 126 mm[Hg] Talia Nataprawira DO Work Phone: [facility] [employer] 06-10-2022 10:00-0400 Body height 143.51 cm June Lewis Other [employer] Other 06-10-2022 10:00-0400 Body mass index (BMI) [Ratio] 41.84 kg/m2 June Lewis Other [employer] Other 06-10-2022 10:00-0400 Body weight 86.18 kg June Lewis Other [employer] Other 06-10-2022 10:00-0400 Diastolic blood pressure 78 mm[Hg] June Lewis Other [employer] Other 06-10-2022 10:00-0400 SaO2% (BldA) [Mass fraction] 92 % June Lewis Other [employer] Other 06-10-2022 10:00-0400 Systolic blood pressure 140 mm[Hg] June Lewis Other [employer] Other Encounters Encounter Date Encounter Type Care Provider Facility Start: 09-26-2024 End: 09-26-2024 Bamboo flowsheet Susanne Oglesby IT COMMUNICATIONS SPECIALIST Work Phone: [facility] Start: 09-26-2024 End: 09-26-2024 Bamboo flowsheet Susanne Oglesby IT COMMUNICATIONS SPECIALIST Work Phone: [facility] Start: 09-26-2024 End: 09-26-2024 Office outpatient visit 15 minutes Susanne Oglesby NP Work Phone: [facility] Comment on above: Encounter for pessar y maintenance (Primary Dx); Cystocele, midline; Uterine prolapse Start: 09-26-2024 End: 09-26-2024 ambulatory SUSANNE OGLESBY Not Available Start: 09-06-2024 End: 09-06-2024 ambulatory Doug LAGUNA Facility::[id number] Start: 08-23-2024 End: 08-23-2024 ambulatory Doug HUERTAL Facility:[facility] Start: 08-23-2024 End: 08-23-2024 Patient encounter procedure Doug LAGUNA [facility] Start: 07-27-2024 ambulatory Doug LAGUNA Facility:[facility] Start: 05-25-2024 End: 05-25-2024 Office outpatient visit 15 minutes Susanne Oglesby IT COMMUNICATIONS SPECIALIST Work Phone: [facility] Comment on [...] 11-11-2023 End: 11-11-2023 Bamboo flowsheet Susanne Oglesby IT COMMUNICATIONS SPECIALIST Work Phone: [facility] Start: 11-11-2023 End: 11-11-2023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
== END 2024-12-04 18:14 | disposition home or self-care (01) ==
PROVIDERS: PCP Family Medicine; Visit Provider Family Medicine
DX: R60.0 Localized edema (principal)
CPT/HCPCS: 93971

== ENCOUNTER 2024-12-05 15:37 | Outpatient (RCR) | payer MEDICARE, SELFPAY | END 2024-12-29 23:59 | disposition home or self-care (01) | LOC: MM 15:37 | PROVIDERS: PCP Family Medicine; Visit Provider Internal Medicine | DX: Z51.81 Encounter for therapeutic drug level monitoring (principal); Z79.01 Long term (current) use of anticoagulants ==

== ENCOUNTER 2024-12-30 | Outpatient (RCR) | payer MEDICARE, SELFPAY | END 2025-01-28 23:59 | disposition home or self-care (01) | LOC: MM | PROVIDERS: PCP Family Medicine; Visit Provider Internal Medicine | DX: Z51.81 Encounter for therapeutic drug level monitoring (principal); Z79.01 Long term (current) use of anticoagulants ==

== ENCOUNTER 2025-01-29 10:43 | Outpatient (RCR) | payer MEDICARE, SELFPAY | END 2025-02-28 12:43 | disposition home or self-care (01) | LOC: MM 10:43 | PROVIDERS: PCP Family Medicine; Visit Provider Internal Medicine | DX: Z51.81 Encounter for therapeutic drug level monitoring (principal); Z79.01 Long term (current) use of anticoagulants ==

== ENCOUNTER 2025-02-01 06:41 | Outpatient (OUT) | payer MEDICARE, SELFPAY ==
--- OUTSIDE RECORDS SUMMARY | 2025-01-29 12:02 | XMS_ITS ---
Author Organization [facility] [place] Address [address] [place] [address] Care Team Providers Care Professional Programmer Analyst Name Role Phone Jeronimo Gil Primary Care Provider [phone] REASON FOR VISIT yearly labs Encounters Encounter Location Date Provider Diagnosis [facility] [address] [place] [address] 01/29/2025 Jeronimo Gil HTN (hypertension) I 10 and Fatigue R53.83 Assessments Encounter Date Diagnosis (ICD Code) Assessment Notes Treatment Notes Treatment Clinical Notes Section Notes 01/29/2025 HTN (hypertension) (ICD-10 - I10 ) 01/29/2025Fatigue (ICD-10 - R53.83) Plan Of Treatment Pending Test Test Name Order Date CBC 01/29/2025 CMP - Comprehensive Metabolic Panel 0 03/2024 GLYCOHEMOGLOBIN A1C 01/29/2025 LIPID PROFILE 01/29/2025 THYROID PANEL (T4/TSH/FREE T3) Progress Notes * Mi STAPLETON WDOB: 7 (79 yo F)Acc No.[id number]:01/29/2025 Patient:?Mi STAPLETON :1945???Age:79 Y???Sex:FemalePhone:[phone] Address:[address] [place] [address], [address] Subjective: * Chief Complaints: * Y early labs * Medical History: * Surgical History: * Hospitalization/Major Diagno stic Procedure: * Medications: Objective: * Vitals: * Physical Examination: ??? Assessment: * Assessment: 1.?HTN (hypertension) - I10 (Primary)???2.?Fatigue - R53.83?? Plan: * Treatment: ?LAB: CBC ?LAB: CMP - Comprehensive Metabolic Panel ?LAB: GLYCOHEMOGLOBIN A1C ?LAB: LIPID PROFILE ?LAB: THYROID PANEL (T4/TSH/FREE T3)2.?Fatigue?LAB: CBC ?LAB: CMP - Comprehensive Metabolic Panel ?LAB: GLYCOHEMOGLOBIN A1C ?LAB: LIPID PROFILE ?LAB: THYROID PANEL (T4/TSH/FREE T3) * Procedure Codes: * true * Date:?Generated for Printing/Faxing/eTransmitting on:?02/01/2025 06:43 AM EST
--- OUTSIDE RECORDS SUMMARY | 2025-02-01 06:43 | XMS_ITS | Clinical Summary ---
Author Organization [facility] Address [address] [facility] [place] [address] Care Team Providers Care City Comptroller Name Role Phone Oscar Gil MD Primary Care Provider [phone] Allergies Active AllergyReactionsCriticalityNoted DateCommentsAcetaminophenShortness of dszcspCdos63/09/2020 Other Reaction(s): SOB/cyanosis Medications MedicationSigDispense QuantityRefillsLast FilledStart DateEnd DateStatus simvastatin (Zocor) 40 MG tablet 40 mg 1 (one) time each day at the same time.Active lisinopril 10 MG tablet 10 mg 1 (one) time each day at the same time.Active aspirin 81 MG chewable tablet 81 mg 1 (one) time each day at the same time.Active Levothyroxine Sodium (LEVOTHROID PO) 50 mcg.Active naproxen (EC Naprosyn) 500 MG EC tablet Take 500 mg by mouth in the morning and 500 mg in the evening. Take with meals. Do not crush, chew,or split..Active Eliquis 5 MG tablet Take 5 mg by mouth in the morning and 5 mg before bedtime.5Active Active Problems No known active problems Encounters DateTypeDepartmentCare UeroLwynepbsuur35/21/2025 8:30 AM EDTOffice Visit [facility] [address] [address] Talia Foster, DO Encounter for pessary maintenance (Primary Dx); Cystocele, midline; Uterine prolapse; Stress incontinence; Urge tkyvhzxrhwwl31/21/2025Results Follow-Up [facility] [address] [place] Starr [address] [address] Talia Foster, Urine dip12/19/2024Travelfrom Last 3 Months Family History RelationNameStatusCommentsFatherDeceasedMotherDeceased Social History Tobacco UseTypesPacks/DayYears UsedDateSmoking Tobacco: FormerCigarettes Smokeless Tobacco: Never Tobacco Cessation:Counseling Given: Not Answered Comments:Last smoked : 20 years Alcohol UseStandard Drinks/WeekCommentsYes1 (1 standard drink = 0.6 oz pure alcohol)1 or 2 a monthCommentsNoSex and Gender InformationValueDate RecordedSex Assigned at EnxpnSgspqr88/05/2023 8:58 AM EDTLegal SexFemale 05/13/2022 7:39 PM EDTGender EoksnutvVvyoox99/05/2023 8:58 AM EDTSexual OrientationChoose not to aqnwqgzo24/05/2023 8:58 AM EDTSexual OrientationDon't know09/02/2022 8:58 AM EDTSexual HuwxfhtwruzDvo55/05/2023 8:58 AM EDTSexual UhnodjqhwocHnvejlt30/05/2023 8:58 AM EDTSexual OrientationLesbian or Munoz 09/02/2022 8:58 AM EDTSexual SwevkfvbujvPjhtzbvso07/05/2023 8:58 AM EDT Last Filed Vital Signs Vital SignReadingTime TakenCommentsBlood Btzraxng804/7612/19/2024 8:39 AM EDT Pulse--Vtyhffypijm05.4 ??C (97.5 ??F)10/01/2022 3:48 PM EDTRespiratory Rate-- Oxygen Saturation--Inhaled Oxygen Concentration--Xmocoy96.7 kg (178 lb) 12/19/2024 8:39 AM FDSKjsmsp358.7 cm (5' 8 )05/25/2024 2:35 PM EDTBody Mass Index27.0605/25/2024 2:35 PM EDT Plan of Treatment DateTypeDepartmentCare Team (Latest Contact Info)Kxlunkzqyaq94/04/2026 8:20 AM ESTOffice Visit [facility] [address] [id number] Susanne Hermosillo NP [address] [place] [address] Health MaintenanceDue DateLast DoneCommentsCOVID-19 Vaccine (2024- season) 51, 11/18/2023, 12/02/2022, Additional history exists Pneumococcal Vaccine: 65+ ThlbjTqxfuqvwo21/06/2016, 01/16/2016Influenza Vaccine Jhxvoqwtc96/07/2025, 11/18/2023, 12/02/2022, Additional history exists Procedures Procedure NamePriorityDate/TimeAssociated DiagnosisCommentsPOCT URINALYSIS WOZBLQCDKngzozc22/21/2025 9:02 AM EDT Encounter for pessary maintenance Cystocele, midline Uterine prolapse Stress incontinence Urge incontinence from Last 3 Months Results * Urine dip (12/19/2024 9:02 AM EDT)ComponentValueRef RangeTest MethodAnalysis TimePerformed AtPathologist SignatureColor, UAAmberClarity, UAClearGlucose, UA NegativeNegative - 1999(110) ++++ mg/dLBilirubin, UANegativeNegative - 4(70) +++ mg/dLKetones, UANegativeNegative - 160(16) ++++ mg/dLSpec Grav, UA1.0201 - 1.03Blood, UANegativeNegative - 50 Jonathon/mcLpH, UA5.05 - 9Protein, UATrace Negative - 2000(20) ++++ mg/dLUrobilinogen, UA1.00.2 - 12 mg/dLLeukocytes, UA NegativeNegative - 500+++ Gino/mcLNitrite, UANegativeNegative - Positive Specimen (Source)Anatomical Location / LateralityCollection Method / Volume Collection TimeReceived UvbhDnoho14/21/2025 9:02 AM EDT Narrative Authorizing ProviderResult TypeResult StatusMona J Nataprawira DOPOINT OF CARE TEST ENTER/EDIT ORDERABLESFinal Result from Last 3 Months Insurance Care Teams Team MemberRelationshipSpecialtyStart DateEnd Oscar Gil MD [address] [place] [phone] PCP - GeneralFamily Medicine09/26/24
--- OUTSIDE RECORDS SUMMARY | 2025-02-01 06:43 | XMS_ITS | Patient Health Record ---
Author Organization [facility] Address [address] [place] [address] Care Team Providers Care Crime Laboratory Analyst Name Role Phone Oscar Gil Primary Care Provider Charlie Miguel Unavailable [phone] Self, Referral Unavailable Unavailable Allergies Allergen (clinical drug ingredient) Drug/Non Drug Allergy documented on EMR Reaction Allergy Type Onset Date Status acetaminophen acetaminophen Unknown Drug Allergy Active Reason For Referral No Information Medications Medication SIG (Take, Route, Frequency, Duration) Notes Start Date End Date Status levothyroxine 4Activelisinopril 10 mgTAKE 1 TABLET BY MOUTH EVERY DAY; Duration: 90 DaysActive Social History Tobacco Use: Social History Observation Description Date Details (start date - stop date) Former Smoker NA - NA Smoking History Question Answer Notes Smoking Status Former Smoker How long since you quit> 10 yearsAUDIT-C (Standard) Question Answer Notes Did you have a drink containing alcohol in the p ast year? Yes How often did you have six or more drinks on one occasion in the past year?Never (0 point)How many drinks did you have on a typical day when you were drinking in the past year?Declined to specify (0 point)How often did you have a drink containing alcohol in the past year?Monthly or less (1 point) Problems Problem Type SNOMED Code ICD Code Onset Dates Problem Status W/U Status Risk Notes Problem History of musculosk eletal operation (982657600) Aftercare following joint replacement surgery (Z47.1) ActiveconfirmedProblemArtificial knee joint present (430389435969)Presence of left artificial knee joint (Z96.652)ActiveconfirmedProblemPain of left knee region (finding) (969491048861386)Left knee pain, unspecified chronicity (M25.562)ActiveconfirmedProblemPain in prosthetic joint, initial encounter (T84.84XA)Activeconfirmed Plan Of Treatment Pending Test Test Name Order Date CBC WITH DIFF, ESR, CRP 11/22/2023 SCC- KNEE 4 VIEW LEFT-41607 11/22/2023 BONE SCAN 3 PHASE 11/22/2023 Insurance Providers Payer Name Payer Address Payer Phone Subscriber Number Group Number Insured Name Patient Relationship to Insured Coverage Start Date Coverage End Date Medicare [employer] [facility] [address] [place] [id number] Wilber WISE - patient is the insured Medical (General) History Medical History History ICD Code CPAP Machine:: No Healthcare worker: NoHigh Blood Pressure: YesLatex Allergy: NoOsteoporosis: Yes Thyroid disease: YesHave you been in close contact with someone who has had MRSA within the last year?: NoHave you ever had or presently have MRSA?: NoHave you been seen by a dentist in the last year?: YesDo you have any dental problems i.e. Broken, loose, or chipped teeth, absess, gum disease?: NoSurgical History Surgery Date(Month/Year) 1994 L knee replacr 1999 L k nee redo and R knee replace 2002 crushed T &2017 achilies 2023 R shoulder total reverse
--- OUTSIDE RECORDS SUMMARY | 2025-02-01 06:43 | XMS_ITS | Clinical Summary ---
Author Organization [facility] Address [address] [place] [address] Care Team Providers Care Cellar Worker Name Role Phone Oscar Gil MD Primary Care Provider [phone] Active Problems ProblemNoted DateDiagnosed DateFracture of vertebral column without mention of spinal cord cshknc1710/16/2003 Social History Tobacco UseTypesPacks/DayYears UsedDateSmoking Tobacco: Never Assessed CommentsNoSex and Gender InformationValueDate RecordedSex Assigned at BirthNot on fileLegal McoUgbeia41/02/2012 10:00 AM ESTGender IdentityNot on fileSexual OrientationNot on file Plan of Treatment Health MaintenanceDue DateLast DoneCommentsAnxiety Zlgtitazm96/25/1965Depression Nuwtejmld89/25/1965Hepatitis C Oqlpelxis28/25/1965DTaP,Tdap,Td Vaccine (1 - Tdap)1965Diabetes Gpltnbllt70/25/1992Pneumococcal Vaccine: 50+ (1 of 1 - PCV)1996Shingrix Vaccine (1 of 2)1996Bone Density Screening 2011RSV Vaccine (1 - 1-dose 75+ series)2021dvance Directive Beagmjarvu59/01/2025ovid-19 Vaccine (1 - 2024-26 season)2024Influenza Vaccine (#1)2024 Insurance * Guarantor: Zahra Stapleton TypeRelation to PatientDate of BirthPhone Billing LrfpggnUbfwqycjBybw57/[birth year][address] [place] [id number] Care Teams Team MemberRelationshipSpecialtyStart DateEnd Date Oscar Gil MD [address] [place], [place] [id number] [facility] - Lzlhnmq84/7/03
--- OUTSIDE RECORDS SUMMARY | 2025-02-01 06:43 | XMS_ITS | Clinical Summary ---
Author Organization [facility] Address [address], [address] [place] [address] Care Team Providers Care Veterinary Dentist Name Role Phone Oscar Gil MD Primary Care Provider [phone] Allergies Active AllergyReactionsCriticalityNoted DateCommentsAcetaminophenShortness Of KbbnnvOezk18/09/2020 Medications MedicationSigDispense QuantityRefillsLast FilledStart DateEnd DateStatus lisinopril (PRINIVIL;ZESTRIL) 10 MG tablet TAKE 1 TABLET BY MOUTH EVERY DAY01/27/2020Active meloxicam (MOBIC) 15 MG tablet TAKE 1 TABLET BY MOUTH EVERY DAY01/28/2020Active omeprazole (PRILOSEC) 20 MG delayed release capsule TAKE 1 CAPSULE BY MOUTH EVERY DAY01/11/2020Active simvastatin (ZOCOR) 40 MG tablet TAKE 1 TABLET BY MOUTH EVERY DAY01/21/2020Active cetirizine (ZYRTEC) 10 MG tablet Take 10 mg by mouth dailyActive Active Problems ProblemNoted DateDiagnosed DateS/P revision of total knee, left10/20/2022Status post right knee kvhbdyjgqzg36/22/2023 Social History Tobacco UseTypesPacks/DayYears UsedDateSmoking Tobacco: Never Assessed CommentsUnknownSex and Gender InformationValueDate RecordedSex Assigned at Not on fileLegal NoeElhdmk57/15/2020 11:30 AM EDTGender IdentityNot on file Sexual OrientationNot on file Plan of Treatment Health MaintenanceDue DateLast HkoeOrtplbzhUrnday89/25/1957Depression Screen 1958Hepatitis C bknfbd8204/25/1964DTaP/Tdap/Td vaccine (1 - Tdap)1965 DEXA (modify frequency per FRAX score)2001Respiratory Syncytial Virus (RSV) or age 60 yrs+ (1 - 1-dose 75+ series)2021nnual Wellness Visit (Medicare)01/25/2023Flu vaccine (#1)509/, 11/17/2020, 11/03/2019, Additional history existsCOVID-19 Vaccine ( season) 509/, 07/02/2021, 11/24/2020, Additional history exists Pneumococcal 50+ years EcdeprvIvcavdfof36/06/2016, 01/16/2016Shingles vaccine Vpcmqepie96/07/2020, 11/23/2019, 03/02/2012Hepatitis A vaccineAged OutNo longer eligible based on patient's age to complete this topicHepatitis B vaccineAged OutNo longer eligible based on patient's age to complete this topicHib vaccine Aged OutNo longer eligible based on patient's age to complete this topic Meningococcal (ACWY) vaccineAged OutNo longer eligible based on patient's age to complete this topicMeningococcal B vaccineAged OutNo longer eligible based on patient's age to complete this topicPolio vaccineAged OutNo longer eligible based on patient's age to complete this topic Insurance Care Teams Team MemberRelationshipSpecialtyStart DateEnd Oscar Gil MD [address] [place] [address] [facility]
--- OUTSIDE RECORDS SUMMARY | 2025-02-01 06:44 | XMS_ITS | Clinical Summary ---
Author Organization [facility] Address [address] [place] [address] Care Team Providers Care Head Turbine Operator Name Role Phone Unavailable Primary Care Provider Unavailabl e Social History Tobacco UseTypesPacks/DayYears UsedDateSmoking Tobacco: Never AssessedUT Safety & EnvironmentAnswerDate RecordedFear of Current or Ex-PartnerNot on file 04/22/2023Emotionally AbusedNot on file04/22/2023hysically AbusedNot on file 04/22/2023Sexually AbusedNot on file4Physically or Sexually AbusedNot on file04/22/2023CommentsUnknownSex and Gender InformationValueDate RecordedSex Assigned at BirthNot on fileLegal DfpUdkhki17/29/2022 10:00 PM EDT Gender IdentityNot on fileSexual OrientationNot on file Plan of Treatment Not on file
--- OUTSIDE RECORDS SUMMARY | 2025-02-01 06:44 | XMS_ITS | CCD ---
Author Organization [facility] Care Team Providers Care Bath House Attendant Name Role Phone Felix Gil Primary Care Provider [phone] RICHARD, DR [place] Admitting Unavailable RICHARD, DR [...] Unavailable Felix Gil MD Primary Care Provider [phone] BLANCHE DOBBS Referring Unavailable FELIX GIL Primary Care Unavailable BLANCHE DOBBS Referring Unavailable FELIX GIL Primary Care Unavailable MOHINDER LEHMAN Attending Unavailable MOHINDER LEHMAN Admitting Unavailable Felix Gil MD Primary Care Provider [phone] Felix Gil Primary Care Physician Doug LAGUNA Attending Unavailable Doug LAGUNA Attending Unavailable Felix Gil MD Primary Care Provider [phone] Felix Gil MD Primary Care Provider [phone] TALIA FOSTER Attending Unavailable TALIA FOSTER Attending Unavailable SUSANNE OGLESBY Attending Unavailable SUSANNE OGLESBY Attending Unavailable TALIA FOSTER Attending Unavailable Allergies Allergy ClassificationReported Allergen(s)Allergy TypeDate of OnsetReaction(s) Facility (10 sources)Acetaminophen; Translations: [ACETAMINOPHEN]Drug Jakcqwi63-24-1611 Shortness Of Breath, Dyspnea (finding)[facility] [place] (1 source)AcetaminophenDrug Chdfhwq10-91-3951[facility] (15 sources)AcetaminophenDrug Xjtqoyg32-53-9925Dnmdswemz of breathNOMS Healthcare Medications Current Medications MedicationDrug Class(es)DatesSig (Normalized)Sig (Original)apixaban 5 mg oral tablet (2 sources)Factor Xa InhibitorStart: 22-61-2699gmqu 1 tablet by mouth in the morningEliquis 5 MG tablet Take 5 mg by mouth in the morning and 5 mg before bedtime. 11/30/2024 Activeaspirin 81 mg chewable tablet (15 sources)Platelet Aggregation Inhibitor, Nonsteroidal Anti-inflammatory Drug aspirin 81 MG chewable tablet 81 mg 1 (one) time each day at the same time. Activecetirizine hydrochloride 10 mg oral tablet (4 sources)Histamine-1 Receptor Antagonisttake 1 tablet by mouth once daily cetirizine (ZYRTEC) 10 MG tablet Take 10 mg by mouth daily 0 Activecitalopram 10 mg oral tablet (1 source)Serotonin Reuptake InhibitorStart: 52-74-0102bipb 1 tablet by mouth once dailyCeleXA 10 mg Tab 10 mg = 1 tab(s), Oral, Daily, Refills(s) 0 Start Date: 08/16/24 Status: Ordered Repeat number: 1hydroCHLOROthiazide 25 mg oral tablet (1 source)Thiazide DiureticStart: 31-57-2403awiy 1 tablet by mouth once daily hydrochlorothiazide 25 mg Tab 25 mg = 1 tab(s), Oral, Daily, Refills(s) 0 Start Date: 08/16/24 Status: Ordered Repeat number: 1levothyroxine sodium 0.05 mg oral tablet (18 sources)l-ThyroxineStart: 84-46-4460xevr 1 tablet by mouth once daily levothyroxine 50 mcg (0.05 mg) Tab 50 mcg = 1 tab(s), Oral, Daily, Refills(s) 0 Start Date: 08/16/24Status: Ordered Repeat number: 1Levothyroxine Sodium (LEVOTHROID PO) 50 mcg. Activetake 1 tablet by mouth once daily in the morning Levothyroxine Sodium 50 MCG 1 tablet in the morning on an empty stomach Orally Once a day Activeliothyronine sodium 0.005 mg oral tablet (3 sources)l-TriiodothyronineStart: 25-98-1141qfyy 2 tablets by mouth once daily liothyronine 5 mcg Tab 10 mcg = 2 tab(s), Oral, Daily, Refills(s) 0 Start Date: 08/16/24 Status: Ordered Repeat number: 1take 1 tablet by mouth every twenty-four hoursLiothyronine Sodium 5 MCG 1 tablet on an empty stomach Orally Once a day Activelisinopril 10 mg oral tablet (20 sources)Angiotensin Converting Enzyme InhibitorStart: 67-19-3842hgil 1 tablet by mouth once dailylisinopril 10 mg Tab 10 mg = 1 tab(s), Oral, Daily, Refills(s) 0 Start Date: 08/16/24 Status: Ordered Repeat number: 1meloxicam 15 mg oral tablet (16 sources)Nonsteroidal Anti-inflammatory DrugStart: 43-20-9746zxpu 1 tablet by mouth once dailymeloxicam 15 mg Tab 15 mg = 1 tab(s), Oral, Daily, Refills(s) 0 Start Date: 08/16/24 Status: OrderedRepeat number: 1Start: 01-28-2020 End: 40-59-3908ejam 1 tablet by mouth once dailymeloxicam (MOBIC) 15 MG tablet TAKE 1 TABLET BY MOUTH EVERY DAY 0 01/28/2020 Activenaproxen 500 mg delayed release oral tablet (8 sources)Nonsteroidal Anti-inflammatory Drugtake 1 tablet by mouth in the morningnaproxen (EC Naprosyn) 500 MG EC tablet Take 500 mg by mouth in the morning and 500 mg in the evening. Take with meals. Do not crush, chew, or split.. Activeomeprazole 20 mg delayed release oral capsule (16 sources)Proton Pump InhibitorStart: 72-96-2680bmkn 1 capsule by mouth once dailyomeprazole 20 mg Cap-DR 20 mg = 1 cap(s), Oral, Daily, Refills(s) 0 Start Date: 08/16/24 Status: Ordered Repeat number: 1Start: 01-11-2020 End: 35-94-4162rikl 1 capsule by mouth once dailyomeprazole (PRILOSEC) 20 MG delayed release capsule TAKE 1 CAPSULE BY MOUTH EVERY DAY 0 01/11/2020 Active simvastatin 40 mg oral tablet (20 sources)HMG-CoA Reductase InhibitorStart: 84-34-3744vptb 1 tablet by mouth once daily in the eveningsimvastatin 40 mg Tab 40 mg = 1 tab(s), Oral, qPM, Refills(s) 0 Start Date: 08/16/24 Status: OrderedRepeat number: 1tiZANidine 2 mg oral tablet (9 sources)Central alpha-2 Adrenergic AgonistStart: 06-08-2022 End: 13-39-9010kfYTUevumq (Zanaflex) 2 MG tablet every 8 (eight) hours. 06/08/2022 02/28/2024 Discontinued (Therapy completed) Problems Active Problems Problem ClassificationProblemDateDocumented DateEpisodic/ChronicCongestive heart failure; nonhypertensive (2 sources)Unspecified diastolic (congestive) heart failure; Translations: [Diastolic heart failure]Onset: 595064-94-6017FkuyhwxNscxxhxn mellitus without complication (1 source)Type 2 diabetes mellitus without complications; Translations: [TYPE 2 DM WITHOUT COMPLICATIONS]Onset: 42-43-4408YubgerkJfsmkvvb mellitus without complication (1 source)Other abnormal glucose; Translations: [OTHER ABNORMAL GLUCOSE]Onset: 50-09-1927SisnhnejAufjbgimh of lipid metabolism (5 sources)Hyperlipidemia, unspecified; Translations: [Hyperlipidemia]Onset: 82-31-8791DxljosyQzwnqsxpsb disorders (2 sources)Gastroesophageal reflux disease; Translations: [Lower esophageal ring]53-56-5786EaeeenuRcsqomzfn hypertension (2 sources)Essential (primary) hypertension; Translations: [Essential hypertension]Onset: 449123-09-3516VoprmbbRosadrmdzhlvf symptoms and ill- defined conditions (8 sources)Genuine stress incontinence; Translations: [Stress incontinence (female) (male)]45-03-5317KdeelwnGzsuxeblxfxu with complications and secondary hypertension (1 source)Hypertensive heart disease with heart failure; Translations: [HTN HEART DISEASE W/HEART FAIL]Onset: 21-48-2975UrbkmaoHffbjbbxxnbf diseases of female pelvic organs (3 sources)Subacute vaginitis; Translations: [Subacute and chronic vaginitis] EpisodicMenopausal disorders (1 source)Other primary ovarian failure; Translations: [OTHER PRIMARY OVARIAN FAILURE]Onset: 95-68-8300MkgmkzeXrzdacypqba deficiencies (1 source)Vitamin D deficiency, unspecified; Translations: [VITAMIN D DEFICIENCY UNSPECIFIED]Onset: 70-78-7100AforbeyGdrwq aftercare (1 source)Other usp (current) drug therapy; Translations: [OTH PLATE CORRECTOR CURRENT DRUG THERAPY]Onset: 26-24-9352AcorldojKranr bone disease and musculoskeletal deformities (4 sources)Other specified disorders of bone density and structure, unspecified site; Translations: [OTH D/O BONE DEN STRUCT UNS SITE]Onset: 86-84-1088Pgyauljs Other circulatory disease (2 sources)Elevated blood pressure; Translations: [Elevated blood-pressure reading, without diagnosis of hypertension]55-57-4975ShkudmdoNeqoj connective tissue disease (2 sources)History of revision of left total knee arthroplasty; Translations: [Presence of left artificial knee joint]Onset: 557611-13-5900SsfwqokWheid connective tissue disease (2 sources)History of total knee arthroplasty; Translations: [Presence of right artificial knee joint]Onset: 590548-05-6744StvhcqcUqyzw female genital disorders (2 sources)Abnormal vaginal bleeding; Translations: [Abnormal uterine and vaginal bleeding, unspecified]26-41-0448XtwohggPjbwo female genital disorders (2 sources)Vaginal discharge; Translations: [Other specified noninflammatory disorders of vagina]09-78-8258DnoxyesfPggil gastrointestinal disorders (1 source)Irritable bowel vhhugmis84-65-1175HrlqzgxKieny nervous system disorders (2 sources)Other acute postprocedural pain; Translations: [Other acute postprocedural pain]Onset: 91-38-8582NoiwawxzKqpyl nervous system disorders (1 source)Cranial nerve aqdalbkz41-98-4923VdmewxakXhgps non-traumatic joint disorders (2 sources)Knee pain; Translations: [Knee pain, unspecified chronicity, unspecified laterality]EpisodicOther non-traumatic joint disorders (3 sources)Pain in right knee; Translations: [Other acute pain]Onset: 10-20-2022 EpisodicOther non-traumatic joint disorders (1 source)Pain in left knee; Translations: [Pain in left knee]Onset: 10-20-2022 EpisodicOther non-traumatic joint disorders (2 sources)Pain in unspecified shoulder; Translations: [Pain in unspecified shoulder]Onset: 29-08-1982YetfuzumVupky nutritional; endocrine; and metabolic disorders (1 source)Lfxhwyltji02-97-4000LvyunotjNqocc nutritional; endocrine; and metabolic disorders (1 source)Overweight in adulthood with body mass index of 25 or more but less than 2111-28-1844OcugegwvNjehd screening for suspected conditions (not mental disorders or infectious disease) (3 sources)Encounter for screening mammogram for malignant neoplasm of breast; Translations: [Encounter for screening for malignant neoplasm of colon]Onset: 23-39-8791RdqjmksaJrycclkb of female genital organs (20 sources)Midline cystocele; Translations: [Cystocele, midline]11-11-2023 ChronicRehabilitation care; fitting of prostheses; and adjustment of devices (11 sources)Patient encounter status; Translations: [Encounter for fitting and adjustment of other specified devices]58-48-3691ZbmlbwvJnsgjyai codes; unclassified (1 source)Family history of malignant neoplasm of ovary; Translations: [FAM HX MALIGNANT NEOPLASM OVARY]Onset: 44-86-8693ZwsqebqfUufvlmow codes; unclassified (1 source)Family history of malignant neoplasm of other organs or systems; Translations: [FAM HX MALIG NEOPLASM OTH ORGN/SYS]Onset: 38-67-7229Zmnfjseu Thyroid disorders (6 sources)Hypothyroidism, unspecified; Translations: [Hypothyroidism]Onset: 37-18-5655KcyyjquCqwcpzclcjhn (1 source)Subacute and chronic vaginitis; Translations: [Subacute and chronic vaginitis]Onset: 66-67-4527Mwigdewuyxqs (1 source)Patient encounter kmffry78-87-2800 Past or Other Problems Problem ClassificationProblemDateDocumented DateEpisodic/ChronicScreening and history of mental health and substance abuse codes (2 sources)Ex-smoker; Translations: [Personal history of nicotine dependence] 63-84-1030Newinxev Results Test NameValueInterpretationReference RangeFacilityUrinalysis macro (dipstick) panel (U)on 07-80-1180Sismuupnz, UANegativeNegative - 4(70) +++ mg/dLNOMS HealthcareBlood, UANegativeNegative - 50 Jonathon/mcLNOMS HealthcareClarity, UAClear NOMS HealthcareColor, UAAmberNOMS HealthcareGlucose, UANegativeNegative - 2000(110) ++++ mg/dLNOMS HealthcareInterpretation and review of laboratory resultsNormalNOMS HealthcareKetones, UANegativeNegative - 160(16) ++++ mg/dLNOMS HealthcareLeukocytes, UANegativeNegative - 500+++ Gino/mcLNOMS HealthcareNitrite, UANegativeNegative - PositiveNOMS HealthcarepH, UA5.05 - 9N[facility] Healthcare Protein, UATraceNegative - 2000(20) ++++ mg/dLNOMS HealthcareSpec Grav, UA1.0201 - 1.03NOMS HealthcareUrobilinogen, UA1.00.2 - 12 mg/dLNOMS HealthcareNOMS HealthcareAmbulatory Visit Summaryon 51-10-2082Vzkfdtfkvz Visit Summary Ambulatory Visit Summary MI WISE :1945 Visit Date:08/23/2024 Ambulatory Visit Instructions Your Care Team Attending Physician - LUZ ELENA BURKS, Doug Crockett Primary Care Physician - Felix Gil MD [...] signed up for this yet, please contact [email or web address] at [phone] to get signed up today. Language Information Language assistance services are available as needed. [facility] AndersonUrinalysis macro (dipstick) panel (U)on 74-79-4843Wnfemcodk, UANegativeNegative - 4(70) +++ mg/dLNOMS HealthcareBlood, UANegativeNegative - 50 Jonathon/mcLNOMS HealthcareClarity, UAClear NOMS HealthcareColor, UAYellowNOMS HealthcareGlucose, UANegativeNegative - 2000(110) ++++ mg/dLNOMS HealthcareInterpretation and review of laboratory resultsNormalNOMS HealthcareKetones, UANegativeNegative - 160(16) ++++ mg/dLNOMS HealthcareLeukocytes, UANegativeNegative - 500+++ Gino/mcLNOMS HealthcareNitrite, UANegativeNegative - PositiveNOMS HealthcarepH, UA6.55 - 9N[facility] Protein, UANegativeNegative - 2000(20) ++++ mg/dLNOMS HealthcareSpec Grav, UA 1.0051 - 1.03NOMS HealthcareUrobilinogen, UA1.00.2 - 12 mg/dLNOLakeland Regional HospitalNOWY HealthcareNo Panel Informationon 50-66-0471NprlTalia Foster DO 10/28/2023 3:58 PM Pessary Date/Time: [...] Reviewed by: provider Comments: Procedure comments: LOT [id number] [facility] - HokeXR KNEE LEFT (MIN 4 VIEWS)on 10-20-2022 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 [facility] CONSOLIDATEDEXAM: XR KNEE LEFT (MIN 4 VIEWS) HISTORY: Acute pain of both knees COMPARISON: None. 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 No acute fracture or dislocation. Mild soft tissue swelling. Report electronically signed by: Manuel Kline MD - 10/20/2022 EXAM: XR KNEE LEFT (MIN 4 VIEWS) HISTORY: Acute pain of both knees COMPARISON: None. 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 No acute fracture or dislocation. Mild soft tissue swelling. Report electronically signed by: Dr. 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 [employer] Work Phone: XR KNEE LEFT (MIN 4 VIEWS)RADRPT EXAM: XR KNEE LEFT (MIN 4 VIEWS) [...] Signed by: Manuel Saxena MD 10/20/22 Final resultNoMartins Ferry HospitalRadiology Study observation (narrative)[facility] Work Phone: XR KNEE LEFT (MIN 4 VIEWS)Ordered By: Manuel Saxena on 38-49-8741IHMFIPQ Work Phone: XR KNEE RIGHT (MIN 4 VIEWS)on 10-20-2022 No acute findings. Intact prosthesis. [facility] CONSOLIDATEDEXAM: XR KNEE RIGHT (MIN 4 VIEWS) HISTORY: Acute pain of both knees COMPARISON: 02/07/2020 TECHNIQUE: 4 views of right knee were obtained FINDINGS: There is no evidence of fracture or dislocation. Prosthetic knee is seen in proper alignment without evidence of loosening. No evidence to suggest a joint effusion. Visualized soft tissues appear unremarkable. Report electronically signed by: Dr. Melisa JiangNORTHWEST [facility] CON[facility]ATED Melisa Jiang MD - [...] Jiang IMPRESSION: No acute findings. Intact prosthesis. [employer] Work Phone: XR KNEE RIGHT (MIN 4 VIEWS)RADRPT EXAM: XR KNEE RIGHT (MIN 4 VIEWS) [...] Signed by: Melisa Jiang MD 10/20/22 Final resultNoMartins Ferry HospitalRadiology Study observation (narrative)JACQUE Work Phone: XR KNEE RIGHT (MIN 4 VIEWS)Ordered By: Melisa Jiang on 32-69-7267NKXJULE Work Phone: MISC LABon 50-85-5965PSNT LABWVUMedicine Harrison Community HospitalComment on above:Order Comment: [facility] Test Name: VAGINITIS/VAGINOSIS DNA PROBE # [id number] Comment: See report. Scanned copy available in EMR. PERFORMED BY: [place] [address] PATHOLOGIST [employer] MEGHAN ESPINO M.D.Performed By: #### [facility] #### [place] [address] USAMG MAMM SCREEN 3D HERBER CADon 96-18-2063NC MAMM SCREEN 3D HERBER CADPatient: MI WISE. Exam Date: 02/25/2022 : 1945 Gender:F Ordering : DR FELIX GIL . Admission #: [id number] Family : Order #: [id number] CLICK HERE TO VIEW EXAM RADIOLOGY REPORT [...] ovarian cancer at age 61. LOCATION: [facility] BREAST COMPOSITION: Scattered areas fibroglandular density. [...] by: Edvin Su MD on 02/26/2022 at 11:40[facility]'s HospitalXR DEXA BONE DENSITYon 84-99-5845QF DEXA BONE DENSITYEXAMINATION: XR DEXA BONE DENSITY, 02/25/2022 1:26 PM EST HISTORY: Primary ovarian failure COMPARISON: 2010 TECHNIQUE: Dual-energy X-ray absorptiometry (DEXA) bone [...] Electronically authenticated by: EDVIN SU Date: 2022-02-25 16:21[facility] Children's HospitalINSULINon 49-06-1548Suscvlk7.3 uIU/mLNormal2.6-24.9[facility] HospitalComment on above:Performed By: #### VITAD, IRON #### [facility] [address] [place] [address] Dr. Gabby CollierIRUBIN CONJUGATED (DIRECT)on 94-81-8492QVTY, CONJUGATED0.1 mg/dLNormal0.0-0.2[facility] HospitalComment on above:Performed By: #### TSH, DBIL, CMP, LIPID, FT3, T4 #### [facility] [address] [place] [address] Dr. Gabby Bernard AUTO DIFFon 37-59-8011YEFQ #0.0 103/ulNormal0.0-0.1[facility] HospitalComment on above:Performed By: #### VITAD, IRON #### [facility] [address] [place] [address] Dr. Gabby BrionesBasophils/100 WBC (Bld)0.6 %Normal0.2-2.0[facility] Comment on above:Performed By: #### VITAD, IRON #### [facility] [address] [place] [address] Dr. Gabby Cardona #0.4 103/ulNormal0.0-0.7The [facility] HospitalComment on above: Performed By: #### VITAD, IRON #### [facility] [address] [place] [address] Dr. Gabby Pryorosinophils/100 WBC (Bld)6.0 %Normal0.9-7.0[facility] Comment on above:Performed By: #### VITAD, IRON #### [facility] [address] [place] [address] Dr. Gabby Pryorrythrocyte distribution width (RBC) [Ratio]13.7 %Vprdqu89.0-15.0 [facility] HospitalComment on above:Performed By: #### VITAD, IRON #### [facility] [address] [place] [address] Dr. Gabby BrionesHematocrit (Bld) [Volume fraction]41.9 %Uuygox19.0-48.0[facility] HospitalComaspirus ontonagon hospital on above:Performed By: #### VITAD, IRON #### [facility] [address] [place] [address] Dr. Gabby BrionesHemoglobin (Bld) [Mass/Vol]14.0 g/yMOgrlvv49.0-16.0[facility] HospitalComment on above:Performed By: #### VITAD, IRON #### [facility] [address] [place] [address] Dr. Gabby Hitchcock #0.02 10e3/ulNormal0.00-0.03The [facility] HospitalComaspirus ontonagon hospital on above:Performed By: #### VITAD, IRON #### [facility] [address] [place] [address] Dr. Gabby Hitchcock %0.3 %Normal0.0-0.5The [facility] HospitalComment on above: Performed By: #### VITAD, IRON #### [facility] [address] [place] [address] Dr. Gabby Jeffries #2.6 103/ulNormal1.2-3.8[facility] HospitalComment on above:Performed By: #### VITAD, IRON #### [facility] [address] [place] [address] Dr. Gabby Queenhocytes/100 WBC (Bld)39.7 %Qtmyxp34.5-60.0[facility] HospitalComment on above:Performed By: #### VITAD, IRON #### [facility] [address] [place] [address] Dr. Gabby Taylor DIFF REQNONormalThe [facility] HospitalComment on above: Performed By: #### VITAD, IRON #### [facility] [address] [place] [address] Dr. Gabby Loya (RBC) [Entitic mass]29.6 htLujqux55.7-34.0[facility] CenterComment on above:Performed By: #### VITAD, IRON #### [facility] [address] [place] [address] Dr. Gabby Abrams (RBC) [Mass/Vol]33.4 g/lIDwxknk86.9-35.2[facility] on above:Performed By: #### VITAD, IRON #### [facility] [address] [place] [address] Dr. Gabby Abrams (RBC) [Entitic vol]88.6 dMAehief80.0-99.0[facility] HospitalComment on above:Performed By: #### VITAD, IRON #### [facility] [address] [place] [address] Dr. Gabby Beltran #0.6 103/ulNormal0.3-0.8[facility] HospitalComment on above:Performed By: #### VITAD, IRON #### [facility] [address] [place] [address] Dr. Gabby Gibsonocytes/100 WBC (Bld)8.8 %Normal1.7-12.0[facility] Comment on above:Performed By: #### VITAD, IRON #### [facility] [address] [place] [address] Dr. Gabby Rodriguez #2.9 103/ulNormal1.4-6.5The [facility] HospitalComment on above:Performed By: #### VITAD, IRON #### [facility] [address] [place] [address] Dr. Gabby Barnettutrophils/100 WBC (Bld)44.6 %Dvgfgf11.0-75.0[facility] HospitalComment on above:Performed By: #### VITAD, IRON #### [facility] [address] [place] [address] Dr. Gabby BrionesPlatelet mean volume (Bld) [Entitic vol]9.4 fLCritically low 9.5-13.5The [facility] HospitalComment on above:Performed By: #### VITAD, IRON #### [facility] [address] [place] [address] Dr. Gabby BrionesPLT326 103/trXpbnhg800-235Pvi [facility] HospitalComment on above: Performed By: #### VITAD, IRON #### [facility] [address] [place] [address] Dr. Gabby BrionesRBC4.73 106/ulNormal4.20-5.40[facility] HospitalComment on above:Performed By: #### VITAD, IRON #### [facility] [address] [place] [address] Dr. Gabby BrionesWBC6.5 103/ulNormal4.0-11.0[facility] HospitalComment on above: Performed By: #### VITAD, IRON #### [facility] [address] [place] [address] Dr. Gabby Armstrong T3on 85-83-4052YBZH T32.47 pg/mlLNormal2.18-3.98The [facility] HospitalComment on above:Performed By: #### TSH, DBIL, CMP, LIPID, FT3, T4 #### [facility] [address] [address] [address] Gabby BrionesGLYCOHEMOGLOBIN A1Con 51-54-5692SWG RECOMMENDATIONSEE BELOWAdena Regional Medical CenterComaspirus ontonagon hospital on above:Result Comment: ADA RECOMMENDED LIMIT 4.0 - 6.0 ADA THERAPEUTIC TARGET < 7.0 ACTION SUGGESTED > 7.0Performed By: #### VITAD, IRON #### [facility] [address] [address] [address] Gabby BrionesGlucose [Mass/Vol]111 mg/dLNoTrumbull Memorial HospitalComment on above:Performed By: #### VITAD, IRON #### [facility] [address] [place] [address] Dr. Gabby BrionesHbA1c (Bld) [Mass fraction]5.5 %Normal4.5-6.2[facility] on above:Performed By: #### VITAD, IRON #### [facility] [address] [address] [address] Gabby Luciano 36-35-6081Dkdg [Mass/Vol]92.0 ug/vRAaghqx39.0-170.0The [facility] HospitalComment on above:Performed By: #### VITAD, IRON #### [facility] [address] [place] [address] Dr. Gabby BrionesLIPID PROFILEon 18-48-1132IEEM-HDL RATIO NORMSEE [facility] DaytonComaspirus ontonagon hospital on above:Result Comment: 3.3 - 4.4 LOW RISK 4.4 - 7.1 AVERAGE RISK 7.1 - 11.0 MODERATE RISK >11.0 HIGH RISKPerformed By: #### TSH, DBIL, CMP, LIPID, FT3, T4 #### [facility] [address] [address] [address] Gabby BrionesCholesterol [Mass/Vol]183 mg/dLNormal<=200[facility] Comment on above:Performed By: #### TSH, DBIL, CMP, LIPID, FT3, T4 #### [facility] [address] [place] [address] Dr. Gabby Lealesterol in HDL [Mass/Vol]56 mg/cXTrrxcu35-75NbaWVUMedicine Barnesville Hospital on above:Performed By: #### TSH, DBIL, CMP, LIPID, FT3, T4 #### [facility] [address] [place] [address] Dr. Gabby Lealesterol in LDL [Mass/Vol]102.8 mg/dLNormKettering Health DaytonComment on above:Performed By: #### TSH, DBIL, CMP, LIPID, FT3, T4 #### [facility] [facility] [address] [place] [address] Dr. Gabby Tinoco.total/Cholesterol in HDL [Mass ratio]3.3 {ratio} NormalAdena Regional Medical CenterComaspirus ontonagon hospital on above:Performed By: #### TSH, DBIL, CMP, LIPID, FT3, T4 #### [facility] [address] [place] [address] Dr. Gabby Rodríguez NORMAL> or = 60 mg/dl - LOW CARDIOVASCULAR RISK <40 mg/dl - HIGH CARDIOVASCULAR RISKNationwide Children's HospitalComment on above:Performed By: #### TSH, DBIL, CMP, LIPID, FT3, T4 #### [facility] [address] [place] [address] Dr. Gabby BrionesLDL CALC NORMALSEE BELOWNationwide Children's HospitalComment on above:Result Comment: <100 mg/dl OPTIMAL 100 - 129 mg/dl NEAR OR ABOVE OPTIMAL 130 - 159 mg/dl BORDERLINE HIGH 160 - 189 mg/dl HIGH >190 mg/dl VERY HIGH Performed By: #### TSH, DBIL, CMP, LIPID, FT3, T4 #### [facility] [address] [place] [address] Dr. Gabby BrionesTriglyceride [Mass/Vol]121 mg/dLNormal<=150[facility] Comment on above:Performed By: #### TSH, DBIL, CMP, LIPID, FT3, T4 #### [facility] [address] [place] [address] Dr. Gabby BrionesVLDL CALC24.2 mg/dLNormalThe [facility] HospitalComment on above: Performed By: #### TSH, DBIL, CMP, LIPID, FT3, T4 #### [facility] [address] [place] [address] Dr. Gabby BrionesPROF 14(COMP METB)on 02-69-3232Ujtkgbe [Mass/Vol]3.4 g/dLNormal 3.4-5.0The [facility] HospitalComment on above:Performed By: #### TSH, DBIL, CMP, LIPID, FT3, T4 #### [facility] [address] [place] [address] Dr. Gabby BrionesAlbumin/Globulin [Mass ratio]1.0 {ratio}NormalThe [facility] HospitalComment on above:Performed By: #### TSH, DBIL, CMP, LIPID, FT3, T4 #### [facility] [address] [place] [address] Dr. Gabby Hudson [Catalytic activity/Vol]50 U/JJblakl65-928Xor [facility] HospitalComment on above:Performed By: #### TSH, DBIL, CMP, LIPID, FT3, T4 #### [facility] [address] [place] [address] Dr. Gabby Shafer [Catalytic activity/Vol]17 U/TComiqh52-98Gaa [facility] HospitalComment on above:Performed By: #### TSH, DBIL, CMP, LIPID, FT3, T4 #### [facility] [address] [place] [address] Dr. Gabby Lopez gap [Moles/Vol]13.7 mmol/LNormalThe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
--- OUTSIDE RECORDS SUMMARY | 2025-02-01 06:44 | XMS_ITS | Patient Health Record ---
Author Organization [facility] in [place] Address [address] [place] [address] Care Team Providers Care Transit Police Officer Name Role Phone Louise Jeronimo Primary Care Provider Allergies Allergen (clinical drug ingredient) Drug/Non Drug Allergy documented on EMR Reaction Allergy Type Onset Date Status acetaminophen Acetaminophen Unknown Drug Allergy Active Results Component Value Reference Range Notes MM tomosynthesis screening B I Reviewed date:02/28/2024 08:29:07 PM Interpretation: Performing Lab: Notes/Report: Source Facility: [place] [address] Mammography Report Signed Patient: MI STAPLETON MR#: [id number] : 1945 Acct:[id number] Age/Sex: 78 / F ADM Date: 02/28/24 Loc: MAMMO Attending Dr: Felix Ramos M.D. Ordering Physician: Felix Ramos M.D. Results: Date of Service: 02/28/24 Follow Up: Procedure(s): MM tomosynthesis screening BI Accession Number(s): [id number] cc: Felix Ramos M.D. Patient Name: MI STAPLETON MR#: [id number] : 1945 Exam Date: 02/28/2024 Ordering Doctor: [...] ovarian cancer at age 61. LOCATION: [facility] BREAST COMPOSITION: There are scattered areas [...] M.D. Signed By: 02/28/241654 DD/ 53 TD/TT: Tour Leader: Reason For Referral Diagnosis 1 Screening for colon cancer (Z12.11) Referral Organization [facility] Referring Provider First Name Jeronimo Referring Provider Last Name Louise Referring Provider Speciality Family Med natividad Referred Provider Doug Ramachandran Referred Provider Specialty General Surg pilar Referral Priority Routine Medications Medication SIG (Take, Route, Frequency, Duration) Notes Start Date End Date Status Nabumetone 500 MG 1 tablet Orally Twice a day; D uration: 30 day(s) 5ActiveMeloxicam 15 MG1 tablet Orally Once a day; Duration: 90 days 5ActiveLisinopril 10 MGTAKE 1 TABLET BY MOUTH EVERY DAY; Duration: 90 ActiveLiothyronine Sodium 5 MCGTAKE 2 TABLETS BY MOUTH ONCE DAILY Oral; Duration: 90 daysActivehydroCHLOROthiazide 25 MG1 tablet in the morning Orally Once a day; Duration: 90 days5ActiveEliquis 5 MG1 tablet Orally bid; Duration: 30 days5ActiveAmbien 10 MG1 tablet at bedtime as needed Orally Once a day; Duration: 2 days5ActiveVitamin S6UnyjrsRlqzabojagdel Sodium 50 MCGTAKE 1 TABLET BY MOUTH ONCE EVERY MORNING ON AN EMPTY STOMACH; Duration: 90ActiveSimvastatin 40 MGTAKE 1 TABLET BY MOUTH EVERY DAY; Duration: 90 daysActiveOmeprazole 20 MGTAKE 1 CAPSULE BY MOUTH EVERY DAY FOR 90 DAYS; Duration: 90ActiveCitalopram Hydrobromide 10 MGTAKE 1 TABLET BY MOUTH EVERY DAY; Duration: 90Active Immunizations Vaccine Route Administration Date Status Comme nts Arexvy Unknown 12/03/2023 Administered WmrghjRxwpshm71/04/2024AdministeredPneumococcal (Pneumovax 23)Ezgijdi1302/04/2016 AdministeredPneumococcal (Prevnar 13)Ccxvbqr0001/16/20167132CqknzrvdquloIWKQ-FLB-9 (COVID 19 Pfizer 30mcg/0.3mL)Axjdfwi41/02/4421GvrlzhhcqtqeBVCQ-AUO-1 (COVID 19 Pfizer 30mcg/0.3mL)Drjdszv32/23/2021AdministeredZOSTER (SHINGLES) VACCINE (HZV) Yinnknw8111/23/2019AdministeredZOSTER (SHINGLES) VACCINE (HZV)Qpxheka0402/05/2020 AdministeredZoster (Zostavax)Faulbez3803/02/2012dministered Social History Tobacco Use: Social History Observation Description Date Details (start date - stop date) Former Smoker 03/01/1966 - 03/01/2002 Tobacco Use/Smoking Question Answer Notes Patient is a former smoker When did you start smoking?03/01/1966When did you stop smoking?03/01/2002How long has it been since you last smoked?> 10 yearsAlcohol Screen (Audit-C) Question Answer Notes Did you have a drink containing alcohol in the p ast year? Yes How often did you have 6 or more drinks on one occasion in the past year?Never (0 point)How many drinks did you have on a typical day when you were drinking in the past year?1 or 2 drinks (0 point)How often did you have a drink containing alcohol in the past year?Less than monthly (1 point)Spbfrx2Tnauhwzjtkfmkw NegativeAUDIT-C (Standard) Question Answer Notes Did you have a drink containing alcohol in the p ast year? No Oemnxu0RwxwlenwfeftskQlbmowox Problems Problem Type SNOMED Code ICD Code Onset Dates Problem Status W/U Status Risk Notes Problem Fatigue (85167734) Fatigue (R53.83) ActiveconfirmedProblemHypertension (74635219)Hypertension (I10)Activeconfirmed ProblemCarpal tunnel syndrome (65015870)Carpal tunnel syndrome (G56.00)Active confirmedProblemHypertension (51354376)HTN (hypertension) (I10)Activeconfirmed ProblemEdema (17287832)Edema (R60.9)ActiveconfirmedProblemArthritis (3219706) Arthritis (M19.90)ActiveconfirmedProblemInsomnia (335372772)Insomnia (G47.00) ActiveconfirmedProblemKnee pain (7639309087)Knee pain (M25.569)Activeconfirmed ProblemDiverticular disease of colon (678408934)Diverticulosis (K57.90)Active confirmedProblemIrritable bowel syndrome (43262301)IBS (irritable bowel syndrome) (K58.9)ActiveconfirmedProblemAcute sinusitis (66864527)Acute sinusitis (J01.90)ActiveconfirmedProblemHearing loss (25830548)Hearing loss (H91.90)Active confirmedProblemSchatzki's ring (24630309)Schatzki's ring (Q39.4)Activeconfirmed ProblemPhlebitis (10079608)Phlebitis (I80.9)ActiveconfirmedProblemCranial neuropathy (03135839)Cranial neuropathy (G52.9)Activeconfirmed Vital Signs Blood pressure diastolic 68 mm Hg 12/04/2024 Gfdazp94.5 in12/04/2024lood pressure xkkzeydl347 mm Hg12/04/20247232Zuptkd274 lbs 12/04/2024BMI28.39 kg/m212/04/2024 Encounters Encounter Location Date Provider Diagnosis [facility] [address] [place] [address] 11/02/2024 Jeronimo Hoy Phlebitis I80.9 [facility] [address] [facility] [place] [address] 12/04/2024 Jeronimo Hoy Edema R60.9 [facility] [address] [facility] [place] [address] 06/07/2024 Jeronimo Hoy Hypertension I10 and Arthritis M19.90 [facility] [address] [facility] [place] [address] 07/26/2024 Jeronimo Ramos Encounter for Medica re annual wellness exam Z00.00 [facility] [address] [facility] [place] [address] 02/29/2024 Jeronimo Ramos HTN (hypertension) I 10 and Acute sinusitis J01.90 [facility] [address] [facility] [place] [address] 02/28/2024 Jeronimo Nguyeny [facility] [facility] [place] [address] 03[facility] [facility] [place] [address]/Doug HoyScreening for colon cancer Z12.11BA[place] [address] [facility] [place] [address]/05/2024Doug [facility] [facility] [place] [address]/05/2024 Jeronimo [facility] [facility] [place] [address]/06/2024Doug [facility] [facility] [place] [address]/08/2024Doug [facility] [facility] [place] [address]/10/2024Doug [facility] [facility] [place] [address]/03/2024Doug HoyHTN (hypertension) I10 and Fatigue R53.83 Assessments Encounter Date Diagnosis (ICD Code) Assessment Notes Treatment Notes Treatment Clinical Notes Section Notes 02/29/2024 HTN (hypertension) (ICD-10 - I10 ) 4Acute sinusitis (ICD-10 - J01.90)06/07/2024Hypertension (ICD-10 - I10) 5Arthritis (ICD-10 - M19.90)07/26/2024Encsharp mesa vistaer for Medicare annual wellness exam (ICD-10 - Z00.00)patient presentsto the office for a subsequent medicare wellness appointment. patient completed theanxiety screening, depression screening and safety screening with no concerns. patient also completed a memory slums test and the score was 30/30, and a vision screening was completed, with corrective eye wear the patiet could read 20/10 a total of 45 mintutes was spent with the xrebzcb2311/02/2024Phlebitis (ICD-10 - I80.9)asa and heat 4 times a day12/04/2024Edema (ICD-10 - R60.9)07/26/2024Screening for colon cancer (ICD-10 - Z12.11)01/29/2025HTN (hypertension) (ICD-10 - I10) 01/29/2025Fatigue (ICD-10 - R53.83) Plan Of Treatment Pending Test Test Name Order Date CMP (COMPLETE METABOLIC PANEL) 3 CMP (COMPLETE METABOLIC PANEL) 4 HEMOGLOBIN A1C (GLYCO) 11/24/2022 IRON, TOTAL 11/24/2022 LIPID PANEL (CHOL/TRIG/HDL/LDL) 11/25/19 23 CBC WITH DIFF (EXP 12/2024) 11/24/2022 VITAMIN D, 25 LEVEL (TOTAL) 11/24/2022 EKG 03/09/2023 CT Knee LT w/o contrast * (Optional 3D R endering) 12/07/2022 US Lower Extremity LT 12/04/2024 CBC 01/29/2025 Urine Culture 03/10/2023 Insulin Level 11/24/2022 COMPREHENSIVE METABOLIC PROFILE WITH GFR 11/24/2023 OCCULT BLOOD, FECAL, IMMUNOASSAY 024 CMP - Comprehensive Metabolic Panel 03/2024 CBC W/AUTO DIFF 11/24/2023 STOOL OCCULT BLOOD 11/24/2022 GLYCOHEMOGLOBIN A1C 01/29/2025 LIPID PROFILE 01/29/2025 SNR 04 URINALYSIS 03/10/2023 US ABI DOP LEG LT 11/02/2024 THYROID PANEL (T4/TSH/FREE T3) 3 THYROID PANEL (T4/TSH/FREE T3) 4 THYROID PANEL (T4/TSH/FREE T3) 5 Vitamin D 11/24/2023 Lipid Panel 11/24/2023 Insurance Providers Payer Name Payer Address Payer Phone Subscriber Number Group Number Insured Name Patient Relationship to Insured Coverage Start Date Coverage End Date [employer] MED[employer] ADV PLAN [address] [place] [address] [id number] Mayra Stapleton - patient [place] the [place] [id number], JudithSelf - patient is the insured Medications Administered Medication Instructions Date of Administration Dosage Notes Kenalog-40 20 mg Medical (General) History Medical History History ICD Code Cranial neuropathy G52.9 Hearing loss H91.90 Schatzki's ring Q39.4 Diverticulosis K57.90 Hypertension I10 Carpal tunnel syndrome G56.00 IBS (irritable bowel syndrome) K58.9 Fatigue R53.83 Surgical History Surgery Date(Month/Year) colonoscopy 08/23/24 fusion T2-T8 klgpwtkywghn6276Pkvwwrsml Knee replacementAppendixAchillesRight Shoulder Replacement
--- OUTSIDE RECORDS SUMMARY | 2025-02-01 06:44 | XMS_ITS | Clinical Summary ---
Author Organization [facility] Address [address] [place] [address] Care Team Providers Care Airport Shuttle Driver Name Role Phone Oscar Gil MD Primary Care Provider [phone] Allergies Active AllergyReactionsCriticalityNoted DateCommentsAcetaminophenOther (See Comments)04/02/2023 Lips blue, fingers turn white, erratic breathing pattern Medications MedicationSigDispense QuantityRefillsLast FilledStart DateEnd DateStatus lisinopriL (PRINIVIL,ZESTRIL) 10 MG tablet Take 1 (one) tablet (10 mg total) by mouth every morning .Active omeprazole (PRILOSEC) 20 MG capsule Take 1 (one) capsule (20 mg total) by mouth every morning .Active simvastatin (ZOCOR) 40 MG tablet Take 1 (one) tablet (40 mg total) by mouth every morning .Active meloxicam (MOBIC) 15 MG tablet Take 1 (one) tablet (15 mg total) by mouth every morning .Active levothyroxine (SYNTHROID, LEVOTHROID) 50 MCG tablet Take 1 (one) tablet (50 mcg total) by mouth every morning .Active liothyronine (CYTOMEL) 5 MCG tablet Take 2 (two) tablets (10 mcg total) by mouth every morning .Active MULTIVITAMIN ORAL Take 1 tablet by mouth every evening .Active cholecalciferol, vitamin D3, 1,000 unit tablet Take 1 (one) tablet (1,000 Units total) by mouth every morning .Active aspirin 81 MG EC tablet Take 1 (one) tablet (81 mg total) by mouth every morning .Active Social History Tobacco UseTypesPacks/DayYears UsedDateSmoking Tobacco: NeverSmokeless Tobacco: NeverAlcohol UseStandard Drinks/WeekCommentsNever0 (1 standard drink = 0.6 oz pure alcohol)rarelyCommentsNoSex and Gender InformationValueDate RecordedSex Assigned at BirthNot on fileLegal BkbOzzize66/06/2014 8:37 AM EDT Gender IdentityNot on fileSexual OrientationNot on file Last Filed Vital Signs Vital SignReadingTime TakenCommentsBlood Oiejvfwk820/59004/06/2023 1:45 PM EST Jdemn657504/06/2023 1:45 PM VHOJhoiyxxddxw27.2 ??C (98.9 ??F)04/06/2023 1:45 PM ESTRespiratory Yzms911804/06/2023 1:45 PM ESTOxygen Nuipntisum16%04/06/2023 1:45 PM ESTInhaled Oxygen Concentration--Ejsssi89.2 kg (176 lb 12.9 oz)04/06/2023 9:35 AM AFHUmuolv249.7 cm (5' 8 )04/06/2023 9:35 AM ESTBody Mass Index26.88 04/06/2023 9:35 AM EST Plan of Treatment Not on file Medical Devices ImplantedTypeAreaManufacturerDevice IdentifierShelf Expiration DateModel / Serial / LotHemostat 5gm Tom - [id number] Implanted:Qty: 1 on 04[facility]06[facility]: ShoulderDAVOL [id number] / / [id number] 25mm 15deg Full Wedge Augment Reversed Aequalis - [id number] Implanted:Qty: 1 on 04/06/2023 by [facility] at [facility]: [id number] / [id number] / Rachele Perform Reversed Cannulated Cocr Standard Glenosphere Implanted:Qty: 1 on 04/06/2023 by [facility] at [facility]: [id number] / [id number] / Rachele Perform Humeral System Reversed Insert, Thickness: +6mm Size 3/4 36mm Implanted:Qty: 1 on 04/06/2023 by [facility] at [facility]: [id number] / [id number] / Tornier Perform Humeral System Humeral Stem, Std, Short Size 3 Implanted:Qty: 1 on 04/06/2023 by [facility] at [facility]: [id number] / [id number] / Screw 6.5 X 40mm Central Thrd Perform Reversed Aequalis - [id number] Implanted:Qty: 1 on 04/06/2023 by Mohan Kowalski MD at [facility]: [id number] / / Screw 5 X 30mm Peripheral Glenoid Aequalis Perform Reversed - [id number] Implanted:Qty: 2 on 04/06/2023 by Mohan Kowalski MD at [facility]: ShoulderWRIGHT [id number] / / Screw 5 X 18mm Peripheral Thrd Perform Reversed Aequalis - [id number] Implanted:Qty: 2 on 04/06/2023 by Mohan Kowalski MD at [facility]: [id number] / / Insurance Care Teams Team MemberRelationshipSpecialtyStart Date Oscar Gil MD NPI: [id number] [place], [place] [address] [place] [address] [facility]
[2025-02-01 07:01] LABS: Hematocrit 41.1 % (36.0-48.0); Hemoglobin 13.6 g/dL (12.0-16.0); Immature Granulocytes Abs Auto 0.01 10^3/uL (0.00-0.03); Immature Granulocytes Pct Auto 0.1 % (0.0-0.5); Lymphocytes Absolute Auto 2.9 10^3/uL (1.2-3.8); Mean Corpuscular HGB Conc 33.1 g/dL (29.9-35.2); Mean Corpuscular Hemoglobin 29.2 pg (26.7-34.0); Mean Corpuscular Volume 88.2 fL (81.0-99.0); Platelet Count 386 10^3/uL (150-450); Red Blood Count 4.66 10^6/uL (4.20-5.40); White Blood Count 6.8 10^3/uL (4.0-11.0)
[2025-02-01 07:41] LABS: Alanine Aminotransferase 31 U/L (14-59); Albumin Globulin Ratio 1.0; Albumin Level 3.3 g/dL (3.4-5.0); Alkaline Phosphatase 57 U/L (46-116); Anion Gap 12.6; Aspartate Amino Transferase 25 U/L (15-37); Blood Urea Nitrogen 17.0 mg/dL (7.0-18.0); Calcium 8.7 mg/dL (8.5-10.1); Carbon Dioxide 25.7 mmol/L (21.0-32.0); Chloride 108 mmol/L (98-107); Cholesterol 193 mg/dL (<=200); Estimated GFR (African America >60 (>=60 mL/min/1.73m^2); Estimated GFR (Non-African Ame 60 (>=60 mL/min/1.73m^2); Free T3 2.41 pg/mL (2.18-3.98); Globulin 3.4 g/dL; Glucose 102 mg/dL (74-106); HDL Cholesterol 61 mg/dL (40-60); Potassium 4.3 mmol/L (3.5-5.1); Sodium 142 mmol/L (136-145); Thyroid Stimulating Hormone 0.410 uIU/mL (0.358-3.740); Total Protein 6.7 g/dL (6.4-8.2); Triglycerides 97 mg/dL (<=150); VLDL CHOLESTEROL 19.4 mg/dL
== END 2025-02-01 06:42 | disposition home or self-care (01) ==
LOC: LAB 06:41
PROVIDERS: PCP Family Medicine; Visit Provider Family Medicine
DX: E78.5 Hyperlipidemia, unspecified (principal); I10 Essential (primary) hypertension; R53.83 Other fatigue; R73.09 Other abnormal glucose
CPT/HCPCS: 36415; 80053; 80061; 83036; 84436; 84443; 84481; 85025

== ENCOUNTER 2025-02-28 07:53 | Outpatient (OUT) | payer MEDICARE, SELFPAY ==
--- NOTE | 2025-02-28 07:55 | MM_ITS ---
Patient Name: EMANUEL WISE MR#: [id number] : 1945 Exam Date: 02/28/2025 Ordering Doctor: DR FELIX RAMOS . RADIOLOGY REPORT PROCEDURE: MM TOMOSYNTHESIS SCREENING BI COMPARISON: MM TOMOSYNTHESIS SCREENING BI, 02/28/2024. MM TOMOSYNTHESIS SCREENING BI, 02/26/2023. MG MAMM SCREEN 3D HERBER CAD, 02/25/2022. MG MAMM HERBER SCRN W CAD DIG, 01/20/2013. INDICATIONS: Screening Calculator Name NCI Breast Cancer Risk Assessment Tool 5 Year Breast Cancer Risk 1.40% Lifetime Breast Cancer Risk 2.50% Personal Breast Cancer No Personal Ovarian Cancer No Treatments None Family Cancers Sister with cervical cancer at age ~30; Mother with ovarian cancer at age ~60. LOCATION: [facility] BREAST COMPOSITION: There are scattered areas of fibroglandular density. FINDINGS: DIAGNOSTIC CATEGORY 1--NEGATIVE. RIGHT BREAST: No significant suspicious finding. LEFT BREAST: No significant suspicious finding. RECOMMENDATIONS: ROUTINE MAMMOGRAM AND CLINICAL EVALUATION IN 12 MONTHS. Dictated by: Stanley Rodriguez MD on 02/28/2025 at 09:41 Approved by: Stanley Rodriguez MD on 02/28/2025 at 09:57
--- OUTSIDE RECORDS SUMMARY | 2025-02-28 07:55 | XMS_ITS | Patient Health Record ---
Author Organization [facility] Address [address] [place] [address] Care Team Providers Care Server Support Technician Name Role Phone Oscar Gil Primary Care Provider Charlie Miguel Unavailable [phone] Self, Referral Unavailable Unavailable Allergies Allergen (clinical [...] Notes Problem History of musculosk eletal operation (968537842) Aftercare following joint replacement surgery (Z47.1) ActiveconfirmedProblemArtificial knee joint present (872787062415)Presence of left artificial knee joint (Z96.652)ActiveconfirmedProblemPain of left knee region (finding) (266657290370750)Left knee pain, unspecified chronicity (M25.562)ActiveconfirmedProblemPain in prosthetic joint, initial encounter (T84.84XA)Activeconfirmed Plan Of Treatment Pending Test Test Name Order Date CBC WITH DIFF, ESR, CRP 11/22/2023 SCC- KNEE 4 VIEW LEFT-09101 11/22/2023 BONE SCAN 3 PHASE 11/22/2023 Insurance Providers Payer Name Payer Address Payer Phone Subscriber Number Group Number Insured Name Patient Relationship to Insured Coverage Start Date Coverage End Date Medicare [employer] [facility] [address] [place] [phone] [id number] Wilber WISE - patient is the [...]
--- OUTSIDE RECORDS SUMMARY | 2025-02-28 07:55 | XMS_ITS | Patient Health Record ---
Author Organization [facility] [place] Address [address] [place] [address] Care Team Providers Care Investment Officer Name Role Phone Jeronimo Gil Primary Care Provider Allergies Allergen (clinical drug ingredient) Drug/Non Drug Allergy documented on EMR Reaction Allergy Type Onset Date Status acetaminophen Acetaminophen Unknown Drug Allergy Active Results Component Value Reference Range Notes LIPID PROFILE Reviewed date:02/01/2025 09:11:41 AM Interpretation: Performing Lab: Notes/Report: [facility] , Triglycerides 97 <=150 mg/dL Brnxxleafik703<=200 mg/dLHDL Pnxnaujxazb6779-62 mg/dL > or =60 mg/dl - LOW CARDIOVASCULAR RISK <40 mg/dl - HIGH CARDIOVASCULAR RISK LDL Cholesterol Ffzsxmnvnk553.0 <100 mg/dl OPTIMAL 100-129 mg/dl NEAR OR ABOVE OPTIMAL 130-159 mg/dl BORDERLINE HIGH 160-189 mg/dl HIGH >190 mg/dl VERY HIGH VLDL GJTLZTILAMG34.4Chol HDL Ratio3.2 3.3 - 4.4 LOW RISK 4.4 - 7.1 AVERAGE RISK 7.1 - 11.0 MODERATE RISK >11.0 HIGH RISK Performing Lab:see noteML - [facility] LBGLYCOHEMOGLOBIN A1C Reviewed date:02/01/2025 09:11:41 AM Interpretation: Performing Lab: Notes/Report: [facility] ,Glycohemoglobin A1C5.44.5-6.2 % ADA RECOMMENDED LIMIT 4.0 - 6.0 ADA THERAPEUTIC TARGET < 7.0 ACTION SUGGESTED > 7.0 Estimated Average Lhatxwj548Shjylrzbcm Lab:see noteML - [facility] LB TSH Reviewed date:02/01/2025 09:11:41 AM Interpretation: Performing Lab: Notes/Report: [facility] ,Thyroid Stimulating Hormone0.4100.358-3.740 uIU/mLPerforming Lab:see noteML - [facility] LBT4 Reviewed date:02/01/2025 09:11:41 AM Interpretation: Performing Lab: Notes/Report: [facility] ,T4 Thyroxine5.104.80-13.90 ug/dLPerforming Lab:see noteML - [facility] LBPROF 14(COMP METB) Reviewed date:02/01/2025 09:11:41 AM Interpretation: Performing Lab: Notes/Report: [facility] ,Acenkg248542-000 mmol/LPotassium4.33.5-5.1 mmol/POgrmwyws80495-459 mmol/LCarbon Tjsodjq72.721.0-32.0 mmol/LAnion Gap12.5Aoogwqe70384-145 mg/dLBlood Urea Lpbgltns01.07.0-18.0 mg/dLCreatinine0.910.55-1.02 mg/dLEstimated GFR ( [place]>60>=60 mL/min/1.73m 2Estimated GFR (Non- Ame60>=60 mL/min/1.73m 2 BUN Creatinine Ratio18.2Rzmeimk6.78.5-10.1 mg/dLBilirubin Total0.40.2-1.0 mg/dL Aspartate Amino Pxlfvmftfjb7763-64 U/LAlanine Bksnlezfdirpeqlc5340-22 U/L Alkaline Opldnfmoxkk2943-226 U/LTotal Protein6.76.4-8.2 g/dLAlbumin Level3.33.4- 5.0 g/dLGlobulin3.4Albumin Globulin Ratio1.0Performing Lab:see noteML - [facility] LBFREE T3 Reviewed date:02/01/2025 09:11:41 AM Interpretation: Performing Lab: Notes/Report: [facility] ,Free T32.412.18-3.98 pg/mLPerforming Lab:see noteML - [facility] LB CBC AUTO DIFF Reviewed date:02/01/2025 09:11:41 AM Interpretation: Performing Lab: Notes/Report: [facility] ,White Blood Count6.84.0-11.0 10 3/uLRed Blood Count4.664.20-5.40 10 6/uL Goyrvzomhx28.612.0-16.0 g/sAOyqwwtsxwx45.136.0-48.0 %Mean Corpuscular Xjzurp00.2 81.0-99.0 fLMean Corpuscular Xxmqunespg99.226.7-34.0 pgMean Corpuscular HGB Conc 33.129.9-35.2 g/dLRed Cell Distribution Width13.711.0-15.0 %Platelet Dvhxl825 150-450 10 3/uLMean Platelet Volume9.49.5-13.5 fLNeutrophils Percent Auto43.3 43.0-75.0 %Lymphocytes Percent Auto42.520.5-60.0 %Monocytes Percent Auto9.71.7- 12.0 %Eosinophils Percent Auto4.00.9-7.0 %Basophils Percent Auto0.40.2-2.0 % Immature Granulocytes Pct Auto0.10.0-0.5 %Neutrophils Absolute Auto2.91.4-6.5 10 3/uLLymphocytes Absolute Auto2.91.2-3.8 10 3/uLMonocytes Absolute Auto0.70.3-0.8 10 3/uLEosinophils Absolute Auto0.30.0-0.7 10 3/uLBasophils Absolute Auto0.00.0- 0.1 10 3/uLImmature Granulocytes Abs Auto0.010.00-0.03 10 3/uLPerforming Lab:see noteML - [facility] LB Reason For Referral Diagnosis 1 Screening for colon cancer (Z12.11) Referral Organization [facility] ([place], [place]) Referring Provider First Name Jeronimo Referring Provider [...] Orally Once a day; Duration: 90 days 5ActivehydroCHLOROthiazide 25 MG1 tablet in the morning Orally Once a day; Duration: 90 days5ActiveEliquis 5 MG1 tablet Orally bid; Duration: 30 days5ActiveAmbien 10 MG1 tablet at bedtime as needed Orally Once a day; Duration: 2 days5ActiveVitamin B5KbcopxDhyoymiitrvru Sodium 50 MCG TAKE 1 TABLET BY MOUTH ONCE EVERY MORNING ON AN EMPTY STOMACH; Duration: 90 ActiveSimvastatin 40 MGTAKE 1 TABLET BY MOUTH EVERY DAY; Duration: 90 daysActive Liothyronine Sodium 5 MCGTAKE 2 TABLETS BY MOUTH ONCE A DAY; Duration: 90Active Omeprazole 20 MGTAKE 1 CAPSULE BY MOUTH EVERY DAY FOR 90 DAYS; Duration: 90 ActiveLisinopril 10 MGTAKE 1 TABLET BY MOUTH EVERY DAY; Duration: 90Active Citalopram Hydrobromide 10 MGTAKE 1 TABLET BY MOUTH EVERY DAY; Duration: 90 Active Immunizations Vaccine Route Administration Date Status Comme nts Arexvy Unknown 12/03/2023 Administered AwrlmgLhknvkh01/04/2024AdministeredPneumococcal (Pneumovax 23)Tykrivs4302/04/2016 AdministeredPneumococcal (Prevnar 13)Memotyp9201/16/20169087GgqjnfuchtkcFCMV-XBY-2 (COVID 19 Pfizer 30mcg/0.3mL)Dmbxady43/02/4684OwgrgifesgioEBSB-LNB-4 (COVID 19 Pfizer 30mcg/0.3mL)Imqakci05/23/2021AdministeredZOSTER (SHINGLES) VACCINE (HZV) Huwgkzb6811/23/2019AdministeredZOSTER (SHINGLES) VACCINE (HZV)Gvurjag5102/05/2020 AdministeredZoster (Zostavax)Goivund4803/02/2012dministered Social History Tobacco Use: Social History Observation [...] in the past year?Less than monthly (1 point)Ihrqqt3Axnhixeucgyjbm NegativeAUDIT-C (Standard) Question Answer Notes Did you have a drink containing alcohol in the p ast year? No Toijeb1ZrxuakhgufugzbRuoyvsdw Problems Problem Type SNOMED Code ICD Code Onset Dates Problem Status W/U Status Risk Notes Problem Fatigue (43184573) Fatigue (R53.83) ActiveconfirmedProblemHypertension (54282422)Hypertension (I10)Activeconfirmed ProblemCarpal tunnel syndrome (46195468)Carpal tunnel syndrome (G56.00)Active confirmedProblemHypertension (33208615)HTN (hypertension) (I10)Activeconfirmed ProblemEdema (12594040)Edema (R60.9)ActiveconfirmedProblemArthritis (3690072) Arthritis (M19.90)ActiveconfirmedProblemInsomnia (763933893)Insomnia (G47.00) ActiveconfirmedProblemKnee pain (0973511211)Knee pain (M25.569)Activeconfirmed ProblemDiverticular disease of colon (061938251)Diverticulosis (K57.90)Active confirmedProblemIrritable bowel syndrome (26883854)IBS (irritable bowel syndrome) (K58.9)ActiveconfirmedProblemAcute sinusitis (35022225)Acute sinusitis (J01.90)ActiveconfirmedProblemHearing loss (24804767)Hearing loss (H91.90)Active confirmedProblemSchatzki's ring (06947828)Schatzki's ring (Q39.4)Activeconfirmed ProblemPhlebitis (39022522)Phlebitis (I80.9)ActiveconfirmedProblemCranial neuropathy (37478365)Cranial neuropathy (G52.9)Activeconfirmed Vital Signs Blood pressure diastolic 68 mm Hg 12/04/2024 Amaoju25.5 in12/04/2024lood pressure wgkvotly669 mm Hg12/04/20247341Vscbkt149 lbs 12/04/2024BMI28.39 kg/m212/04/2024 Encounters Encounter Location Date Provider Diagnosis [facility] [address] [facility] [place] [address] 11/02/2024 Jeronimo Hoy Phlebitis I80.9 [facility] [address] [facility] [place] [address] 12/04/2024 Jeronimo Hoy Edema R60.9 [facility] [address] [facility] [place] [address] 06/07/2024 Jeronimo Hoy Hypertension I10 and Arthritis M19.90 [facility] [address] [facility] [place] [address] 07/26/2024 Jeronimo Hoy Encounter for Medica re annual wellness exam Z00.00 [address] [place] [address] 02/29/2024 Jeronimo Hoy HTN (hypertension) I 10 and Acute sinusitis J01.90 [facility] [address] [place] [address] 05/08/2024 Jeronimo Hoy [facility] [place] [address] 07/26/2024Doug [facility]oyScre[facility] for colon [facility] [facility] [place] [address]/04/2025[facility] [place] [address]/05/2024 Jeronimo [facility] [facility] [place] [address]Doug [facility] [facility] [place] [address]/07/2025Doug [facility] [facility] [place] [address]/09/2025Doug [facility] [place] [address]/03/2024Doug HoyHTN (hypertension) I10 and Fatigue R53.83[address] [place] [address]/05/2024Doug Hoy Assessments Encounter Date Diagnosis (ICD Code) Assessment Notes Treatment Notes Treatment Clinical Notes Section Notes 02/29/2024 HTN (hypertension) (ICD-10 - I10 ) 4Acute sinusitis (ICD-10 - J01.90)06/07/2024Hypertension (ICD-10 - I10) 5Arthritis (ICD-10 - M19.90)07/26/2024Encounter for Medicare annual wellness exam (ICD-10 - [...] of 45 mintutes was spent with the nggsnal0711/02/2024Phlebitis (ICD-10 - I80.9)asa and heat 4 times [...] OCCULT BLOOD 11/24/2022 SNR 04 URINALYSIS 03/10/2023 US ABI DOP LEG LT 11/02/2024 THYROID PANEL (T4/TSH/FREE T3) 3 THYROID PANEL (T4/TSH/FREE T3) 4 THYROID PANEL (T4/TSH/FREE T3) 5 Vitamin D 11/24/2023 Lipid Panel 11/24/2023 Insurance Providers Payer Name Payer Address Payer Phone Subscriber Number Group Number Insured Name Patient Relationship to Insured Coverage Start Date Coverage End Date [employer] ADV PLAN [address] [place] [address] [id number] Mayra Stapleton - patient is the [place] [id number], JudithSelf - patient is the insured Medications Administered Medication Instructions Date of Administration Dosage Notes Kenalog-40 20 mg Medical (General) History Medical History History ICD Code Cranial neuropathy G52.9 Hearing loss H91.90 Schatzki's ring Q39.4 Diverticulosis K57.90 Hypertension I10 Carpal tunnel syndrome G56.00 IBS (irritable bowel syndrome) K58.9 Fatigue R53.83 Surgical History Surgery Date(Month/Year) fusion T2-T8 bdxtrrcypfnx3070Jldiqoqhi Knee replacementAppendixAchillesRight Shoulder Pslicxnghshczldbxzcbsy39/25/25
--- OUTSIDE RECORDS SUMMARY | 2025-02-28 07:55 | XMS_ITS | Clinical Summary ---
Author Organization [facility] Address [address] [place] [address] Care Team Providers Care Shop Router Name Role Phone Unavailable Primary Care Provider Unavailabl e Social History Tobacco UseTypesPacks/DayYears UsedDateSmoking Tobacco: Never AssessedUT Safety & EnvironmentAnswerDate RecordedFear of Current or Ex-PartnerNot on file 04/22/2023Emotionally AbusedNot on file04/22/2023hysically AbusedNot on file 04/22/2023Sexually AbusedNot on file4Physically or Sexually AbusedNot on file04/22/2023CommentsUnknownSex and Gender InformationValueDate RecordedSex Assigned at BirthNot on fileLegal SgcFjvofc78/29/2022 10:00 PM EDT Gender IdentityNot on fileSexual OrientationNot on file Plan of Treatment Not on file
--- OUTSIDE RECORDS SUMMARY | 2025-02-28 07:55 | XMS_ITS | Clinical Summary ---
Author Organization [facility] Address [address] [facility], [address] [place] [address] Care Team Providers Care Transition Social Worker Name Role Phone Oscar Gil MD Primary Care Provider [phone] Allergies Active AllergyReactionsCriticalityNoted DateCommentsAcetaminophenShortness Of TiadszPpqe49/09/2020 Medications MedicationSigDispense QuantityRefillsLast FilledStart DateEnd DateStatus lisinopril [...] of total knee, left10/20/2022Status post right knee pvefgpmkpct43/22/2023 Social History Tobacco UseTypesPacks/DayYears UsedDateSmoking Tobacco: Never Assessed CommentsUnknownSex and Gender InformationValueDate RecordedSex Assigned at Not on fileLegal KatAxywge94/15/2020 11:30 AM EDTGender IdentityNot on file Sexual OrientationNot on file Plan of Treatment Health MaintenanceDue DateLast TgpzJwvavvcwXbbjqj66/25/1957Depression Screen 1958Hepatitis C xkdjle4604/25/1964DTaP/Tdap/Td vaccine (1 - Tdap)1965 DEXA (modify frequency per FRAX score)2001Respiratory Syncytial Virus (RSV) or age 60 yrs+ (1 - 1-dose 75+ series)2021nnual Wellness Visit (Medicare)01/25/2023Flu vaccine (#1)509/, 11/17/2020, 11/03/2019, Additional history existsCOVID-19 Vaccine ( season) 509/, 07/02/2021, 11/24/2020, Additional history exists Pneumococcal 50+ years MtxdgvkHmqiouwbi32/06/2016, 01/16/2016Shingles vaccine Bsycqewtc34/07/2020, 11/23/2019, 03/02/2012Hepatitis A vaccineAged OutNo longer eligible [...] MemberRelationshipSpecialtyStart DateEnd Oscar Gil MD [address] [place] [address] [facility]/09/19
--- OUTSIDE RECORDS SUMMARY | 2025-02-28 07:55 | XMS_ITS | Clinical Summary ---
Author Organization [facility] Address [address] [place] [address] Care Team Providers Care Personnel Training Officer Name Role Phone Oscar Gil MD Primary Care Provider [phone] Allergies Active AllergyReactionsCriticalityNoted DateCommentsAcetaminophenOther (See Comments)04/02/2023 Lips [...] InformationValueDate RecordedSex Assigned at BirthNot on fileLegal BjcVkutpa71/06/2014 8:37 AM EDT Gender IdentityNot on fileSexual OrientationNot on file Last Filed Vital Signs Vital SignReadingTime TakenCommentsBlood Hmimvkci767/59004/06/2023 1:45 PM EST Nnitg775904/06/2023 1:45 PM RAHPxlbvpslhea20.2 ??C (98.9 ??F)04/06/2023 1:45 PM ESTRespiratory Tsnn326304/06/2023 1:45 PM ESTOxygen Lsbfyptrwy22%04/06/2023 1:45 PM ESTInhaled Oxygen Concentration--Cgospx80.2 kg (176 lb 12.9 oz)04/06/2023 9:35 AM ITXRptlng456.7 cm (5' 8 )04/06/2023 9:35 AM ESTBody Mass Index26.88 04/06/2023 9:35 AM EST Plan of Treatment Not on file Medical Devices ImplantedTypeAreaManufacturerDevice IdentifierShelf Expiration DateModel / Serial / LotHemostat 5gm Tom - [id number] Implanted:Qty: 1 on 04/06/2023 [facility] ShoulderDAVOL [id number] / / [id number] 25mm 15deg Full Wedge Augment Reversed Aequalis - [id number] Implanted:Qty: 1 on 04/06/2023 by [facility]: [id number] / [id number] / Rachele Perform Reversed Cannulated Cocr Standard Glenosphere Implanted:Qty: 1 on 04/06/2023 by [facility]: [id number] / [id number] / Rachele Perform Humeral System Reversed Insert, Thickness: +6mm Size 3/4 36mm Implanted:Qty: 1 on 04/06/2023 by [facility]: [id number] / [id number] / Tornier Perform Humeral System Humeral Stem, Std, Short Size 3 Implanted:Qty: 1 on 04/06/2023 by [facility]: [id number] / [id number] / Screw 6.5 X 40mm Central Thrd Perform Reversed Aequalis - [id number] Implanted:Qty: 1 on 04/06/2023 by Mohan Kowalski MD at [facility]: [id number] / / Screw 5 X 30mm Peripheral Glenoid Aequalis Perform Reversed - [id number] Implanted:Qty: 2 on 04/06/2023 by Mohan Kowalski MD at [facility]: ShoulderWRIGHT [id number] / / Screw 5 X 18mm Peripheral Thrd Perform Reversed Aequalis - [id number] Implanted:Qty: 2 on 04/06/2023 by Mohan Kowalski MD at [facility]: [id number] / / Insurance Care Teams Team MemberRelationshipSpecialtyStart Date Oscar Gil MD NPI: [id number] [place], [place] [address] [place] [address] [facility]04/06/23
--- OUTSIDE RECORDS SUMMARY | 2025-02-28 07:55 | XMS_ITS | Clinical Summary ---
Author Organization [facility] Address [address] [facility] [place] [address] Care Team Providers Care Malt Roaster Name Role Phone Oscar Gil MD Primary Care Provider [phone] Allergies Active AllergyReactionsCriticalityNoted DateCommentsAcetaminophenShortness of qjiwozLaus43/09/2020 Other Reaction(s): SOB/cyanosis Medications MedicationSigDispense QuantityRefillsLast FilledStart [...] Problems No known active problems Encounters DateTypeDepartmentCare NkiuJxkdvfdujkp66/21/2025 8:30 AM EDTOffice Visit [facility] [address] [address] Talia Foster, DO Encounter for pessary maintenance (Primary Dx); Cystocele, midline; Uterine prolapse; Stress incontinence; Urge yrqiavevxvoh25/21/2025Results Follow-Up [facility] [address] [place] [address] [address] Talia Foster, Urine dip12/19/2024Travelfrom Last 3 Months Family History RelationNameStatusCommentsFatherDeceasedMotherDeceased Social History Tobacco UseTypesPacks/DayYears UsedDateSmoking Tobacco: FormerCigarettes Smokeless Tobacco: Never Tobacco Cessation:Counseling Given: Not Answered Comments:Last smoked : 20 years Alcohol UseStandard Drinks/WeekCommentsYes1 (1 standard drink = 0.6 oz pure alcohol)1 or 2 a monthCommentsNoSex and Gender InformationValueDate RecordedSex Assigned at LguekPelwat72/05/2023 8:58 AM EDTLegal SexFemale 05/13/2022 7:39 PM EDTGender NgrllloqXfrhoc86/05/2023 8:58 AM EDTSexual OrientationChoose not to rgkazwev86/05/2023 8:58 AM EDTSexual OrientationDon't know09/02/2022 8:58 AM EDTSexual MhiejhdxgnlGpi69/05/2023 8:58 AM EDTSexual UyqputqzponDsxfadr97/05/2023 8:58 AM EDTSexual OrientationLesbian or Munoz 09/02/2022 8:58 AM EDTSexual CdnxnbxjydwOmdycqfcb03/05/2023 8:58 AM EDT Last Filed Vital Signs Vital SignReadingTime TakenCommentsBlood Jshnwrkt539/7612/19/2024 8:39 AM EDT Pulse--Vdqgyeolztj31.4 ??C (97.5 ??F)10/01/2022 3:48 PM EDTRespiratory Rate-- Oxygen Saturation--Inhaled Oxygen Concentration--Vtthsk61.7 kg (178 lb) 12/19/2024 8:39 AM JKPPofald932.7 cm (5' 8 )05/25/2024 2:35 PM EDTBody Mass Index27.0605/25/2024 2:35 PM EDT Plan of Treatment DateTypeDepartmentCare Team (Latest Contact Info)Ewnairjxxte34/04/2026 8:20 AM ESTOffice Visit [facility] [address] [phone] Susanne Hermosillo NP [address] [place] [address] Health MaintenanceDue DateLast DoneCommentsPneumococcal Vaccine: 65+ Years Efdssqlnw32/06/2016, 01/16/2016Influenza CtudrjhIcqgaados14/07/2025, 11/18/2023, 12/02/2022, Additional history exists Procedures Procedure NamePriorityDate/TimeAssociated DiagnosisCommentsPOCT URINALYSIS VFBJOMUMDcqjqxa75/21/2025 9:02 AM EDT Encounter for pessary maintenance [...] / LateralityCollection Method / Volume Collection TimeReceived ValuQaztl12/21/2025 9:02 AM EDT Narrative Authorizing ProviderResult TypeResult StatusMona J Nataprawira DOPOINT OF CARE TEST ENTER/EDIT ORDERABLESFinal Result from Last 3 Months Insurance Care Teams Team MemberRelationshipSpecialtyStart DateEnd Date Oscar Gil MD [address] [facility] [place] [address] PCP - GeneralFamily Medicine09/26/24
--- OUTSIDE RECORDS SUMMARY | 2025-02-28 07:55 | XMS_ITS | Clinical Summary ---
Author Organization [facility] Address [address] [place] [address] Care Team Providers Care Foundation Director Name Role Phone Oscar Gil MD Primary Care Provider [phone] Active Problems ProblemNoted DateDiagnosed DateFracture of vertebral column without mention of spinal cord idpnna2310/16/2003 Social History Tobacco UseTypesPacks/DayYears UsedDateSmoking Tobacco: Never Assessed CommentsNoSex and Gender InformationValueDate RecordedSex Assigned at BirthNot on fileLegal BczUstipg02/02/2012 10:00 AM ESTGender IdentityNot on fileSexual OrientationNot on file Plan of Treatment Health MaintenanceDue DateLast DoneCommentsAnxiety Cxyibgqtr49/25/1965Depression Ckarlvbsj61/25/1965Hepatitis C Tdukflhcd97/25/1965DTaP,Tdap,Td Vaccine (1 - Tdap)1965Diabetes Mxvshqiwj00/25/1992Pneumococcal Vaccine: 50+ (1 of 1 - PCV)1996Shingrix Vaccine (1 of 2)1996Bone Density Screening 2011RSV Vaccine (1 - 1-dose 75+ series)2021dvance Directive Tdzwflxkdv24/01/2025ovid-19 Vaccine (1 - 2024-26 season)2024Influenza Vaccine (#1)2024 Insurance * Guarantor: Zahra Stapleton TypeRelation to PatientDate of BirthPhone Billing QvgqpewGxjrmciyIqbl23/[birth year][address] [place] [address] Care Teams Team MemberRelationshipSpecialtyStart DateEnd Date Oscar Gil MD [address] [place], [place] [address] [facility] - Shkramm27/7/03
--- OUTSIDE RECORDS SUMMARY | 2025-02-28 07:56 | XMS_ITS | CCD ---
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 Name Role Phone Felix Gil Primary Care [...] Unavailable Felix Gil MD Primary Care Provider [phone] BLANCHE DOBBS Referring Unavailable FELIX GIL Primary Care Unavailable BLANCHE DOBBS Referring Unavailable FELIX GIL Primary Care Unavailable MOHINDER LEMHAN Attending Unavailable MOHINDER LEHMAN Admitting Unavailable Felix Gil MD Primary Care Provider [phone] Felix Gil Primary Care Physician Doug LAGUNA Attending Unavailable Doug LAGUNA Attending Unavailable Felix Gil MD Primary Care Provider [phone] Felix Gil MD Primary Care Provider [phone] TALIA FOSTER Attending Unavailable TALIA FOSTER Attending Unavailable SUSANNE OGLESBY Attending Unavailable SUSANNE OGLESBY Attending Unavailable TALIA FOSTER Attending Unavailable Allergies Allergy ClassificationReported Allergen(s)Allergy TypeDate of OnsetReaction(s) Facility (10 sources)Acetaminophen; Translations: [ACETAMINOPHEN]Drug Xjhegnv55-45-2630 Shortness Of Breath, Dyspnea (finding)[facility] [place] (1 source)AcetaminophenDrug Ixvbnss13-28-0526[facility] (15 sources)AcetaminophenDrug Xuwcpjp61-28-3702Zdlooohal of breathNOMS Healthcare Medications Current Medications MedicationDrug Class(es)DatesSig (Normalized)Sig (Original)apixaban 5 mg oral tablet (2 sources)Factor Xa InhibitorStart: 92-00-9525qrxf 1 tablet by mouth in the morningEliquis [...] mg oral tablet (1 source)Serotonin Reuptake InhibitorStart: 32-19-2488ywtl 1 tablet by mouth once dailyCeleXA 10 mg Tab 10 mg = 1 tab(s), Oral, Daily, Refills(s) 0 Start Date: 08/16/24 Status: Ordered Repeat number: 1hydroCHLOROthiazide 25 mg oral tablet (1 source)Thiazide DiureticStart: 87-88-4621igpp 1 tablet by mouth once daily hydrochlorothiazide 25 mg Tab 25 mg = 1 tab(s), Oral, Daily, Refills(s) 0 Start Date: 08/16/24 Status: Ordered Repeat number: 1levothyroxine sodium 0.05 mg oral tablet (18 sources)l-ThyroxineStart: 48-62-4956qihr 1 tablet by mouth once daily levothyroxine [...] sodium 0.005 mg oral tablet (3 sources)l-TriiodothyronineStart: 41-27-2346stqv 2 tablets by mouth once daily liothyronine 5 mcg Tab 10 mcg = 2 tab(s), Oral, Daily, Refills(s) 0 Start Date: 08/16/24 Status: Ordered Repeat number: 1take 1 tablet by mouth every twenty-four hoursLiothyronine Sodium 5 MCG 1 tablet on an empty stomach Orally Once a day Activelisinopril 10 mg oral tablet (20 sources)Angiotensin Converting Enzyme InhibitorStart: 42-11-9729omjb 1 tablet by mouth once dailylisinopril 10 mg Tab 10 mg = 1 tab(s), Oral, Daily, Refills(s) 0 Start Date: 08/16/24 Status: Ordered Repeat number: 1meloxicam 15 mg oral tablet (16 sources)Nonsteroidal Anti-inflammatory DrugStart: 39-86-9314iqtw 1 tablet by mouth once dailymeloxicam 15 mg Tab 15 mg = 1 tab(s), Oral, Daily, Refills(s) 0 Start Date: 08/16/24 Status: OrderedRepeat number: 1Start: 01-28-2020 End: 26-85-7958wwkt 1 tablet by mouth once dailymeloxicam (MOBIC) [...] release oral capsule (16 sources)Proton Pump InhibitorStart: 24-87-3441toou 1 capsule by mouth once dailyomeprazole 20 mg Cap-DR 20 mg = 1 cap(s), Oral, Daily, Refills(s) 0 Start Date: 08/16/24 Status: Ordered Repeat number: 1Start: 01-11-2020 End: 67-93-8824whlq 1 capsule by mouth once dailyomeprazole (PRILOSEC) 20 MG delayed release capsule TAKE 1 CAPSULE BY MOUTH EVERY DAY 0 01/11/2020 Active simvastatin 40 mg oral tablet (20 sources)HMG-CoA Reductase InhibitorStart: 35-93-7844vrzg 1 tablet by mouth once daily in the eveningsimvastatin 40 mg Tab 40 mg = 1 tab(s), Oral, qPM, Refills(s) 0 Start Date: 08/16/24 Status: OrderedRepeat number: 1tiZANidine 2 mg oral tablet (9 sources)Central alpha-2 Adrenergic AgonistStart: 06-08-2022 End: 65-59-5646phZSKjrlwr (Zanaflex) 2 MG tablet every 8 (eight) hours. 06/08/2022 02/28/2024 Discontinued (Therapy completed) Problems Active Problems Problem ClassificationProblemDateDocumented DateEpisodic/ChronicCongestive heart failure; nonhypertensive (2 sources)Unspecified diastolic (congestive) heart failure; Translations: [Diastolic heart failure]Onset: 767071-04-6704RpkhtmkSzkwdhrk mellitus without complication (1 source)Type 2 diabetes mellitus without complications; Translations: [TYPE 2 DM WITHOUT COMPLICATIONS]Onset: 09-29-3509SklmmvkTasztjnc mellitus without complication (1 source)Other abnormal glucose; Translations: [OTHER ABNORMAL GLUCOSE]Onset: 21-50-8708FkpdzojdLmgyqclhb of lipid metabolism (5 sources)Hyperlipidemia, unspecified; Translations: [Hyperlipidemia]Onset: 13-24-7987OtyxrxnFbrhymntqk disorders (2 sources)Gastroesophageal reflux disease; Translations: [Lower esophageal ring]29-28-8558IhtgnhqKqlzzhnjh hypertension (2 sources)Essential (primary) hypertension; Translations: [Essential hypertension]Onset: 495410-47-6577DqsfufxQrbpguiosqhpr symptoms and ill- defined conditions (8 sources)Genuine stress incontinence; Translations: [Stress incontinence (female) (male)]10-43-9690NkdtqkoSjhjesgtniwz with complications and secondary hypertension (1 source)Hypertensive heart disease with heart failure; Translations: [HTN HEART DISEASE W/HEART FAIL]Onset: 33-27-4785TcrusxiVhlplbibcovg diseases of female pelvic organs (3 sources)Subacute vaginitis; Translations: [Subacute and chronic vaginitis] EpisodicMenopausal disorders (1 source)Other primary ovarian failure; Translations: [OTHER PRIMARY OVARIAN FAILURE]Onset: 21-51-6295NgibmqkUhrxdqahram deficiencies (1 source)Vitamin D deficiency, unspecified; Translations: [VITAMIN D DEFICIENCY UNSPECIFIED]Onset: 47-79-9418MouraleOhajx aftercare (1 source)Other longterm (current) drug therapy; Translations: [OTH SENIOR CARE CURRENT DRUG THERAPY]Onset: 54-87-4664BllctnxgKugzy bone disease and musculoskeletal deformities (4 sources)Other specified disorders of bone density and structure, unspecified site; Translations: [OTH D/O BONE DEN STRUCT UNS SITE]Onset: 60-93-1541Ncnnztri Other circulatory disease (2 sources)Elevated blood pressure; Translations: [Elevated blood-pressure reading, without diagnosis of hypertension]06-31-4754RtegwsznXgbpm connective tissue disease (2 sources)History of revision of left total knee arthroplasty; Translations: [Presence of left artificial knee joint]Onset: 060316-15-0490QcrccojQaolp connective tissue disease (2 sources)History of total knee arthroplasty; Translations: [Presence of right artificial knee joint]Onset: 879580-68-4376DribtvaYihfn female genital disorders (2 sources)Abnormal vaginal bleeding; Translations: [Abnormal uterine and vaginal bleeding, unspecified]17-24-1988TfgbgioMhrmu female genital disorders (2 sources)Vaginal discharge; Translations: [Other specified noninflammatory disorders of vagina]17-19-6238OyqhoaneRgzjg gastrointestinal disorders (1 source)Irritable bowel qgqoyrwx90-29-5124EahtspaHgaub nervous system disorders (2 sources)Other acute postprocedural pain; Translations: [Other acute postprocedural pain]Onset: 85-07-1607ZwqbygetMtzfi nervous system disorders (1 source)Cranial nerve eezowekf76-37-4230ZsqkfkdkPcrbj non-traumatic joint disorders (2 sources)Knee pain; Translations: [Knee pain, unspecified chronicity, unspecified laterality]EpisodicOther non-traumatic joint disorders (3 sources)Pain in right knee; Translations: [Other acute pain]Onset: 10-20-2022 EpisodicOther non-traumatic joint disorders (1 source)Pain in left knee; Translations: [Pain in left knee]Onset: 10-20-2022 EpisodicOther non-traumatic joint disorders (2 sources)Pain in unspecified shoulder; Translations: [Pain in unspecified shoulder]Onset: 47-15-1874YpqdzevwWohzl nutritional; endocrine; and metabolic disorders (1 source)Framenhfms16-86-3039SxvlbaodVmfkn nutritional; endocrine; and metabolic disorders (1 source)Overweight in adulthood with body mass index of 25 or more but less than 7910-40-5023WooxxmhwWnehy screening for suspected conditions (not mental disorders or infectious disease) (3 sources)Encounter for screening mammogram for malignant neoplasm of breast; Translations: [Encounter for screening for malignant neoplasm of colon]Onset: 16-63-0508AbbjjkfcIqhidncj of female genital organs (20 sources)Midline cystocele; Translations: [Cystocele, midline]11-11-2023 ChronicRehabilitation care; fitting of prostheses; and adjustment of devices (11 sources)Patient encounter status; Translations: [Encounter for fitting and adjustment of other specified devices]58-70-4308JqzkhlfMhsnlcyx codes; unclassified (1 source)Family history of malignant neoplasm of ovary; Translations: [FAM HX MALIGNANT NEOPLASM OVARY]Onset: 74-83-1479HqpsogtpOqbpoxlw codes; unclassified (1 source)Family history of malignant neoplasm of other organs or systems; Translations: [FAM HX MALIG NEOPLASM OTH ORGN/SYS]Onset: 02-28-7094Alazxvcr Thyroid disorders (6 sources)Hypothyroidism, unspecified; Translations: [Hypothyroidism]Onset: 58-72-7246QghzmvdHafnqjlqbfbf (1 source)Subacute and chronic vaginitis; Translations: [Subacute and chronic vaginitis]Onset: 25-80-9363Lmysczguvksu (1 source)Patient encounter jiryvb88-14-6445 Past or Other Problems Problem ClassificationProblemDateDocumented DateEpisodic/ChronicScreening and history of mental health and substance abuse codes (2 sources)Ex-smoker; Translations: [Personal history of nicotine dependence] 50-05-1335Tfyybrxe Results Test NameValueInterpretationReference RangeFacilityUrinalysis macro (dipstick) panel (U)on 72-56-7136Walpzmbma, UANegativeNegative - 4(70) +++ mg/dLNOMS HealthcareBlood, UANegativeNegative [...] - 12 mg/dLNOMS HealthcareNOMS HealthcareAmbulatory Visit Summaryon 81-40-4700Dpjpuhwlqm Visit Summary Ambulatory Visit Summary MI WISE [...] signed up for this yet, please contact CLASEMOVIL at [phone] to get signed up today. Language Information Language assistance services are available as needed. [facility] HospitalUrinalysis macro (dipstick) panel (U)on 18-98-4826Uletgtalc, UANegativeNegative - 4(70) +++ mg/dLNOMS HealthcareBlood, UANegativeNegative - 50 Jonathon/mcLNOMS HealthcareClarity, UAClear NOMS HealthcareColor, UAYellowNOMS HealthcareGlucose, UANegativeNegative - 2000(110) ++++ mg/dLNOMS HealthcareInterpretation and review of laboratory resultsNormalNOMS HealthcareKetones, UANegativeNegative - 160(16) ++++ mg/dLNOMS HealthcareLeukocytes, UANegativeNegative - 500+++ Gino/mcLNOMS HealthcareNitrite, UANegativeNegative - PositiveNOMS HealthcarepH, UA6.55 - 9NOMS Healthcare Protein, UANegativeNegative - 2000(20) ++++ mg/dLNOMS HealthcareSpec Grav, UA 1.0051 - 1.03NOMS HealthcareUrobilinogen, UA1.00.2 - 12 mg/dLNONortheast Regional Medical CenterNOKS HealthcareNo Panel Informationon 28-12-7993YvvmTalia Foster DO 10/28/2023 3:58 PM Pessary Date/Time: [...] Reviewed by: provider Comments: Procedure comments: LOT [id number] Health PartnersXR KNEE LEFT (MIN 4 VIEWS)on 10-20-2022 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 [facility]EX[facility]: XR KNEE LEFT (MIN 4 VIEWS) [...] total left knee replacement in anatomical position. [employer] Work Phone: XR KNEE LEFT (MIN 4 [...] Signed by: Manuel Saxena MD 10/20/22 Final resultNoUC West Chester HospitalRadiology Study observation (narrative)[facility] Work Phone: XR KNEE LEFT (MIN 4 VIEWS)Ordered By: Manuel Saxena on 31-33-1867OZICMGX Work Phone: XR KNEE RIGHT (MIN 4 VIEWS)on 10-20-2022 No acute findings. Intact prosthesis. [facility]ATEDEXAM: XR KNEE RIGHT (MIN 4 VIEWS) HISTORY: Acute pain of both knees COMPARISON: 02/07/2020 TECHNIQUE: 4 views of right knee were obtained FINDINGS: There is no evidence of fracture or dislocation. Prosthetic knee is seen in proper alignment without evidence of loosening. No evidence to suggest a joint effusion. Visualized soft tissues appear unremarkable. Report electronically signed by: Dr. Melisa JiangIZARD [facility] Melisa Jiang MD - [...] Jiang IMPRESSION: No acute findings. Intact prosthesis. [employer] Work Phone: XR KNEE RIGHT (MIN 4 [...] Signed by: Melisa Jiang MD 10/20/22 Final resultNoUC West Chester HospitalRadiology Study observation (narrative)JACQUE Work Phone: XR KNEE RIGHT (MIN 4 VIEWS)Ordered By: Melisa Jiang on 44-07-6392OGUZDQQ Work Phone: MISC LABon 56-88-3437KWXS LABMercy Health Defiance HospitalComment on above:Order Comment: [facility] Test Name: VAGINITIS/VAGINOSIS DNA PROBE # [id number] Comment: See report. Scanned copy available in EMR. PERFORMED BY: [place] [address] PATHOLOGIST PSYCHOLOGY CLINICIAN MEGHAN ESPINO M.D.Performed By: #### [facility] #### [place] [address] USAMG MAMM SCREEN 3D HERBER CADon 40-22-2193GU MAMM SCREEN 3D HERBER CADPatient: MI WISE. Exam Date: 02/25/2022 : 1945 Gender:F Ordering : DR FELIX GIL . Admission #: [id number] Family : Order #: [id number] CLICK HERE TO VIEW EXAM RADIOLOGY REPORT [...] ovarian cancer at age 61. LOCATION: [facility] BREAST COMPOSITION: Scattered areas fibroglandular [...] by: Edvin Su MD on 02/26/2022 at 11:40UC Medical CenterXR DEXA BONE DENSITYon 26-51-1539VP DEXA BONE DENSITYEXAMINATION: XR DEXA BONE DENSITY, [...] Electronically authenticated by: EDVIN SU Date: 2022-02-25 16:21UC Medical CenterINSULINon 42-78-5537Tmpyzxc7.3 uIU/mLNormal2.6-24.9The [facility] CenterComment on above:Performed By: #### VITAD, IRON #### [facility] [address] [place] [address] Dr. Gabby CollierIRUBIN CONJUGATED (DIRECT)on 81-28-9978DCRX, CONJUGATED0.1 mg/dLNormal0.0-0.2The [facility] CenterComment on above:Performed By: #### TSH, DBIL, CMP, LIPID, FT3, T4 #### [facility] [address] [place] [address] Dr. Gabby Bernard AUTO DIFFon 90-97-5703FYTQ #0.0 103/ulNormal0.0-0.1The [facility] CenterComment on above:Performed By: #### VITAD, IRON #### [facility] [address] [place] [address] Dr. Gabby BrionesBasophils/100 WBC (Bld)0.6 %Normal0.2-2.0The [facility] Comment on above:Performed By: #### VITAD, IRON #### [facility] [address] [place] [address] Dr. Gabby Cardona #0.4 103/ulNormal0.0-0.7The [facility] CenterComment on above: Performed By: #### VITAD, IRON #### [facility] [address] [place] [address] Dr. Gabby Pryorosinophils/100 WBC (Bld)6.0 %Normal0.9-7.0The [facility] Comment on above:Performed By: #### VITAD, IRON #### [facility] [address] [place] [address] Dr. Gabby Pryorrythrocyte distribution width (RBC) [Ratio]13.7 %Rgoxig37.0-15.0 The [facility] CenterComment on above:Performed By: #### VITAD, IRON #### [facility] [address] [place] [address] Dr. Gabby BrionesHematocrit (Bld) [Volume fraction]41.9 %Kaoubk67.0-48.0The [facility] CenterCompromedica [facility] on above:Performed By: #### VITAD, IRON #### [facility] [address] [place] [address] Dr. Gabby BrionesHemoglobin (Bld) [Mass/Vol]14.0 g/bXZzvchf55.0-16.0The [facility] CenterComment on above:Performed By: #### VITAD, IRON #### [facility] [address] [place] [address] Dr. Gabby Hitchcock #0.02 10e3/ulNormal0.00-0.03The [facility] CenterCompromedica [facility] on above:Performed By: #### VITAD, IRON #### [facility] [address] [place] [address] Dr. Gabby Hitchcock %0.3 %Normal0.0-0.5The [facility] HospitalComment on above: Performed By: #### VITAD, IRON #### [facility] [address] [place] [address] Dr. Gabby Jeffries #2.6 103/ulNormal1.2-3.8The [facility] CenterComment on above:Performed By: #### VITAD, IRON #### [facility] [address] [place] [address] Dr. Gabby Queenhocytes/100 WBC (Bld)39.7 %Cmvlju62.5-60.0The [facility] CenterComment on above:Performed By: #### VITAD, IRON #### [facility] [address] [place] [address] Dr. Gabby Taylor DIFF REQNONormalThe [facility] CenterComment on above: Performed By: #### VITAD, IRON #### [facility] [address] [place] [address] Dr. Gabby Loya (RBC) [Entitic mass]29.6 esTzmceh72.7-34.0Western Reserve HospitalComment on above:Performed By: #### VITAD, IRON #### [facility] [address] [place] [address] Dr. Gabby Abrams (RBC) [Mass/Vol]33.4 g/zJYreplr81.9-35.2The [facility] on above:Performed By: #### VITAD, IRON #### [facility] [address] [place] [address] Dr. Gabby Abrams (RBC) [Entitic vol]88.6 rNKphzct15.0-99.0The [facility] CenterComment on above:Performed By: #### VITAD, IRON #### [facility] [address] [place] [address] Dr. Gabby Beltran #0.6 103/ulNormal0.3-0.8The [facility] CenterComment on above:Performed By: #### VITAD, IRON #### [facility] [address] [place] [address] Dr. Gabby Gibsonocytes/100 WBC (Bld)8.8 %Normal1.7-12.0The [facility] Comment on above:Performed By: #### VITAD, IRON #### [facility] [address] [place] [address] Dr. Gabby Rodriguez #2.9 103/ulNormal1.4-6.5The [facility] CenterComment on above:Performed By: #### VITAD, IRON #### [facility] [address] [place] [address] Dr. Gabby Barnettutrophils/100 WBC (Bld)44.6 %Pdsmil15.0-75.0The [facility] CenterComment on above:Performed By: #### VITAD, IRON #### [facility] [address] [place] [address] Dr. Gabby BrionesPlatelet mean volume (Bld) [Entitic vol]9.4 fLCritically low 9.5-13.5The [facility] CenterComment on above:Performed By: #### VITAD, IRON #### [facility] [address] [place] [address] Dr. Gabby BrionesPLT326 103/wgRmizav105-958Kno [facility] CenterComment on above: Performed By: #### VITAD, IRON #### [facility] [address] [place] [address] Dr. Gabby BrionesRBC4.73 106/ulNormal4.20-5.40The [facility] CenterComment on above:Performed By: #### VITAD, IRON #### [facility] [address] [place] [address] Dr. Gabby BrionesWBC6.5 103/ulNormal4.0-11.0The [facility] CenterComment on above: Performed By: #### VITAD, IRON #### [facility] [address] [place] [address] Dr. Gabby Armstrong T3on 83-60-5915QFTB T32.47 pg/mlLNormal2.18-3.98The [facility] CenterComment on above:Performed By: #### TSH, DBIL, CMP, LIPID, FT3, T4 #### [facility] [address] [address] [address] Gabby BrionesGLYCOHEMOGLOBIN A1Con 51-25-6895XIF RECOMMENDATIONSEE BELOWUpper Valley Medical CenterCompromedica coldwater regional hospital on above:Result Comment: ADA RECOMMENDED LIMIT 4.0 - 6.0 ADA THERAPEUTIC TARGET < 7.0 ACTION SUGGESTED > 7.0Performed By: #### VITAD, IRON #### [facility] [address] [address] [address] Gabby BrionesGlucose [Mass/Vol]111 mg/dLNoCincinnati Shriners HospitalComment on above:Performed By: #### VITAD, IRON #### [facility] [address] [place] [address] Dr. Gabby BrionesHbA1c (Bld) [Mass fraction]5.5 %Normal4.5-6.2The [facility] on above:Performed By: #### VITAD, IRON #### [facility] [address] [address] [address] Gabby Luciano 83-73-3264Vjzu [Mass/Vol]92.0 ug/fJHcrvpl50.0-170.0The [facility] CenterComment on above:Performed By: #### VITAD, IRON #### [facility] [address] [place] [address] Dr. Gabby BrionesLIPID PROFILEon 90-64-7638AAYQ-HDL RATIO NORMSEE [facility] HospitalCompromed[facility] on above:Result Comment: 3.3 - 4.4 LOW RISK 4.4 - 7.1 AVERAGE RISK 7.1 - 11.0 MODERATE RISK >11.0 HIGH RISKPerformed By: #### TSH, DBIL, CMP, LIPID, FT3, T4 #### [facility] [address] [address] [address] Gabby BrionesCholesterol [Mass/Vol]183 mg/dLNormal<=200The [facility] Comment on above:Performed By: #### TSH, DBIL, CMP, LIPID, FT3, T4 #### [facility] [address] [place] [address] Dr. Gabby Lealesterol in HDL [Mass/Vol]56 mg/iIIxqnxu68-20UxnUC Health on above:Performed By: #### TSH, DBIL, CMP, LIPID, FT3, T4 #### [facility] [address] [place] [address] Dr. Gabby Lealesterol in LDL [Mass/Vol]102.8 mg/dLNormHenry County HospitalComment on above:Performed By: #### TSH, DBIL, CMP, LIPID, FT3, T4 #### [facility] [address] [place] [address] Dr. Gabby Tinoco.total/Cholesterol in HDL [Mass ratio]3.3 {ratio} NormalWestern Reserve HospitalCompromedica coldwater regional hospital on above:Performed By: #### TSH, DBIL, CMP, LIPID, FT3, T4 #### [facility] [address] [place] [address] Dr. Gabby Rodríguez NORMAL> or = 60 mg/dl - LOW CARDIOVASCULAR RISK <40 mg/dl - HIGH CARDIOVASCULAR RISKUC Medical CenterComment on above:Performed By: #### TSH, DBIL, CMP, LIPID, FT3, T4 #### [facility] [address] [place] [address] Dr. Gabby BrionesLDL CALC NORMALSEE BELOWUC Medical CenterComment on above:Result Comment: <100 mg/dl OPTIMAL 100 - 129 mg/dl NEAR OR ABOVE OPTIMAL 130 - 159 mg/dl BORDERLINE HIGH 160 - 189 mg/dl HIGH >190 mg/dl VERY HIGH Performed By: #### TSH, DBIL, CMP, LIPID, FT3, T4 #### [facility] [address] [place] [address] Dr. Gabby BrionesTriglyceride [Mass/Vol]121 mg/dLNormal<=150[facility] Comment on above:Performed By: #### TSH, DBIL, CMP, LIPID, FT3, T4 #### [facility] [address] [place] [address] Dr. Gabby BrionesVLDL CALC24.2 mg/dLNormalThe [facility] Health CenterComment on above: Performed By: #### TSH, DBIL, CMP, LIPID, FT3, T4 #### [facility] [address] [place] [address] Dr. Gabby BrionesPROF 14(COMP METB)on 35-77-3081Xqjrgvi [Mass/Vol]3.4 g/dLNormal 3.4-5.0The [facility] CenterComment on above:Performed By: #### TSH, DBIL, CMP, LIPID, FT3, T4 #### [facility] [address] [place] [address] Dr. Gabby BrionesAlbumin/Globulin [Mass ratio]1.0 {ratio}NormalThe [facility] Health CenterComment on above:Performed By: #### TSH, DBIL, CMP, LIPID, FT3, T4 #### [facility] [address] [place] [address] Dr. Gabby Hudson [Catalytic activity/Vol]50 U/UYdvdgm52-029Dtv [facility] CenterComment on above:Performed By: #### TSH, DBIL, CMP, LIPID, FT3, T4 #### [facility] [address] [place] [address] Dr. Gabby Shafer [Catalytic activity/Vol]17 U/YVmsjbh05-27Fkq [facility] CenterComment on above:Performed By: #### TSH, DBIL, CMP, LIPID, FT3, T4 #### [facility] [address] [place] [address] Dr. Gabby Lopez gap [Moles/Vol]13.7 mmol/LNormalThe [facility] on above:Performed By: #### TSH, DBIL, CMP, LIPID, FT3, T4 #### [facility] [address] [place] [address] Dr. Gabby Ding [Catalytic activity/Vol]13 U/LCritically leu68-07Vmx [facility] CenterComment on above:Performed By: #### TSH, DBIL, CMP, LIPID, FT3, T4 #### [facility] [address] [address] [address] Gabby BrionesBilirubin [Mass/Vol]0.4 mg/dLNormal0.2-1.0The [facility] Comment on above:Performed By: #### TSH, DBIL, CMP, LIPID, FT3, T4 #### [facility] [address] [address] [address] Gabby BrionesCalcium [Mass/Vol]9.1 mg/dLNormal8.5-10.1The [facility] Comment on above:Performed By: #### TSH, DBIL, CMP, LIPID, FT3, T4 #### [facility] [address] [place] [address] Dr. Gabby BrionesChloride [Moles/Vol]106 mmol/FItwkmd43-537WkcWestern Reserve Hospital Comment on above:Performed By: #### TSH, DBIL, CMP, LIPID, FT3, T4 #### [facility] [address] [place] [address] Dr. Gabby BrionesCO2 [Moles/Vol]25.8 mmol/OGaomby56.0-32.0[facility] Comment on above:Performed By: #### TSH, DBIL, CMP, LIPID, FT3, T4 #### [facility] [address] [place] [address] Dr. Gabby BrionesCreatinine [Mass/Vol]0.76 mg/dLNormal0.55-1.02[facility] CenterComment on above:Performed By: #### TSH, DBIL, CMP, LIPID, FT3, T4 #### [facility] [address] [place] [address] Dr. Gabby PryorGFR-AF LITHUANIAN>60Normal>=60[facility] CenterComment on above:Performed By: #### TSH, DBIL, CMP, LIPID, FT3, T4 #### [facility] [address] [place] [address] Dr. Gabby PryorGFR-NON AF LITHUANIAN>60Normal>=60[facility] CenterComment on above:Performed By: #### TSH, DBIL, CMP, LIPID, FT3, T4 #### [facility] [address] [place] [address] Dr. Gabby BrionesGlobulin (S) [Mass/Vol]3.5 g/dLNoCincinnati Shriners HospitalComment on above:Performed By: #### TSH, DBIL, CMP, LIPID, FT3, T4 #### [facility] [address] [place] [address] Dr. Gabby BrionesGlucose [Mass/Vol]101 mg/oUNisgdb16-299SgcWestern Reserve Hospital Comment on above:Performed By: #### TSH, DBIL, CMP, LIPID, FT3, T4 #### [facility] [address] [place] [address] Dr. Gabby BrionesPotassium [Moles/Vol]4.5 mmol/LNormal3.5-5.1[facility] Comment on above:Performed By: #### TSH, DBIL, CMP, LIPID, FT3, T4 #### [facility] [address] [place] [address] Dr. Gabby BrionesProtein [Mass/Vol]6.9 g/dLNormal6.4-8.2[facility] Comment on above:Performed By: #### TSH, DBIL, CMP, LIPID, FT3, T4 #### [facility] [address] [place] [address] Dr. Gabby BrionesSodium [Moles/Vol]141 mmol/XFzzxfi424-618Hlq [facility] Comment on above:Performed By: #### TSH, DBIL, CMP, LIPID, FT3, T4 #### [facility] [address] [place] [address] Dr. Gabby BrionesUrea nitrogen [Mass/Vol]22.0 mg/dLCritically high7.0-18.0Western Reserve HospitalComment on above:Performed By: #### TSH, DBIL, CMP, LIPID, FT3, T4 #### [facility] [address] [place] [address] Dr. Gabby BrionesUrea nitrogen/Creatinine [Mass ratio]28.9 mg/mgNoCincinnati Shriners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 [place] Assessments Diagnosis Knee pain, unspecified chronicity, unspecified [...] section and content) DATE CREATED AUTHOR 02/28/2022 [facility] DATE CREATED AUTHOR AUTHOR'S ORGANIZ ATION 06/20/2022 [facility] DATE CREATED AUTHOR AUTHOR'S ORGANIZ ATION 10/23/2022 [facility] DATE CREATED AUTHOR AUTHOR'S ORGANIZ ATION 04/12/2023 [facility] DATE CREATED AUTHOR AUTHOR'S ORGANIZ ATION 09/21/[address] [facility] DATE CREATED AUTHOR AUTHOR'S ORGANIZ ATION 12/20/2024 [facility] EPIC REASON FOR VISIT (unrecogniz [...] DateEnd Date Felix Gil MD [address] [place] [facility] [place] [address] [facility]19Team MemberRelationshipSpecialtyStart DateEnd Date Felix Gil MD [address] [place] [address] PCP - General09/02/22Team MemberRelationshipSpecialtyStart DateEnd Date Felix Gil MD [address] [facility] [place] [address] PCP - General09/02/22Team MemberRelationshipSpecialtyStart DateEnd Date Felix Gil MD [address] [place] [address] PCP - General09/02/22Team MemberRelationshipSpecialtyStart DateEnd Date Felix Gil MD [address] [facility] [place] [address] PCP - General09/02/22Team MemberRelationshipSpecialtyStart DateEnd Date Felix Gil MD [address] [place] [address] PCP - General09/02/22Team MemberRelationshipSpecialtyStart DateEnd Date Felix Gil MD [address] [facility] [place] [address] PCP - General09/02/22Team MemberRelationshipSpecialtyStart DateEnd Date Felix Gil MD [address] [facility] [place] [address] PCP - [facility]09/26/24Team MemberRelationshipSpecialtyStart DateEnd Date Felix Gil MD [address] [facility] [place] [address] PCP - [facility]09/26/24Team MemberRelationshipSpecialtyStart DateEnd Date Felix Gil MD [address] [facility] [place] [address] PCP - [facility]09/26/24 Goals (unrecognized section and content) Goals may [...] BE BASED ON THE PRIMARY CLINICAL RECORDS. [facility] [employer] [facility]. provides no warranty or guarantee of the accuracy or completeness of information in this document.
== END 2025-02-28 07:54 | disposition home or self-care (01) ==
LOC: MAMMO 07:53
PROVIDERS: PCP Family Medicine; Visit Provider Family Medicine
DX: Z12.31 Encounter for screening mammogram for malignant neoplasm of breast (principal); Z80.8 Family history of malignant neoplasm of other organs or systems; Z80.41 Family history of malignant neoplasm of ovary
CPT/HCPCS: 77063; 77067